=== PATIENT | male | born 1950 | race Caucasian/White ===

== ENCOUNTER 2016-10-08 20:54 | Inpatient (IN) | payer BC, OTHER ==
[~2016-10-08] VITALS: Ht 167.6 cm; Wt 83.2 kg
[~2016-10-08 20:54] MED LIST: ALLO100T PO; ASPI81TA28 PO; GLIP5TAB11 PO; METF-384 PO; METO50TA16 PO; REPA0.5T PO; SIMV80TA2 PO; TRIA37.5 PO
[2016-10-08] MEDS ORDERED: METOPROLOL TARTRATE 1 MG/ML VIAL IV STA (21:18)
[2016-10-08] MEDS ORDERED: ASPIRIN 81 MG CHEW PO STA (21:18)
[2016-10-08] MEDS ORDERED: PANTOprazole INJ 40 MG in SYRINGE 0 ML IV ONE (21:30)
--- NOTE | 2016-10-08 21:35 | EMERGENCY ROOM VISIT NOTE ---
History Report prepared by Valerie: Parish Galeano Under the Supervision of: Dr. Anil Rodriguez D.O. First contact with patient: 21:16 Chief Complaint: CHEST PAIN Stated Complaint: CHEST PAIN Nursing Triage Summary: Patient ambulatory to triage, states "I had triple bypass surgery in [place] in July. I have been doing well. On Monday, I started having intermittent chest pains in the center of my chest. I started Cardiac Rehab on Monday. I told them about the chest pains I have been having. They ran some tests on me and everything checked out okay. I am still having the pains; it's like a pressure that builds up from the inside. I have noticed that when I belch, the pain eases up some. Tonight, we were out at dinner and I had some beers. I noticed that the pain started coming back and getting worse." Patient denies taking anything for the chest pain this evening. Patient denies any radiation of the pain. Patient denies any shortness of breath, nausea, lightheadedness. Patient has a history of HTN and his blood pressure is high in triage. Right arm 214/121. Left arm in triage note. History of Present Illness The patient is a 66 year old male who presents to the Emergency Room with complaints of persistent left-sided chest discomfort that started 45 minutes prior to arrival. The patient notes that he was resting when the discomfort started. He notes that the discomfort radiates up to his neck and was relieved with belching. He notes at this time the discomfort is resolved. Earlier today, the patient had 7 beers and ate dinner out but the discomfort didn't start until after he returned home. He notes that he had this same discomfort earlier today and 5 days ago and it went away after belching. The patient denies abdominal pain, nausea, vomiting, shortness of breath, or back pain. He has a history of open heart surgery in July. He took his blood pressure medications this morning. Source of History: patient Onset: 45 minutes ago Position: chest (left) Timing: other (persistent) Modifying Factors (Relieving): other (belching) Associated Symptoms: No SOB, No abdominal pain, No back pain, No nausea, No vomiting Note: Other associated symptoms: radiation to neck Review of Systems See HPI for pertinent positives & negatives. A total of 10 systems reviewed and were otherwise negative. Past Medical & Surgical Medical Problems: (1) CHEST PAIN, CAD,DM2 (2) Diabetes (3) NSTEMI, DM2, ART. HTN Family History Patient reports no known family medical history. Social History Smoking Status: Former Smoker Alcohol Use: occasionally Marital Status: Housing Status: lives with significant other Current/Historical Medications Scheduled Allopurinol (Zyloprim), 100 MG PO DAILY Aspirin (Aspirin Ec), 81 MG PO HS Clopidogrel (Plavix), 75 MG PO DAILY Glipizide (Glucotrol), 5 MG PO BID Metformin Hcl (Glucophage), 1,000 MG PO BID Metoprolol Tartrate (Lopressor) (Lopressor), 50 MG PO BID Repaglinide (Prandin), 0.5 MG PO AC Simvastatin (Zocor), 80 MG PO QPM Triamterene/Hctz (Dyazide 37.5MG/25MG), 1 TAB PO DAILY Allergies Coded Allergies: No Known Allergies (Unverified , 07/15/16) Physical Exam Vital Signs Date Time Temp Pulse Resp B/P Pulse Ox O2 Delivery O2 Flow Rate FiO2 10/09/16 00:18 76 19 97 Room Air 10/09/16 00:03 71 18 99 10/08/16 23:58 157/83 10/08/16 23:48 66 20 96 10/08/16 23:43 146/89 10/08/16 23:33 64 17 97 10/08/16 23:28 156/89 10/08/16 23:24 66 20 95 Room Air 10/08/16 23:14 158/107 10/08/16 23:09 67 16 97 10/08/16 22:59 139/81 10/08/16 22:54 68 18 96 10/08/16 22:43 167/88 10/08/16 22:39 67 23 96 10/08/16 22:28 145/81 10/08/16 22:24 66 17 96 10/08/16 22:13 147/88 10/08/16 22:09 67 22 97 10/08/16 22:00 70 20 155/86 98 Room Air 10/08/16 21:58 155/86 10/08/16 21:54 71 22 96 10/08/16 21:44 147/107 10/08/16 21:39 76 21 96 10/08/16 21:33 165/92 10/08/16 21:33 Room Air 10/08/16 21:32 163/96 10/08/16 21:30 80 189/138 10/08/16 21:24 85 23 100 10/08/16 21:21 189/138 10/08/16 21:16 86 10/08/16 21:12 225/126 10/08/16 21:03 97 Room Air 10/08/16 21:01 36.8 92 16 238/121 97 Room Air Physical Exam GENERAL: Patient is awake alert in no acute distress patient is resting comfortably and showing no signs of anxiety EYES: The conjunctivae were injected bilaterally. The pupils are equal round and reactive to light. EARS, NOSE, MOUTH AND THROAT: The nose is without any evidence of any deformity. Mucous membranes are moist tongue is midline NECK: The neck is nontender and supple. RESPIRATORY: Normal respiratory effort is noted there is no evidence of wheezing rhonchi or rales CARDIOVASCULAR: Regular rate and rhythm noted there no murmurs rubs or gallops normal S1 normal S2 GASTROINTESTINAL: The abdomen is soft. Bowel sounds are present in all quadrants. Abdomen is nontender MUSCULOSKELETAL/EXTREMITIES: There is no evidence of gross deformity full range of motion is noted in the hips and shoulders SKIN: There is no obvious evidence of any rash. There are no petechiae, pallor or cyanosis noted. NEUROLOGIC: Patient is awake alert and oriented x3 strength is symmetric patellar reflexes are 2+ bilaterally Medical Decision & Procedures ER Provider Diagnostic Interpretation: X-ray results as stated below per interpretation by me and the radiologist. CHEST ONE VIEW PORTABLE HISTORY: Atypical CHEST PAIN COMPARISON: Chest 07/15/2016. FINDINGS: There are low lung volumes. The cardiac silhouette is mildly enlarged. This is likely accentuated by the low lung volumes. The lungs are clear. No pleural effusions. No pneumothorax. IMPRESSION: Mild enlargement of the cardiac silhouette which is likely accentuated by the low lung volumes. Otherwise, no acute process within the chest. Electronically signed by: Abraham Michelle M.D. 10/08/2016 10:27 PM Dictated Date/Time: 10/08/2016 10:25 PM Laboratory Results Test 10/08/16 21:20 Total Bilirubin 0.2 mg/dl (0.2-1) Direct Bilirubin < 0.1 mg/dl (0-0.2) Aspartate Amino Transf (AST/SGOT) 16 U/L (15-37) Alanine Aminotransferase (ALT/SGPT) 13 U/L (12-78) Alkaline Phosphatase 61 U/L (45-117) Total Protein 8.7 gm/dl (6.4-8.2) Albumin 4.3 gm/dl (3.4-5.0) Laboratory results per my review. Medications Administered Medications (Trade) Dose Ordered Sig/Diana Route Start Time Stop Time Status Last Admin Dose Admin Aspirin 324 mg 324 mg NOW STAT PO 10/08/16 21:18 10/08/16 21:20 DC 10/08/16 21:30 324 MG Pantoprazole Sodium/Syringe (Protonix Inj/ Syringe) 10 ml @ 5 mls/min NOW ONCE IV 10/08/16 21:30 10/08/16 21:31 DC 10/08/16 21:59 5 MLS/MIN Metoprolol Tartrate (Lopressor Iv) 15 mg NOW STAT IV 10/08/16 21:18 10/08/16 21:21 DC 10/08/16 21:30 5 MG ECG Indication: chest pain Rate (beats per minute): 93 Rhythm: normal sinus Findings: ST depression (Inferior and lateral), other (LVH was noted by voltage criteria ) Change: Changes are new when compared to July 16, 2016. Repeat EKG: Normal Sinus Rhythm with a rate of 65. No ectopy, Biphase T-waves in anterior leads with T-wave inversion noted in the lateral leads. Improvement of the previous noted ST depressions. Changes are still new compared to July 16, 2016. ED Course 2116: The patient was evaluated in room B4. A complete history and physical examination were performed. 2117: Ordered Lopressor Iv 15 mg IV, Aspirin 324 mg PO. 2129: Ordered Pantoprazole Sodium 40 mg/ Syringe 10 ml @ 5 mls/min IV. 6: At this time, I discussed the patient's case with Dr. Winters- [employer] [facility] and he agreed to evaluate the patient in the ED for further management. Medical Decision Differential diagnosis: Etiologies such as cardiac ischemia, aortic dissection, pulmonary embolism, pneumonia, pneumothorax, musculoskeletal, infections, pericarditis, myocarditis , esophageal rupture, gastrointestinal, as well as others were entertained. Nursing notes reviewed. Patient's previous electronic medical records reviewed. The patient is a 66-year-old male who presented to the emergency department for an evaluation of left-sided chest pain. The patient states that he was having left-sided chest pain which he described as a pressure. He noted some discomfort in his anterior neck. The patient was found have very elevated blood pressure as well as an abnormal EKG. His EKG showed ST segment depressions compared to previous EKG however the patient had coronary artery bypass grafting last fall and it is possible the changes today are secondary to his post procedure tracing. The patient was treated with aspirin and his blood pressure was lowered using Lopressor IV. The patient had significant relief of his chest pain. The patient's repeat EKG showed improvement of the ST segment depressions but had new T-wave inversions noted. Given the patient's dynamic EKG changes as well as his past medical history I discussed the patient's case with his primary care physician. I discussed the patient's laboratory and radiographic studies with him and his significant other. I also discussed the limitations of the emergency department workup for chest pain with him. Consults Time Called: [phone] Consulting Physician: Dr. Winters - [employer] [facility] Returned Call: [phone] At this time, I discussed the patient's case with Dr. Winters and he agreed to evaluate the patient in the ED for further management. Impression Primary Impression: Left sided chest pain Additional Impression: Abnormal EKG Scribe Attestation The scribe's documentation has been prepared under my direction and personally reviewed by me in its entirety. I confirm that the note above accurately reflects all work, treatment, procedures, and medical decision making performed by me. Departure Information Dispostion Being Evaluated By Hospitalist Referrals Carson Madrigal M.D. (PCP)
[2016-10-08 21:38] LABS: BASO % 0.5 %; BASO ABS # 0.03 K/uL (0-0.2); COMPLETE YES; EOS % 2.7 %; HEMATOCRIT 43.3 % (42-52); IG% 0.2 %; LYMPH % 41.7 %; LYMPH ABS # 2.45 K/uL (1.2-3.4); MEAN CELL VOLUME 88.7 fL (80-100); MEAN CORPUSCULAR HEMOGLOBIN 30.3 pg (25-34); MEAN CORPUSCULAR HGB CONC 34.2 g/dl (32-36); MEAN PLATELET VOLUME 10.6 fL (7.4-10.4); MONO % 7.8 %; NEUT % 47.1 %; PLATELET COUNT 180 K/uL (130-400); RED BLOOD COUNT 4.88 M/uL (4.7-6.1); WHITE BLOOD COUNT 5.87 K/uL (4.8-10.8)
[2016-10-08] MEDS ORDERED: CLOP1TAB15 PO (21:44)
[2016-10-08 22:13] LABS: ALT/SGPT 13 U/L (12-78); BLOOD UREA NITROGEN 24 mg/dl (7-18); BUN/CREATININE RATIO 19.8 (10-20); CALCIUM 9.2 mg/dl (8.5-10.1); CARBON DIOXIDE 27 mmol/L (21-32); CHLORIDE 102 mmol/L (98-107); GLUCOSE 161 mg/dl (70-99); POTASSIUM 3.3 mmol/L (3.5-5.1); SODIUM 139 mmol/L (136-145)
[2016-10-08 22:18] LABS: ALKALINE PHOSPHATASE 61 U/L (45-117); AST/SGOT 16 U/L (15-37); CKMB/CK RATIO 1.1 (0-3.0)
--- NOTE | 2016-10-08 22:28 | DIAGNOSTIC IMAGING REPORT ---
CHEST ONE VIEW PORTABLE HISTORY: Atypical CHEST PAIN COMPARISON: Chest 07/15/2016. FINDINGS: There are low lung volumes. The cardiac silhouette is mildly enlarged. This is likely accentuated by the low lung volumes. The lungs are clear. No pleural effusions. No pneumothorax. IMPRESSION: Mild enlargement of the cardiac silhouette which is likely accentuated by the low lung volumes. Otherwise, no acute process within the chest. Electronically signed by: Abraham Michelle M.D. 10/08/2016 10:27 PM Dictated Date/Time: 10/08/2016 10:25 PM
[2016-10-08 23:39] LABS: AMYLASE 124 U/L (25-115)
[2016-10-09] VITALS (12 sets, daily range): BP systolic 132–208; BP diastolic 74–111; PULSE 63–73; TEMP 36.3–36.6; O2SAT 95–99; Ht 167.6 cm; Wt 83.2 kg
[2016-10-09] MEDS ORDERED: MoRPHine SULFATE 2 MG/ML CARP IV PRN (00:30)
[2016-10-09] MEDS ORDERED: NITROGLYCERIN 0.4 MG SL PER TAB CHARGE SL PRN (00:30)
[2016-10-09] MEDS ORDERED: HEPARIN SOD (PORCINE) 1000 UNIT/ML 10 ML VIAL IV STA (00:51)
[2016-10-09] MEDS: HEPARIN 25,000 UNIT/500ML D5W 500 ML IV PRN ×3 (01:08→20:58)
[2016-10-09 01:16] LABS: PARTIAL THROMBOPLASTIN RATIO 1.1; PROTHROMBIN TIME (PATIENT) 10.2 SECONDS (9.0-12.0)
[2016-10-09] MEDS ORDERED: NITROGLYCERIN OINT 2% 1GM PACKET ONE (01:24)
[2016-10-09] MEDS ORDERED: LORAZEPAM 0.5 MG TAB SL ONE (02:00)
[2016-10-09] MEDS ORDERED: METOPROLOL TARTRATE 50 MG TAB PO STA (02:02)
[2016-10-09] MEDS: HydrALAZINE HCL 20 MG/ML VIAL IV. PRN (02:09)
[2016-10-09] MEDS ORDERED: DEXTROSE 50% 50 ML SYR IV PRN (02:15)
[2016-10-09] MEDS ORDERED: GLUCOSE 10 TABS/TUBE PO PRN (02:15)
[2016-10-09] MEDS ORDERED: GLUCOSE 40% GEL 15 GM TUBE PO PRN (02:15)
[2016-10-09] MEDS ORDERED: GLUCAGON FOR INJ 1 MG VIAL SQ PRN (02:15)
[2016-10-09] MEDS: NSS + 20MEQ KCL 1000ML 1,000 ML IV SCH ×2 (02:23→15:40)
[2016-10-09] MEDS ORDERED: PNEUMOCOCCAL POLYSACCHARIDES 25 MCG/0.5 ML VIAL/SYR IM. ONE (02:30)
[2016-10-09] MEDS ORDERED: PNEUMOCOCCAL ADMINISTRATION CHARGE ONE (02:30)
[2016-10-09 03:19] LABS: CKMB/CK RATIO 3.4 (0-3.0)
--- NOTE | 2016-10-09 03:55 | HISTORY & PHYSICAL EXAMINATION ---
DATE OF ADMISSION: 10/09/2016 A 66-year-old male admitted through the Emergency Room with recurrent episodes of chest pain, known coronary artery disease and history of 3-vessel coronary artery bypass graft in July 2016. HISTORY OF PRESENT ILLNESS: The patient with multiple medical problems including arterial hypertension, type 2 diabetes mellitus, hyperlipidemia and gout. He presented on 07/15/2016 with recurrent episodes of chest pain. He had a non-ST segment elevation myocardial infarction. He had a cardiac catheterization done by Dr. Juan Eisenberg. It showed evidence of a 70% long diffuse stenosis of the proximal to mid LAD, 95% stenosis of his distal circumflex and 100% occlusion of his right coronary artery with collateral circulation. The patient was transferred to [facility]. On 07/19/2016, he had a 3-vessel coronary artery bypass graft done by Dr. Jah Brantley. He had a MEDINA to LAD and saphenous vein graft to the distal right coronary artery with endarterectomy and also a saphenous vein graft to his circumflex. He also had endoscopic vein harvesting. The patient has been doing well since his bypass surgery. He has not had any recurrent chest pain. He has been seen by Dr. Eisenberg in cardiology followup. He is undergoing cardiac rehabilitation. The patient presented to the Emergency Room tonight with recurrent chest pain. Actually, the problem started this past Monday and he had an episode of chest pressure and tightness that lasted about 5-10 minutes. It was at rest. He denied any associated shortness of breath, no diaphoresis, no nausea, no vomiting and no lightheadedness. On Monday, which is four days ago, he went to cardiac rehabilitation. He told the nurse at the cardiac rehabilitation about the episode of chest discomfort that he had and they did call Dr. Eisenberg' office. On he had another episode, but he described it as very mild. No associated symptoms and was not associated with any exertion. On Monday, he went back to cardiac rehabilitation and he went through his exercises; he denied having any as chest discomfort, pressure, tightness or any shortness of breath. Today, after breakfast, he had another episode of chest pressure, but was very short-lasting. None throughout the day, until this evening, around 7:00 p.m. they went to a restaurant and had seafood and also from the afternoon till this evening he had 6 beers. After he ate dinner they drove to his daughter's house which was about 1 hour away and when he got to the garage he was having recurrent chest pain. It was persistent; more intense than it was before. He decided to drive home, they live about 20 hours away from his daughter's house, but he decided to have his drive him to the Emergency Room because this time the episode lasted a little over half an hour. He denied any diaphoresis, denied any shortness of breath. No nausea, no vomiting. No lightheadedness. He was still having pain even after he arrived to the Emergency Room. His blood pressure was markedly elevated. He was evaluated by Dr. Rodriguez. His blood pressure was markedly elevated, but it came down gradually in the Emergency Room, he became pain-free. I saw the patient in the Emergency Room. He was resting comfortably. His workup was initiated. He is being admitted to PCU with telemetry for further evaluation and treatment. PAST MEDICAL HISTORY: 1. As noted above he does have coronary artery disease with non-ST segment elevation myocardial infarction in July of 2016 followed by a 3-vessel coronary artery bypass graft with MEDINA to LAD and saphenous vein graft to the distal RCA with endarterectomy and saphenous vein graft to the circumflex artery. 2. Type 2 diabetes mellitus, longstanding. He is on a triple drug regimen of oral hypoglycemics. 3. Arterial hypertension, longstanding, treated. 4. Hyperlipidemia, also treated, he is on the maximum dose of simvastatin 80 mg daily. 5. History of gout, no recent acute inflammation. 6. Herniated L3-L4 disc in 2012; he had epidural injections done by Dr. Mesa. SOCIAL HISTORY: He is , has 4 children. He did smoke cigars 1-2 per day. He started smoking about 40 years ago. He was also chewing tobacco. He stopped chewing and started smoking. He also has a history of cigarette smoking in the remote past in his younger years, but now he has stopped completely since his myocardial infarction and bypass surgery. He does drink alcohol intermittently. As an example, he stated that today he had a total of about 6 beers; he does not do that on a daily basis. No excessive coffee, tea or soft drinks. 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 FAMILY HISTORY: His mother is 89, doing well. She does have kidney disease; not sure, but he thought it was medication induced. She is doing well. His father of colon cancer and liver metastases. He did have an UT at age 42. He had 2 brothers and 4 sisters, doing well. Children, doing well. ALLERGIES: None. MEDICATIONS ON ADMISSION: All as noted on his home medication list. REVIEW OF SYSTEMS: At this point, he is resting comfortably. He has no headache, no dizziness, no lightheadedness. No chest discomfort whatsoever at this point. No shortness of breath. No abdominal pain, no nausea, no vomiting. Has not had any problem with his bowel movements or urination. No pain in his back or extremities. PHYSICAL EXAMINATION: GENERAL: Well-developed, in no distress. His recorded weight is 86.5 kg, height 172.7 cm, BMI 29. VITAL SIGNS: On arrival to the Emergency Room, his blood pressure was 225/126, he was medicated, it gradually came down. The last blood pressure is 155/86, pulse 70 and regular, respirations 20, temperature 36.8 and oxygen saturation 98% on room air. SKIN: Warm and dry. No rash. HEENT: No mucosal abnormalities. NECK: Supple. Nontender. No adenopathy, no thyromegaly. No JVD. Normal carotid pulses. No carotid bruits. CHEST: Scar from bypass surgery. HEART: Regular heart sounds with 2/6 systolic murmur. LUNGS: Clear. ABDOMEN: Soft, nontender, without organomegaly or masses. BACK: No spinal tenderness. EXTREMITIES: No edema, clubbing or cyanosis. No joint or muscle tenderness. Absent right dorsalis pedis pulse. The rest of his pedal pulses were excellent. NEUROLOGIC: He is alert and oriented without evidence of any deficits. LABORATORY TESTS: WBC count 5870, hemoglobin 14.8, hematocrit 43.3, platelet count 180,000. Sodium 139, potassium 3.3, chloride 102, CO2 27, BUN 24, creatinine 1.2, glucose 161, calcium 9.2, total bilirubin 0.2, direct bilirubin less than 0.1, AST 16, ALT 13, alkaline phosphatase 61, amylase 124, lipase 428, total CK 138, MB fraction 1.5, troponin I 0.026, total protein 8.7, albumin 4.3. His PT and PTT are pending. His chest x-ray showed post-surgical changes. Mild enlargement of the cardiac silhouette, but this is a portable view. No acute changes are noted. His electrocardiogram is abnormal showing significant ST-T wave changes in the lateral leads. ASSESSMENT: 1. Chest pain, consistent with angina pectoris. 2. Coronary artery disease. 3. Status post 3-vessel coronary artery bypass graft on 07/19/2016 with left internal mammary artery to left anterior descending, saphenous vein graft to the distal right coronary artery and another saphenous vein graft to the circumflex. 4. Arterial hypertension. 5. Hyperlipidemia. 6. Type 2 diabetes mellitus. 7. Gout. PLAN: The patient was seen in the Emergency Room. After I saw him, he was started on IV heparin. He is continued on his medications including his aspirin, Plavix, simvastatin and metoprolol tartrate. He was started on heparin with a bolus, continued on his medications. Cardiac isoenzymes and serial electrocardiograms were ordered. We will obtain an echocardiogram first thing in the morning. He was placed on a sliding scale coverage with insulin. All his oral hypoglycemics are held. He was started on IV fluids with potassium chloride to correct his hypokalemia. As far as his cardiac workup, cardiac isoenzymes and serial electrocardiograms were ordered. I also spoke with Dr. Bala Dubon. I will keep the patient n.p.o. after midnight except for sips and medications. We will monitor his condition through the night. We will repeat his electrocardiogram in the morning. Dr. Dubon will see him in the morning. I spoke with him tonight. We need to decide whether the patient will have a cardiac catheterization needed to be done here at our hospital or transferring the patient to [facility]. I will wait for Dr. Dubon's recommendation and evaluation. At this time, the patient is quite stable. He was also started on topical nitrates. MTDD
[2016-10-09 06:36] LABS: BASO % 0.4 %; BASO ABS # 0.02 K/uL (0-0.2); COMPLETE YES; EOS % 3.4 %; HEMATOCRIT 38.8 % (42-52); IG% 0.2 %; LYMPH % 33.6 %; LYMPH ABS # 1.79 K/uL (1.2-3.4); MEAN CELL VOLUME 87.8 fL (80-100); MEAN CORPUSCULAR HEMOGLOBIN 29.6 pg (25-34); MEAN CORPUSCULAR HGB CONC 33.8 g/dl (32-36); MONO % 8.1 %; NEUT % 54.3 %; PLATELET COUNT 164 K/uL (130-400); RED BLOOD COUNT 4.42 M/uL (4.7-6.1); WHITE BLOOD COUNT 5.33 K/uL (4.8-10.8)
[2016-10-09 06:56] LABS: PARTIAL THROMBOPLASTIN RATIO 2.5
[2016-10-09 07:04] LABS: CALCIUM 8.3 mg/dl (8.5-10.1); MAGNESIUM 1.8 mg/dl (1.8-2.4); POTASSIUM 3.8 mmol/L (3.5-5.1)
[2016-10-09] MEDS: INSULIN ASPART 100 UNITS/ML 3 ML PEN SC SCH ×4 (08:03→21:00)
[2016-10-09] MEDS: NITROGLYCERIN OINT 2% 1GM PACKET EXT SCH ×3 (08:03→20:07)
[2016-10-09] MEDS: METOPROLOL TARTRATE 50 MG TAB PO SCH ×2 (08:04→20:10)
[2016-10-09] MEDS: ASPIRIN 81 MG ECTAB PO SCH (08:04)
[2016-10-09] MEDS: CLOPIDOGREL BISULFATE 75 MG TAB PO SCH (08:05)
[2016-10-09] MEDS: ALLOPURINOL 100 MG TAB PO SCH (08:05)
[2016-10-09 09:35] LABS: CKMB/CK RATIO 4.3 (0-3.0)
[2016-10-09] MEDS ORDERED: PERFLUTREN LIPID MICROSPHERE (DEFINITY) IV ONE (10:35)
[2016-10-09] MEDS ORDERED: LISINOPRIL 5 MG TAB PO ONE (11:00)
--- NOTE | 2016-10-09 11:36 | ECHOCARDIOGRAM REPORT ---
*NOTICE TO RECEIVING [employer] This information is strictly Confidential and protected under [place] law. [place] law prohibits you from making any further disclosure of this information unless further disclosure is expressly permitted by the written consent of the person to whom it pertains or is authorized by law. A general authorization for the release of medical or other information is not sufficient for this purpose. Hospital accepts no responsibility if the information is made available to any other person, INCLUDING THE PATIENT. Interpretation Summary * Name: ALPHONSO BRYANT Study Date: 10/09/2016 09:27 AM * Patient Location: 2\S\S240\S\2 * : 1950 (M/d/yyyy) Gender: Male Height: 66 in * Age: 66 yrs Ethnicity: [place] Weight: 188 lb * Ordering Physician: Bala Dubon * Referring Physician: Self, Referred * Performed By: Alphonso Rousseau RDCS * Account# M\S\[facility]\S\To be read/performed by: * Reason For Study: Chest discomfort, AMI * BSA: 1.9 m2 -- Conclusions -- * LVEF 50-55%. * Basal inferior wall hypokinesis with normal mid and distal inferior wall motion. Hypokinetic septal segments consistent with postoperative status. * Severe concentric left ventricular hypertrophy similar to previously. * The left atrium is moderately dilated. * Mild valvular aortic stenosis versus heavy sclerosis. * Right ventricular systolic pressure is normal. * Grade I diastolic dysfunction, (abnormal relaxation pattern). Procedure Details * A complete two-dimensional transthoracic echocardiogram was performed (2D, M-mode, Doppler and color flow Doppler). * The study was technically adequate. * Contrast was injected into an intravenous site in the left arm. * One vial of Definity ultrasound contrast was diluted in normal saline to a total volume of 10 ml. A total of '4' ml of solution was administered during imaging. * Lot # [id number] of Definity utilized for procedure. * Expiration date . * The attending nurse who injected the contrast agent was JENY Howe. Left Ventricle * The left ventricle is grossly normal size. * There is severe concentric left ventricular hypertrophy. * Ejection Fraction = 50-55%. * Septal motion is consistent with post-operative state. Right Ventricle * The right ventricle is grossly normal size. * The right ventricular systolic function is normal. Atria * The left atrium is moderately dilated. * Right atrial size is normal. Mitral Valve * There is mild mitral annular calcification. * There is no mitral valve stenosis. * There is mild mitral regurgitation. Tricuspid Valve * The tricuspid valve is not well visualized. * Significant tricuspid regurgitation is absent. * There is trace tricuspid regurgitation. * Right ventricular systolic pressure is normal. Aortic Valve * Mild valvular aortic stenosis. * There is no significant aortic regurgitation. Pulmonic Valve * The pulmonic valve is not well visualized. * There is no significant pulmonary regurgitation. * Mild pulmonic valvular regurgitation. Left Ventricular Diastolic Function * Grade I diastolic dysfunction, (abnormal relaxation pattern). MMode 2D Measurements and Calculations IVSd 1.9 cm IVSs 2.5 cm LVIDd 5.2 cm LVIDs 3.2 cm LVPWd 1.8 cm LVPWs 2.1 cm IVS/LVPW 1.0 FS 38.5 % EDV(Teich) 129.3 ml ESV(Teich) 40.9 ml EF(Teich) 68.4 % EDV(cubed) 140.4 ml ESV(cubed) 32.7 ml EF(cubed) 76.7 % % IVS thick 36.8 % % LVPW thick 19.0 % LV mass(C)d 456.4 grams LV mass(C)dI 234.3 grams/m\S\2 LV mass(C)s 375.7 grams LV mass(C)sI 192.9 grams/m\S\2 SV(Teich) 88.4 ml SI(Teich) 45.4 ml/m\S\2 SV(cubed) 107.6 ml SI(cubed) 55.2 ml/m\S\2 EPSS 0.63 cm Ao root diam 2.9 cm Ao root area 6.8 cm\S\2 ACS 0.78 cm LA dimension 5.3 cm asc Aorta Diam 3.5 cm LA/Ao 1.8 LVOT diam 2.1 cm LVOT area 3.4 cm\S\2 LVOT area(traced) 3.5 cm\S\2 LVAd ap4 42.6 cm\S\2 LVLd ap4 10.0 cm EDV(MOD-sp4) 148.0 ml LVAs ap4 24.4 cm\S\2 LVLs ap4 7.6 cm ESV(MOD-sp4) 64.0 ml EF(MOD-sp4) 56.8 % LVAd ap2 32.1 cm\S\2 LVLd ap2 7.6 cm EDV(MOD-sp2) 112.0 ml LVAs ap2 20.3 cm\S\2 LVLs ap2 7.2 cm ESV(MOD-sp2) 50.0 ml EF(MOD-sp2) 55.4 % SV(MOD-sp4) 84.0 ml SI(MOD-sp4) 43.1 ml/m\S\2 SV(MOD-sp2) 62.0 ml SI(MOD-sp2) 31.8 ml/m\S\2 Doppler Measurements and Calculations MV E max beck 51.3 cm/sec MV A max beck 60.2 cm/sec MV E/A 0.85 MV dec time 0.32 sec Ao V2 max 218.1 cm/sec Ao max PG 19.0 mmHg Ao max PG (full) 16.6 mmHg Ao V2 mean 157.0 cm/sec Ao mean PG 10.9 mmHg Ao mean PG (full) 9.6 mmHg Ao V2 VTI 48.4 cm EDU(I,A) 1.2 cm\S\2 EDU(I,D) 1.2 cm\S\2 EDU(V,A) 1.2 cm\S\2 EDU(V,D) 1.2 cm\S\2 LV V1 max PG 2.5 mmHg LV V1 mean PG 1.3 mmHg LV V1 max 78.5 cm/sec LV V1 mean 51.3 cm/sec LV V1 VTI 17.5 cm SV(Ao) 330.3 ml SI(Ao) 169.5 ml/m\S\2 SV(LVOT) 60.0 ml SI(LVOT) 30.8 ml/m\S\2 PA V2 max 150.4 cm/sec PA max PG 9.0 mmHg PI end-d beck 136.3 cm/sec
--- NOTE | 2016-10-09 11:54 | CARDIOLOGY CONSULTATION ---
DATE OF CONSULTATION: 10/09/2016 REASON FOR CONSULTATION: Non-ST elevation [place]. HISTORY OF PRESENT ILLNESS: Alphonso is a 66-year-old male with a known coronary artery disease. In July 2016, he had chest discomfort and underwent cardiac catheterization with multivessel disease and was sent for coronary artery bypass grafting. On 07/19/2016, he underwent 3-vessel bypass at [facility]. He has done well, but over the last week, he has had chest discomfort mostly with minimal to no exertion. He had been doing cardiac rehabilitation with minimal to no symptoms and most of his symptoms occurred at rest. Yesterday, he was out to dinner and developed chest discomfort in the middle of the day, it dissipated and then later came back and did not go away after one half hour and therefore, he presented to the Emergency Room. Troponins are noted to be elevated with some ECG changes as well. Currently, the patient is chest pain free. With his chest discomfort yesterday and during the past week, he denied any associated symptoms. Denied any shortness of breath, nausea, vomiting, radiation, syncope, bleeding, lightheadedness, or presyncopal symptoms. Denies any edema and is overall doing well. No tenderness to palpation on his chest. During his cardiac rehabilitation sessions, he had done relatively well and 2 days ago, even with increased the aggressiveness of his rehabilitation without developing symptoms. That being said, his troponin is now elevated. He is symptom free on his medical regimen at this time. He was noted to be hypertensive overnight, which resolved quickly with hydralazine as well as time. I had a discussion with him today as well as his family at bedside. I also discussed the case with Dr. Winters and all are in agreement of the plan as listed below. REVIEW OF SYSTEMS: All other systems are reviewed and negative at this time. PAST MEDICAL HISTORY: Coronary artery disease with history of revascularization. Diabetes mellitus, hypertension, hyperlipidemia, history of gout, and back issues with a history of epidural injections. Previous tobacco abuse, which he has since quit. He has social alcohol use. He had 6 beers yesterday. PAST SURGICAL HISTORY: 1. CABG in July 2016 with MEDINA-LAD, SVG-RCA, and SVG-left circumflex. 2. Epidural injections with Dr. Mesa for herniated disk in the lumbar spine in 2012. ALLERGIES: Denies. SOCIAL HISTORY: Prior tobacco abuse. Currently, negative for tobacco and drug use. He has social alcohol use. FAMILY HISTORY: Noncontributory given his own disease, but positive for premature coronary artery disease. IMMUNIZATIONS: Unknown. INPATIENT MEDICATIONS: Include saline, nitroglycerin ointment, aspirin, Plavix, metoprolol tartrate 50 mg twice daily, simvastatin 80 mg nightly, insulin sliding scale, heparin drip, and hydralazine as needed, which he did take last night. I have added lisinopril 5 mg to his medical regimen. He has been on aspirin and Plavix previously at home because of his recent non-ST elevation [place]. PHYSICAL EXAMINATION: VITAL SIGNS: Temperature 36.6, pulse 70, respiratory rate 20, blood pressure 148/78, and oxygen saturation 97% and 99% on 2 liters. GENERAL: He is awake, alert, and oriented x3, in no acute distress. Normocephalic and atraumatic. NECK: No jugular venous distention. No carotid bruits. HEART: Rate is regular with a 2/6 systolic murmur heard best at the sternal border with no radiation. No other murmurs, rubs or gallops. LUNGS: Clear to auscultation bilaterally with no wheezes, rales or rhonchi. ABDOMEN: Soft, nontender, and nondistended with positive bowel sounds. No rebound or guarding. No tenderness to palpation of the chest. EXTREMITIES: No edema in all 4 extremities. Radial pulses are 2+ equal bilaterally. Dorsalis pedis 1+ equal bilaterally. No catheter. NEUROLOGIC: No focal neurological deficits. Mood and personality are appropriate and he answers all questions appropriately. LABORATORY DATA: White count 5, hemoglobin 13.1, and platelets 164. INR 1. Potassium 3.8, BUN 19, creatinine 1, and glucose 150. Troponin trend has been 0.026, 0.731, and 1.6. Chest x-ray personally reviewed with no acute disease. Electrocardiogram personally reviewed: Sinus rhythm with T-wave abnormalities anterolaterally. Echocardiogram 07/16/2016, which was prior to his coronary artery bypass grafting. EF 50%-55% with severe LVH. Hypokinetic basal inferior and basal inferolateral segments. Mild aortic stenosis, which is a trileaflet valve and restriction of the left coronary cusp. Diastolic dysfunction is also present. Per the report, aortic valve gradient at that time shows a max pressure gradient of 12.3. Echocardiogram is pending. Cardiac catheterization 07/16/2016: Right radial access. Dr. Eisenberg performed the procedure. Left main calcified. LAD heavily calcified with 70% diffuse long proximal to mid stenosis. Distal LAD 40%. Left circumflex is calcified with 30% mid disease. A moderate sized OM3 with 95% proximal stenosis. RCA is dominant, heavily calcified with a chronically occluded 100% mid segment occlusion. Left to right collateral fills the right-sided posterolateral branches. He was therefore sent for a coronary artery bypass graft, which he received 3 bypasses on 07/19/2016. IMPRESSION: 1. Non-ST elevation myocardial infarction. 2. Coronary artery disease with a history of CABG in July 2016. 3. Hypertension. 4. Hyperlipidemia. 5. Diabetes mellitus. 6. Previous tobacco abuse. RECOMMENDATIONS: Alphonso is a 66-year-old male with known coronary artery disease. Troponin is elevated and continues to rise. He is currently asymptomatic and tolerating his medical regimen, which includes aspirin, Plavix, beta ramesh, nitro, and heparin drip. I am adding lisinopril to his medical regimen. I recommend cardiac catheterization and he is agreeable for this plan. We need to visualize his bypass grafts as well as his mechoopda coronary arteries to determine if there is an etiology for this discomfort and whether or not any revascularization or stenting needs to be performed. He understands the risk of the procedures as we discussed this in detail. A redo-left radial or femoral access can be obtained and we will leave that up to the track hoe operator, who will be performing the procedure tomorrow. If he would develop any significant symptoms or hemodynamic instability, we can perform the procedure sooner in a more emergent situation. RONDA
--- NOTE | 2016-10-09 16:50 | PROGRESS NOTE ---
DATE: 10/09/2016 HISTORY OF PRESENT ILLNESS: A 66-year-old male admitted with recurrent chest pain. He does have coronary artery disease. In July of 2016, he had a non-ST segment elevation myocardial infarction. He had multivessel coronary artery disease and was transferred to [facility] where he had a 3-vessel coronary artery bypass graft with MEDINA to LAD and saphenous vein graft to his RCA and another saphenous vein graft to the circumflex. The patient was complaining of chest pain. He was evaluated in the Emergency Room. He does have new EKG changes in the lateral leads. His first troponin I was normal but the second one did increase to 0.731 and the third one early this morning was up to 1.6. The patient remains completely pain free. He denied any headache. No dizziness. No lightheadedness. No chest pain. No chest pressure or tightness. No shortness of breath. No abdominal pain, no nausea, no vomiting. No problem urinating. No pain in his back or extremities. The patient was seen early this morning by Dr. Bala Dubon. An echocardiogram was ordered. Dr. Dubon had a long discussion with the patient and his family and a cardiac catheterization was recommended. PHYSICAL EXAMINATION: GENERAL: Well developed, in no distress. VITAL SIGNS: Blood pressure 148/78, pulse 70, respiration 20, temperature 36.6, oxygen saturation 97% on room air. SKIN: Warm and dry. No rash. HEENT: No evidence of any mucosal abnormality. NECK: No JVD. No adenopathy. HEART: Regular heart sounds with 2/6 systolic murmur. LUNGS: Clear. ABDOMEN: Soft, nontender. No organomegaly. No masses. BACK: No spinal tenderness. EXTREMITIES: No edema, clubbing, or cyanosis. TODAY'S LABORATORY TESTS: WBC count 5330, hemoglobin 13.1, hematocrit 38.8 and platelet count 164,000. Sodium 140, potassium 3.8, chloride 107, CO2 24, BUN 19, creatinine 1.0, glucose 150, calcium 8.3, magnesium 1.8. Amylase 95, lipase 317. ASSESSMENT: 1. Non-ST segment elevation myocardial infarction. 2. Coronary artery disease. 3. Status post 3-vessel coronary artery bypass grafting in July of 2016. 4. Type 2 diabetes mellitus. 5. Arterial hypertension. 6. History of gout. 7. History of smoking. PLAN: 1. We will continue the same medications including IV heparin. 2. As noted, he was seen in consultation by Dr. Dubon. 3. We are planning on doing a cardiac catheterization tomorrow by Dr. Jones. 4. Based on those results, further treatment recommendations will be made. 5. I spoke with the patient and his family this morning.
[2016-10-09 16:58] LABS: CKMB/CK RATIO 3.4 (0-3.0)
[2016-10-09] MEDS: SIMVASTATIN 80 MG TAB PO SCH (20:10)
[2016-10-10] VITALS (18 sets, daily range): BP systolic 129–172; BP diastolic 75–97; PULSE 55–78; TEMP 36.5–36.9; O2SAT 92–98
[2016-10-10] MEDS: NITROGLYCERIN OINT 2% 1GM PACKET EXT SCH ×4 (02:09→20:17)
[2016-10-10] MEDS: NSS + 20MEQ KCL 1000ML 1,000 ML IV SCH (04:33)
[2016-10-10 07:28] LABS: MEAN CELL VOLUME 87.6 fL (80-100); MEAN CORPUSCULAR HEMOGLOBIN 29.3 pg (25-34); MEAN CORPUSCULAR HGB CONC 33.4 g/dl (32-36); PLATELET COUNT 148 K/uL (130-400); RED BLOOD COUNT 4.34 M/uL (4.7-6.1)
[2016-10-10] MEDS: ASPIRIN 81 MG ECTAB PO SCH (07:46)
[2016-10-10] MEDS: LISINOPRIL 5 MG TAB PO SCH (07:46)
[2016-10-10] MEDS: METOPROLOL TARTRATE 50 MG TAB PO SCH ×2 (07:47→20:16)
[2016-10-10] MEDS: CLOPIDOGREL BISULFATE 75 MG TAB PO SCH (07:47)
[2016-10-10] MEDS: ALLOPURINOL 100 MG TAB PO SCH (07:47)
[2016-10-10] MEDS: INSULIN ASPART 100 UNITS/ML 3 ML PEN SC SCH ×4 (07:50→20:24)
[2016-10-10 07:55] LABS: BUN/CREATININE RATIO 15.5 (10-20); CALCIUM 8.3 mg/dl (8.5-10.1); CREATININE 1.1 mg/dl (0.60-1.40); POTASSIUM 4.1 mmol/L (3.5-5.1)
[2016-10-10] MEDS ORDERED: HEPARIN SOD (PORCINE) 1000 UNIT/ML 10 ML VIAL ONE (10:48)
[2016-10-10] MEDS ORDERED: NiCARDipine HCL INJ 2.5 MG/ML 10 ML AMP ONE (10:48)
[2016-10-10] MEDS ORDERED: MIDAZOLAM HCL 1 MG/ML 2ML VIAL ONE ×2 (10:48→12:10)
[2016-10-10] MEDS ORDERED: FENTANYL CITRATE INJ 50 MCG/1 ML 2 ML VIAL ONE ×2 (10:49→12:10)
[2016-10-10] MEDS ORDERED: NITROGLYCERIN/D5W 100MCG/ML 20ML SYR ONE (10:50)
--- NOTE | 2016-10-10 11:04 | Procedure Note ---
Pre-Mod Sedation Assessment General Date of Moderate Sedation: Oct 10, 2016. Vital Signs: Vital Signs Past 12 Hours Date Time Temp Pulse Resp B/P Pulse Ox O2 Delivery O2 Flow Rate FiO2 10/10/16 10:03 36.7 76 19 129/75 97 Room Air 10/10/16 08:07 36.7 76 19 129/75 97 Room Air 10/10/16 08:00 Room Air 10/10/16 04:34 97 Nasal Cannula 10/10/16 03:00 36.5 71 20 150/77 98 Room Air 10/10/16 00:04 97 Nasal Cannula 10/09/16 23:19 36.6 67 18 132/81 97 Room Air Review Cardiovascular: regular rate, rhythm, + systolic murmur Abdomen: normal bowel sounds, non tender, soft Lungs: lungs clear Pre-Sedation Airway Assessment Oral Cavity: WNL Able to Visualize Vocal Cords: No Short Thick Neck: No Hx of Sleep Apnea: No Smoking Status: Former Smoker Mallampati Classification: Class III Procedure Planning Contraindications-for Mod Sed: None Yes Notes The planned sedation has been discussed with the patient and consent obtained. I have identified the patient, determined the appropriateness of sedation and have assessed the patient immediately prior to the procedure. All medicine(s) and interventions are by my order.
[2016-10-10] MEDS ORDERED: LIDOCAINE/EPINEPHRINE 1% 20 ML VIAL ONE (12:09)
[2016-10-10] MEDS ORDERED: SODIUM CHLORIDE 0.9% 1000ML 250 ML IV PRN (12:46)
[2016-10-10] MEDS ORDERED: ATROPINE SULFATE 0.1 MG/ML 5ML SYR IV PRN (13:00)
[2016-10-10] MEDS ORDERED: ACETAMINOPHEN 325 MG TAB PO PRN (13:00)
[2016-10-10] MEDS ORDERED: ONDANSETRON INJ 2 MG/ML 2 ML VIAL IV PRN (13:00)
[2016-10-10] MEDS: SODIUM CHLORIDE 0.9% 1000ML 1,000 ML IV SCH (14:25)
--- NOTE | 2016-10-10 14:59 | Cardiac Catheterization ---
Procedure Note Procedure Date Oct 10, 2016. Pre-Procedure Diagnosis Non STEMI, CAD AUC Score 8 Post-Procedure Diagnosis Severe CAD, Decreased LV Systolic Function (LVEF 50%), Normal Intracardiac Pressures Procedure(s) Performed Coronary Angiography, Left Heart Cath, LV Angiography, Bypass Graft Angiography , Femoral Artery Angiography Base Wad Operator Adjuster Dr. Jones Body Maker Machine Setter(s) URVASHI Cavazos Estimated Blood Loss Medication(s) Fentanyl, Heparin, Versed, Lidocaine 1% Summary of Findings Clinical indications: History of non ST elevation myocardial infarction July 2016. Cardiac catheterization performed at [facility] July 16, [address] Juan Eisenberg revealed diffusely calcified proximal to mid LAD with a 70 percent stenosis, 95 percent proximal 3rd obtuse marginal stenosis, and a total mid RCA occlusion. Right to left and left to right collateral flow . He was referred to [facility] for CABG surgery. On July 19 3 vessel CABG surgery performed by Dr. Jah Brantley: Pruitt-Lad; SVG-RCA; SVG-left circumflex OM 3. admission to [facility] October 08 2 ceased 1017 with rest anginal symptoms. Troponin I elevated to 1.970. Electrocardiogram with anterior T-wave inversions V3-V6. Echocardiogram October 09, 2016 with basal inferior wall hypokinesis. Hypokinesis of the septum. Severe concentric LVH. Left ventricular diastolic dysfunction. Mild mitral and trace tricuspid regurgitation. Mild pulmonic regurgitation. Aortic valve sclerosis with minimal stenosis. Mean gradient across aortic valve 10.9 millimeters Hg. Catheterization site: 6 [place]ar[place]uan sheath right femoral artery. Diagnostic catheters: 6 [place]ar[place]uan JL4, JR4, multipurpose, and JON diagnostic catheters. Hemostasis: 6 [place]uan StarClose vascular closure device. Complications: None Interpretation: Fluoroscopy revealed coronary calcifications, surgical clips, sternal wire sutures. The proximal LAD and left circumflex coronary artery were heavily calcified. The coronary circulation was right dominant. The left main coronary was a large caliber long vessel without obstructive disease. It gave rise to medium caliber left anterior descending and left circumflex coronary arteries. The proximal LAD had a 30 percent stenosis. After a prominent septal perforators the mid LAD had sequential 30 in 50 percent stenoses. After giving rise to a bifurcating diagonal artery ,the mid LAD had competitive flow. There appeared to be a severe stenosis at this site. Left internal mammary artery bypass graft angiography revealed the vessel to be free of obstructive disease. It. gave rise to an end to side anastomosis to a small caliber latter mid LAD. There was a 70% anastomotic stenosis. Immediately after this anastomosis the LAD had a discrete 95 percent stenosis. The apical LAD had a 30 percent stenosis. The very proximal left circumflex gave rise to a long bifurcating small caliber 1st marginal artery. The 1st marginal had a 30 percent ostial stenosis and 50 percent proximal stenosis. The mid circumflex itself had sequential 30 in 75 percent stenoses. After giving rise to a small caliber 2nd marginal artery the circumflex gave rise to a 3rd marginal artery. Third marginal had a total proximal occlusion. The vein graft to the 3rd marginal had 20 percent ostial and proximal narrowing. The graft gave rise to a patent end to side anastomosis to the 3rd marginal. Distal to the anastomosis , the distal marginal had a 50 percent stenosis. The marginal filled via retrograde flow to its proximal segment. The right coronary was a medium caliber vessel. Sequential 75 in 50 percent proximal stenoses. After giving rise to 2 very small caliber RV branches the mid RCA was totally occluded. The 1st RV branch had an 80 percent ostial stenosis and 95-99 percent proximal stenosis. The vein graft to the RCA had a patent aortic an anastomosis. 20 percent proximal narrowing. 70 percent distal narrowing. The anastomotic site had a 90 percent stenosis. This was an end to side anastomosis. The distal RCA after the anastomosis had a 75 percent stenosis. The distal RCA gave rise to a small caliber PDA which had minor luminal irregularities. It gave rise to 2 very small caliber posterolateral branches each of which had 30 percent ostial stenoses. left ventricular angiography performed from the 30 degree right anterior oblique projection using the multipurpose catheter and hand injection of contrast dye revealed the posterior basal and diaphragmatic segments to be hypokinetic. The apical, anterolateral, anterobasal segments contracted normally. No mitral regurgitation. LV ejection fraction 50 percent. Right femoral artery angiography revealed the sheath to be present in the right common femoral artery. The right common femoral artery had no obstructive disease. It gave rise to right superficial femoral and profunda arteries. The profunda had 10-20 percent atherosclerotic narrowing in its proximal segment. The right external iliac artery had no obstructive disease. Plan: The patient has been referred to the [facility] for consideration of percutaneous coronary intervention to the LAD stenosis and to the anastomotic stenosis of the vein graft to the RCA. He will be placed back on intravenous heparin. He will remain on beta-ramesh, Lucio inhibitor, statin, and aspirin therapy. l Hemodynamics Rest Ao: 116/57/81 mm Hg Final Ao: 140/60/93 mm Hg LV: 129/10 mm Hg Recommendations PCI without planned CABG, management recommendations (Transfer to [facility] for consideration of PCI) Specimens None Radiation Exposure (mGy) 3608 Contrast (mls) 200 ml Optiray Fluids (cc crystalloids) 102 Drains none Anesthesia IV Versed, fentanyl. Lidocaine 1 % local Procedural Complication(s) None Disposition PCU ACC Data Cardiac Status Clinical evaluation leading to the procedure CAD Presntation: Unstable angina, Non STEMI Anginal Classification: CCS IV Heart Failure: No Cardiogenic Shock w/in 24Hrs: No Cardiac Arrest w/in 24Hrs: No Imaging studies past 6 months: Yes Stress studies past 6 months: No Standard Exercise Stress Test: No Stress Echocardiogram: No Stress Testing w/SPECT MPI: No Cardiac CTA: No Coronary Anatomy Dominant: Right Left Main (% Stenosis): Normal LAD (% Stenosis): Proximal (30), Mid (30.50.95), Distal (95% after graft anastomosis) Circumflex (% Stenosis): Mid (30,75) OM1 (% Stenosis): Ostial (30), Proximal (50) OM3 (% Stenosis): Proximal (100) RCA (% Stenosis): Proximal (75.50), Mid (100), Distal (95) R PDA (% Stenosis): Proximal (0-10), Mid R PL1 (% Stenosis): Proximal (10-20) R PL2 (% Stenosis): Proximal (10-20) Grafts - LAD (%): Ostial (0), Proximal (0), Mid (0), Distal (70% anastomotic ) Grafts - Circumflex (%): Ostial (10-20), Proximal (1020), Distal Grafts - RCA (%): Proximal (20), Distal (distal 70, distal end -side anastomosis 90%) Left Ventricular Angiography EF (%): 50 Wall Motion: Inferior (Hypokinetic), Apical (Normal), Anterior (Normal) Diagnostic Physician's Name: Grant Jones M.D. Status: Elective Closure Device Percutaneous Entry Location: Femoral Closure Device: StarClose Recommendations: PCI without planned CABG
[2016-10-10 15:11] LABS: PARTIAL THROMBOPLASTIN RATIO 1.2
[2016-10-10] MEDS: HydrALAZINE HCL 20 MG/ML VIAL IV. PRN (16:12)
[2016-10-10] MEDS: SIMVASTATIN 80 MG TAB PO SCH (20:16)
--- NOTE | 2016-10-10 20:49 | PROGRESS NOTE ---
DATE: 10/10/2016 A 66-year-old male, admitted with: 1. Non-ST segment elevation myocardial infarction. 2. Coronary artery disease. 3. Status post 3-vessel coronary artery bypass in July 2016. 4. Arterial hypertension. 5. Type 2 diabetes mellitus. 6. Hyperlipidemia. The patient was admitted. He was started on IV heparin. Topical nitrates. He was continued on his medications. He was seen in cardiology consultation by Dr. Dubon. The recommendation was to proceed with a cardiac catheterization. Overall, his condition remains stable since admission. He has not had any recurrent chest pain, no shortness of breath. No dizziness, no lightheadedness. No abdominal pain, no nausea, no vomiting. No pain in his back or extremities. I saw the patient this morning. He was kept n.p.o. in anticipation of cardiac catheterization today. Dr. Jones was able to perform his cardiac catheterization. Unfortunately, multiple abnormalities were noted with areas of severe coronary artery stenosis. He was not able to do any procedures and his recommendation is to transfer the patient back to [facility]. Dr. Jones already called [facility] and he spoke with Dr. Brooks. The patient was accepted to go to [facility] for further evaluation and treatment recommendation. Unfortunately, there has not been an available bed at [facility] today and he is on the list to be transferred whenever a bed becomes available. In the meantime, Mr. Cheatham is quite stable. PHYSICAL EXAMINATION: GENERAL: Well-developed, in no distress. VITAL SIGNS: Blood pressure 129/75, pulse 76, respirations 19, temperature 36.7 and oxygen saturation 97% on room air. This set of vitals is from early this morning. Throughout the day, he had multiple recordings of his blood pressure and has been elevated. SKIN: Warm and dry. No rash. HEENT: No mucosal abnormality. NECK: No JVD. No adenopathy. HEART: Regular heart sounds. LUNGS: Clear. ABDOMEN: Soft, nontender. BACK: No spinal tenderness. GROINS: The site of his cardiac catheterization looks fine. No evidence of any bleeding. EXTREMITIES: No edema, clubbing or cyanosis. TODAY'S LABORATORY TESTS: WBC count 5200, hemoglobin 12.7, hematocrit 38% and platelet count 148,000. Sodium 141, potassium 4.1, chloride 107, CO2 22, BUN 17, creatinine 1.1, glucose 153, calcium 8.3, troponin 0.959. ASSESSMENT: 1. Non-ST segment elevation myocardial infarction. 2. Severe occlusive coronary artery disease. 3. Status post 3-vessel coronary artery bypass graft in July 2016. He presented at that time with a non-ST segment elevation myocardial infarction. 4. Type 2 diabetes mellitus. 5. Arterial hypertension. 6. Hyperlipidemia. PLAN: 1. At this time, he is continued on his medications including his IV heparin. 2. The results of his cardiac catheterization were noted, reviewed. He does have severe disease. 3. As per Dr. Jones's recommendation, the patient will be transferred to [facility] for further evaluation and treatment recommendation.
[2016-10-10 22:53] LABS: PARTIAL THROMBOPLASTIN RATIO 1.8
[2016-10-10] MEDS ORDERED: HEPARIN IV BOLUS 3,000 UNIT in SYRINGE 0 ML IV STA (23:46)
[2016-10-11] MEDS: HEPARIN 25,000 UNIT/500ML D5W 500 ML IV PRN ×2 (00:09→06:42)
[2016-10-11] MEDS: SODIUM CHLORIDE 0.9% 1000ML 1,000 ML IV SCH (04:05)
[2016-10-11] MEDS: NITROGLYCERIN OINT 2% 1GM PACKET EXT SCH ×3 (04:05→14:12)
[2016-10-11 04:06] VITALS: BP 148/80; PULSE 76; TEMP 36.7; O2SAT 97
[2016-10-11] MEDS: ACETAMINOPHEN 325 MG TAB PO PRN ×2 (04:08→07:59)
[2016-10-11 06:28] LABS: PARTIAL THROMBOPLASTIN RATIO 2.7
[2016-10-11 07:38] VITALS: BP 156/87; PULSE 70; TEMP 36.8; O2SAT 96
[2016-10-11 08:00] VITALS: O2SAT 96
[2016-10-11] MEDS: METOPROLOL TARTRATE 50 MG TAB PO SCH (08:00)
[2016-10-11] MEDS: ASPIRIN 81 MG ECTAB PO SCH (08:00)
[2016-10-11] MEDS: CLOPIDOGREL BISULFATE 75 MG TAB PO SCH (08:00)
[2016-10-11] MEDS: LISINOPRIL 5 MG TAB PO SCH (08:00)
[2016-10-11] MEDS: ALLOPURINOL 100 MG TAB PO SCH (08:00)
[2016-10-11] MEDS: INSULIN ASPART 100 UNITS/ML 3 ML PEN SC SCH ×2 (08:06→12:03)
[2016-10-11 11:20] VITALS: BP 143/87; PULSE 69; TEMP 36.5; O2SAT 95
--- NOTE | 2016-10-11 13:09 | Cardiology Follow-Up ---
Subjective Subjective Date of Service: Oct 11, 2016. Pt evaluation today including: conversation w/ patient, physical exam, chart review, lab review, review of studies, conversation w/ retail client solutions consultant, review of inpatient medication list Additional Details: No recurrent chest pain overnight. Groin feels OK this AM. No other new complaints. No events on telemetry Reviewed cath films from yesterday -- severe disease distal to SVG-RCA anastomosis and focal disease distal to MEDINA-LAD anastomosis. Problem List Medical Problems: (1) Abnormal EKG Status: Acute (2) Left sided chest pain Status: Acute (3) Non-ST elevation MN (NSTEMI) Status: Acute Review of Systems Constitutional: No fever Eyes: No worsening of vision ENT: No hearing loss Respiratory: No cough Cardiac: No chest pain Abdomen: No nausea, No pain Male : No dysuria Neurologic: No memory loss Psychiatric: No depression symptoms Heme: No abnormal bleeding/bruising Endo: + fatigue Skin: No rash Objective Vital Signs Last Vital Signs Documentation Date Time Temp Pulse Resp B/P Pulse Ox O2 Delivery O2 Flow Rate FiO2 10/11/16 12:00 Room Air 10/11/16 11:20 36.5 69 22 143/87 95 10/10/16 12:15 3 Physical Exam: General Appearance: WD/WN, no apparent distress Eyes: bilateral eyes normal inspection ENT: hearing grossly normal Neck: no JVD Respiratory/Chest: lungs clear, normal breath sounds Cardiovascular: regular rate, rhythm, no edema, no JVD Abdomen: normal bowel sounds, soft Extremities: normal inspection, no pedal edema, + pertinent finding (No significant hematoma, bruits at right femoral artery access site) Neurologic/Psychiatric: alert, normal mood/affect Skin: normal color, warm/dry Assessment and Plan 1. NSTEMI 2. CAD s/ p 3v CABG with severe distal anastomosis disease involving MEDINA-LAD and SVG-RCA 3. HTN 4. DM Patient with complex anatomy distal to MEDINA-LAD and SVG-RCA anastomosis or coronary angiogram. Agree with plan for attempted high-risk PCI at tertiary center -- awaiting transfer to [facility] In interim continue heparin, ASA and plavix Continue nitrates, beta-ramesh and JANNY Continue high dose statin Medications: Current Inpatient Medications Medications (Trade) Dose Ordered Sig/Diana Route Start Time Stop Time Status Last Admin Dose Admin Acetaminophen (Tylenol Tab) 650 mg Q4H PRN PO 10/09/16 00:30 11/08/16 00:29 10/11/16 07:59 650 MG Nitroglycerin (Nitrostat Tab) 0.4 mg UD PRN SL 10/09/16 00:30 11/08/16 00:29 Nitroglycerin (Nitroglycerin 2% Oint) 1 inch Q6H EXT 10/09/16 08:00 11/08/16 07:59 10/11/16 07:59 1 INCH Morphine Sulfate (MoRPHine SULFATE INJ) 2 mg Q30M PRN IV 10/09/16 00:30 10/23/16 00:29 Aspirin (Ecotrin Tab) 81 mg QAM PO 10/09/16 09:00 11/08/16 08:59 10/11/16 08:00 81 MG Allopurinol (Zyloprim Tab) 100 mg DAILY PO 10/09/16 09:00 11/08/16 08:59 10/11/16 08:00 100 MG Clopidogrel Bisulfate (plAVix TAB) 75 mg DAILY PO 10/09/16 09:00 11/08/16 08:59 10/11/16 08:00 75 MG Metoprolol Tartrate (Lopressor Tab) 50 mg BID PO 10/09/16 09:00 11/08/16 08:59 10/11/16 08:00 50 MG Simvastatin (Zocor Tab) 80 mg QPM PO 10/09/16 21:00 11/08/16 20:59 10/10/16 20:16 80 MG Insulin Aspart SLIDING SCALE G... ACHS SC 10/09/16 07:00 11/08/16 06:59 10/11/16 12:03 8 UNITS Heparin Sodium/ Dextrose (Heparin 25,000 Unit/500ml D5W) 500 ml @ 25 mls/hr Q20H PRN IV 10/09/16 01:00 10/15/16 00:59 Future hold 10/11/16 06:42 25 MLS/HR Hydralazine HCl (HydrALAZINE INJ) 10 mg Q6H PRN IV. 10/09/16 02:00 11/08/16 01:59 10/10/16 16:12 10 MG Glucose (Glucose 40% Gel) 15-30 GRAMS 15 GRAMS... UD PRN PO 10/09/16 02:15 11/08/16 02:14 Glucose (Glucose Chew Tab) 4-8 Tablets 4 Tabl... UD PRN PO 10/09/16 02:15 11/08/16 02:14 Dextrose (Dextrose 50% 50ML Syringe) 25-50ML OF 50% DW IV FOR... UD PRN IV 10/09/16 02:15 11/08/16 02:14 Glucagon (Glucagon Inj) 1 mg UD PRN SQ 10/09/16 02:15 11/08/16 02:14 Lisinopril 5 mg 5 mg QAM PO 10/10/16 09:00 11/09/16 08:59 10/11/16 08:00 5 MG Sodium Chloride 1,000 ml @ 75 mls/hr [id number] IV 10/10/16 12:46 11/09/16 12:45 10/11/16 04:05 75 MLS/HR Sodium Chloride (Nss 1000ml) 250 ml @ 999 mls/hr Q16M PRN IV 10/10/16 12:46 11/09/16 12:45 Atropine Sulfate (Atropine Sulfate 0.1MG/Ml Inj) 0.6 mg PRN PRN IV 10/10/16 13:00 11/09/16 12:59 Ondansetron HCl (Zofran Inj) 4 mg Q6H PRN IV 10/10/16 13:00 11/09/16 12:59 Lab Results: Test 10/11/16 11:06 10/11/16 12:30 Bedside Glucose 230 mg/dl (70-99)
[2016-10-11 15:08] VITALS: BP 143/87; PULSE 69; TEMP 36.5; O2SAT 95
--- NOTE | 2016-10-11 15:22 | Discharge Instructions ---
Discharge Instructions Admission Reason for Admission: Chest Pain,Cad,Dm2 Discharge Discharge Diagnosis / Problem: NON ST ELEVATION MYOCARDIAL INFARCTION. CORONARY ARTERY DISEASE Discharge Goals Goal(s): Decrease discomfort, Improve function, Increase independence, Improve disease control Activity Recommendations Activity Limitations: as noted below (TO ) . Current Hospital Diet Patient's current hospital diet: AHA Diet (Heart Healthy), Diabetes Type 2 Diet Discharge Diet Recommended Diet: AHA Diet (Heart Healthy), Diabetes Type 2 Diet Pending Studies Studies pending at discharge: no Medical Emergencies . Who to Call and When: Medical Emergencies: If at any time you feel your situation is an emergency, please call 911 immediately. . Non-Emergent Contact Non-Emergency issues call your: Primary Care Provider . . "Provider Documentation" section prepared by Carson Winters. VTE Core Measure Inpt VTE Proph given/why not?: Other Anticoagulation
--- NOTE | 2016-10-11 22:15 | PROGRESS NOTE ---
DATE: 10/11/2016 A 66-year-old male with: 1. Non-ST segment elevation myocardial infarction. 2. Coronary artery disease. 3. Status post 3-vessel coronary artery bypass graft in July of 2016. 4. Arterial hypertension. 5. Hyperlipidemia. 6. Type 2 diabetes mellitus. 7. History of gout. 8. History of smoking. The patient was admitted. He was seen in cardiology consultation by Dr. Dubon. His troponin I did go up as high as 1.9. Dr. Jones did a cardiac catheterization yesterday. The patient showing evidence of severe multivessel coronary artery disease. Dr. Jones was not recommending doing any procedure here at [facility], and he recommended referring the patient back to [facility] for re-evaluation and decision as far as further treatment. The patient remained asymptomatic. He did not have any recurrent chest pain or shortness of breath. He was tolerating his diet. No nausea, no vomiting. No problem with his bowel movements or urination. No pain in his back or extremities. PHYSICAL EXAMINATION: GENERAL: Well developed, in no distress. VITAL SIGNS: Blood pressure 156/87, pulse 70, respirations 22, temperature 36.8, oxygen saturation 96% on room air. SKIN: Warm and dry. No rash. HEENT: No mucosal abnormality. NECK: No JVD, no adenopathy. HEART: Regular heart sounds. LUNGS: Clear. ABDOMEN: Soft, nontender. EXTREMITIES: No edema, clubbing, or cyanosis. ASSESSMENT: 1. Non-ST segment elevation myocardial infarction. 2. Diffuse coronary artery disease. 3. Status post 3-vessel coronary artery bypass. 4. Type 2 diabetes mellitus. 5. Arterial hypertension. 6. Hyperlipidemia. PLAN: 1. The patient is continued on his medications. He is on a full medical treatment, including beta-ramesh, aspirin, Plavix, heparin and topical nitrates. As noted, he was completely asymptomatic during his hospitalization. 2. Bed became available at [facility] today and arrangements were made for his transfer. 3. We will see what the recommendation is and what modality of treatment is going to be undertaken, and I will see him in the office after his return from [facility].
--- NOTE | 2016-10-23 23:28 | DISCHARGE SUMMARY ---
Patient was transferred to [facility]. DISCHARGE DIAGNOSES: 1. Acute non-ST segment elevation myocardial infarction. 2. Coronary artery disease, status post 3-vessel coronary artery bypass graft in July of 2016. 3. Arterial hypertension. 4. Hyperlipidemia. 5. Type 2 diabetes mellitus. HISTORY OF PRESENT ILLNESS: A 66-year-old male admitted through the Emergency Room with recurrent chest pain. He does have known coronary artery disease. He underwent a 3-vessel coronary artery bypass graft in July of 2016. He had a MEDINA to LAD and saphenous vein graft to the distal right coronary artery with endarterectomy and also saphenous vein graft to his circumflex artery. The patient has been doing well since his bypass surgery. He did not have any recurrent chest pain. He had been seen by Dr. Juan Eisenberg in cardiology. He presented to the Emergency Room with recurrent chest pain. His chest pain started on Monday, prior to his admission. He had an episode of chest pressure and tightness that lasted about 5-10 minutes. It was at rest. He denied any associated shortness of breath or diaphoresis. He has been going to cardiac rehabilitation. He was able to exercise without any chest pain, but his episodes of chest pain occurred repeatedly at rest. I saw the patient in the Emergency Room and he was admitted for further evaluation. PAST MEDICAL HISTORY, SOCIAL HISTORY AND FAMILY HISTORY: Were all as noted. ALLERGIES: None. MEDICATIONS ON ADMISSION: Were all as noted on his home medication list. PHYSICAL EXAMINATION AND ADMISSION LABORATORY TESTS: Were all as noted. HOSPITAL COURSE: The patient was admitted to PCU with telemetry. He was started on IV heparin in the Emergency Room. Cardiac isoenzymes and serial electrocardiograms were ordered. I spoke with Dr. Bala Dubon. The patient was to be kept n.p.o. after midnight and anticipating a cardiac catheterization. The procedure was done the following morning by Dr. Grant Jones. Multiple abnormalities were noted. Dr. Jones recommended that we transfer the patient back to [facility] because of the apparent complexity of the treatment needed. So, arrangements were made. There was no immediate bed available and we waited until the bed was available. In the meantime, the patient was completely asymptomatic. He did not have any recurrent chest pain. He was on maximum treatment with metoprolol, topical nitrates, IV heparin, Plavix and aspirin. The bed became available at [facility] and arrangements were made by ambulance.
== END 2016-10-11 15:35 | disposition short-term general hospital (02) | DRG 282 ==
LOC: ENRESERVTM → ENRESERVDT → C.EDB 20:55 → C.2T 10-09 00:35
PROVIDERS: ADMIT Internal Medicine; ATTEND Internal Medicine
PROC: B41F1ZZ Fluoroscopy of Right Lower Extremity Arteries using Low Osmolar Contrast (ICD-10-PCS; principal; 2016-10-10 09:30)
PROC: B2151ZZ Fluoroscopy of Left Heart using Low Osmolar Contrast (ICD-10-PCS; principal; 2016-10-10 09:30)
PROC: 4A023N7 Measurement of Cardiac Sampling and Pressure, Left Heart, Percutaneous Approach (ICD-10-PCS; principal; 2016-10-10 09:30)
PROC: B2111ZZ Fluoroscopy of Multiple Coronary Arteries using Low Osmolar Contrast (ICD-10-PCS; principal; 2016-10-10 09:30)
PROC: B2121ZZ Fluoroscopy of Single Coronary Artery Bypass Graft using Low Osmolar Contrast (ICD-10-PCS; principal; 2016-10-10 09:30)
DX: I21.4 Non-ST elevation (NSTEMI) myocardial infarction (principal); I25.119 Atherosclerotic heart disease of native coronary artery with unspecified angina pectoris; I10 Essential (primary) hypertension; E78.5 Hyperlipidemia, unspecified; Z95.1 Presence of aortocoronary bypass graft; Z87.891 Personal history of nicotine dependence; Z87.39 Personal history of other diseases of the musculoskeletal system and connective tissue; E11.9 Type 2 diabetes mellitus without complications; M51.27 Other intervertebral disc displacement, lumbosacral region; Z79.82 Long term (current) use of aspirin; Z79.02 Long term (current) use of antithrombotics/antiplatelets; Z79.84 Long term (current) use of oral hypoglycemic drugs

== ENCOUNTER → 2016-10-24 | Outpatient (CLI) | payer BC ==
[~2016-10-24] MED LIST changes: +CLOP1TAB15 PO; +GLC5 PO; -GLIP5TAB11 PO; +LPT40 PO; +LSN20 PO; -METF-384 PO; +METF1000 PO; +NTRSLP4 SL; -REPA0.5T PO; +REPA1TAB5 PO; +TPRSR50 PO; -TRIA37.5 PO
[2016-10-24 12:45] LABS: BLOOD UREA NITROGEN 23 mg/dl (7-18); BUN/CREATININE RATIO 20.8 (10-20); CARBON DIOXIDE 25 mmol/L (21-32); CHLORIDE 102 mmol/L (98-107); GLUCOSE 137 mg/dl (70-99); POTASSIUM 4.4 mmol/L (3.5-5.1); SODIUM 138 mmol/L (136-145)
== END | disposition home or self-care (01) ==
LOC: C.LABSPEC 12:22
PROVIDERS: ATTEND Internal Medicine
DX: I25.10 Atherosclerotic heart disease of native coronary artery without angina pectoris (principal)

== ENCOUNTER 2016-12-17 22:54 | Inpatient (IN) | payer BC, OTHER ==
[~2016-12-17] VITALS: Ht 172.7 cm; Wt 87.0 kg
[~2016-12-17 22:54] MED LIST changes: -GLC5 PO; -LPT40 PO; -LSN20 PO; -METF1000 PO; -NTRSLP4 SL; -REPA1TAB5 PO; -TPRSR50 PO
[2016-12-18 00:08] LABS: BASO % 0.2 %; BASO ABS # 0.01 K/uL (0-0.2); COMPLETE YES; EOS % 2.3 %; HEMATOCRIT 37.1 % (42-52); IG% 0.2 %; LYMPH % 34.9 %; LYMPH ABS # 1.86 K/uL (1.2-3.4); MEAN CELL VOLUME 88.3 fL (80-100); MEAN CORPUSCULAR HEMOGLOBIN 30.2 pg (25-34); MEAN CORPUSCULAR HGB CONC 34.2 g/dl (32-36); MEAN PLATELET VOLUME 10.3 fL (7.4-10.4); MONO % 7.1 %; NEUT % 55.3 %; PLATELET COUNT 163 K/uL (130-400); WHITE BLOOD COUNT 5.33 K/uL (4.8-10.8)
[2016-12-18 00:17] LABS: ALT/SGPT 24 U/L (12-78); AST/SGOT 20 U/L (15-37); BLOOD UREA NITROGEN 26 mg/dl (7-18); BUN/CREATININE RATIO 21.7 (10-20); CALCIUM 8.6 mg/dl (8.5-10.1); CARBON DIOXIDE 26 mmol/L (21-32); CHLORIDE 106 mmol/L (98-107); GLUCOSE 152 mg/dl (70-99); POTASSIUM 3.9 mmol/L (3.5-5.1); SODIUM 142 mmol/L (136-145)
[2016-12-18 00:25] LABS: ALKALINE PHOSPHATASE 59 U/L (45-117); CKMB/CK RATIO 1.3 (0-3.0)
[2016-12-18] MEDS ORDERED: LORAZEPAM 0.5 MG TAB PO PRN (01:00)
[2016-12-18] MEDS ORDERED: MoRPHine SULFATE 2 MG/ML CARP IV PRN (01:00)
[2016-12-18] MEDS ORDERED: NITROGLYCERIN 0.4 MG SL PER TAB CHARGE SL PRN (01:00)
[2016-12-18] MEDS ORDERED: ACETAMINOPHEN 325 MG TAB PO PRN (01:00)
[2016-12-18] MEDS ORDERED: NITROGLYCERIN OINT 2% 1GM PACKET ONE (01:41)
[2016-12-18 02:28] VITALS: BP 139/85; PULSE 68; TEMP 36.3; O2SAT 94; Ht 172.7 cm; Wt 87.0 kg
[2016-12-18] MEDS ORDERED: DEXTROSE 50% 50 ML SYR IV PRN (02:30)
[2016-12-18] MEDS ORDERED: GLUCOSE 10 TABS/TUBE PO PRN (02:30)
[2016-12-18] MEDS ORDERED: GLUCAGON FOR INJ 1 MG VIAL SQ PRN (02:30)
[2016-12-18] MEDS ORDERED: GLUCOSE 40% GEL 15 GM TUBE PO PRN (02:30)
--- NOTE | 2016-12-18 03:30 | EMERGENCY ROOM VISIT NOTE ---
History Report prepared by Valerie: Parish Galeano Under the Supervision of: Dr. Charlene Interiano D.O. First contact with patient: 23:40 Chief Complaint: CHEST PAIN Stated Complaint: CHEST PAIN Nursing Triage Summary: patient presents with history of cabg (07/2016) and cardiac stents x 2 (10/2016) patient has been having chest pain intermittenly all day today and yesterday states he has taken three nitroglycerin with relief of chest pain tonight prior to coming to the emergency department History of Present Illness The patient is a 66 year old male who presents to the Emergency Room with complaints of persistent chest pain that started yesterday. The patient notes that yesterday, he started feeling the chest pain and he took Nitro. The discomfort resolved. A few hours later, he had another episode of chest pain and took Nitro again which helped resolve his symptoms again. Today, the patient tried to take it easy. He went to [place] and out to eat and then noticed the chest pain coming back. He had 2 episodes of chest pain and took Nitro for both of them. However, the chest pain came back a third time this evening and he decided to present to the ED for further evaluation after taking the 3rd Nitro dose. The first episode of chest pain that occurred tonight started about 4 hours ago. The patient notes that the episodes start with mild chest discomfort and build-up gradually. He notes shortness of breath and radiation to his neck during these episodes, but denies nausea and diaphoresis. The patient had three-vessel CABG in July. He had 2 stents placed just last month after the graft's failed. The patient is currently on Plavix. Source of History: patient Onset: yesterday Position: chest Timing: other (persistent) Associated Symptoms: + SOB, + neck pain (radiation to neck), No diaphoresis , No nausea Review of Systems See HPI for pertinent positives & negatives. A total of 10 systems reviewed and were otherwise negative. Past Medical & Surgical Medical Problems: (1) CHEST PAIN, CAD,DM2 (2) CHEST PAIN,CAD,ELEV.TROPONIN (3) Diabetes (4) NSTEMI, DM2, ART. HTN Family History Patient reports no known family medical history. Social History Smoking Status: Never Smoker Alcohol Use: occasionally Marital Status: Housing Status: lives with significant other Current/Historical Medications Scheduled Allopurinol (Zyloprim), 100 MG PO DAILY Aspirin (Aspirin Ec), 81 MG PO HS Clopidogrel (Plavix), 75 MG PO DAILY Metoprolol Tartrate (Lopressor) (Lopressor), 50 MG PO BID Simvastatin (Zocor), 80 MG PO QPM Allergies Coded Allergies: No Known Allergies (Unverified , 07/15/16) Physical Exam Vital Signs Date Time Temp Pulse Resp B/P Pulse Ox O2 Delivery O2 Flow Rate FiO2 12/18/16 01:39 70 16 157/74 96 12/18/16 00:16 67 20 151/78 97 Room Air 12/17/16 23:20 97 Room Air 12/17/16 23:19 75 12/17/16 23:18 96 Room Air 12/17/16 23:04 36.4 86 20 133/70 96 Room Air Physical Exam HEENT: Head - normocephalic and atraumatic Pupils are equal, round, and reactive to light. Extraocular eye muscles are intact, and sclera are anicteric. Nose - moist nasal mucosa without discharge. Mouth - moist buccal mucosa. Oropharynx is nonerythematous and there is no tonsillar exudate or edema noted. Neck: Supple; no JVD, nuchal rigidity, cervical lymphadenopathy. Heart: Regular rate and rhythm. There is a normal S1 and S2 with no murmurs, clicks, or gallops appreciated. Lungs: Clear to auscultation bilaterally with no wheezes, rales, or rhonchi. Abdomen: Soft, completely nontender, nondistended, with good bowel sounds. There are no palpable pulsatile masses or hepatosplenomegaly. There is no guarding, rigidity, or rebound noted. Extremities: No evidence of cyanosis, clubbing, or edema. There are easily palpable peripheral pulses. Skin: warm and dry with good turgor and no rashes. Medical Decision & Procedures ER Provider Diagnostic Interpretation: X-ray results as stated below per interpretation by me and the radiologist: Chest X-Ray: Enlarged cardiac silhouette, sternotomy wires in place, no pulmonary findings. Laboratory Results 12/17/16 23:20 Red Blood Count 4.20, Mean Corpuscular Volume 88.3, Mean Corpuscular Hemoglobin 30.2, Mean Corpuscular Hemoglobin Concent 34.2, Mean Platelet Volume 10.3, Neutrophils (%) (Auto) 55.3, Lymphocytes (%) (Auto) 34.9, Monocytes (%) (Auto) 7.1, Eosinophils (%) (Auto) 2.3, Basophils (%) (Auto) 0.2, Neutrophils # (Auto) 2.95, Lymphocytes # (Auto) 1.86, Monocytes # (Auto) 0.38, Eosinophils # (Auto) 0.12, Basophils # (Auto) 0.01 12/17/16 23:20 Test 12/17/16 23:20 White Blood Count 5.33 K/uL (4.8-10.8) Red Blood Count 4.20 M/uL (4.7-6.1) Hemoglobin 12.7 g/dL (14.0-18.0) Hematocrit 37.1 % (42-52) Mean Corpuscular Volume 88.3 fL (80-100) Mean Corpuscular Hemoglobin 30.2 pg (25-34) Mean Corpuscular Hemoglobin Concent 34.2 g/dl (32-36) Platelet Count 163 K/uL (130-400) Mean Platelet Volume 10.3 fL (7.4-10.4) Neutrophils (%) (Auto) 55.3 % Lymphocytes (%) (Auto) 34.9 % Monocytes (%) (Auto) 7.1 % Eosinophils (%) (Auto) 2.3 % Basophils (%) (Auto) 0.2 % Neutrophils # (Auto) 2.95 K/uL (1.4-6.5) Lymphocytes # (Auto) 1.86 K/uL (1.2-3.4) Monocytes # (Auto) 0.38 K/uL (0.11-0.59) Eosinophils # (Auto) 0.12 K/uL (0-0.5) Basophils # (Auto) 0.01 K/uL (0-0.2) RDW Standard Deviation 45.3 fL (36.4-46.3) RDW Coefficient of Variation 14.0 % (11.5-14.5) Immature Granulocyte % (Auto) 0.2 % Immature Granulocyte # (Auto) 0.01 K/uL (0.00-0.02) Anion Gap 10.0 mmol/L (3-11) Est Creatinine Clear Calc Drug Dose 64.5 ml/min Estimated GFR () 72.6 Estimated GFR (Non- 62.6 BUN/Creatinine Ratio 21.7 (10-20) Calcium Level 8.6 mg/dl (8.5-10.1) Total Bilirubin 0.2 mg/dl (0.2-1) Direct Bilirubin < 0.1 mg/dl (0-0.2) Aspartate Amino Transf (AST/SGOT) 20 U/L (15-37) Alanine Aminotransferase (ALT/SGPT) 24 U/L (12-78) Alkaline Phosphatase 59 U/L (45-117) Total Creatine Kinase 115 U/L (39-308) Creatine Kinase MB 1.5 ng/ml (0.5-3.6) Creatine Kinase MB Ratio 1.3 (0-3.0) Troponin I 0.120 ng/ml (0-0.045) Pro-B-Type Natriuretic Peptide 685 pg/ml (0-900) Total Protein 7.6 gm/dl (6.4-8.2) Albumin 3.6 gm/dl (3.4-5.0) Medications Administered Medications (Trade) Dose Ordered Sig/Diana Route Start Time Stop Time Status Last Admin Dose Admin Nitroglycerin (Nitroglycerin 2% Oint) 1 inch Riskified-MED ONCE .ROUTE 12/18/16 01:41 12/18/16 01:44 DC 12/18/16 01:47 1 INCH ECG Indication: chest pain Rate (beats per minute): 66 Rhythm: normal sinus Findings: no acute ischemic change, no ectopy Change: no significant change (when compared to October 2016) Change: Repeat EKG when patient was having 2 out of 10 pain with radiation to the neck: Normal sinus rhythm [address] segment depression in leads 1 and AVL. ED Course 2349: Past medical records reviewed. The patient was evaluated in room C8. A complete history and physical exam was performed. Laboratory studies were drawn as above. The patient was observed on the cash poster and pulse oximeter. He had a twelve-lead EKG obtained as described above. Patient had chest x-ray as described above. 2358: The patient described recurrence of chest discomfort that a 2/10. A second EKG was obtained while he was having pain. After the second EKG was obtained, the patient's chest pain resolved on its own. No nitroglycerin was administered. 0047: At this time, I reevaluated the patient and he is without chest pain. He feels good at this time. 0052: At this time, I discussed the patient's case with Dr. Winters - [facility] and he agreed to accept the patient for further evaluation. Medical Decision The patient is a 66 year old male who presents to the ED with chest pain. Differential diagnosis includes unstable angina, cardiac ischemia, GERD, costochondritis, or pleurisy. Labs reviewed by me: stable h&h, normal wbcs, 0.12 troponin, BUN 26, creatinine 1.2, glucose 152, LFTs, Normal BNP This is a 66-year-old male patient presents to the emergency department with stuttering episodes of chest discomfort. Patient underwent recent three-vessel CABG and cardiac catheterization with stent placement into of the grafts. He has had episodes of chest discomfort over the past 24 hours and hasn't elevated troponin. I have discussed the case with his PCP and he will be evaluated for further management. Consults Time Called: 46 Consulting Physician: Dr. Winters - [facility] Returned Call: [phone] At this time, I discussed the patient's case with Dr. Winters and he agreed to accept the patient for further evaluation. Impression Primary Impression: Non-STEMI (non-ST elevated myocardial infarction) Scribe Attestation The scribe's documentation has been prepared under my direction and personally reviewed by me in its entirety. I confirm that the note above accurately reflects all work, treatment, procedures, and medical decision making performed by me. Departure Information Dispostion Being Evaluated By Hospitalist Referrals Carson Madrigal M.D. (PCP)
--- NOTE | 2016-12-18 06:29 | DIAGNOSTIC IMAGING REPORT ---
CHEST ONE VIEW PORTABLE CLINICAL HISTORY: sob/cp dyspnea COMPARISON STUDY: 10/08/2016 FINDINGS: Mild stable cardiomegaly. Prior median sternotomy. Lungs are clear. IMPRESSION: Mild stable cardiomegaly. No acute process. Electronically signed by: Reed Merino M.D. 12/18/2016 6:28 AM Dictated Date/Time: 12/18/2016 6:27 AM
[2016-12-18 07:18] VITALS: BP 121/67; PULSE 65; TEMP 36.5; O2SAT 97
--- NOTE | 2016-12-18 07:18 | HISTORY & PHYSICAL EXAMINATION ---
DATE OF ADMISSION: 12/18/2016 A 66-year-old male, with known coronary artery disease admitted through the Emergency Room with recurrent episodes of chest pain and elevation of his troponin I. HISTORY OF PRESENT ILLNESS: The patient with coronary artery disease. He was admitted in July 2016 with chest pain. He had a non-ST segment elevation myocardial infarction. Cardiac catheterization was done by Dr. Eisenberg. It showed evidence of 70% long diffuse stenosis of the proximal to mid LAD, 95% stenosis of his distal circumflex and 100% occlusion of his right coronary artery with collateral circulation. The patient was transferred to [facility]. On 07/19/2016, he had a 3-vessel coronary artery bypass graft with MEDINA to LAD and saphenous vein graft to the distal right coronary artery with endarterectomy and also saphenous vein graft to his circumflex. Postoperatively, the patient was doing well. On 10/09/2016, he presented to the Emergency Room with recurrent chest pain. His workup at that time included a cardiac catheterization. Multiple abnormalities were noted as before, but also he had additional abnormality and the recommendation was to transfer the patient back to [facility], which was done. He underwent angioplasty procedure by Dr. Jarvis Joya. Since his last discharge from [facility], he has been doing well. He has not had any recurrent chest pain. He has been undergoing cardiac rehabilitation and doing quite well without any symptoms. On Monday night, he presented with an episode of left-sided chest pain radiating up to his neck. It was not associated with any exertion. It was more at rest. The pain was not associated with any shortness of breath or any diaphoresis. He took nitroglycerin. That resolved the pain. The whole episode lasted about 25 minutes. He did well until yesterday, Monday. In the evening, he had an episode of chest pain again with the same characteristics. Again, he took nitroglycerin with relief, but he went to bed and then he had another episode that occurred at rest. Again radiating up to his neck, mostly left-sided localization. No shortness of breath or any diaphoresis. No nausea. No dizziness or lightheadedness. The patient was brought to the Emergency Room by his family. His evaluation in the Emergency Room showed elevation of his troponin I to 0.12. While he was in the Emergency Room, he had another episode of chest pain and repeat electrocardiogram showed very subtle inferior wall changes. I saw the patient in the Emergency Room and he was admitted for further evaluation. PAST MEDICAL HISTORY: 1. Coronary artery disease as noted above. First episode of non-ST segment elevation myocardial infarction in July 2016 with subsequent cardiac catheterization and bypass surgery at [facility]. Recurrent chest pain after his bypass with repeat cardiac catheterization and another procedure at [facility] with stenting. 2. Type 2 diabetes mellitus, longstanding. On oral hypoglycemics. 3. Arterial hypertension, also longstanding. Treated. 4. Hyperlipidemia. Treated. 5. History of gout. He has had multiple acute episodes. He is on allopurinol. 6. Herniated L3-L4 disc in 2002, treated with epidural injections by Dr. Fredy Mesa. SOCIAL HISTORY: He is . Had 4 children. He did smoke cigars 1-2 per day. He smoked about 40 years. He also was chewing tobacco. He stopped chewing and started smoking. He also has a history of cigarette smoking in the remote past in younger years. At this point, he denied any alcohol. No excessive coffee, tea or soft drinks. 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 FAMILY HISTORY: His mother is close to 90 years old, doing well. His father of colon cancer and liver metastases. He did have an NM at age 42. He had 2 brothers and 4 sisters. Children are alive and well. ALLERGIES: None. MEDICATIONS ON ADMISSION: 1.metformin 1000 mg p.o. twice a day 2. Glipizide 5 mg tablets 2 tablets twice a day 3. Prandin 0.5 mg before meals 4. Atorvastatin 80 mg p.o. daily 5. Allopurinol 100 mg daily 6. Plavix 75 mg daily 7. Metoprolol succinate 50 mg daily 8. Lisinopril 10 mg p.o. daily 9. Aspirin 81 mg daily 10. Nitrostat 0.4 mg sublingually as needed for chest pain REVIEW OF SYSTEMS: At this time, he is resting comfortably. He denied any headache, dizziness or lightheadedness. No earache, no sore throat, no neck pain. No chest pain, pressure or tightness. No shortness of breath. No abdominal pain, no nausea, no vomiting. No problem with his bowel movements. No urinary problem. No pain in his back or extremities. PHYSICAL EXAMINATION: GENERAL: Well-developed, in no distress. His recorded weight is 85.8 kg, height 172.7 cm and BMI 28.8. VITAL SIGNS: Blood pressure 133/70, pulse 86, respirations 20, temperature 36.4 and oxygen saturation 96% on room air. SKIN: Warm and dry. No rash. HEENT: Eyes were normal. No mucosal abnormalities in his nose, mouth or throat. NECK: Supple. Nontender. No adenopathy, no thyromegaly. No JVD. Normal carotid pulses. No bruits. CHEST: Scar from prior bypass surgery. HEART: Regular heart sounds with 2/6 systolic murmur. No rub, no gallop. LUNGS: Clear. ABDOMEN: Soft, nontender, without organomegaly or masses. GROINS:left femoral bruit noted BACK: No spinal tenderness. EXTREMITIES: No edema, clubbing or cyanosis. No joint or muscle tenderness. Absent right dorsalis pedis pulse. The rest of his pedal pulses were normal. NEUROLOGIC: He is alert and oriented. There is no evidence of any deficits. LABORATORY TESTS: WBC count 5330, hemoglobin 12.7, hematocrit 37.1, platelet count 163,000. Sodium 142, potassium 3.9, chloride 106, CO2 26, BUN 26, creatinine 1.2, glucose 152, calcium 8.6, total bilirubin 0.2, AST 20, ALT 24, alkaline phosphatase 59, total CK 115, MB fraction 1.5, troponin I 0.12, ProBNP 685, total protein 7.6, albumin 3.6. His chest x-ray showed no evidence of any congestive heart failure. Postsurgical changes noted. His electrocardiogram showed a regular sinus rhythm. The first electrocardiogram was normal. The second electrocardiogram done with chest pain did show a very subtle ST segment depression in the lateral leads. ASSESSMENT: 1. Chest pain. 2. Coronary artery disease with history of 3-vessel coronary artery bypass and history of stenting procedure. 3. Elevated troponin I. 4. Arterial hypertension. 5. Type 2 diabetes mellitus. 6. Hyperlipidemia. 7. History of gout. 8. History of smoking. PLAN: The patient was admitted to PCU with telemetry. Resuscitation level 1. Laboratory tests were ordered. Cardiac isoenzymes and serial electrocardiograms were ordered. He was continued on his same medications. Nitropaste was added. We will wait for the rest of his cardiac isoenzymes. Cardiology consultation was requested. We will decide on what needs to be done as far as any additional testing. We will be adjusting his medications. He was placed on sliding scale coverage for his diabetes. RONDA
[2016-12-18 07:24] LABS: CKMB/CK RATIO 1.7 (0-3.0)
[2016-12-18 08:30] VITALS: BP 128/65; PULSE 69; TEMP 36.4; O2SAT 93
[2016-12-18] MEDS: INSULIN ASPART 100 UNITS/ML 3 ML PEN SC SCH ×4 (08:38→20:41)
[2016-12-18] MEDS: NITROGLYCERIN OINT 2% 1GM PACKET EXT SCH ×3 (08:41→20:39)
[2016-12-18] MEDS: ALLOPURINOL 100 MG TAB PO SCH (08:43)
[2016-12-18] MEDS: CLOPIDOGREL BISULFATE 75 MG TAB PO SCH (08:43)
[2016-12-18] MEDS ORDERED: METOPROLOL TARTRATE 50 MG TAB PO SCH (09:00)
[2016-12-18 11:46] VITALS: BP 134/78; PULSE 59; TEMP 36.5; O2SAT 94
[2016-12-18 12:45] LABS: CKMB/CK RATIO 1.1 (0-3.0)
--- NOTE | 2016-12-18 13:16 | CARDIOLOGY CONSULTATION ---
DATE OF CONSULTATION: 12/18/2016 DATE OF CONSULTATION: 12/18/2016. REFERRING PHYSICIAN: Dr. Carson Winters. HISTORY OF PRESENT ILLNESS: Mr. Alphonso Cheatham is a 66-year-old gentleman with a known history of coronary artery disease having previously undergone coronary artery bypass grafting in July of 2016. The patient reports being at home when he experienced the onset of substernal chest discomfort. This initially was fairly mild in nature but did have some radiation to the left pectoral area and eventually the neck. This episode did not involve significant breathing difficulty, sense of palpitations or dizziness. The patient administered 1 sublingual nitroglycerin with relief of the symptom. Later in the day again at rest, the patient experienced a second episode, this episode was similar in character, perhaps slightly more severe. It did initially improve with administration of a single nitroglycerin but not conrado entirely. The patient administered a second nitroglycerin with some response but persistent symptoms, at which point he summoned EMS and was brought to [facility] for further evaluation. By the time he reached the Emergency Room, the patient's chest pain had resolved. In general the patient has been feeling quite well recently. He has been participating in cardiac rehab without notable symptoms during exertion. In general, he does not describe symptoms of palpitations or breathing difficulty. He had some baseline dyspnea which he feels may have been worse since his bypass, but this has not changed recently. He does not describe orthopnea. He has not noticed any increased abdominal swelling or girth. He has not noticed any lower extremity edema. He did mention approximately 15-pound weight gain since his bypass surgery. He has not been dizzy, lightheaded, suffered orthostatic symptoms or syncopal episode. PAST MEDICAL HISTORY: 1. Significant for the aforementioned coronary artery disease status post 3-vessel coronary bypass grafting in July 2016. The patient underwent additional evaluation in October of this year after a non-ST elevation myocardial infarction to have revealed some anastomotic lesions at the site of his bypass grafting. The patient was transferred to [facility] at that time for percutaneous intervention which was reportedly successful. 2. Preserved left ventricular systolic function. 3. Diabetes mellitus type 2. 4. Hypertension. 5. Hyperlipidemia. 6. Gout. 7. History of left femoral AV fistula. PAST SURGICAL HISTORY: Coronary bypass grafting July 2016 [facility]. OUTPATIENT MEDICATIONS: Include allopurinol, aspirin, atorvastatin, clopidogrel, glipizide, lisinopril, metformin, metoprolol and Prandin. MEDICAL ALLERGIES: No known medical allergies. FAMILY HISTORY: The patient did have premature coronary disease in his father. SOCIAL HISTORY: The patient is currently and lives locally. He has a remote history of tobacco abuse but still smokes cigars on occasion. He denies heavy alcohol abuse. 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 REVIEW OF SYSTEMS: Complete 10 system review of systems was performed and the pertinent positives are noted in the history of present illness. The patient did not report any recent constitutional symptoms such as fevers or chills. He had a mild upper respiratory infection recently. He denies difficulty with eating or swallowing. He has not had any nausea or vomiting. The patient has not experienced any change in his bowel habits. No melena. He denies any swelling of his lower extremities. The remainder of the review of systems is notable in the history of present illness. PHYSICAL EXAMINATION: GENERAL: The patient did not appear to be in any acute distress. He is a pleasant individual who is alert and oriented. His mood and affect appear normal. He answered all questions appropriately. CURRENT VITAL SIGNS: Include blood pressure 134/78 with pulse of 59. HEAD, EYES, EARS, NOSE, AND THROAT: His sclerae are anicteric. Pupils are equal and reactive to light and accommodation. Extraocular movements were intact. Palpation of the submandibular region did not reveal any significant lymphadenopathy. The carotids are palpable bilaterally. There are no bruits on auscultation. I do not appreciate any jugular venous distention. Thyroid is not enlarged. Auscultation both lung angel reveal them to be clear. There were no rales, wheezes or rhonchi. He had normal respiratory effort without use of accessory muscles. CARDIAC EXAMINATION: Revealed him to be in a regular rhythm. S1, S2 were normal. There was a crescendo systolic murmur heard best at the right first intercostal space. PMI was not markedly displaced on palpation. ABDOMEN: Soft and nontender. EXTREMITIES: Evaluation both wrists revealed radial pulses that were equal in intensity. There was no evidence of cyanosis or clubbing. Evaluation of his femoral pulses reveal them to be normal in intensity. There was a bruit noted in the left femoral area. I did not appreciate any peripheral edema. There are no rashes noted on examination today. LABORATORY DATA: Laboratory studies obtained at [facility] include white cell count of 5, hemoglobin of 12.7, a platelet count of 163. Sodium is 142, potassium was 3.9, BUN was 26, creatinine was 1.2. Cardiac troponin was 0.12 and 0.14. A 12-lead EKG was obtained at the time of admission and then again shortly thereafter. This revealed a normal sinus rhythm with some fairly nonspecific ST and T-wave changes. Comparison to an old EKG did not suggest this differed from other reports. Single view chest x-ray was obtained at time of admission which did not reveal any acute process. I reviewed the patient's echocardiogram report from 10/09/2016. I reviewed the source images of the patient's recent angiography performed at [facility]. ASSESSMENT AND PLAN: 1. Non-ST elevation myocardial infarction. The patient does have elevated cardiac biomarkers suggestive of an element of cardiac injury. His symptoms are concerning for angina and coronary insufficiency based on their similarity to other events. The patient has a complex cardiac anatomy and there is some concern regarding presence of poorly revascularized areas even subsequent to his bypass and percutaneous intervention. The patient is currently pain free and being managed with topical nitrates. We will start heparin in the setting of slightly elevated biomarkers and his history of unstable symptoms, we will continue him on dual antiplatelet therapy and aggressive lipid intervention. At this point it is not clear whether the patient needs to proceed directly to repeat angiography. I think it would be reasonable based on his prior history to obtain perfusion imaging but to determine if large areas of myocardium are at risk and to guide therapy should the patient undergo intervention. 2. Left femoral AV fistula. The patient continues to have evidence of flow at this site on examination. It would be reasonable to repeat the femoral ultrasound, I will order this today. 3. Murmur. The patient is known to have an element of significant aortic sclerosis and mild stenosis on prior echocardiogram. There is also an element of left ventricular hypertrophy.
[2016-12-18] MEDS: ENOXAPARIN 100 MG/1ML SYR SQ SCH ×2 (13:34→22:54)
[2016-12-18 15:03] VITALS: BP 136/77; PULSE 56; TEMP 36.5; O2SAT 97
--- NOTE | 2016-12-18 17:17 | PROGRESS NOTE ---
DATE: 12/18/2016 A 66-year-old male, admitted with chest pain. He does have coronary artery disease. He is status post 3-vessel coronary artery bypass in July of 2016 with subsequent repeat cardiac catheterization and percutaneous procedure done in October of this year. The patient was admitted with chest pain. He had 3 recurrent episodes. He had evidence of elevation of his troponin I. Since admission, the patient remains completely pain free. He has not had any chest pain, no shortness of breath. No other complaints whatsoever. Cardiology consultation was requested on admission. PHYSICAL EXAMINATION: GENERAL: Well developed, in no distress. VITAL SIGNS: Blood pressure 128/65, pulse 69, respirations 18, temperature 36.4, oxygen saturation 93% on room air. SKIN: Warm and dry. No rash. HEENT: No mucosal abnormality. NECK: No JVD, no adenopathy. HEART: Regular heart sounds with 2/6 systolic murmur. LUNGS: Clear. ABDOMEN: Soft, nontender. EXTREMITIES: No edema, clubbing, or cyanosis. LABORATORY TESTS: His second troponin I was elevated to 0.148. ASSESSMENT: 1. Non-ST segment elevation myocardial infarction, as demonstrated by his elevated troponin I. 2. Coronary artery disease. 3. Type 2 diabetes mellitus. 4. Arterial hypertension. 5. Hyperlipidemia. PLAN: 1. As noted, patient was seen in cardiology consultation. He was seen by Dr. Short but also Dr. Eisenberg saw the patient. 2. Continuing the same medications. When I admitted him, I did not have his full medication list that he has been taking at home and I did check his office record and adjusted his medications to the way he was taking when he was just recently seen in the office. 3. The plan as it stands now is for the patient to be anticoagulated. Dr. Eisenberg will order the Lovenox. Also planning on doing a stress test tomorrow. Based on those results, we will decide on further indication for any additional testing. 4. The plan is to adjust his medical regimen. I did add nitrates to his regimen. 5. I did increase his activity, so he can ambulate. He will report any chest discomfort.
[2016-12-18 18:38] LABS: CKMB/CK RATIO 1.3 (0-3.0)
[2016-12-18 20:00] VITALS: BP 155/88; PULSE 64; TEMP 36.7; O2SAT 96
[2016-12-18] MEDS: ASPIRIN 81 MG ECTAB PO SCH (20:39)
[2016-12-18] MEDS ORDERED: SIMVASTATIN 80 MG TAB PO SCH (21:00)
[2016-12-19] VITALS (9 sets, daily range): BP systolic 113–185; BP diastolic 66–90; PULSE 54–74; TEMP 36.4–36.6; O2SAT 95–97
[2016-12-19] MEDS: NITROGLYCERIN OINT 2% 1GM PACKET EXT SCH ×4 (02:26→20:07)
[2016-12-19] MEDS: CLOPIDOGREL BISULFATE 75 MG TAB PO SCH (07:58)
[2016-12-19] MEDS: ATORVASTATIN 40 MG TAB PO SCH (07:58)
[2016-12-19] MEDS: INSULIN ASPART 100 UNITS/ML 3 ML PEN SC SCH ×4 (07:58→20:58)
[2016-12-19] MEDS: ALLOPURINOL 100 MG TAB PO SCH (07:59)
[2016-12-19] MEDS: LISINOPRIL 10 MG TAB PO SCH (07:59)
[2016-12-19] MEDS: METOPROLOL SUCC 50MG EXT REL TAB PO SCH (08:00)
[2016-12-19] MEDS: ENOXAPARIN 100 MG/1ML SYR SQ SCH ×2 (11:00→22:32)
--- NOTE | 2016-12-19 18:40 | MYOCARDIAL PERFUSION SCAN ---
ORDERING PHYSICIAN: Dr. Juan Eisenberg. ATTENDING PHYSICIAN: Dr. Winters. TIME: 16:33 p.m. PROCEDURES: 1. Myocardial perfusion study performed in multiple views/images. 2. Exercise stress ECG. INDICATIONS: 1. Elevated troponins. 2. Chest pain. 3. CAD status post CABG and PCI. CONSENT: Informed written consent was obtained. EXERCISE ECG: Baseline ECG demonstrated sinus bradycardia at 58 beats per minute. Exercise ECG demonstrated PVCs. There was a ventricular triplet. There was 0.5-[address] depression in leads II and III which quickly returned to baseline by 50 seconds into recovery. The resting blood pressure was 144/82 mmHg. The peak blood pressure was 170/74 mmHg. The peak heart rate was 115 beats per minute representing 74% maximum predicted heart rate. No chest pain was reported. The patient exercised 8 minutes and 1 second, which was 2 minutes and 1 second into the third stage via the standard Ceasar protocol. PROCEDURAL DETAILS: For the stress portion of the study 32.4 mCi of technetium-99m Cardiolite was injected intravenously at 1320 p.m. on 12/18/2016. Fifteen minutes following the injection, imaging of the heart was performed in multiple projections. For the rest portion of the study 10.6 mCi of technetium-99m Cardiolite was injected intravenously at 11:35 a.m. on the same day. One hour following injection, imaging of the heart was performed in the same projections. FINDINGS: Rotating raw imaging demonstrated mild motion artifact and rest imaging only. Heart size appeared normal. There was no significant lung uptake. Myocardial perfusion demonstrated a moderate-sized area of moderately to severely reduced uptake in the inferior wall, inferoseptum, and inferolateral acuna from base to mid ventricle. This defect was mostly reversible in rest imaging. There is also a very small defect of moderately reduced uptake in the apex which was reversible. Ejection fraction was estimated at 38%. There was akinesis of the base to mid inferior wall and otherwise global hypokinesis with relative sparing of the base to mid lateral wall. There was no significant transient ischemic dilation. IMPRESSION: 1. Abnormal exercise myocardial perfusion study at 74% maximum predicted heart rate suggesting a moderate sized area of base to mid RCA territory ischemia. Cannot rule out very small apical ischemic area as well. 2. Abnormal exercise stress ECG with 0.5 - [address] depression in leads II and III. 3. PVCs and 1 ventricular triplet. 4. No chest pain reported. 5. Appropriate blood pressure response to exercise. 6. Reduced LV systolic function with an estimated ejection fraction of 38%. 7. Akinesis of the base to mid inferior wall with otherwise global hypokinesis and relative sparing of the base to mid lateral wall. 8. Dr. Eisenberg, primary chaperone, was contacted and made aware of the above findings. RONDA
[2016-12-19] MEDS: ASPIRIN 81 MG ECTAB PO SCH (20:58)
--- NOTE | 2016-12-19 21:05 | DIAGNOSTIC IMAGING REPORT ---
ARTERIAL DOPPLER ULTRASOUND OF THE LEFT GROIN CLINICAL HISTORY: Left femoral bruit COMPARISON STUDY: No previous studies for comparison. FINDINGS: There is triphasic flow within the left common femoral artery and left superficial femoral artery. There is turbulent flow within the Left common femoral vein. Although the waveform is not arterial, the appearance is abnormal and a small AV fistula is suspected. IMPRESSION: 1. No evidence of left common femoral or proximal superficial femoral artery stenosis. 2. Abnormal waveform of the left common femoral vein. The appearance is highly suggestive of a small AV fistula Electronically signed by: Osmel Garcia M.D. 12/19/2016 9:04 PM Dictated Date/Time: 12/19/2016 8:58 PM
--- NOTE | 2016-12-19 21:32 | PROGRESS NOTE ---
DATE: 12/19/2016 A 66-year-old male, admitted with non-ST segment elevation myocardial infarction. He does have coronary artery disease. He is status post 3-vessel coronary artery bypass graft in July of last year and also status post PCI in October of this year. The patient was admitted. His troponin I was elevated. His electrocardiogram showed nonspecific changes. The patient was seen in cardiology consultation. A stress test was done today. It was abnormal; showing multiple abnormalities. He had a reduced left ventricular function with an ejection fraction of 38%. He had akinesis of the base to mid inferior wall with otherwise global hypokinesis and sparing of the base to mid lateral wall. The abnormality is thought to be in the distribution of the right coronary artery. The patient denied any headache, dizziness or lightheadedness. He has not had any chest pain. No shortness of breath. He is tolerating his diet. No nausea, no vomiting. He has been ambulating in the hallway without any problems. PHYSICAL EXAMINATION: GENERAL: Well-developed, in no distress. VITAL SIGNS: Blood pressure 113/66, pulse 72, respirations 16, temperature 36.4 and oxygen saturation 96% on room air. SKIN: Warm and dry. No rash. HEENT: No mucosal abnormality. NECK: No JVD. No adenopathy. HEART: Regular heart sounds with 2/6 systolic murmur. LUNGS: Clear. ABDOMEN: Soft and benign. BACK: No spinal tenderness. EXTREMITIES: No edema, clubbing or cyanosis. As noted, his myocardial perfusion stress test was abnormal today. ASSESSMENT: 1. Non-ST segment elevation myocardial infarction. 2. Coronary artery disease. 3. Status post percutaneous coronary intervention, right coronary artery. PLAN: 1. At this point, Dr. Eisenberg will be discussing with Mr. Cheatham the next step. Dr. Eisenberg has recommended a cardiac catheterization. 2. Continuing the same medications. 3. The patient is stable. He is completely asymptomatic.
[2016-12-20] VITALS (8 sets, daily range): BP systolic 125–195; BP diastolic 67–91; PULSE 52–72; TEMP 36.3–36.6; O2SAT 95–96
[2016-12-20] MEDS: NITROGLYCERIN OINT 2% 1GM PACKET EXT SCH ×4 (02:31→19:35)
[2016-12-20] MEDS: LISINOPRIL 10 MG TAB PO SCH (08:04)
[2016-12-20] MEDS: METOPROLOL SUCC 50MG EXT REL TAB PO SCH (08:05)
[2016-12-20] MEDS: CLOPIDOGREL BISULFATE 75 MG TAB PO SCH (08:05)
[2016-12-20] MEDS: ATORVASTATIN 40 MG TAB PO SCH (08:05)
[2016-12-20] MEDS: ALLOPURINOL 100 MG TAB PO SCH (08:06)
--- NOTE | 2016-12-20 08:12 | Cardiology Follow-Up ---
Subjective Subjective Date of Service: Dec 20, 2016. Pt evaluation today including: conversation w/ patient, conversation w/ family , physical exam, chart review, lab review, review of studies, conversation w/ outplacement consultant, review of inpatient medication list Additional Details: Patient feeling well. No events overnight. No recurrent chest pain, palpitations, shortness of breath Problem List Medical Problems: (1) Abnormal EKG Status: Acute (2) Left sided chest pain Status: Acute (3) Non-ST elevation NH (NSTEMI) Status: Acute (4) Non-STEMI (non-ST elevated myocardial infarction) Status: Acute Review of Systems Constitutional: No fever Respiratory: No cough, No shortness of breath Cardiac: No chest pain, No edema, No palpitations Abdomen: No pain Heme: No abnormal bleeding/bruising Endo: + fatigue Skin: No rash Objective Vital Signs Last Vital Signs Documentation Date Time Temp Pulse Resp B/P Pulse Ox O2 Delivery O2 Flow Rate FiO2 12/20/16 07:29 36.6 62 16 134/78 96 Room Air Physical Exam: General Appearance: no apparent distress ENT: hearing grossly normal Respiratory/Chest: lungs clear, normal breath sounds Cardiovascular: regular rate, rhythm, no edema, no JVD, + systolic murmur (2/6 systolic ejection murmur) Abdomen: normal bowel sounds, soft Extremities: no pedal edema, no calf tenderness, + pertinent finding Neurologic/Psychiatric: alert, normal mood/affect Skin: normal color, warm/dry Assessment and Plan 1. NSTEMI -- mild troponin elevation peaked, remains chest pain free 2. Severe CAD -- s/p 3vCABG 06/17, PCI LAD, SVG-RCA 10/18 3. ICM -- mild global dysfunction with inferior wall motion abnormality on stress. 4. DM2 -- on SSI 5. HTN -- well controlled on current regimen 6. Femoral AV fistula -- small, no-hemodynamic significance, conservative management. Stress test and prior coronary angiograms reviewed. Good functional capacity on stress but inferior ischemia noted. Concern for SVG-PDA disease versus known small PDA/PLB disease Discussed options with patient and family yesterday --> Will plan on repeat cardiac cath tomorrow (likely late morning/early afternoon) In interim continue on current cardiac regimen including ASA/plavix--> LAST DOSE OF LOVENOX TONIGHT If small vessel disease will plan on optimizing ant-anginal regimen prior to discharge Medications: Current Inpatient Medications Medications (Trade) Dose Ordered Sig/Diana Route Start Time Stop Time Status Last Admin Dose Admin Acetaminophen (Tylenol Tab) 650 mg Q4H PRN PO 12/18/16 01:00 01/17/17 00:59 Nitroglycerin (Nitrostat Tab) 0.4 mg UD PRN SL 12/18/16 01:00 01/17/17 00:59 Morphine Sulfate (MoRPHine SULFATE INJ) 2 mg Q30M PRN IV 12/18/16 01:00 01/01/17 00:59 Allopurinol (Zyloprim Tab) 100 mg DAILY PO 12/18/16 09:00 01/17/17 08:59 12/19/16 07:59 100 MG Aspirin (Ecotrin Tab) 81 mg HS PO 12/18/16 21:00 01/17/17 20:59 12/19/16 20:58 81 MG Clopidogrel Bisulfate (plAVix TAB) 75 mg DAILY PO 12/18/16 09:00 01/17/17 08:59 12/19/16 07:58 75 MG Insulin Aspart (novoLOG ASPART) SLIDING SCALE G... ACHS SC 12/18/16 06:30 01/17/17 06:59 12/19/16 18:10 9 UNITS Lorazepam (Ativan Tab) 0.5 mg Q6H PRN PO 12/18/16 01:00 01/17/17 00:59 Nitroglycerin (Nitroglycerin 2% Oint) 1 inch Q6H EXT 12/18/16 08:00 01/17/17 00:59 12/20/16 02:31 1 INCH Glucose (Glucose 40% Gel) 15-30 GRAMS 15 GRAMS... UD PRN PO 12/18/16 02:30 01/17/17 02:29 Glucose (Glucose Chew Tab) 4-8 Tablets 4 Tabl... UD PRN PO 12/18/16 02:30 01/17/17 02:29 Dextrose (Dextrose 50% 50ML Syringe) 25-50ML OF 50% DW IV FOR... UD PRN IV 12/18/16 02:30 01/17/17 02:29 Glucagon (Glucagon Inj) 1 mg UD PRN SQ 12/18/16 02:30 01/17/17 02:29 Atorvastatin Calcium (Lipitor Tab) 80 mg QAM PO 12/19/16 09:00 01/18/17 08:59 12/19/16 07:58 80 MG Lisinopril (Zestril Tab) 10 mg QAM PO 12/19/16 09:00 01/18/17 08:59 12/19/16 07:59 10 MG Metoprolol Succinate (Toprol Xl Tab) 50 mg QAM PO 12/19/16 09:00 01/18/17 08:59 12/19/16 08:00 50 MG Enoxaparin Sodium (Lovenox Inj) 90 mg Q12@1100,2300 SQ 12/18/16 13:30 01/17/17 13:29 12/19/16 22:32 90 MG Lab Results: Test 12/20/16 07:36 12/20/16 07:59 Bedside Glucose 167 mg/dl (70-99)
[2016-12-20] MEDS: INSULIN ASPART 100 UNITS/ML 3 ML PEN SC SCH ×4 (08:28→21:39)
[2016-12-20 09:21] LABS: BASO % 0.2 %; BASO ABS # 0.01 K/uL (0-0.2); COMPLETE YES; EOS % 1.9 %; HEMATOCRIT 39.3 % (42-52); IG% 0.2 %; LYMPH % 32.9 %; LYMPH ABS # 1.52 K/uL (1.2-3.4); MEAN CELL VOLUME 85.4 fL (80-100); MEAN CORPUSCULAR HEMOGLOBIN 29.1 pg (25-34); MEAN CORPUSCULAR HGB CONC 34.1 g/dl (32-36); MEAN PLATELET VOLUME 9.9 fL (7.4-10.4); MONO % 6.3 %; NEUT % 58.5 %; PLATELET COUNT 167 K/uL (130-400); WHITE BLOOD COUNT 4.62 K/uL (4.8-10.8)
[2016-12-20 09:47] LABS: BUN/CREATININE RATIO 14.9 (10-20); CALCIUM 9.3 mg/dl (8.5-10.1); CREATININE 1.5 mg/dl (0.60-1.40)
[2016-12-20 09:58] LABS: MAGNESIUM 1.9 mg/dl (1.8-2.4)
[2016-12-20] MEDS: ENOXAPARIN 100 MG/1ML SYR SQ SCH (12:11)
[2016-12-20] MEDS: SODIUM CHLORIDE 0.9% 1000ML 1,000 ML IV SCH ×2 (12:11→21:35)
--- NOTE | 2016-12-20 13:26 | Clinical Documentation Query ---
CLINICAL DOCUMENTATION QUERY Dr. ANJU OROZCO, In your clinical opinion is this patient being managed for: ( ) Acute kidney failure ( ) Other explanation of clinical findings (Please Explain) ( ) Unable to determine (Please Define) ( ) Need to Discuss ( x ) Not Agree The medical record reflects the following clinical findings, treatment, and risk factors. Clinical Indicators: 66 yo male presenting with persistent chest pain, diagnosed with NSTEMI. Initial Cr 1.2 which has trended up to Cr 1.5. Treatment: 1L NSS 100 cc/hr, repeat PRP on 12/21 Risk Factors: NSTEMI, HTN, DM, CAD Acute Kidney Injury is defined as any of the following: o Increase in SCr by (>/=) 0.3 mg/dl within 48 hours; or o Increase in SCr to (>/=)1.5 times baseline, which is known or presumed to have occurred within the prior 7 days; or o Urine volume <0.5 ml/kg/h for 6 hours. Please clarify and document your clinical opinion in the progress notes and discharge summary. Terms such as "probable", "suspected", "likely", "questionable", "possible", or "still to be ruled out" are acceptable. IF IN AGREEMENT, YOU MUST DOCUMENT ABOVE DIAGNOSTIC STATEMENT IN DAILY PROGRESS NOTES AND DISCHARGE SUMMARY. This document is not part of the patient's record. Thank You, Octavia Eisenberg, JENY [phone]
--- NOTE | 2016-12-20 16:36 | PROGRESS NOTE ---
DATE: 12/20/2016 HISTORY OF PRESENT ILLNESS: A 66-year-old male admitted with non-ST segment elevation myocardial infarction. He does have coronary artery disease, underwent a 3-vessel coronary artery bypass graft in July of 2016 and required subsequent percutaneous stenting procedure in October of 2016, which was also done at [facility]. His medical history is also significant for arterial hypertension, type 2 diabetes mellitus, gout and hyperlipidemia. The patient was admitted. His troponin I was elevated. The maximum peak of his troponin I was 0.148. He remained pain free since his admission. He has not required any medications. The patient was seen in cardiology consultation. He usually sees Dr. Juan Eisenberg. Dr. Eisenberg did order a stress test, which was done yesterday. The stress test was abnormal. So, further discussion took place and the patient is scheduled to undergo a diagnostic cardiac catheterization by Dr. Eisenberg tomorrow. Also, from the prior procedure that he had at [facility], the patient has developed a small AV fistula in the left groin. Dr. Eisenberg thinks that conservative treatment is what needs to be done and no intervention is needed at this point. The patient denied any headache or dizziness or lightheadedness. No chest pain and no shortness of breath. No problem with his appetite. No abdominal pain, no nausea, and no vomiting. No pain in his back or extremities. No ankle edema. PHYSICAL EXAMINATION: GENERAL: Well developed, in no distress. VITAL SIGNS: Blood pressure 134/78, pulse 62, respirations 16, temperature 36.6, and oxygen saturation 96% on room air. SKIN: Warm and dry. No rash. HEENT: No mucosal abnormalities. NECK: Supple. Nontender. No adenopathy and no thyromegaly. No JVD. HEART: Regular heart sounds with 2/6 systolic murmur. LUNGS: Clear. ABDOMEN: Soft and nontender. EXTREMITIES: No edema, clubbing, or cyanosis. TODAY'S LABORATORY TESTS: WBC count 4620, hemoglobin 13.4, hematocrit 39.3, and platelet count 167,000. Sodium 139, potassium 4.0, chloride 103, CO2 of 28, BUN 22, creatinine 1.5, glucose 255, calcium 9.3, and magnesium 1.9. Total bilirubin 0.5, AST 21, ALT 26, and alkaline phosphatase 58. Total protein 8.0, albumin 3.9. ASSESSMENT: 1. Non-ST segment elevation myocardial infarction. 2. Coronary artery disease. 3. Arterial hypertension. 4. Type 2 diabetes mellitus. 5. Hyperlipidemia. 6. History of gout. PLAN: 1. His BUN and creatinine increased slightly today. I started him on IV fluid. We would repeat his creatinine in the morning before his cardiac catheterization. 2. Continuing the same medications. 3. During the day today, the nurse called after he had a run of nonsustained V-tach. He was walking. He was completely asymptomatic. This is something that we are monitoring for any reoccurrence. 4. Continuing all his medications. 5. The plan as it stands now he is going to have his cardiac catheterization done tomorrow morning by Dr. Eisenberg. Based on the results, Dr. Eisenberg will make further decision and recommendations.
[2016-12-20] MEDS ORDERED: HydrALAZINE HCL 20 MG/ML VIAL IV. ONE (20:30)
[2016-12-20] MEDS ORDERED: NURSING VERBAL MED ORDER ONE (20:30)
[2016-12-20] MEDS: ASPIRIN 81 MG ECTAB PO SCH (21:36)
[2016-12-21] VITALS (17 sets, daily range): BP systolic 139–176; BP diastolic 79–94; PULSE 61–96; TEMP 36.3–36.7; O2SAT 96–98
[2016-12-21] MEDS: NITROGLYCERIN OINT 2% 1GM PACKET EXT SCH ×4 (02:01→21:30)
[2016-12-21 03:12] LABS: HEMATOCRIT 38.9 % (42-52); MEAN CELL VOLUME 85.3 fL (80-100); MEAN CORPUSCULAR HEMOGLOBIN 28.5 pg (25-34); MEAN CORPUSCULAR HGB CONC 33.4 g/dl (32-36); MEAN PLATELET VOLUME 9.4 fL (7.4-10.4); PLATELET COUNT 151 K/uL (130-400); RED BLOOD COUNT 4.56 M/uL (4.7-6.1); WHITE BLOOD COUNT 5.33 K/uL (4.8-10.8)
[2016-12-21 03:31] LABS: CREATININE 1.3 mg/dl (0.60-1.40)
[2016-12-21 06:15] LABS: BUN/CREATININE RATIO 19.3 (10-20); CALCIUM 8.4 mg/dl (8.5-10.1); CREATININE 1.1 mg/dl (0.60-1.40); POTASSIUM 3.9 mmol/L (3.5-5.1)
[2016-12-21] MEDS: INSULIN ASPART 100 UNITS/ML 3 ML PEN SC SCH ×4 (06:30→21:00)
[2016-12-21] MEDS: SODIUM CHLORIDE 0.9% 1000ML 1,000 ML IV SCH ×3 (08:21→17:07)
[2016-12-21] MEDS: ATORVASTATIN 40 MG TAB PO SCH (08:21)
[2016-12-21] MEDS: CLOPIDOGREL BISULFATE 75 MG TAB PO SCH (08:21)
[2016-12-21] MEDS: METOPROLOL SUCC 50MG EXT REL TAB PO SCH (08:22)
[2016-12-21] MEDS: LISINOPRIL 10 MG TAB PO SCH (08:22)
[2016-12-21] MEDS: ALLOPURINOL 100 MG TAB PO SCH (08:22)
[2016-12-21] MEDS ORDERED: MIDAZOLAM HCL 1 MG/ML 2ML VIAL ONE (11:59)
[2016-12-21] MEDS ORDERED: FENTANYL CITRATE INJ 50 MCG/1 ML 2 ML VIAL ONE (11:59)
--- NOTE | 2016-12-21 12:08 | Cardiology Follow-Up ---
Subjective Subjective Date of Service: Dec 21, 2016. Pt evaluation today including: conversation w/ patient, physical exam, chart review, lab review, review of studies, review of inpatient medication list Additional Details: No chest pain overnight. BP to 180s overnight - asymptomatic. No other new complaints. Problem List Medical Problems: (1) Abnormal EKG Status: Acute (2) Left sided chest pain Status: Acute (3) Non-ST elevation RI (NSTEMI) Status: Acute (4) Non-STEMI (non-ST elevated myocardial infarction) Status: Acute Review of Systems Constitutional: No fever Respiratory: No cough, No shortness of breath Cardiac: No chest pain, No edema, No palpitations Abdomen: No pain Heme: No abnormal bleeding/bruising Endo: + fatigue Skin: No rash Objective Vital Signs Last Vital Signs Documentation Date Time Temp Pulse Resp B/P Pulse Ox O2 Delivery O2 Flow Rate FiO2 12/21/16 11:44 36.5 67 18 172/87 97 12/21/16 08:00 Room Air Physical Exam: General Appearance: no apparent distress ENT: hearing grossly normal Respiratory/Chest: lungs clear, normal breath sounds Cardiovascular: regular rate, rhythm, no edema, no JVD, + systolic murmur (2/6 systolic ejection murmur) Abdomen: normal bowel sounds, soft Extremities: no pedal edema, no calf tenderness, + pertinent finding Neurologic/Psychiatric: alert, normal mood/affect Skin: normal color, warm/dry Assessment and Plan 1. NSTEMI -- mild troponin elevation peaked, remains chest pain free 2. Severe CAD -- s/p 3vCABG 06/17, PCI LAD, SVG-RCA 10/18 3. ICM -- mild global dysfunction with inferior wall motion abnormality on stress. 4. DM2 -- on SSI 5. HTN -- well controlled on current regimen 6. Femoral AV fistula -- small, no-hemodynamic significance, conservative management. Patient stable. Plan for cardiac cath today via right groin. Further recommendations pending study findings. Medications: Current Inpatient Medications Medications (Trade) Dose Ordered Sig/Diana Route Start Time Stop Time Status Last Admin Dose Admin Acetaminophen (Tylenol Tab) 650 mg Q4H PRN PO 12/18/16 01:00 01/17/17 00:59 Nitroglycerin (Nitrostat Tab) 0.4 mg UD PRN SL 12/18/16 01:00 01/17/17 00:59 Morphine Sulfate (MoRPHine SULFATE INJ) 2 mg Q30M PRN IV 12/18/16 01:00 01/01/17 00:59 Allopurinol (Zyloprim Tab) 100 mg DAILY PO 12/18/16 09:00 01/17/17 08:59 12/21/16 08:22 100 MG Aspirin (Ecotrin Tab) 81 mg HS PO 12/18/16 21:00 01/17/17 20:59 12/20/16 21:36 81 MG Clopidogrel Bisulfate (plAVix TAB) 75 mg DAILY PO 12/18/16 09:00 01/17/17 08:59 12/21/16 08:21 75 MG Insulin Aspart (novoLOG ASPART) SLIDING SCALE G... ACHS SC 12/18/16 06:30 01/17/17 06:59 12/20/16 21:39 1 UNITS Lorazepam (Ativan Tab) 0.5 mg Q6H PRN PO 12/18/16 01:00 01/17/17 00:59 Nitroglycerin (Nitroglycerin 2% Oint) 1 inch Q6H EXT 12/18/16 08:00 01/17/17 00:59 12/21/16 08:21 1 INCH Glucose (Glucose 40% Gel) 15-30 GRAMS 15 GRAMS... UD PRN PO 12/18/16 02:30 01/17/17 02:29 Glucose (Glucose Chew Tab) 4-8 Tablets 4 Tabl... UD PRN PO 12/18/16 02:30 01/17/17 02:29 Dextrose (Dextrose 50% 50ML Syringe) 25-50ML OF 50% DW IV FOR... UD PRN IV 12/18/16 02:30 01/17/17 02:29 Glucagon (Glucagon Inj) 1 mg UD PRN SQ 12/18/16 02:30 01/17/17 02:29 Atorvastatin Calcium (Lipitor Tab) 80 mg QAM PO 12/19/16 09:00 01/18/17 08:59 12/21/16 08:21 80 MG Lisinopril (Zestril Tab) 10 mg QAM PO 12/19/16 09:00 01/18/17 08:59 12/21/16 08:22 10 MG Metoprolol Succinate 50 mg 50 mg QAM PO 12/19/16 09:00 01/18/17 08:59 12/21/16 08:22 50 MG Sodium Chloride (Nss 1000ml) 1,000 ml @ 100 mls/hr Q10H IV 12/20/16 11:00 01/19/17 10:59 12/21/16 08:21 100 MLS/HR Lab Results: 12/21/16 02:55 12/21/16 05:08 Test 12/21/16 02:55 12/21/16 05:08 12/21/16 11:31 Red Blood Count 4.56 M/uL (4.7-6.1) Mean Corpuscular Volume 85.3 fL (80-100) Mean Corpuscular Hemoglobin 28.5 pg (25-34) Mean Corpuscular Hemoglobin Concent 33.4 g/dl (32-36) RDW Standard Deviation 42.4 fL (36.4-46.3) RDW Coefficient of Variation 13.7 % (11.5-14.5) Mean Platelet Volume 9.4 fL (7.4-10.4) Anion Gap 9.0 mmol/L (3-11) Est Creatinine Clear Calc Drug Dose 70.9 ml/min Estimated GFR () 80.6 Estimated GFR (Non- 69.6 BUN/Creatinine Ratio 19.3 (10-20) Calcium Level 8.4 mg/dl (8.5-10.1) Bedside Glucose 167 mg/dl (70-99)
--- NOTE | 2016-12-21 12:10 | Procedure Note ---
Pre-Mod Sedation Assessment General Date of Moderate Sedation: Dec 21, 2016. Vital Signs: Vital Signs Past 12 Hours Date Time Temp Pulse Resp B/P Pulse Ox O2 Delivery O2 Flow Rate FiO2 12/21/16 11:44 36.5 67 18 172/87 97 12/21/16 08:00 Room Air 12/21/16 07:45 36.5 74 18 174/90 96 12/21/16 04:16 36.5 84 20 151/80 96 Room Air 12/21/16 04:00 Room Air 12/21/16 02:03 96 159/80 12/21/16 00:15 36.4 67 20 176/88 96 Room Air Review Cardiovascular: regular rate, rhythm, no edema Abdomen: normal bowel sounds Lungs: chest non-tender Airway Class: II Pre-Sedation Airway Assessment Oral Cavity: WNL Able to Visualize Vocal Cords: Yes Short Thick Neck: No Hx of Sleep Apnea: No Smoking Status: Never Smoker Mallampati Classification: Class II ASA Classification: Class III Procedure Planning Contraindications-for Mod Sed: None Yes Notes The planned sedation has been discussed with the patient and consent obtained. I have identified the patient, determined the appropriateness of sedation and have assessed the patient immediately prior to the procedure. All medicine(s) and interventions are by my order.
[2016-12-21] MEDS ORDERED: NiCARDipine HCL INJ 2.5 MG/ML 10 ML AMP ONE (12:50)
[2016-12-21] MEDS ORDERED: NITROGLYCERIN/D5W 100MCG/ML 20ML SYR ONE (12:50)
[2016-12-21] MEDS ORDERED: CLOPIDOGREL BISULFATE 300 MG TAB PO ONE (13:46)
[2016-12-21] MEDS ORDERED: ONDANSETRON INJ 2 MG/ML 2 ML VIAL IV PRN (14:15)
[2016-12-21] MEDS ORDERED: NITROGLYCERIN 0.4 MG SL PER TAB CHARGE SL PRN (14:15)
--- NOTE | 2016-12-21 14:40 | Procedure Note ---
Post-Mod Sedation Assessment General Date of Moderate Sedation Dec 21, 2016. Vital Signs: Vital Signs Past 12 Hours Date Time Temp Pulse Resp B/P Pulse Ox O2 Delivery O2 Flow Rate FiO2 12/21/16 14:39 70 139/81 12/21/16 14:13 36.3 64 16 156/94 97 Room Air 12/21/16 13:55 64 18 138/77 96 Room Air 12/21/16 13:50 63 18 153/80 98 Room Air 12/21/16 13:45 64 18 141/87 98 Room Air 12/21/16 13:40 63 18 133/78 100 Nasal Cannula 2 12/21/16 11:44 36.5 67 18 172/87 97 12/21/16 08:00 Room Air 12/21/16 07:45 36.5 74 18 174/90 96 12/21/16 04:16 36.5 84 20 151/80 96 Room Air 12/21/16 04:00 Room Air Review - Discharge Criteria Vital Signs Stable: Yes Alert/Oriented/Conversant: Yes Returned to Baseline Mental St: Yes Nausea Absent/Minimal: Yes Pain/Discomfort/Absent/Minimal: Yes Normal/Baseline Respirations: Yes Active Bleeding?: No Pt Received D/C Instructions: N/A Specific Proced. D/C Criteria Distal Pulses Present (Cardiac: Yes Groin site assessed-Card Cath: Yes Voided Prior To Discharge: N/A Discharged Patients Adult Escort/Transportation: Yes
--- NOTE | 2016-12-21 15:30 | Cardiac Catheterization ---
Procedure Note Procedure Date Dec 21, 2016. Pre-Procedure Diagnosis Non STEMI, Positive Stress Test AUC Score 8 Post-Procedure Diagnosis Severe CAD, Successful PCI Procedure(s) Performed Coronary Angiography, Drug Eluting Stent, Femoral Artery Angiography Exchange Engineer Dr. Eisenberg Grey Goods Examiner(s) Glunt Estimated Blood Loss 15 Medication(s) Fentanyl, Heparin, Nicardipine, Versed, Lidocaine 1% Summary of Findings Indication: NSTEMI/Positive stress test Access: 6Fr Right Femoral Artery Catheters: JL4, JR4, MPA2; MPA1 guide Findings: LM - Luminal irregularities LAD - 40% calcified stenosis proximally, 50-60% diffuse disease in the mid segment, focal "napkin ring" 60% stenosis just proximal to LAD stent/MEDINA anastomosis. Competitive flow in the mid segment. LAD stent patent. Circumflex - 50% mid segment stenosis. Small, high, bifurcating OM1 with diffuse moderate proximal disease. Small OM2 with luminal irregularities. After take-off of OM2, circumflex completely occluded. RCA - Dominant, heavily calcified, 70-80% proximal diffuse stenosis, mid RCA completely occluded. MEDINA-LAD - Patent without disease. LAD stent patent after anastomosis. Mild distal/apical LAD disease SVG-OM3 - 95% focal proximal stenosis. OM3 small vessel with only luminal irregularities. SVG-distal RCA - 20% proximal SVG narrowing. Distal SVG with 99% stenosis proximal to anastomosis/prior stent. Prior stent is patent. 30% ostial stenosis in small PDA. 50% stenosis in PAV after take-off of PLB1. Left to right collaterals to small distal PLBs. -- PCI -- Antithrombotic therapy: Heparin, Clopidogrel Procedure: SVG-PDA cannulated with MPA1 guide BMW wire passed across lesion into PLB IC nicardipine administered Distal SVG lesion predilated with 2.0 compliant balloon Dilated lesion stented with 3.5 x 18 Resolute GINA. Stent landed just proximal to anastomosis/prior stent Stent post-dilated with 3.5 noncompliant balloon Post procedure NAZ 3 flow, stent well expanded with minimal residual stenosis and no apparent cardiac complications. SVG-OM3 cannulated with MPA1 guide BMW wire passed across lesion into OM3 IC nicardipine administered Proximal SVG lesion predilated with 2.0 compliant balloon Dilated lesion stented with 2.5 x 18 Resolute GINA. Stent placed just distal to ostium. IC vasodilators administered Post procedure NAZ 3 flow, stent well expanded with minimal residual stenosis and no apparent cardiac complications. Arterial Closure: Angio-Seal Summary: 1. Severe saphenous venous bypass graft disease - 99% distal SVG-RCA - 95% proximal SVG-OM3 disease 2. Patent MEDINA-LAD 3. Severe tejon multivessel CAD with patent mid LAD, distal RCA stents 4. Successful PCI of SVG-PDA with single GINA (Resolute 3.5 x 18). 5. Successful PCI of SVG-OM3 with single GINA (Resolute 2.5 x 18). 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 Continue DAPT with ASA/Plavix for at least a year, likely life-long. Continue current beta-ramesh Up-titrate lisinopril to 20mg daily Continue high dose statin Resume cardiac rehab as an outpatient If stable overnight OK for d/c in AM. Hemodynamics Rest Ao: 144/75/103 Final Ao: 150/74/105 LV: -- Recommendations PCI without planned CABG Specimens None Radiation Exposure (mGy) 4265 Contrast (mls) 215 Fluids (cc crystalloids) 160 Drains none Anesthesia moderate Procedural Complication(s) None Disposition PCU ACC Data Cardiac Status Clinical evaluation leading to the procedure CAD Presntation: Non STEMI, Positive Stress Test Anginal Classification: CCS IV Heart Failure: No, NYHA Class: CCS I Cardiogenic Shock w/in 24Hrs: No Cardiac Arrest w/in 24Hrs: No Imaging studies past 6 months: Yes Stress studies past 6 months: No Standard Exercise Stress Test: No Stress Echocardiogram: No Stress Testing w/SPECT MPI: Yes - Positive, Risk/Extent of Ischemia ( Intermediate) Cardiac CTA: No Coronary Anatomy Dominant: Right Left Main (% Stenosis): Normal LAD (% Stenosis): Proximal (40), Mid (60) Circumflex (% Stenosis): Proximal, Mid (40), Distal (100) RCA (% Stenosis): Proximal (70), Mid (100) R PDA (% Stenosis): Ostial (30) Diagnostic Physician's Name: Juan Eisenberg MD Status: Urgent Closure Device Percutaneous Entry Location: Radial Closure Device: Radial Band Recommendations: PCI without planned CABG PCI Indication: PCI for high risk Non-STEMI Lesion Segment Name: SVG-RCA Culprit Artery: Yes Stenosis Prior to Rx (%): 99 Chronic Total Occlusion: No IVUS: No FFR: No Pre-Procedure NAZ Flow: 2 Previously Treated Lesion: Yes Treated Lesion: Timeframe: 1-5 months Treated with Stent: Yes Stent Type: GINA Lesion Complexity: High/C Lesion Length (mm): 15 Thrombus Present: No Bifurcation Lesion: No Guidewire Across Lesion: Yes Guidewire: Stenosis Post-Procedure (%): 0 Post-Procedure NAZ Flow: 3 Device(s) Deployed: Yes Lesion #2 Segment Name: SVG-OM3 Culprit Artery: No Stenosis Prior to Rx (%): 95 Chronic Total Occlusion: No IVUS: No FFR: No Pre-Procedure NAZ Flow: 3 Previously Treated Lesion: No Lesion Complexity: High/C Lesion Length (mm): 12 Thrombus Present: No Bifurcation Lesion: No Guidewire Across Lesion: Yes Intraprocedure Events Significant Dissection: No Perforation: No
[2016-12-21] MEDS: ACETAMINOPHEN 325 MG TAB PO PRN (18:30)
--- NOTE | 2016-12-21 19:00 | PROGRESS NOTE ---
DATE: 12/21/2016 SUBJECTIVE: A 66-year-old male admitted with non-ST segment elevation myocardial function. He does have coronary artery disease, already underwent 3-vessel coronary artery bypass and subsequent RCA stent done because of recurrent angina. Overall, he is doing well. He has been pain free since admission. He has been ambulating. His vitals showed an elevation in blood pressure intermittently, but otherwise stable. He denied any headache or dizziness or lightheadedness. He has not had any recurrent chest pain. No shortness of breath. No abdominal pain, no nausea, and no vomiting. No pain in his back or extremities. No ankle edema. The patient was seen by Dr. Juan Eisenberg. He was taken to the cardiac catheterization today and he had a cardiac catheterization through the right femoral artery. The test was abnormal. He had 95% focal proximal stenosis of the saphenous vein graft to OM3 graft. He also had 99% distal RCA stenosis proximal to the anastomosis and a prior stent. His MEDINA to LAD graft was patent. Dr. Eisenberg deployed 2 stents to the areas of stenosis. The procedure was well tolerated. I saw the patient early this morning before the procedure and again this evening and he is resting comfortably. His family is at bedside. He is not having any problem. No chest pain and no shortness of breath. He had just tolerated his evening meal without any problems. He is having some slight discomfort in the right groin area. Earlier, there was some slight oozing but right now there does not seem to be any problem. PHYSICAL EXAMINATION: GENERAL: Well developed in no distress. VITAL SIGNS: Blood pressure 151/89, pulse 66, respirations 20, temperature 36.3, and oxygen saturation 96% on room air. SKIN: Warm and dry. No rash. HEENT: No mucosal abnormality. NECK: No JVD. No adenopathy. HEART: Regular heart sounds with 2/6 systolic murmur. LUNGS: Clear. ABDOMEN: Soft and nontender. GROIN: He does have dressing in the right groin. EXTREMITIES: No edema, clubbing, or cyanosis. TODAY'S LABORATORY TESTS: WBC count 5330, hemoglobin 13, hematocrit 38.9, and platelet count 151,000. Sodium 142, potassium 3.9, chloride 109, CO2 of 24, BUN 21, creatinine 1.1, glucose 136, and calcium 8.4. ASSESSMENT: 1. Non-ST segment elevation myocardial infarction. 2. Stenosis of the saphenous vein graft to OM3 graft and also the saphenous vein graft to the distal RCA graft. 3. Status post deployment of 2 stents done today by Dr. Eisenberg. 4. Type 2 diabetes mellitus. 5. Arterial hypertension. PLAN: 1. At this time, his condition is quite stable. The procedure was well tolerated and he is completely symptom free. 2. We will monitor his blood pressure. 3. We will increase his activity gradually. 4. Anticipating the patient will go home whenever Dr. Eisenberg feels he is stable to go. [facility]
[2016-12-21] MEDS: ASPIRIN 81 MG ECTAB PO SCH (21:26)
[2016-12-22] VITALS (13 sets, daily range): BP systolic 128–188; BP diastolic 68–100; PULSE 57–70; TEMP 36.4–36.8; O2SAT 95–98
[2016-12-22] MEDS: NITROGLYCERIN OINT 2% 1GM PACKET EXT SCH ×3 (02:00→14:45)
[2016-12-22] MEDS ORDERED: NITROGLYCERIN OINT 2% 1GM PACKET ONE (02:40)
[2016-12-22] MEDS: SODIUM CHLORIDE 0.9% 1000ML 1,000 ML IV SCH ×4 (02:45→13:00)
[2016-12-22 06:09] LABS: BASO % 0.2 %; BASO ABS # 0.01 K/uL (0-0.2); COMPLETE YES; EOS % 1.9 %; HEMATOCRIT 37.3 % (42-52); IG% 0.2 %; LYMPH % 26.2 %; LYMPH ABS # 1.11 K/uL (1.2-3.4); MEAN CELL VOLUME 87.8 fL (80-100); MEAN CORPUSCULAR HEMOGLOBIN 28.9 pg (25-34); MEAN PLATELET VOLUME 10.2 fL (7.4-10.4); MONO % 9.5 %; PLATELET COUNT 141 K/uL (130-400); RED BLOOD COUNT 4.25 M/uL (4.7-6.1); WHITE BLOOD COUNT 4.23 K/uL (4.8-10.8)
[2016-12-22 06:39] LABS: BUN/CREATININE RATIO 14.5 (10-20); CALCIUM 8.7 mg/dl (8.5-10.1); CREATININE 1.1 mg/dl (0.60-1.40); POTASSIUM 4.4 mmol/L (3.5-5.1)
[2016-12-22] MEDS: ACETAMINOPHEN 325 MG TAB PO PRN (07:38)
[2016-12-22] MEDS: INSULIN ASPART 100 UNITS/ML 3 ML PEN SC SCH ×3 (07:48→16:15)
[2016-12-22] MEDS: ATORVASTATIN 40 MG TAB PO SCH (08:36)
[2016-12-22] MEDS: CLOPIDOGREL BISULFATE 75 MG TAB PO SCH (08:36)
[2016-12-22] MEDS: METOPROLOL SUCC 50MG EXT REL TAB PO SCH (08:37)
[2016-12-22] MEDS: LISINOPRIL 10 MG TAB PO SCH (08:37)
[2016-12-22] MEDS: ALLOPURINOL 100 MG TAB PO SCH (08:37)
--- NOTE | 2016-12-22 09:14 | Cardiology Follow-Up ---
Subjective Subjective Date of Service: Dec 22, 2016. Pt evaluation today including: conversation w/ patient, physical exam, chart review, lab review, review of studies, review of inpatient medication list Additional Details: Patient feeling well. No events overnight. No chest pain. Mild discomfort at groin site. Problem List Medical Problems: (1) Abnormal EKG Status: Acute (2) Left sided chest pain Status: Acute (3) Non-ST elevation CO (NSTEMI) Status: Acute (4) Non-STEMI (non-ST elevated myocardial infarction) Status: Acute Review of Systems Constitutional: No fever Respiratory: No cough, No shortness of breath Cardiac: No chest pain, No edema, No palpitations Abdomen: No pain Heme: No abnormal bleeding/bruising Skin: No rash Objective Vital Signs Last Vital Signs Documentation Date Time Temp Pulse Resp B/P Pulse Ox O2 Delivery O2 Flow Rate FiO2 12/22/16 08:31 68 177/85 12/22/16 07:24 36.6 20 97 Room Air 12/21/16 13:40 2 Physical Exam: General Appearance: no apparent distress ENT: hearing grossly normal Respiratory/Chest: lungs clear, normal breath sounds Cardiovascular: regular rate, rhythm, no edema, no JVD, + systolic murmur (2/6 systolic ejection murmur) Abdomen: normal bowel sounds, soft Extremities: no pedal edema, no calf tenderness, + pertinent finding (Mild tenderness at groin access site. No hematoma, no bruits. Intact femoral and distal pulses. ) Neurologic/Psychiatric: alert, normal mood/affect Skin: normal color, warm/dry Assessment and Plan 1. NSTEMI/Severe CAD -- s/p 3vCABG 06/17, PCI LAD, SVG-RCA 10/18-- now post procedure day 1 s/p PCI to SVG-RCA, SVG-OM3 with GINA 2. ICM -- mild global dysfunction with inferior wall motion abnormality on stress. 3. DM2 -- on SSI 4. HTN -- elevated overnight. Plan to increase BP regimen. 5. Femoral AV fistula -- small, no-hemodynamic significance, conservative management. - Patient doing well this AM following PCI yesterday. - No apparent access site complications. - From a cardiac standpoint OK for discharge today -- Going forward continue ASA/Plavix for at least 1 year, likely lifelong -- Increase lisinopril from 10 --> 20 mg in setting of elevated BPs/NSTEMI/mild cardiomyopathy. can d/c nitropatch -- > will continue to titrate up JANNY/ antihypertensives as an outpatient -- Continue high dose statin, ASCVD risk factor modification -- Can resume cardiac rehab next monday. -- Has scheduled follow-up with me in next 2 weeks. Medications: Current Inpatient Medications Medications (Trade) Dose Ordered Sig/Diana Route Start Time Stop Time Status Last Admin Dose Admin Morphine Sulfate (MoRPHine SULFATE INJ) 2 mg Q30M PRN IV 12/18/16 01:00 01/01/17 00:59 Allopurinol (Zyloprim Tab) 100 mg DAILY PO 12/18/16 09:00 01/17/17 08:59 12/22/16 08:37 100 MG Aspirin (Ecotrin Tab) 81 mg HS PO 12/18/16 21:00 01/17/17 20:59 12/21/16 21:26 81 MG Clopidogrel Bisulfate (plAVix TAB) 75 mg DAILY PO 12/18/16 09:00 01/17/17 08:59 12/22/16 08:36 75 MG Insulin Aspart (novoLOG ASPART) SLIDING SCALE G... ACHS SC 12/18/16 06:30 01/17/17 06:59 12/22/16 07:48 3 UNITS Lorazepam (Ativan Tab) 0.5 mg Q6H PRN PO 12/18/16 01:00 01/17/17 00:59 Nitroglycerin (Nitroglycerin 2% Oint) 1 inch Q6H EXT 12/18/16 08:00 01/17/17 00:59 12/22/16 02:00 1 INCH Glucose (Glucose 40% Gel) 15-30 GRAMS 15 GRAMS... UD PRN PO 12/18/16 02:30 01/17/17 02:29 Glucose (Glucose Chew Tab) 4-8 Tablets 4 Tabl... UD PRN PO 12/18/16 02:30 01/17/17 02:29 Dextrose (Dextrose 50% 50ML Syringe) 25-50ML OF 50% DW IV FOR... UD PRN IV 12/18/16 02:30 01/17/17 02:29 Glucagon (Glucagon Inj) 1 mg UD PRN SQ 12/18/16 02:30 01/17/17 02:29 Atorvastatin Calcium (Lipitor Tab) 80 mg QAM PO 12/19/16 09:00 01/18/17 08:59 12/22/16 08:36 80 MG Lisinopril (Zestril Tab) 10 mg QAM PO 12/19/16 09:00 01/18/17 08:59 12/22/16 08:37 10 MG Metoprolol Succinate 50 mg 50 mg QAM PO 12/19/16 09:00 01/18/17 08:59 12/22/16 08:37 50 MG Sodium Chloride (Nss 1000ml) 1,000 ml @ 100 mls/hr Q10H IV 12/20/16 11:00 01/19/17 10:59 12/22/16 03:00 100 MLS/HR Nitroglycerin 0.4 mg 0.4 mg UD PRN SL 12/21/16 14:15 01/20/17 14:14 Sodium Chloride (Nss 1000ml) 1,000 ml @ 100 mls/hr Q10H IV 12/21/16 14:15 01/20/17 14:14 12/22/16 02:45 100 MLS/HR Ondansetron HCl (Zofran Inj) 4 mg Q6H PRN IV 12/21/16 14:15 01/20/17 14:14 Acetaminophen (Tylenol Tab) 650 mg Q4H PRN PO 12/21/16 14:15 01/20/17 14:14 12/22/16 07:38 650 MG Lab Results: 12/22/16 05:51 Red Blood Count 4.25, Mean Corpuscular Volume 87.8, Mean Corpuscular Hemoglobin 28.9, Mean Corpuscular Hemoglobin Concent 33.0, Mean Platelet Volume 10.2, Neutrophils (%) (Auto) 62.0, Lymphocytes (%) (Auto) 26.2, Monocytes (%) (Auto) 9.5, Eosinophils (%) (Auto) 1.9, Basophils (%) (Auto) 0.2, Neutrophils # (Auto) 2.62, Lymphocytes # (Auto) 1.11, Monocytes # (Auto) 0.40, Eosinophils # (Auto) 0.08, Basophils # (Auto) 0.01 12/22/16 05:51 Test 3/22/17 13:42 12/22/16 05:51 12/22/16 06:39 Kaolin Activated Coagulation Time 255 SECONDS (94-140) White Blood Count 4.23 K/uL (4.8-10.8) Red Blood Count 4.25 M/uL (4.7-6.1) Hemoglobin 12.3 g/dL (14.0-18.0) Hematocrit 37.3 % (42-52) Mean Corpuscular Volume 87.8 fL (80-100) Mean Corpuscular Hemoglobin 28.9 pg (25-34) Mean Corpuscular Hemoglobin Concent 33.0 g/dl (32-36) Platelet Count 141 K/uL (130-400) Mean Platelet Volume 10.2 fL (7.4-10.4) Neutrophils (%) (Auto) 62.0 % Lymphocytes (%) (Auto) 26.2 % Monocytes (%) (Auto) 9.5 % Eosinophils (%) (Auto) 1.9 % Basophils (%) (Auto) 0.2 % Neutrophils # (Auto) 2.62 K/uL (1.4-6.5) Lymphocytes # (Auto) 1.11 K/uL (1.2-3.4) Monocytes # (Auto) 0.40 K/uL (0.11-0.59) Eosinophils # (Auto) 0.08 K/uL (0-0.5) Basophils # (Auto) 0.01 K/uL (0-0.2) RDW Standard Deviation 44.3 fL (36.4-46.3) RDW Coefficient of Variation 13.8 % (11.5-14.5) Immature Granulocyte % (Auto) 0.2 % Immature Granulocyte # (Auto) 0.01 K/uL (0.00-0.02) Anion Gap 6.0 mmol/L (3-11) Est Creatinine Clear Calc Drug Dose 70.9 ml/min Estimated GFR () 80.6 Estimated GFR (Non- 69.6 BUN/Creatinine Ratio 14.5 (10-20) Calcium Level 8.7 mg/dl (8.5-10.1) Bedside Glucose 118 mg/dl (70-99)
[2016-12-22] MEDS ORDERED: LISINOPRIL 10 MG TAB PO ONE (10:00)
[2016-12-22] MEDS ORDERED: TPRSR50 PO (17:54)
[2016-12-22] MEDS ORDERED: METF1000 PO (17:54)
[2016-12-22] MEDS ORDERED: LPT40 PO (17:54)
[2016-12-22] MEDS ORDERED: REPA1TAB5 PO (17:54)
[2016-12-22] MEDS ORDERED: GLC5 PO (17:54)
[2016-12-22] MEDS ORDERED: LSN20 PO (17:54)
[2016-12-22] MEDS ORDERED: NTRSLP4 SL (17:54)
--- NOTE | 2016-12-22 18:00 | Discharge Instructions ---
Discharge Instructions Date of Service Dec 22, 2016. Admission Reason for Admission: NON ST ELEVATION NC CORONARY ARTERY DISEASE ARTERIAL HYPERTENSION HYPERLIPIDEMIA TYPE 2 DIABETES MELLITUS GOUT Discharge Discharge Diagnosis / Problem: NON-ST SEGMENT ELEVATION MYOCORDIAL INFARCTION Discharge Goals Goal(s): Decrease discomfort, Improve function, Increase independence, Improve disease control, Improve nutritional status, Learn about illness Activity Recommendations Activity Limitations: as noted below Lifting Limitations: no more than 5 pounds Exercise/Sports Limitations: gradually increase as tolerated Shower/Bathe: no limitations Driving or Machine Use: no limitations . Instructions / Follow-Up Instructions / Follow-Up DR CEDENO SCHEDULED DR CASTELLANOS IN ONE WEEK Current Hospital Diet Patient's current hospital diet: AHA Diet (Heart Healthy), Diabetes Type 2 Diet Discharge Diet Recommended Diet: AHA Diet (Heart Healthy), Diabetes Type 2 Diet Procedures Procedures Performed: CARDIAC CATHETERIZATION AND 2 STENTS Pending Studies Studies pending at discharge: no Medical Emergencies . Who to Call and When: Medical Emergencies: If at any time you feel your situation is an emergency, please call 911 immediately. . Non-Emergent Contact Non-Emergency issues call your: Primary Care Provider . . "Provider Documentation" section prepared by Carson Castellanos. VTE Core Measure Inpt VTE Proph given/why not?: Other Anticoagulation
--- NOTE | 2016-12-22 20:55 | PROGRESS NOTE ---
DATE: 12/22/2016 A 66-year-old male, admitted with non-ST segment elevation myocardial infarction. He does have coronary artery disease status post 3-vessel coronary artery bypass graft and also required a PCI after his bypass. The patient was admitted. He was seen in cardiology consultation by Dr. Eisenberg. He underwent a cardiac catheterization. He had 2 areas of severe stenosis involving both saphenous vein grafts. Two stents were placed. The procedure was well-tolerated. The patient has not had any recurrent chest pain, no shortness of breath. He has been ambulating. He denied any abdominal pain or no nausea. He is tolerating his diet very well. No ankle edema. PHYSICAL EXAMINATION: GENERAL: Well-developed, in no distress. VITAL SIGNS: Blood pressure 177/85, pulse 68, respirations 20 and temperature 36.4. SKIN: Warm and dry. No rash. HEENT: Completely unremarkable. NECK: No JVD. No adenopathy. HEART: Regular heart sounds, 2/6 systolic murmur. LUNGS: Clear. ABDOMEN: Soft and benign. EXTREMITIES: No edema, clubbing or cyanosis. GROIN: No problem with the site of his right femoral access for his cardiac catheterization. ASSESSMENT: 1. Non-ST segment elevation myocardial infarction. 2. Coronary artery disease. 3. Type 2 diabetes mellitus. 4. Arterial hypertension. PLAN: Overall, his condition is stable. His blood pressure has been elevated. Dr. Eisenberg increased his lisinopril from 10 mg to 20 mg daily. I saw the patient again this evening. He was doing well. He has been ambulating. There is no problem with his right femoral site. He was discharged home. Follow up in the office in one week. He has an appointment with Dr. Eisenberg on 01/02/2017 and he will maintain the same appointment.
[2016-12-23] MEDS ORDERED: LISINOPRIL 20 MG TAB PO SCH (09:00)
--- NOTE | 2017-01-01 23:01 | DISCHARGE SUMMARY ---
DISCHARGE DIAGNOSES: 1. Non-ST segment elevation myocardial infarction. 2. Coronary artery disease. 3. Status post 3-vessel coronary artery bypass graft. 4. Status post percutaneous coronary intervention of the distal left anterior descending and saphenous vein graft to the right coronary artery. 5. Status post percutaneous coronary intervention of saphenous vein graft to the right coronary artery and saphenous vein graft to obtuse marginal 3. 6. Arterial hypertension. 7. Type 2 diabetes mellitus. 8. Gout. 9. Hyperlipidemia. DISCHARGE MEDICATIONS: Included: 1. Lipitor 90 mg daily. 2. Glipizide 5-mg tablets, 3 tablets or 15 mg twice a day. 3. Lisinopril 20 mg daily. 4. Metformin 1000 mg twice daily. 5. Metoprolol succinate 50 mg daily. 6. Nitrostat 0.4 mg sublingually as needed. 7. Allopurinol 100 mg daily. 8. Prandin 0.5 mg before meals. 9. Aspirin 81 mg daily. 10. Plavix 75 mg daily. CONSULTATIONS: Dr. Juan Eisenberg in cardiology. PROCEDURE: 1. Cardiac catheterization done by Dr. Eisenberg. 2. PCI of 2 areas of stenosis of the saphenous vein graft to the RCA and a saphenous vein graft to OM3. A 66-year-old male with known coronary artery disease, admitted through the Emergency Room with a recurrent episode of chest pain and elevation of his troponin I. The patient had a 3-vessel coronary artery bypass graft in July of [address] [facility] with MEDINA to LAD and saphenous vein graft to the distal right coronary artery and endarterectomy and also a saphenous vein graft to his circumflex. On 10/09/2016, he presented to the Emergency Room with chest pain and abnormal EKG changes, which were new. He had a repeat cardiac catheterization done. Additional abnormalities were noted. He was transferred to [facility]. He underwent PCI to the distal LAD and to the saphenous vein graft to the RCA. He also developed a small right femoral AV fistula. On Monday night, prior to his admission, he presented with an episode of left-sided chest pain radiating to his neck. It was not associated with any exertion. The pain was not associated with any shortness of breath or any diaphoresis. He took nitroglycerin. The pain resolved. The whole episode lasted about 25 minutes. On Monday, in the evening, he had another episode of chest pain and he took nitroglycerin with relief, but he went to bed and then he had another episode of chest pain at rest. Again radiating to his neck. Mostly left-sided chest location. He had no shortness of breath or any diaphoresis. He came to the Emergency Room. He was evaluated. His troponin I was elevated to 0.120. While he was in the Emergency Room, he had another episode of chest pain and a repeat electrocardiogram showed subtle changes in the inferior leads. I saw the patient in the Emergency Room and he was admitted for further evaluation and treatment. PAST MEDICAL HISTORY, SOCIAL HISTORY AND FAMILY HISTORY: All as noted. ALLERGIES: None. MEDICATIONS ON ADMISSION: All as noted on his history and physical. PHYSICAL EXAMINATION AND ADMISSION LABORATORY TESTS: All as noted on his history and physical. HOSPITAL COURSE: The patient was admitted to PCU with telemetry. Resuscitation level 1. All his laboratory tests were ordered. Cardiology consultation was requested. His cardiac isoenzymes did show evidence of elevation of his troponin I. The peak level was 0.148. Initially, the patient was seen by Dr. Juan Short and subsequently by Dr. Juan Eisenberg. The patient underwent a cardiac catheterization. There were old areas of stenosis noted at the sites of the previous grafts to his LAD and to obtuse marginal [address] Eisenberg was able to stent both areas of stenosis successfully. The patient remained symptom free. He tolerated the procedure very well. He was getting out of bed. He was ambulating. Tolerating his diet. As noted, the patient did develop a small AV fistula in the left femoral artery after his first cardiac catheterization. It was rechecked with ultrasound. The area was small and no intervention was recommended. His condition remained stable. His blood pressure was elevated at times and required additional medications. The patient did not have any recurrent problem during his hospitalization. He was discharged on the medication as noted above. Follow up in the office with me and also with Dr. Eisenberg. The patient will eventually return for his cardiac rehabilitation.
== END 2016-12-22 18:29 | disposition home or self-care (01) | DRG 247 ==
LOC: ENRESERVDT → ENRESERVTM → C.EDB 22:56 → C.MED 12-18 02:06 → C.2T 12-21 14:12
PROVIDERS: ADMIT Internal Medicine; ATTEND Internal Medicine
PROC: 027145Z Dilation of Coronary Artery, Two Arteries with Two Drug-eluting Intraluminal Devices, Percutaneous Endoscopic Approach (ICD-10-PCS; principal; 2016-12-21 12:03)
DX: I21.4 Non-ST elevation (NSTEMI) myocardial infarction (principal); I25.10 Atherosclerotic heart disease of native coronary artery without angina pectoris; I10 Essential (primary) hypertension; E11.9 Type 2 diabetes mellitus without complications; E78.5 Hyperlipidemia, unspecified; M10.9 Gout, unspecified; Z95.1 Presence of aortocoronary bypass graft; Z87.891 Personal history of nicotine dependence; Z79.82 Long term (current) use of aspirin; Z79.02 Long term (current) use of antithrombotics/antiplatelets; I77.0 Arteriovenous fistula, acquired; I25.5 Ischemic cardiomyopathy

== ENCOUNTER → 2017-01-06 | Outpatient (CLI) | payer BC ==
[~2017-01-06] MED LIST changes: +GLC5 PO; +LEVE500T13 PO; +LPT40 PO; +LSN20 PO; +METF1000 PO; -METO50TA16 PO; +NTRSLP4 SL; +REPA1TAB5 PO; -SIMV80TA2 PO; +TPRSR50 PO
== END | disposition home or self-care (01) ==
LOC: C.CARH 14:01
PROVIDERS: ATTEND Internal Medicine Interventional Cardiology
DX: Z51.89 Encounter for other specified aftercare (principal); I21.3 ST elevation (STEMI) myocardial infarction of unspecified site; I10 Essential (primary) hypertension; E11.9 Type 2 diabetes mellitus without complications

== ENCOUNTER → 2017-02-10 | Outpatient (CLI) | payer BC ==
[2017-02-10 12:28] LABS: BLOOD UREA NITROGEN 26 mg/dl (7-18); BUN/CREATININE RATIO 21.8 (10-20); CALCIUM 8.9 mg/dl (8.5-10.1); CARBON DIOXIDE 26 mmol/L (21-32); CHLORIDE 107 mmol/L (98-107); GLUCOSE 129 mg/dl (70-99); POTASSIUM 4.2 mmol/L (3.5-5.1); SODIUM 140 mmol/L (136-145)
[2017-02-10 12:32] LABS: CHOLESTEROL 115 mg/dl (0-200); CHOLESTEROL/HDL RATIO 3.7; HDL CHOLESTEROL 31 mg/dl; TRIGLYCERIDES 108 mg/dl (0-150); VERY LOW DENSITY LIPOPROT CALC 22 mg/dl
[2017-02-10 12:52] LABS: ESTIMATED AVERAGE GLUCOSE 154 mg/dl; HA1C FLAG Normal (Normal)
== END | disposition home or self-care (01) ==
LOC: C.LABSPEC 11:53
PROVIDERS: ATTEND Internal Medicine
DX: I25.10 Atherosclerotic heart disease of native coronary artery without angina pectoris (principal); I10 Essential (primary) hypertension; E11.9 Type 2 diabetes mellitus without complications; E78.5 Hyperlipidemia, unspecified

== ENCOUNTER → 2017-04-10 | Outpatient (CLI) | payer BC ==
[~2017-04-10] MED LIST changes: -LEVE500T13 PO; -REPA1TAB5 PO
== END | disposition home or self-care (01) ==
LOC: C.LABSPEC 15:42
PROVIDERS: ATTEND Internal Medicine
DX: Z12.11 Encounter for screening for malignant neoplasm of colon (principal)

== ENCOUNTER → 2017-06-14 | Outpatient (CLI) | payer BC ==
[2017-06-14 12:46] LABS: BLOOD UREA NITROGEN 16 mg/dl (7-18); BUN/CREATININE RATIO 13.6 (10-20); CALCIUM 8.9 mg/dl (8.5-10.1); CARBON DIOXIDE 29 mmol/L (21-32); CHLORIDE 104 mmol/L (98-107); GLUCOSE 130 mg/dl (70-99); POTASSIUM 4.3 mmol/L (3.5-5.1); SODIUM 138 mmol/L (136-145)
[2017-06-14 12:50] LABS: CHOLESTEROL 126 mg/dl (0-200); CHOLESTEROL/HDL RATIO 4.1; HDL CHOLESTEROL 31 mg/dl; TRIGLYCERIDES 129 mg/dl (0-150); VERY LOW DENSITY LIPOPROT CALC 26 mg/dl
[2017-06-14 13:09] LABS: ESTIMATED AVERAGE GLUCOSE 166 mg/dl; HA1C FLAG Normal (Normal)
== END | disposition home or self-care (01) ==
LOC: C.LABSPEC 12:09
PROVIDERS: ATTEND Internal Medicine
DX: I25.10 Atherosclerotic heart disease of native coronary artery without angina pectoris (principal); E11.9 Type 2 diabetes mellitus without complications; E78.5 Hyperlipidemia, unspecified; I10 Essential (primary) hypertension

== ENCOUNTER → 2017-08-22 | Outpatient (CLI) | payer BC ==
[~2017-08-22] MED LIST changes: -ASPI81TA28 PO; -CLOP1TAB15 PO; +LEVE500T13 PO
--- NOTE | 2017-08-22 10:43 | DIAGNOSTIC IMAGING REPORT ---
CT HEAD WITHOUT CONTRAST (CT) CLINICAL HISTORY: Subarachnoid hemorrhage. Follow-up study. COMPARISON STUDY: 08/02/2017 TECHNIQUE: Axial CT of the brain is performed from the vertex to the skull base. IV contrast was not administered for this examination. A dose lowering technique was utilized adhering to the principles of ALARA. CT DOSE: 614.27 mGy.cm FINDINGS: No intra or extra-axial mass lesions are visualized. There is no CT evidence of acute cortical infarction. There is no midline shift. There is decreasing trace subarachnoid hemorrhage within the right parietal vertex. There are minimal white matter hypodensities likely on a small vessel basis. There is no evidence of pathologic ventricular dilatation. There is no evidence of acute sinusitis IMPRESSION: Decreasing trace subarachnoid hemorrhage within the right parietal vertex Electronically signed by: Osmel Garcia M.D. 08/22/2017 10:42 AM Dictated Date/Time: 08/22/2017 10:40 AM
== END | disposition home or self-care (01) ==
LOC: C.CTS 10:15
PROVIDERS: ATTEND Internal Medicine
DX: I60.9 Nontraumatic subarachnoid hemorrhage, unspecified (principal)

== ENCOUNTER → 2017-10-23 | Outpatient (CLI) | payer BC ==
[2017-10-23 13:08] LABS: BLOOD UREA NITROGEN 19 mg/dl (7-18); CALCIUM 9.1 mg/dl (8.5-10.1); CARBON DIOXIDE 27 mmol/L (21-32); CHOLESTEROL 135 mg/dl (0-200); CREATININE 1.19 mg/dl (0.60-1.40); GLUCOSE 139 mg/dl (70-99); LDL CHOLESTEROL (DIRECT) 102 mg/dl; POTASSIUM 4.2 mmol/L (3.5-5.1); SODIUM 134 mmol/L (136-145)
[2017-10-23 13:20] LABS: HEMOGLOBIN A1C 7.7 % (4.5-5.6)
== END | disposition home or self-care (01) ==
LOC: C.LABSPEC 12:36
PROVIDERS: ATTEND Internal Medicine
DX: I10 Essential (primary) hypertension (principal); I25.10 Atherosclerotic heart disease of native coronary artery without angina pectoris; E78.5 Hyperlipidemia, unspecified; E11.9 Type 2 diabetes mellitus without complications

== ENCOUNTER → 2018-02-01 | Outpatient (CLI) | payer BC ==
[2018-02-01 12:53] LABS: BLOOD UREA NITROGEN 29 mg/dl (7-18); CALCIUM 8.9 mg/dl (8.5-10.1); CARBON DIOXIDE 24 mmol/L (21-32); CHOLESTEROL 113 mg/dl (0-200); CREATININE 1.34 mg/dl (0.60-1.40); GLUCOSE 93 mg/dl (70-99); POTASSIUM 4.1 mmol/L (3.5-5.1); SODIUM 134 mmol/L (136-145)
[2018-02-01 12:55] LABS: LDL CHOLESTEROL (DIRECT) 74 mg/dl
[2018-02-01 12:57] LABS: HEMOGLOBIN A1C 7.8 % (4.5-5.6)
== END | disposition home or self-care (01) ==
LOC: C.LABSPEC 12:16
PROVIDERS: ATTEND Internal Medicine
DX: Z00.00 Encounter for general adult medical examination without abnormal findings (principal); E11.9 Type 2 diabetes mellitus without complications; I10 Essential (primary) hypertension; E78.5 Hyperlipidemia, unspecified

== ENCOUNTER 2023-04-06 06:07 | Observation (INO) ==
--- NOTE | 2023-03-20 12:10 | PAT Medication Instructions ---
Medication Instructions Date of Service March 20, 2023 Home Medications Medication Instructions Recorded metformin 1,000 mg tablet 1,000 mg PO BID #180 tabs 08/16/19 allopurinol 100 mg tablet 100 mg PO HS aspirin 81 mg tablet,delayed release 81 mg PO QPM atorvastatin 80 mg tablet 80 mg PO HS clopidogrel 75 mg tablet 75 mg PO QAM metformin 1,000 mg tablet 1,000 mg PO BID amlodipine 5 mg tablet 5 mg PO QAM triamterene 37.5 mg-hydrochlorothiazide 25 mg tablet 1 tab PO QAM lisinopril 20 mg tablet 20 mg PO BID insulin glargine 100 unit/mL subcutaneous solution See Rx Instructions subcut .COMPLEX metoprolol succinate 100 mg tablet,extended release 24 hr 100 mg PO QAM ASK your prescriber and surgeon aspirin 81 mg tablet,delayed release 81 mg PO QPM clopidogrel 75 mg tablet 75 mg PO QAM DO NOT take the morning of surgery metformin 1,000 mg tablet 1,000 mg PO BID triamterene 37.5 mg-hydrochlorothiazide 25 mg tablet 1 tab PO QAM lisinopril 20 mg tablet 20 mg PO BID Take morning of surgery With a small sip of water, OTHERWISE NOTHING TO EAT OR DRINK AFTER MIDNIGHT: amlodipine 5 mg tablet 5 mg PO QAM metoprolol succinate 100 mg tablet,extended release 24 hr 100 mg PO QAM Take evening before surgery allopurinol 100 mg tablet 100 mg PO HS atorvastatin 80 mg tablet 80 mg PO HS metformin 1,000 mg tablet 1,000 mg PO BID lisinopril 20 mg tablet 20 mg PO BID insulin glargine 100 unit/mL subcutaneous solution See Rx Instructions subcut .COMPLEX Insulin Dependent Diabetic Patients * Test your blood sugar the morning of surgery * If Blood Sugar is GREATER THAN 150, take HALF of your regular dose of: insulin glargine > take 35 units * If Blood Sugar is LESS THAN 150, DO NOT TAKE ANY: insulin glargine Other Notes If you have any questions please call us at [phone] or [phone] or [phone] or [phone]
--- NOTE | 2023-03-24 13:38 | Anesthesiology Consultation ---
Date of Service March 24, 2023 Assessment & Plan (1) Encounter for pre-operative examination: - awaiting PCP response to optimization note. - optimization note sent to PCP regarding creatinine at 1.9. Surgeon's office made aware of elevated A1c, to surgeon's discretion if acceptable to proceed regarding A1c. - will request most recent cardiology note and any available testing. - check BSG am DOS. - Outpatient joint assessment: Patient is currently scheduled for inpatient pathway. If re-evaluated pending system levels during current pandemic/surgeon requests outpatient pathway, patient is not acceptable candidate for outpatient joint program from anesthesia standpoint. Chart Review Chart Review: Pending: Refer to Additional Notes / Consult section and Patient seen in Pre Admission Testing Teaching & Discussion Pre-Anesthesia Teaching/Discussion Notes: Instructed NPO after midnight before surgery, except medications with 15 cc of water. Medication instructions provided according to the PAT guidelines. History Surgery Operation Date: 04/06/23 08:15 Proposed Procedures p Right Total Shoulder Arthroplasty Reverse - Tenzin Hamilton MD Height/Weight Height: 5 ft 7 in Weight: 97.4 kg Allergies Allergy/AdvReac Type Severity Reaction Status Date / Time No Known Allergies Allergy Verified 03/17/23 12:47 Medications Home Medications Medication Instructions Recorded Confirmed Last Taken allopurinol 100 mg tablet 100 mg PO HS 05/08/19 03/17/23 Unknown aspirin 81 mg tablet,delayed 81 mg PO QPM 05/08/19 03/17/23 Unknown release atorvastatin 80 mg tablet 80 mg PO HS 05/08/19 03/17/23 Unknown clopidogrel 75 mg tablet 75 mg PO QAM #30 tabs 05/08/19 03/17/23 Unknown metformin 1,000 mg tablet 1,000 mg PO BID #180 tabs 08/16/19 03/17/23 Unknown amlodipine 5 mg tablet 5 mg PO QAM 12/01/20 03/17/23 Unknown triamterene 37.5 1 tab PO QAM 12/01/20 03/17/23 Unknown mg-hydrochlorothiazide 25 mg tablet lisinopril 20 mg tablet 20 mg PO BID 07/29/21 03/17/23 Unknown insulin glargine 100 unit/mL See Rx Instructions subcut .COMPLEX 10/27/22 03/17/23 Unknown subcutaneous solution metoprolol succinate 100 mg 100 mg PO QAM 03/17/23 03/17/23 Unknown tablet,extended release 24 hr Past Medical History Medical History (Updated 03/24/23 @ 13:48 by Neetu Brar PA-C) Aortic stenosis moderate on 03/2023 echo Carotid stenosis < 50% stenosis ICAs bilat 12/2021 doppler Coronary artery disease s/p 4 stents, CABG x 3 in 2016, most recent stent in 2017 Diabetes IDDM Gout Hearing deficit Herniation of cervical intervertebral disc History of blood transfusion 2016 with CABG History of COVID-19 09/2020--mild symptoms, denies hospitalization, no symptoms now Hypertension controlled, stable per pt Myocardial Infarction per Dr. Eisenberg's note recurrent NSTEMI: 07/2016 and in 2017--heart caths with stents placed--[place] [facility] [place]. Eisen[place] On anticoagulant therapy plavix daily Seizure 1 yr ago, in setting of hypoglycemia, no additional seizure activity Patient denies h/o stroke, heart failure, or blood clots. Exercise / Class Metabolic Activity II 4-5 Yardwork/Stairs/Walk up hill (denies chest discomfort or shortness of breath with 1 FOS) Past Family History Family History Father Myocardial infarction Other No family history of adverse response to anesthesia Past Surgical History Surgical History History of cardiac cath multiple in 2015 with last 11/2016 @ [facility]--x4 stents total placed History of colonoscopy History of tooth extraction History of wisdom tooth extraction S/P coronary artery bypass graft x 3 07[place] [facility] [place]P epidural steroid injection Past Anesthesia History No Hx of Anesthesia Complications and No Family Hx of Anesthesia Complications History of PONV No Hx of PONV and No Hx of Motion Sickness Social History Smoking Status: Former smoker tobacco type: cigars Do You Dip or Chew Tobacco: No Smoking End Date: quit cigars 2016 Hx Alcohol Use: Yes Alcohol type: beer alcohol intake frequency: a few times a month Hx Substance Use: No substance use type: does not use Review of Systems Snoring, denies witnessed apneas. Patient denies chest pain, shortness of breath, dyspnea on exertion, reflux, fever, chills, cough, wheezing, or palpitations. Physical Exam Vital Signs Vitals BP 120/75 P 74 TEMP 98.1 SP02 97% on RA RESP 18 Physical Full cervical extension range of motion without pain TMD 3.5 finger breadths Mallampati Score 2 Dentition: several caps, denies chipped or loose teeth, crowns, implants or bridges Lungs: normal respiratory effort. Good air movement, clear throughout to auscultation, no adventitious breath sounds Cardiac: regular rate and rhythm, no murmurs noted Carotid arteries: negative bruit bilat Lab Results Anesthesia Preop Results Results Anesthesia Widget: WBC 5.47 K/ul (4.8-10.8) 03/24/23 Hgb 11.4 g/dl (14.0-18.0) L 03/24/23 Hct 34.1 % (42.0-52.0) L 03/24/23 Plt 224 K/uL (130-400) 03/24/23 Na 136 mmol/L (136-145) 03/24/23 K 4.5 mmol/L (3.5-5.1) 03/24/23 Cl 103 mmol/L (98-107) 03/24/23 CO2 23 mmol/L (21-32) 03/24/23 BUN 41 mg/dl (6-23) H 03/24/23 Creat 1.97 mg/dl (0.6-1.4) H 03/24/23 Glucose Level 223 mg/dl (70-99(Fasting)) H 03/24/23 PT 10.7 Seconds (9.0-12.0) 03/24/23 PTT 25.9 Seconds (21.0-31.0) 03/24/23 INR 1.0 (0.9-1.1) 03/24/23 HA1c 7.9 % (4.5-5.6) H 03/24/23 Blood Type A Positive 03/24/23 Antibody Screen NEGATIVE 03/24/23 Testing Electrocardiogram Date: 03/24/23 NSR, rate 72 bpm Chest X-Ray Date: 03/24/23 Cardiomegaly without acute process Echocardiogram Date: 03/20/23 EF 50-55% Mild cLVH Base inferior, inferoseptal mild hypokinesis Calcified, restricted aortic valve with moderate aortic stenosis (PV 2.93, MG 17, EDU 0.96) Mild mitral regurgitation Borderline dilated ascending aorta 3.9 cm Other Testing Carotid doppler 01/24/22 < 50% stenosis ICAs bilat COVID-19 Risk Screen Screening Information COVID-19 Screen Date: 03/24/23 Exposure 21 Days Family/Household +COVID Last 21 Days: No Exposure 10 Days Any COVID Exposure Last 10 Days: No Symptoms Last 10 Days Experienced COVID Sx Last 10 Days: No + COVID 0-90 Days COVID + in Last 0-90 Days: No
[~2023-04-06 06:07] MED LIST changes: +ACETAMINOPHEN 500 MG TAB PO SCH; -ALLO100T PO; +GABAPENTIN 300 MG CAP PO SCH; -GLC5 PO; -LEVE500T13 PO; -LPT40 PO; +LR 60ML/HR IV SCH; -LSN20 PO; -METF1000 PO; -NTRSLP4 SL; -TPRSR50 PO; +TRANEXAMIC ACID 1,000 MG **IV Pre-op IV SCH; +ceFAZolin 2000MG 2,000 MG/15 ML SYR IV SCH; +dexAMETHasone 4 MG TAB PO SCH
[2023-04-06] MEDS ORDERED: BUPIVACAINE 0.5 % 5 MG/1 ML PF 10ML VIAL ONE (06:21)
[2023-04-06 07:02] LABS: BUN Creatinine Ratio 17.6 (10-20); Calcium 9.2 mg/dl (8.6-10.3); Creatinine Clr Calc Pharmacy 35.1 ml/min; Est GFR (African American) 35.4 ml/min; Est GFR (Non-African American) 30.5 ml/min; Potassium 4.6 mmol/L (3.5-5.1)
[2023-04-06] MEDS ORDERED: DEXTROSE 50% 50 ML SYRINGE IV ONE (07:25)
[2023-04-06] MEDS ORDERED: ROCURONIUM BROMIDE 10 MG/ML 5 ML VIAL IV ONE (07:30)
[2023-04-06] MEDS ORDERED: ONDANSETRON INJ 2 MG/ML 2 ML VIAL ONE (07:30)
[2023-04-06] MEDS ORDERED: MIDAZOLAM HCL 1 MG/ML 2ML VIAL ONE (07:30)
[2023-04-06] MEDS ORDERED: DEXAMETHASONE SOD INJ 4 MG/ML VIAL ONE ×2 (07:30→10:33)
[2023-04-06] MEDS ORDERED: LIDOCAINE 2% 2 ML VIAL/AMP(20MG/ML) INFIL ONE (07:30)
[2023-04-06] MEDS ORDERED: PROPOFOL IV EMULSION 10 MG/ML 20 ML VIAL IV ONE (07:30)
[2023-04-06] MEDS ORDERED: fentaNYL citrate PF 100 MCG/2 ML VIAL ONE (07:30)
--- NOTE | 2023-04-06 07:47 | History & Physical Bridge Note ---
Date of Service April 06, 2023 History & Physical Bridge Note I have examined the patient, reviewed the History & Physical and in the interval since the performance of the History & Physical I have noted the following changes of clinical significance: no changes noted
[2023-04-06] MEDS ORDERED: ONDANSETRON INJ 2 MG/ML 2 ML VIAL IV PRN ×2 (07:51→13:41)
[2023-04-06] MEDS ORDERED: ATROPINE SULFATE 0.1 MG/ML 10ML SYR IV PRN (07:51)
[2023-04-06] MEDS ORDERED: KETOROLAC 30 MG/ML VIAL IV PRN (07:51)
[2023-04-06] MEDS ORDERED: fentaNYL citrate PF 100 MCG/2 ML VIAL IV PRN (07:51)
[2023-04-06] MEDS ORDERED: ETOMIDATE 2 MG/ML 20 ML VIAL IV ONE (08:16)
[2023-04-06] MEDS ORDERED: ePHEDrine sulfate 50 MG/ML SYR ONE (09:01)
[2023-04-06] MEDS ORDERED: TRANEXAMIC ACID 1,000 MG **IV Pre-op IV SCH (09:45)
--- NOTE | 2023-04-06 12:03 | Post Operative Brief Note ---
PG Immediate Post Op with CF Date of Surgery April 06, 2023 Pre & Post Diagnosis Operation Date: 04/06/23 08:15 Pre-Op Diagnosis: Primary Osteoarthritis, Right Shoulder Post-Op Diagnosis: Primary Osteoarthritis, Right Shoulder I identified the patient and participated in the time-out.: Yes Procedure Operation Date: 04/06/23 08:15 Actual Procedures p Right Total Shoulder Arthroplasty Reverse, Right Open Biceps Tenodesis (Right) - Tenzin Hamilton MD Surgeon Tenzin Hamilton MD Associate Professor Of Biblical Studies internet marketing consultant Estimated Blood Loss 100 Findings Consistent with Post-Op Diagnosis Specimens Specimen Description: A. Right shoulder bone and tissue
--- NOTE | 2023-04-06 12:35 | XRay Report ---
RIGHT SHOULDER 2 VIEWS CLINICAL HISTORY: Postoperative examination. FINDINGS: 2 portable views of the right shoulder are obtained. The skeletal structures are osteopenic . A right shoulder arthroplasty is in near anatomic alignment. No acute fracture is seen. Skin clips, soft tissue swelling, and subcutaneous gas overlying the right shoulder are expected postoperative c hanges. Productive degenerative change is noted at the acromioclavicular joint. The visualized right lung parenchyma appears clear. IMPRESSION: Expected postsurgical findings status post right shoulder arthroplasty. No acute fracture is seen. Electronically signed by: Fam Cabrera M.D. 04/06/2023 12:34 PM
--- NOTE | 2023-04-06 12:46 | Operative Report ---
PG Post Operative Report Pre & Post Diagnosis Operation Date: 04/06/23 08:15 Pre-Op Diagnosis: Right shoulder rotator cuff arthropathy, biceps tendinitis Post-Op Diagnosis: Right shoulder rotator cuff arthropathy, biceps tendinitis I identified the patient and participated in the time-out.: Yes Procedure Operation Date: 04/06/23 08:15 Actual Procedures p Right Total Shoulder Arthroplasty Reverse, bicipital tendinitis (Right) - Tenzin Hamilton MD Surgeon Tenzin Hamilton MD [employer] can filler Estimated Blood Loss 100 Findings Consistent with Post-Op Diagnosis Nicole [employer] comprehensive reverse shoulder arthroplasty was performed: Stem16 mm micro, baseplatemedium augmented postero-superior, dchiuaxtduy29 mm standard, humeral tray40 mm standard +0 offset, central screw 6.5 mm x 30 mm, all locking peripheral screws 4.75 x 20 mm, 4.75 x 20 mm, 4.75 x 25 mm, and 4.75 x 30 mm EXAMINATION UNDER ANESTHESIA: Preoperative exam under anesthesia revealed the followin degrees of forward flexion, 20 degrees external rotation at the side, 70 degrees of abduction, 30 degrees of external rotation and 10 degrees of internal rotation with the arm abducted. Postoperatively, range of motion parameters after implantation of prosthesis revealed a stable prosthesis with range of motion parameters as follows: 130 of forward flexion, 60 of external rotation at the side, 90 of abduction, 90 of external rotation with the arm abducted, 20 of internal rotation with the arm abducted. The patient's safe range of motion included the ability to get to the back of the head. Internal rotation to the belly without significant tension. Specimens Humeral head for pathology Drains none Anesthesia Type General Regional Complications none Disposition Accompanied Patient To Recovery: No Disposition: Recovery Room Indications 72-year-old male with chronic and progressive right shoulder pain with a physical exam advanced imaging consistent with rotator cuff arthropathy. He has been managed for over a year with nonoperative treatment consisting of injections and therapy. Despite these interventions, he was persistently symptomatic and progressively so. We discussed further treatment options and elective reverse shoulder arthroplasty was offered. We discussed over several visits. The risks and benefits were reviewed in detail, as outlined in the preoperative notes. Informed consent was obtained in clinic, as he desired to proceed. Description of Procedure The patient was identified in the preoperative holding area. The operative extremity was marked. Regional block was administered by Anesthesia. The patient was then brought to the operating room and placed supine. Preliminary time-out procedure was performed. All were in agreement. General endotracheal anesthesia was induced without any issues. The patient was sat up in around 40-45 degrees of inclination in the beachchair position. Exam under anesthesia was performed confirming the above findings. Preoperative antibiotics were administered. Sequential compressive devices were placed on her bilateral lower extremities for DVT prophylaxis. Bony prominences were inspected, well-padded and free of any evidence for peripheral nerve compression. The operative upper extremity was then prepped and draped in a normal standard fashion. A padded Kulkarni was used to help hold the arm. Prior to incision, a second time-out procedure was performed confirming the patient, site, laterality and the procedure. All were in agreement. 1. Right shoulder open reverse total shoulder replacement with augmented glenoid baseplate with patient specific guide: A deltopectoral incision was utilized. Incision was carried out sharply and with electrocautery through the skin and subcutaneous tissues. The deltopectoral interval was developed. The cephalic vein was taken medially. Subdeltoid space was developed bluntly. A deltoid brown retractor was placed to retract the deltoid laterally and superiorly. 1 cm of the superior border of the pectoralis major tendon insertion site was released in standard fashion to improve exposure. Clavipectoral fascia was removed with electrocautery. Extensive subacromial bursitis was encountered and this was completely removed with a Bovie. The lateral aspect of the conjoined tendon was then followed to its insertion site on the coracoid. The conjoined tendon was retracted medially. The biceps tendon was identified, enlarged consistent with tendinopathy. It was released from the sheath using a Bovie and followed up into the rotator interval. A tenodesis was performed to the pectoralis major tendon as will be discussed in further detail below. A sharp Hohmann retractor was then placed into the interval and into the joint. Subscapularis tendon was still present and attached on the lesser tuberosity. The articular surface of the humeral head could be appreciated. The subscapularis tendon was then tagged with two #5 braided Biomet tape sutures to gain control. The capsule with the subscapularis tendon was then released up the inferior humeral neck as one layer. The humeral head dislocated with successive extension and external rotation. Visualization of the humeral head revealed significant osteoarthritis and wear. The supraspinatus was thin and compromised. The greater tuberosity footprint was partially bare. The top of the humeral head was identified. A starting awl was used sound the humeral canal. The bone quality was moderate. We opted to set the retroversion of the humeral cut at around 30 degrees of retroversion to match [place] retroversion. The humeral head resection was then made in parallel fashion to the guide. Sequential reaming was carried out up to a size 16 as the maximal stem size. Successive trial broaches were then broached up to a size 17, which gave us excellent press-fit. The trial stem was left in place, with protective cap. We then proceeded over to glenoid. An anterior glenoid neck retractor was placed. The MGHL and SGHL were released off of the muscular portion of the subscapularis being mindful of palpating and identifying the axillary nerve to make sure it was free of injury during releases. Next, the interval between the IGHL and the muscular portions of the subscapularis was identified. My finger was on the axillary nerve to protect it during releases. The IGHL was then released up to around the 7 o'clock position. A blunt retractor was then placed to retract the humerus posteriorly. A sharp Hohmann retractor was placed at the 12 o'clock position. The glenoid deformity was evaluated with assistance with the bone model. Extraneous capsulolabral tissue was dissected to reveal the bone anatomy. This confirmed our decision to proceed with preoperative virtual planning. The arm was placed around 30 degrees of flexion, 90 degrees of external rotation and 30 degrees of abduction to distract the humerus posteriorly. Labrum was circumferentially removed including the biceps tendon stump with a Bovie. A patient specific guide was used to place an initial guide pin, followed by the more superior pin. The patient specific guide was then removed. The custom reamer guide was placed on the superior pin and the reamer was brought down the central pin. Reaming was conducted based on the guide. Irrigation was used and we confirmed adequate reaming. The base protector was then fastened with a screw to protect the surface from the augment reamer. The augment reamer sufficiently removed the cartilage surface. Copious irrigation was performed to irrigate out the joint. A medium augment baseplate, with wedge placed postero-superior per the plan and a 30mm threaded screw was then placed. Four peripheral locking screws were placed. The final construct appeared to be extremely strong as the entire glenoid and scapula moved together as one unit confirming excellent fixation of the baseplate. Next, a 40 mm inferior offset set at position C glenosphere was chosen given our preop plan and position of the central screw for bone purchase. The glenosphere was then seated into the baseplate and impacted onto the bee taper. A mai was used to test fixation, before resetting with additional malletting. The joint was then copiously irrigated. Humerus was then brought back into view with external rotation, deltoid brown retractor and multiple blunt Homans. A trial tray was then placed that would best accommodate the anatomy. The humerus was then reduced onto the glenoid with the arm in abduction and external rotation. The arm was taken out of the holt, taken through a physiologic range of motion. No evidence for impingement. No evidence for kick off. No shuck. Thus, the trials would be a most appropriate for stability. The redislocation was extremely tight. This required slight release of the remaining supraspinatus insertion. Given the tightness, I pulled the trial stem and downsized by 2 mm to the 15. It was sent further, and I used the calcar reamer to reduce the neck cut into the plane that was established. The 15 trial was then removed. I tried once again with a 16mm stem. This seemed to capture well. With the lower cut I felt the 17 that trialed previously it was too tight. Next, the trial humeral component was removed. The final stem prosthesis was then brought onto the field. Final tray insert as well as the poly components were opened. Using the trial component, the final humeral component with the tray and poly were made on the back table, matching the trial implant. Humeral canal was copiously irrigated. Subscapularis tendon seemed short and truncated and unable to reduce well to the remaining lesser tuberosity. Therefore, no repair was planned. The final humeral component was then brought back on to the field and seated firmly into the humerus. Excellent press-fit was achieved. The tray and poly were then impacted onto the Bee taper of the stem to finalize implantation. Thus, this completed the humeral component implantation. With the final components in place, humeral component was then reduced onto the glenosphere and final postoperative range of motion assessment was performed. Stability confirmed. This completed the open reverse total shoulder replacement. 2. Open biceps tenodesis: As dictated above, enlargement of the biceps tendon was noted consistent with tendinopathy. A tenodesis was opted. The tendon was released from the bicipital sheath using a Bovie and then tenodesed to the pectoralis major tendon using a #2 max braid tape sutures in [id number] fashion. The tendon was then followed up as proximal as could be visualized and then tenotomized. Remaining stump was removed just proximal to the tenodesis site. This completed the open biceps tenodesis. The wound was copiously irrigated. The deltopectoral incision was closed with continuous #1 Vicryl. Subcutaneous tissues were closed with 2-0 Vicryl suture in buried interrupted fashion. The dermis was approximated using 2-0 Vicryl. Final skin closure consisted of mark. The wound was dressed with sterile Xeroform, plain gauze, ABD and contained with Ioban dressing. The patient was placed in a standard sling and turned over to the anesthesia te am. The patient tolerated procedure well, was extubated in the operating without complication, and transferred to the PACU in stable condition. DISPOSITION: The patient will remain in sling for a total of 4 weeks. Hand, wrist, and elbow range of motion exercises may be initiated. After 4 weeks, the sling will be discontinued. Formal therapy will be initiated starting with gentle passive range of motion and active range of motion. No strengthening will be permitted before 12 weeks. When strengthening is allowed, only gentle strengthening will be allowed. I attest to the content of the Intraoperative Record and any orders documented therein. Any exceptions are noted below.
--- NOTE | 2023-04-06 12:50 | Anesthesiology Progress Note ---
Date of Service April 06, 2023 Anesthesia Post Procedure Vital Signs Vital Signs: Temp Pulse Pulse Resp BP BP Pulse Ox 04/06/23 12:40 36.5 C 81 20 110/62 95 04/06/23 12:30 82 20 117/68 99 04/06/23 12:20 85 20 110/71 96 04/06/23 12:10 35.9 C L 81 18 102/59 L 97 04/06/23 06:34 36.1 C L 67 18 164/84 H 99 O2 Del Method O2 Flow Rate 04/06/23 12:40 Room Air 04/06/23 12:30 Oxymask 5 04/06/23 12:20 Oxymask 5 04/06/23 12:10 Oxymask 5 04/06/23 06:34 Room Air Pain Intensity Right Shoulder: Pain Intensity: 5 Transfer of Care Handoff Completed per policy Notes Mental Status: alert / awake / arousable Patient Amnestic to Procedure: Yes Nausea / Vomiting: adequately controlled Pain: adequately controlled Airway Patency, RR, SpO2: stable & adequate BP & HR: stable & adequate Hydration State: stable & adequate Anesthetic Complications: no major complications apparent
[2023-04-06] MEDS ORDERED: NALOXONE HCL 0.4 MG/1 ML VIAL/CARP IV PRN (13:41)
[2023-04-06] MEDS ORDERED: diphenhydrAMINE Capsule 25 MG CAP PO PRN (13:41)
[2023-04-06] MEDS ORDERED: HYDROmorphone INJ 0.5 MG/0.5 ML SYR IV PRN ×2 (13:41)
[2023-04-06] MEDS ORDERED: oxyCODONE HCL IR 5 MG TAB (IMMEDIATE RELEASE) PO PRN (13:41)
[2023-04-06] MEDS ORDERED: ALUMINUM/MAGNESIUM SUSP 30 ML UDC PO PRN (13:41)
[2023-04-06] MEDS ORDERED: TAMSULOSIN HCL 0.4 MG CAP PO PRN (13:41)
[2023-04-06] MEDS ORDERED: diphenhydrAMINE 50 MG/ML VIAL IV PRN (13:41)
[2023-04-06] MEDS ORDERED: MAGNESIUM HYDROXIDE SUSP 30 ML UDC PO PRN (13:41)
[2023-04-06] MEDS ORDERED: bisacodyL 10 MG SUPP PR PRN (13:41)
[2023-04-06] MEDS ORDERED: PHARMACY GLYCEMIC MGMT CONSULT PRN (13:41)
[2023-04-06] MEDS ORDERED: LANTUS PER UNIT CHARGE SQ STA ×3 (14:02→21:41)
[2023-04-06] MEDS ORDERED: DEXTROSE 50% 50 ML SYRINGE IV PRN (14:15)
[2023-04-06] MEDS ORDERED: GLUCOSE 10 TAB/TUBE PO PRN (14:15)
[2023-04-06] MEDS ORDERED: GLUCOSE 40% GEL 15 GM TUBE PO PRN (14:15)
[2023-04-06] MEDS ORDERED: GLUCAGON FOR INJ 1 MG VIAL IM PRN (14:15)
[2023-04-06] MEDS ORDERED: CARBOHYDRATES FOR HYPOGLYCEMIA PO PRN (14:15)
--- NOTE | 2023-04-06 14:19 | Pharmacy Report ---
Pharmacy Glycemic Short Note 2 - Date of Service April 06, 2023 - Glycemic Short BSG Results (Last 24 hours): 04/06/23 04/06/23 04/06/23 06:20 06:30 06:32 Glucose 80 POC Glucose 69 L* 71 04/06/23 04/06/23 04/06/23 07:48 10:04 12:12 Glucose POC Glucose 111 H 77 116 H OUTPATIENT ANTIDIABETIC REGIMEN: * Lantus 70 units SC AM + 10 units SC PM * Metformin 1000 mg PO BIDM * HbA1c: 7.9% (03/24/23) ASSESSMENT: * 72 yo M admitted on 04/06/23 postoperatively following a total shoulder arthroplasty. Pharmacy has been consulted to assist with inpatient glycemic management. Patient is a controlled Type 2 diabetic as an outpatient. Please refer to outpatient regimen and most recent HbA1c above. * Per patient, last dose of insulin was 70 units of basal on the morning of 04/05/23. Last dose of Metformin was last evening. Patient was hypoglycemic upon arrival here today at 69 mg/dL. Asymptomatic. Given 12.5 mL of D50 and BSG improved to 111 mg/dL. Postoperative BSG was 116 mg/dL. * Patient did receive 8 mg of PO dexamethasone preop and 4 mg of IV dexamethasone intraop. * Given hypoglycemia preop, postop BSG of 116 mg/dL, and current renal fxn, will plan to be conservative with basal dose for today. Plan for a one time dose of basal ~0.2 units/kg now. Will add a small HS scale as concerned patient may self correct over night and want to prevent hypoglycemia in the morning. Will start Novolog based on weight/stress of 3 given conservative basal dose. Adding overnight checks for the first night only and will loosen CF/CR at this time to provide less insulin/prevent hypoglycemia overnight. Conservative goal range as well to prevent hypoglycemia. PLAN FOR INPATIENT GLYCEMIC CONTROL: * Hold outpatient oral diabetes medications * Basal insulin * Lantus 20 units SC x 1 now * Lantus 10 units SC HS if BSG > 200 mg/dL * Bolus insulin * NovoLog per scale ACHS and for tonight only * Goal Range: Low 120 mg/dL - High 150 mg/dL * Correction Factor: 15 mg/dL/unit (30 overnight) * Nutritional / Prandial insulin per carb ratio of 1 unit per 5 grams CHO consumed (10 overnight)
[2023-04-06] MEDS: ACETAMINOPHEN 1,000 MG/100 ML VIAL IV SCH ×2 (14:39→21:51)
[2023-04-06] MEDS: KETOROLAC TROMETHAMINE 15 MG/ML VIAL IV SCH ×2 (14:40→17:47)
[2023-04-06] MEDS: ASCORBIC ACID 500 MG TAB PO SCH (17:10)
[2023-04-06] MEDS: INSULIN ASPART PER UNIT CHARGE SC SCH ×2 (17:45→21:27)
[2023-04-06] MEDS: ceFAZolin 2000MG 2,000 MG/15 ML SYR IV SCH (17:55)
[2023-04-06] MEDS ORDERED: TRANEXAMIC ACID / 0.7% NACL 1,000 MG/100 ML BAG IV SCH (18:15)
[2023-04-06] MEDS ORDERED: SENNA 8.6 MG TAB PO SCH (21:00)
[2023-04-06] MEDS ORDERED: metFORMIN HCL 500 MG TAB PO SCH (21:00)
[2023-04-06] MEDS ORDERED: allopurinoL 100 MG TAB PO SCH (21:00)
[2023-04-06] MEDS ORDERED: ATORVASTATIN 40 MG TAB PO SCH (21:00)
[2023-04-06] MEDS ORDERED: ASPIRIN 81 MG ECTAB PO SCH (21:00)
[2023-04-06] MEDS ORDERED: LANTUS PER UNIT CHARGE SQ ONE (21:00)
[2023-04-06] MEDS: lisinopril 20 MG TAB PO SCH (21:33)
[2023-04-06] MEDS: DOCUSATE SODIUM 100 MG CAP PO SCH (21:33)
[2023-04-07] MEDS: INSULIN ASPART PER UNIT CHARGE SC SCH ×3 (00:23→07:37)
[2023-04-07] MEDS: KETOROLAC TROMETHAMINE 15 MG/ML VIAL IV SCH ×2 (00:25→06:19)
[2023-04-07] MEDS: ceFAZolin 2000MG 2,000 MG/15 ML SYR IV SCH (02:05)
[2023-04-07] MEDS: ACETAMINOPHEN 1,000 MG/100 ML VIAL IV SCH ×2 (06:20→06:24)
[2023-04-07 06:40] LABS: Basophils # (auto) 0.01 K/uL (0-0.2); Basophils % (auto) 0.1 %; Hematocrit (blood only) 32.3 % (42.0-52.0); Hemoglobin 10.6 g/dl (14.0-18.0); Immature Granulocytes # (auto) 0.03 K/uL (0.01-0.20); Immature Granulocytes % (auto) 0.3 %; Lymphocytes # (auto) 0.74 K/uL (1.2-3.4); Lymphocytes % (auto) 8.2 %; Mean Corpuscular Hemoglobin 30.5 pg (25.0-34.0); Mean Corpuscular Hgb Conc 32.8 g/dL (32.0-36.0); Mean Corpuscular Volume 92.8 fL (80.0-100.0); Mean Platelet Volume 10.1 fL (9.4-12.4); Monocytes # (auto) 0.79 K/uL (0.11-0.59); Monocytes % (auto) 8.8 %; Neutrophils # (auto) 7.41 K/uL (1.40-6.50); Neutrophils % (auto) 82.6 %; Platelet Count 244 K/uL (130-400); RDW Coefficient of Variation 13.6 % (11.5-14.5); RDW Standard Deviation 46.4 fL (36.4-46.3); Red Blood Count 3.48 M/uL (4.70-6.10); White Blood Count 8.98 K/ul (4.8-10.8)
[2023-04-07 07:01] LABS: BUN Creatinine Ratio 19.4 (10-20); Calcium 8.7 mg/dl (8.6-10.3); Creatinine Clr Calc Pharmacy 29.7 ml/min; Est GFR (African American) 28.9 ml/min; Potassium 4.9 mmol/L (3.5-5.1)
[2023-04-07] MEDS: ASCORBIC ACID 500 MG TAB PO SCH (07:30)
[2023-04-07] MEDS: DOCUSATE SODIUM 100 MG CAP PO SCH (07:30)
[2023-04-07] MEDS: lisinopril 20 MG TAB PO SCH (07:31)
--- NOTE | 2023-04-07 08:29 | Orthopedic Progress Note ---
Date of Service April 07, 2023 Assessment & Plan (1) History of reverse total replacement of right shoulder joint: POD1. Making progress as expected. - d/c today pending PT/OT recommendations. - Will arrange outpatient PT from our clinic ([facility] - [phone]) Subjective No pain this am - block remains in effect Review of Systems All systems reviewed & are unremarkable except as noted in HPI & below. Physical Exam RUE: +WF/EF/FF/FE, sensation dull but intact to LT all distributions. Dressing c/d/i. Results & Data Results & Data Laboratory Results Laboratory Tests 03/24/23 04/06/23 04/07/23 13:37 06:20 06:19 Hgb 11.4 L 10.6 L Hct 34.1 L 32.3 L Sodium 136 Creatinine 2.10 H 04/07/23 06:19 Hgb Hct Sodium 132 L Creatinine 2.48 H D Diagnostic Findings xr no complications PG Care Time/CCT Total # of Minutes Spent Total Time Spent with Patient: Total time spent is greater than 50% in coordination of care (as documented) at patient's floor/unit and/or counseling patient: Coding Level of Care Code 66511 Post Operative Follow-Up Diagnoses History of reverse total replacement of right shoulder joint Z98.890
[2023-04-07] MEDS ORDERED: METOPROLOL SUCC 50MG EXT REL TAB PO SCH (09:00)
[2023-04-07] MEDS ORDERED: TRIAMTERENE/HCTZ 37.5/25MG TAB PO SCH (09:00)
[2023-04-07] MEDS ORDERED: CLOPIDOGREL BISULFATE 75 MG TAB PO SCH (09:00)
[2023-04-07] MEDS ORDERED: LANTUS PER UNIT CHARGE SQ SCH (09:00)
[2023-04-07] MEDS ORDERED: amLODIPine BESYLATE 5 MG TAB PO SCH (09:00)
--- NOTE | 2023-04-12 17:10 | Discharge Summary ---
Date of Service April 12, 2023 Admission HPI (Per Admitting) 72 yo M with chronic shoulder pain related to rotator cuff arthropathy. Principal Diagnosis Same as "Discharge Diagnosis" noted below under Discharge Instructions. Discharge Exam RUE: +WF/EF/FF/FE, sensation dull but intact to LT all distributions. Dressing c/d/i. Discharge Data Procedures Performed Operation Date: 04/06/23 08:15 Actual Procedures p Right Total Shoulder Arthroplasty Reverse(Right) - Tenzin Hamilton MD Ordered Studies 04/06/23 07:53 US - OR guided needle placemen Routine Hospital Course (1) History of reverse total replacement of right shoulder joint: Plan Admitted postoperatively for observation. On POD1, he was found to be clinically stable for discharge to home after PT and OT evaluations. PG Care Time/CCT Total # of Minutes Spent Total Time Spent with Patient: Total time spent is greater than 50% in coordination of care (as documented) at patient's floor/unit and/or counseling patient: Discharge Plan Discharge Items Patient Disposition: Home - Self-Care Reason For Visit: Primary Osteoarthritis, Right Shoulder Discharge Diagnosis: Bilateral shoulder OA, s/p R rTSA Condition on Discharge: Good Activity: Per Instructions section Non-emergency contact: Surgeon Call non-emergency contact if: you have any medication questions, your pain is not controlled and your temperature is above 101 Follow-up/Referrals: Tenzin Hamilton MD [Surgeon] - Saw Campbell DO [Primary Care Provider] - Diet: Carb Consistent or DM2 and Heart Healthy Addtl Attending Provider Instructions: Tenzin Hamilton M.D. [facility] [address], [place] [address] Dressing Care: Leave the dressing in place for 3 days. After 3 days you may remove the dressing. If the incision is not draining, you do not have to re-cover the dressing. [place] will be removed at your postop appointment. If there is a little bit of drainage or if the wound is bothersome with your clothing, cover the incision with a dry dressing. Do not use any ointments or topical medications unless directed by your surgeon. Do not submerse the incisions in water no pools, oceans, lakes, jacuzzis, bathtubs, etc for at least 3 weeks. Showering: After 3 days you may remove the dressing and shower normally. Allow soap and water to run over the incision and pat dry. Do not scrub or soak the incision. Activity and Therapy Recommendations: - If you are not using home therapy then Outpatient Physical Therapy should start about 3-5 days from your day of surgery. Therapy will last about 8-12 weeks - Wear your sling for 3 weeks, unless otherwise instructed. You may remove your sling to shower and to dress, but otherwise, you should be in your sling at all times, including while sleeping - The shoulder replacement is very stable and you can use your hand while in the sling - You were shown a series of exercises in the hospital. Do these exercises daily including the exercises you were shown in physical therapy. - NO EXTERNAL ROTATION - do not reach out to your side. Pain Control: Use frequent ice to reduce amount of pain medications. Use for 30 minutes per hour. Do not leave in place longer than 30 minutes, especially when your block is in effect, to prevent frostbite or thermal injury. Medications: 1. Oxycodone (OxyIR) 1-2 tablet(s) orally every 4 hours for pain as needed. Use with Tylenol. Begin tapering OxyIR as soon as possible: reduce from 2 to 1 pills per dose, then spread out the doses over greater time intervals, then try to use only for therapy or for comfort while sleeping. Continue to use regular Tylenol until pain subsides. 2. Tylenol (325mg): 3 tablets every 8 hours orally. Regular dosing of Tylenol is an important part of your baseline pain control. Do not taper Tylenol until you have successfully tapered off of regular OxyIR. Do not take more than 3000mg of Tylenol per day. 3. Zofran 4m tablet orally every 6 hours as needed for nausea related to anesthesia, pain, and narcotic medications Constipation: Narcotic pain medications can slow down your digestive track, leading to constipation. Stay hydrated. While taking narcotics, the use of stool softeners is recommended. Two over the counter options are: 1. Colace (100mg): take 1-2 tabs twice daily to avoid constipation from OxyIR or other narcotics. 2. Miralax 1 tablespoon in a glass of water 2 times daily until normal bowel movements Follow-Up: 1. Ortho Clinic with Dr. Hamilton: You should be seen in 10-14 days. Please call immediately to schedule if you do not have an appointment. Pending Studies at Discharge: No Stand-Alone Forms: My [facility], Pain - Opioid Pain Management, Smok ing Cessation Medications and DC Order Prescriptions: New ondansetron 4 mg tablet,disintegrating 4 mg PO Q6H PRN (Reason: nausea and vomiting) Qty: 10 0RF oxycodone 5 mg tablet 5 - 10 mg PO Q4H MDD 6 tablets PRN (Reason: pain) Qty: 20 0RF Continued metformin 1,000 mg tablet 1,000 mg PO BID Qty: 180 3RF amlodipine 5 mg tablet 5 mg PO QAM triamterene-hydrochlorothiazid 37.5-25 mg tablet 1 tab PO QAM allopurinol 100 mg tablet 100 mg PO HS aspirin 81 mg tablet,delayed release (DR/EC) 81 mg PO QPM atorvastatin 80 mg tablet 80 mg PO HS clopidogrel 75 mg tablet 75 mg PO QAM Qty: 30 lisinopril 20 mg tablet 20 mg PO BID insulin glargine 100 unit/mL solution See Rx Instructions subcut .COMPLEX Rx Instructions: 70 unit QAM & 10 units QPM subcut metoprolol succinate 100 mg tablet extended release 24 hr 100 mg PO QAM Discharge Orders: Discharge Order (Routine); Ordered 04/07/23 Ordered By: Tenzin Shi/Other Patient Handouts: DVT Post Op Prevention Admission Data Admit Date/Time: 04/06/23 12:13 Attending Provider: Tenzin Hamilton Admit Provider: Tenzin Hamilton Primary Care Provider: Saw Campbell Other Interventions: Discharge Summary Assessment (RN) Last Done: 04/07/23 09:05
== END 2023-04-07 10:33 | disposition home or self-care (01) ==
LOC: 3E 06:07 → ASU 06:07
DX: M75.21 Bicipital tendinitis, right shoulder; Z79.84 Long term (current) use of oral hypoglycemic drugs; Z79.82 Long term (current) use of aspirin; M19.011 Primary osteoarthritis, right shoulder; I11.9 Hypertensive heart disease without heart failure; I08.0 Rheumatic disorders of both mitral and aortic valves; Z87.891 Personal history of nicotine dependence; Z86.16 Personal history of COVID-19; Z79.4 Long term (current) use of insulin; Z95.5 Presence of coronary angioplasty implant and graft; I25.10 Atherosclerotic heart disease of native coronary artery without angina pectoris; I77.810 Thoracic aortic ectasia; E11.9 Type 2 diabetes mellitus without complications; E78.5 Hyperlipidemia, unspecified; Z95.1 Presence of aortocoronary bypass graft; Z79.899 Other long term (current) drug therapy; Z20.822 Contact with and (suspected) exposure to COVID-19; Z79.02 Long term (current) use of antithrombotics/antiplatelets; M67.911 Unspecified disorder of synovium and tendon, right shoulder

== ENCOUNTER 2023-04-14 11:26 | Inpatient (IN) ==
[2023-04-14] MEDS ORDERED: ONDANSETRON INJ 2 MG/ML 2 ML VIAL IV STA (11:56)
[2023-04-14] MEDS ORDERED: SODIUM CHLORIDE 0.9% 1000ML 1,000 ML IV ONE (11:56)
--- NOTE | 2023-04-14 12:10 | Emergency Department Note ---
Impression & Plan Acute dehydration, Acute renal failure, Postoperative anemia ED Provider Note Name: LYNDSAY BRYANT Age: 72 Sex: M Arrives Via: Walk-In Informant: Patient, ED Provider: Yan Hopkins MD Chief Complaint: Weakness Impression: as per impressions above Medical Decision Makin-year-old pleasant gentleman with a history of CAD, diabetes, hypertension who had a right shoulder replacement about 1 week ago. He had severe nausea and vomiting after taking narcotics initially and thus has not used them in the last week. Since then though he has had continued nausea with some worsening symptoms this last 2 days. He has not been eating or drinking due to his nausea and not feeling well. He has no abdominal pain chest pain shortness of breath syncope palpitations or other concerning signs or symptoms. His exam is pretty benign other than he appears a bit pale dehydrated. He has a soft nontender abdomen. Laboratory work-up reveals mild anemia consistent with recent surgery no need for transfusion at this time. Patient does have a severely elevated BUN consistent with dehydration. Given the anemia of course gastric cause considered but patient is adamant no black or bloody stools. Creatinine is also elevated over the last month and a half. Unclear etiology for this other than not eating drinking. I do think that given his inability tolerate p.o. or have any interest in eating or drinking the last few days, his recent surgery, his significant hyperglycemia I think that hospitalization is probably indicated at this point. Hospitalist was consulted for the further management. At this point there is no evidence of sepsis or infection. Patient has significant improvement after 1 L normal saline. He has no headache neck pain or neurologic deficits to suggest need for neuroimaging at this time. I will note that patient's blood pressure was a little bit on the low side on arrival after IV fluids he feels much better. He has no evidence of PE or dissection and CT imaging of the chest is not indicated at this time. Prior Medical Record and Triage/Nursing Notes reviewed by Me External chart reviewed by me including recent surgical history Differentials:Infection, dehydration, metabolic abnormality, hypo/hyperglycemia, electrolyte disturbance, anemia, hypoxia, cardiac sources, intracerebral event, toxicologic, neurologic, as well as other pathologies. Vital Signs: reviewed and remarkable for no significant abnormalities Interventions: NSS 1L IV Labs:Reviewed and remarkable for elevated BUN/Cr, all other labs reviewed as well EKG:As per my interpretation. Indication weakness. Normal sinus rhythm at 64 bpm with a QTc of 435. There is no ectopy nor ischemia. When compared to EKG of March 24, 2023 there is no significant change. Cardiac/Tele Monitoring: Cardiac Monitoring: An Order was placed for continuous cardiac monitoring. The monitor shows a rate of 60 with a normal sinus rhythm. Consults:Dr Cristino Jaeger Hospitalist Plan: Disposition:Hospitalization. Condition: Good History of Present Illness:72-year-old male arrives for evaluation of dehydration. Patient notes a right shoulder repair a few days ago. Since then has had issues with nausea mild vomiting. He is not have much of an appetite. Does note that during the surgery he had some post surgical sore throat and feels like he has been having a lot of reflux. Denies any chest pain no. He had no shortness of breath palpitations or near syncope. Denies any fevers, chills. States his shoulder feels good he has not been using any other pain medicines since the first evening but they had made him very nauseous. Denies any specific abdominal pain. States has been ambulating without difficulty. He does have a history of easy dehydration and feels like that is what is going on today. Past History: CAD status post CABG, diabetes Home Medications:See Below. Patient does take both aspirin and Plavix on a daily basis Allergies: No known drug allergies. Vitals:Blood Pressure: 97/66, Pulse 79, RR 20, T 36.7C, O2 94% on RA Physical Exam: GENERAL: Patient is tired appearing and in minimal distress. EYES: No scleral icterus, unremarkable pupils. Pale conjunctiva ENT: Mucous membranes dry, no nasal congestion. NECK: No masses appreciated, nomeningismus, trachea is midline. RESPIRATORY: No dyspnea. Clear to auscultation and equal bilaterally. No wheeze, no rhonchi. CARDIOVASCULAR: Regular rate and rhythm.No murmurs, rubs, gallops appreciated. GASTROINTESTINAL: Abdomen soft, non-tender, no peritonitis.Bowel sounds positive.No masses appreciated. EXTREMITIES: Normal motion all extremities, no cyanosis, no edema. Well-healing incision with mark over the right anterior shoulder. Minimal bruising. No erythema. No drainage. No tenderness to palpation or fluctuance appreciated. Distal hand excellent pulses just mild edema. Full sensation intact NEUROLOGIC: Alert and oriented, no focal neurologic deficits appreciated SKIN: No rash, no jaundice, no diaphoresis. PSYCH: Appropriate GCS: 15 ED Course: Times/Reassessments: Patient does feel significantly better after initial IV fluid bolus. He sitting up in no distress. He is agreeable to hospitalization given the abnormal laboratory findings. Yan Hopkins MD Past Med/Surg History Medical History (Updated 04/14/23 @ 15:13 by Yan Hopkins MD) Aortic stenosis moderate on 03/2023 echo Carotid stenosis < 50% stenosis ICAs bilat 12/2021 doppler Coronary artery disease s/p 4 stents, CABG x 3 in 2016, most recent stent in 2017 Gout Hearing deficit Herniation of cervical intervertebral disc History of blood transfusion 2015 with CABG History of COVID-19 09/2020--mild symptoms, denies hospitalization, no symptoms now Hypertension controlled, stable per pt Insulin dependent type 2 diabetes mellitus Myocardial Infarction per Dr. Eisenberg's note recurrent NSTEMI: 07/2016 and in 2017--heart caths with stents placed--[place] [facility] [place]. Eisenberg On anticoagulant therapy plavix daily Seizure 1 yr ago, in setting of hypoglycemia, no additional seizure activity Surgical History History of cardiac cath multiple in 2015 with last 11/2016 @ [facility]--x4 stents total placed History of colonoscopy History of reverse total replacement of right shoulder joint History of tooth extraction History of wisdom tooth extraction S/P coronary artery bypass graft x 3 07/2016 [place] [facility] [place]/P epidural steroid injection Family History Father Myocardial infarction Other No family history of adverse response to anesthesia Social History Smoking Status: Former smoker Age Started Using Tobacco: 60; Age Quit Using Tobacco: 65; Smoking End Date: 2015; Second Hand Exposure: No; Do You Dip or Chew Tobacco: No; Hx Alcohol Use: Yes Alcohol type: beer Alcohol Intake Frequency: 2-4 x/Month Hx Substance Use: No Preferred Language: Syriac Communication Ability: Effective Firefighter Required: No Beliefs That Will Affect Care: None marital status: Current Living Situation: Spouse current occupational status: retired Feels Safe at Home: Yes Assistive Devices: None Allergies Allergies Allergy/AdvReac Type Severity Reaction Status Date / Time No Known Allergies Allergy Verified 04/06/23 06:28 Home Meds Home Medications Medication Instructions Recorded Confirmed allopurinol 100 mg tablet 100 mg PO HS 05/08/19 04/14/23 aspirin 81 mg tablet,delayed 81 mg PO QPM 05/08/19 04/14/23 release atorvastatin 80 mg tablet 80 mg PO HS 05/08/19 04/14/23 clopidogrel 75 mg tablet 75 mg PO QAM #30 tabs 05/08/19 04/14/23 amlodipine 5 mg tablet 5 mg PO QAM 12/01/20 04/14/23 triamterene 37.5 1 tab PO QAM 12/01/20 04/14/23 mg-hydrochlorothiazide 25 mg tablet lisinopril 20 mg tablet 20 mg PO BID 07/29/21 04/14/23 insulin glargine 100 unit/mL See Rx Instructions subcut .COMPLEX 10/27/2204/14 subcutaneous solution metoprolol succinate 100 mg 100 mg PO QAM 03/17/23 04/14/23 tablet,extended release 24 hr Previous Rx's Medication Instructions Recorded metformin 1,000 mg tablet 1,000 mg PO BID #180 tabs 08/16/19 ondansetron 4 mg disintegrating 4 mg PO Q6H PRN nausea and 04/07/23 tablet vomiting #10 tabs oxycodone 5 mg tablet 5 - 10 mg PO Q4H PRN pain #20 tabs 04/07/23 Results & Data (ED) Vital Signs Vital Signs - 24 hr 04/14/23 11:34 04/14/23 12:14 04/14/23 12:30 Temperature 36.7 C Temperature Source Temporal Artery Scan Pulse Rate 79 65 62 Pulse Rate from SpO2 Sensor Pulse Rhythm Regular Pulse Strength Normal Respiratory Rate 20 14 Respiratory Effort / Characteristics Non-Labored Spontaneous Respiratory Depth Normal Respiratory Pattern Regular Blood Pressure 97/66 L 111/62 Blood Pressure Mean 76 78 Blood Pressure Position Sitting Pulse Oximetry 94 100 Oxygen Delivery Method Room Air Room Air Sepsis Recent Fever Within 48 Hours No Sepsis New/Unexplained Change in Mental Status No Sepsis Action Taken by Nursing No Action Required 04/14/23 13:00 04/14/23 13:30 04/14/23 14:00 Temperature Temperature Source Pulse Rate 56 L 58 L 60 Pulse Rate from SpO2 Sensor 56 L Pulse Rhythm Pulse Strength Respiratory Rate 16 18 17 Respiratory Effort / Characteristics Respiratory Depth Respiratory Pattern Blood Pressure 131/67 133/68 145/74 H Blood Pressure Mean 88 89 97 Blood Pressure Position Pulse Oximetry 98 99 98 Oxygen Delivery Method Room Air Room Air Sepsis Recent Fever Within 48 Hours Sepsis New/Unexplained Change in Mental Status Sepsis Action Taken by Nursing 04/14/23 14:30 Temperature Temperature Source Pulse Rate 62 Pulse Rate from SpO2 Sensor Pulse Rhythm Pulse Strength Respiratory Rate 16 Respiratory Effort / Characteristics Respiratory Depth Respiratory Pattern Blood Pressure 128/67 Blood Pressure Mean 87 Blood Pressure Position Pulse Oximetry 100 Oxygen Delivery Method Room Air Sepsis Recent Fever Within 48 Hours Sepsis New/Unexplained Change in Mental Status Sepsis Action Taken by Nursing Laboratory Data 04/14/23 12:20 04/14/23 12:20 Lab Results 04/14/23 04/14/23 04/14/23 Range/Units 12:20 12:20 13:57 WBC 9.15 (4.8-10.8) K/ul RBC 2.92 L (4.70-6.10) M/uL Hgb 8.9 L (14.0-18.0) g/dl Hct 26.1 L (42.0-52.0) % MCV 89.4 (80.0-100.0) fL MCH 30.5 (25.0-34.0) pg MCHC 34.1 (32.0-36.0) g/dL RDW Std Deviation 44.1 (36.4-46.3) fL RDW Coeff of Ernesto 13.3 (11.5-14.5) % Plt Count 292 (130-400) K/uL MPV 10.2 (9.4-12.4) fL Immature Gran % (Auto) 1.7 % Neut % (Auto) 79.7 % Lymph % (Auto) 10.4 % Lamb % (Auto) 6.9 % Eos % (Auto) 1.0 % Baso % (Auto) 0.3 % Neut # (Auto) 7.29 H (1.40-6.50) K/uL Lymph # (Auto) 0.95 L (1.2-3.4) K/uL Lamb # (Auto) 0.63 H (0.11-0.59) K/uL Eos # (Auto) 0.09 (0-0.50) K/uL Baso # (Auto) 0.03 (0-0.2) K/uL Immature Gran # (Auto) 0.16 (0.01-0.20) K/uL Sodium 128 L (136-145) mmol/L Potassium 4.7 (3.5-5.1) mmol/L Chloride 95 L (98-107) mmol/L Carbon Dioxide 22 (21-32) mmol/L Anion Gap 11 (3-11) BUN 78 H (6-23) mg/dl Creatinine 2.50 H (0.6-1.4) mg/dl Est Cr Clr Drug Dosing 29.2 ml/min Est GFR ( Amer) 28.7 ml/min Est GFR (Non-Af Amer) 24.7 ml/min BUN/Creatinine Ratio 31.2 H (10-20) Glucose 339 H* (70-99(Fasting)) mg/dl Calcium 8.1 L (8.6-10.3) mg/dl Magnesium 2.4 (1.7-2.4) mg/dl Total Bilirubin 0.5 (0.2-1.0) mg/dl Direct Bilirubin 0.1 (0-0.2) mg/dl AST 26 (13-39) U/L ALT 33 (7-52) U/L Alkaline Phosphatase 55 (34-104) U/L Troponin I High Sens 9.6 (0-20) pg/ml Total Protein 7.0 (6.0-8.3) gm/dl Albumin 3.7 (3.4-5.0) gm/dl SARS-CoV-2, RNA, NAAT NEGATIVE (NEGATIVE) Administered Medications Discontinued Medications Sodium Chloride (Nss 1000ml) 1,000 mls @ 999 mls/hr IV .Q1H1M ONE Stop: 04/14/23 12:56 Last Infusion: 04/14/23 13:43 Dose: 0 mls/hr Documented By: Admin: 04/14/23 12:13 Dose: 999 mls/hr Documented By: KARINA Ondansetron HCl (Ondansetron Inj 2 Mg/Ml 2 Ml Vial) 4 mg IV NOW STA Stop: 04/14/23 11:57 Last Admin: 04/14/23 12:13 Dose: 4 mg Documented By: KARINA Discharge Plan Visit Data Chief Complaint: Dehydration Stated Complaint: REF BY DOC; DEHYDRATION ED Provider: Yan Hopkins Discharge Problem: Acute dehydration, Acute renal failure, Postoperative anemia Forms Stand Alone Forms: My [facility] [employer] Prescriptions Prescriptions: No Action metformin 1,000 mg tablet 1,000 mg PO BID Qty: 180 3RF amlodipine 5 mg tablet 5 mg PO QAM triamterene-hydrochlorothiazid 37.5-25 mg tablet 1 tab PO QAM allopurinol 100 mg tablet 100 mg PO HS aspirin 81 mg tablet,delayed release (DR/EC) 81 mg PO QPM atorvastatin 80 mg tablet 80 mg PO HS clopidogrel 75 mg tablet 75 mg PO QAM Qty: 30 lisinopril 20 mg tablet 20 mg PO BID insulin glargine 100 unit/mL solution See Rx Instructions subcut .COMPLEX Rx Instructions: 70 unit QAM & 10 units QPM subcut metoprolol succinate 100 mg tablet extended release 24 hr 100 mg PO QAM ondansetron 4 mg tablet,disintegrating 4 mg PO Q6H PRN (Reason: nausea and vomiting) Qty: 10 0RF oxycodone 5 mg tablet 5 - 10 mg PO Q4H MDD 6 tablets PRN (Reason: pain) Qty: 20 0RF Referrals Referrals: Saw Campbell DO [Primary Care Provider] - Acute renal failure Qualifiers: Acute renal failure type: unspecified Qualified Code(s): N17.9 - Acute kidney failure, unspecified
[2023-04-14 13:00] LABS: Basophils # (auto) 0.03 K/uL (0-0.2); Basophils % (auto) 0.3 %; Eosinophils # (auto) 0.09 K/uL (0-0.50); Hematocrit (blood only) 26.1 % (42.0-52.0); Hemoglobin 8.9 g/dl (14.0-18.0); Immature Granulocytes # (auto) 0.16 K/uL (0.01-0.20); Immature Granulocytes % (auto) 1.7 %; Lymphocytes # (auto) 0.95 K/uL (1.2-3.4); Lymphocytes % (auto) 10.4 %; Mean Corpuscular Hemoglobin 30.5 pg (25.0-34.0); Mean Corpuscular Hgb Conc 34.1 g/dL (32.0-36.0); Mean Corpuscular Volume 89.4 fL (80.0-100.0); Mean Platelet Volume 10.2 fL (9.4-12.4); Monocytes # (auto) 0.63 K/uL (0.11-0.59); Monocytes % (auto) 6.9 %; Neutrophils # (auto) 7.29 K/uL (1.40-6.50); Neutrophils % (auto) 79.7 %; Platelet Count 292 K/uL (130-400); RDW Coefficient of Variation 13.3 % (11.5-14.5); RDW Standard Deviation 44.1 fL (36.4-46.3); Red Blood Count 2.92 M/uL (4.70-6.10); White Blood Count 9.15 K/ul (4.8-10.8)
[2023-04-14 13:25] LABS: Albumin Level 3.7 gm/dl (3.4-5.0); BUN Creatinine Ratio 31.2 (10-20); Bilirubin Direct 0.1 mg/dl (0-0.2); Bilirubin,Total 0.5 mg/dl (0.2-1.0); Calcium 8.1 mg/dl (8.6-10.3); Creatinine Clr Calc Pharmacy 29.2 ml/min; Est GFR (African American) 28.7 ml/min; Est GFR (Non-African American) 24.7 ml/min; Magnesium 2.4 mg/dl (1.7-2.4); Potassium 4.7 mmol/L (3.5-5.1); Troponin I High Sensitivity 9.6 pg/ml (0-20)
--- NOTE | 2023-04-14 14:52 | History & Physical Report ---
Date of Service April 14, 2023 Assessment & Plan (1) Acute kidney injury superimposed on chronic kidney disease: (2) Nausea: (3) History of reverse total replacement of right shoulder joint: (4) Insulin dependent type 2 diabetes mellitus: (5) Aortic stenosis: (6) Coronary artery disease: (7) Hypertension: Plan This is a 72-year-old male with PMH of CAD (s/p CABG in 2016, GINA in 2017), insulin-dependent diabetes, aortic stenosis, CKD, hypertension and other medical problems listed below who presents with ongoing nausea and poor appetite over the past week. Acute kidney injury superimposed on CKD Nausea Nausea and poor appetite since POD#1 after oxycodone use Afebrile, no WBC, LFTs wnl Cr 2.5 (pre-op Cr 1.97) Obtaining KUB to evaluate for obstruction/ileus UA, utox and urine lyte studies pending Recent total shoulder replacement R TSA on 04/07/[address] Hamilton Not requiring pain control at this time DM II BSG 339 on admission due to not using his glargine in the last 5 days due to ongoing nausea, poor appetite post-op Hold home agents Basal/bolus regimen while in-patient BSG AC HS Anemia Hgb 8.9 in setting of recent surgery, likely post-op blood loss anemia (previously hgb 10.6) No reports of recent bleeding but is on duel antiplatelet Continue to monitor with daily CBC HTN Normotensive. Continue amlodipine, Toprol. Holding lisinopril, triamterene-hctz 2/2 RADU CAD H/o CABG in 2016, GNIA in 2017. Denies CP. Continue aspirin, plavix, statin Aortic stenosis H/o moderate on echo. Monitor volume status closely DVT Ppx: SQ heparin Code status: FULL PCP: Adrian ([facility]) Dispo: Admitted to [facility] tele Patient seen in collaboration with Dr. Gregg. Please see addendum. I spent a total of 75 minutes coordinating, documenting, and providing care for this patient excluding time spent in the performance of separately billed services. History of Present Illness Chief Complaint: nausea, decreased PO intake Primary Care Provider: Saw Campbell, DO This is a 72-year-old male with PMH of CAD (s/p CABG in 2016, GINA in 2017), insulin-dependent diabetes, aortic stenosis, CKD, hypertension and other medical problems listed below who presents with ongoing nausea and poor appetite over the past week. Underwent right total shoulder replacement by Dr. Hamilton on 11/08 and felt fine at time of discharge. The next day, patient took 2 oxycodone and Tylenol and is felt poorly ever since then, stating he has had no appetite and has felt nauseated to the point that he is taking Zofran every day. Initially stated he had difficulty swallowing but attributed that to the tube use during endotracheal intubation for his surgery. Denies any martha aspiration but feels like his food is getting stuck in his throat, which is new. Also has been having bouts of indigestion requiring Tums since the procedure, which is new for him. Denies any fever, chills, lightheadedness, recent sick contacts, chest pain, shortness of breath, wheezing, vomiting, abdominal pain, dysuria, hematuria, diarrhea, constipation. Has had small bowel movements, most recently 2 days ago in the setting of very limited oral intake. Denies any hematochezia or melena. Is on dual antiplatelet therapy for history of stent placement. Is any new bruising or rashes. Has been taking medication as scheduled except self -decreased long-acting insulin with his reduced appetite and also has been taking half his dose of metformin. Denies any additional oxycodone use since postop day 1. Denies NSAID use in general due to aspirin and Plavix. Allergies Allergy/AdvReac Type Severity Reaction Status Date / Time No Known Allergies Allergy Verified 04/06/23 06:28 Home Medications Medication Instructions Recorded Confirmed Type allopurinol 100 mg tablet 100 mg PO HS 05/08/19 04/14/23 History aspirin 81 mg tablet,delayed 81 mg PO QPM 05/08/19 04/14/23 History release atorvastatin 80 mg tablet 80 mg PO HS 05/08/19 04/14/23 History clopidogrel 75 mg tablet 75 mg PO QAM #30 tabs 05/08/19 04/14/23 History metformin 1,000 mg tablet 1,000 mg PO BID #180 tabs 08/16/19 04/14/23 Rx amlodipine 5 mg tablet 5 mg PO QAM 12/01/20 04/14/23 History triamterene 37.5 1 tab PO QAM 12/01/20 04/14/23 History mg-hydrochlorothiazide 25 mg tablet lisinopril 20 mg tablet 20 mg PO BID 07/29/21 04/14/23 History insulin glargine 100 unit/mL See Rx Instructions subcut .COMPLEX 10/27/22 04/14/23 History subcutaneous solution metoprolol succinate 100 mg 100 mg PO QAM 03/17/23 04/14/23 History tablet,extended release 24 hr ondansetron 4 mg disintegrating 4 mg PO Q6H PRN nausea and 04/07/23 04/14/23 Rx tablet vomiting #10 tabs oxycodone 5 mg tablet 5 - 10 mg PO Q4H PRN pain #20 tabs 04/07/23 04/14/23 Rx Past Med/Surg History Medical History (Updated 04/14/23 @ 15:13 by Yan Hopkins MD) Aortic stenosis moderate on 03/2023 echo Carotid stenosis < 50% stenosis ICAs bilat 12/2021 doppler Coronary artery disease s/p 4 stents, CABG x 3 in 2015, most recent stent in 2016 Gout Hearing deficit Herniation of cervical intervertebral disc History of blood transfusion 2015 with CABG History of COVID-19 09/2020--mild symptoms, denies hospitalization, no symptoms now Hypertension controlled, stable per pt Insulin dependent type 2 diabetes mellitus Myocardial Infarction per Dr. Eisenberg's note recurrent NSTEMI: 07/2016 and in 2017--heart caths with stents placed--had CABG 07/2016 @ [facility] [place] follows with Dr. Eisenberg On anticoagulant therapy plavix daily Seizure 1 yr ago, in setting of hypoglycemia, no additional seizure activity Surgical History History of cardiac cath multiple in 2015 with last 11/2016 @ [facility]--x4 stents total placed History of colonoscopy History of reverse total replacement of right shoulder joint History of tooth extraction History of wisdom tooth extraction S/P coronary artery bypass graft x 3 07/2016 @ [facility] [place] S/P epidural steroid injection Family History Father Myocardial infarction Other No family history of adverse response to anesthesia Social History Smoking Status: Former smoker Age Started Using Tobacco: 60; Age Quit Using Tobacco: 65; Smoking End Date: 2015; Second Hand Exposure: No; Do You Dip or Chew Tobacco: No; Hx Alcohol Use: Yes Alcohol type: beer Alcohol Intake Frequency: 2-4 x/Month Hx Substance Use: No Preferred Language: Kiswahili Communication Ability: Effective [employer] Vendor Required: No Beliefs That Will Affect Care: None marital status: Current Living Situation: Spouse current occupational status: retired Feels Safe at Home: Yes Safety Concerns: Feels Safe At This Time Assistive Devices: Brace/Splint/Immobilizer Review of Systems Review of Systems: At least ten systems reviewed and negative except as noted in the HPI. Physical Exam Physical Exam: General Appearance: WD/WN, vitals as above, NAD, sitting up in bed, pleasant, conversing easily Head: normocephalic, atraumatic Eyes: normal inspection, PERRL, conjunctivae normal, anicteric sclerae ENT: external ear and nose normal, oropharynx dry mucous membranes Neck: normal visual inspection, trachea midline, no thyromegaly Respiratory: normal respiratory effort, lungs clear to auscultation, no wheeze, rales, rhonchi. No accessory muscle use Cardiovascular: regular rate & rhythm, +systolic murmur, normal peripheral pulses, no BLE edema. Vessels: no JVD Chest: normal inspection of chest Abdomen/GI: normal bowel sounds, soft, nontender, no hepatosplenomegaly Extremities/Musculoskeletal: no cyanosis or clubbing, extremities motor strength 5/5. R shoulder mark intact, well-healing, no e/o infection Neurologic: PERRL, EOMI, accommodation nl, no face palsy, no dysarthria, CN's II-XI intact bilaterally and moves all extremities Psychiatric: A+Ox3, euthymic affect Skin: no rashes, normal color, warm/dry Results & Data Results & Data Vital Signs (Past 12 Hours) Vital Signs Temp Pulse Resp BP Pulse Ox O2 Del Method 04/14/23 14:00 60 17 145/74 H 98 Room Air 04/14/23 13:30 58 L 18 133/68 99 Room Air 04/14/23 13:00 56 L 16 131/67 98 04/14/23 12:30 62 14 111/62 100 Room Air 04/14/23 12:14 65 04/14/23 11:34 36.7 C 79 20 97/66 L 94 Room Air Laboratory Results Short CBC 04/14/23 Range/Units 12:20 WBC 9.15 (4.8-10.8) K/ul Hgb 8.9 L (14.0-18.0) g/dl Hct 26.1 L (42.0-52.0) % Plt Count 292 (130-400) K/uL BMP 04/14/23 12:20 Sodium 128 L Potassium 4.7 Chloride 95 L Carbon Dioxide 22 BUN 78 H Creatinine 2.50 H Glucose 339 H* Calcium 8.1 L Liver Function 04/14/23 Range/Units 12:20 Total Bilirubin 0.5 (0.2-1.0) mg/dl Direct Bilirubin 0.1 (0-0.2) mg/dl AST 26 (13-39) U/L ALT 33 (7-52) U/L Alkaline Phosphatase 55 (34-104) U/L Albumin 3.7 (3.4-5.0) gm/dl Supervising Physician Co-Signing Physician Notes I have seen and examined the patient and have discussed the case with the provider above. I agree with the assessment and plan as stated with the following exceptions. 72 yo M who is 7 days s/p right shoulder surgery, presents with ongoing nausea and PO intolerance after post-operative oxycodone use. He reports trying to use both oxy and APAP at home with subsequent nausea, sweats, fatigue and lightheadedness. He went to bed and tried again the following morning with the same result and hasn't been able to see the symptoms subside despite home zofran administration. Reports no significant BM this last week and KUB supports this. No significant vomiting but low appetite and he is also hyperglycemic after reducing his insulin at home. He feels better after some IVF. He denies any significant abdominal pain. He reports healing well from his surgery otherwise. On exam he is hemodynamically stable and afebrile. He is mentating well and oxygenating well on RA. He is WNWD and in NAD. Right shoulder wound is intact and clean with mark in place. Cardiac exam reveals S1/2 heard with a 3/6 SHUKRI across precordium. Lungs are CTAB. No increased respiratory effort. Abdomen is soft NTND. No gross focal neuromuscular deficits. Skin is warm and dry. Workup includes NA 128, worsening RADU, KUB with stool retention. 1. post op nausea and constipation related to narcotic use 2. Hyponatremia and RADU related to poor PO intake and ongoing nausea Give suppository now If now BM, give Miralax tonight Supportive care with antiemetics. Avoid narcotics. After BM and electrolyte correction would expect him to feel improved. Reassess this tomorrow. Cristino, DO
--- NOTE | 2023-04-14 15:13 | XRay Report ---
XR KUB/Abdomen 1 view CLINICAL HISTORY: post op nausea TECHNIQUE: 1 view of the abdomen was obtained. Comparison: None available at the time of this dictation. FINDINGS: Lung bases are unremarkable. The osseous structures are grossly unremarkable. The bowel gas pattern i s nonobstructive. A moderate amount of stool is noted within the large bowel. IMPRESSION: Nonobstructive bowel gas pattern. ACT 112: Negative or not required by law. Electronically signed by: Kevyn Duarte M.D. 04/14/2023 3:11 PM
[2023-04-14] MEDS ORDERED: PHARMACY GLYCEMIC MGMT CONSULT PRN (15:15)
--- NOTE | 2023-04-14 15:23 | XRay Report ---
XR chest 1V portable HISTORY: Postop nausea. Admission chest x-ray. COMPARISON: Chest 03/24/2023. FINDINGS: No pneumothorax. No pleural effusions. There are poststernotomy changes. The heart remains mildly enlarged. No new focal lung consolidations to suggest a pneumonia. No evidence for pulmonary e wendy. There is a small linear scarlike density within the right midlung zone. Interval postoperative changes of a right total shoulder arthroplasty. The visualized hardware appears intact. Degenerative changes again noted within the left shoulder. Slight elevation of the right hemidiaphragm, unchanged. IMPRESSION: 1. No acute process within the chest. 2. Stable mild cardiomegaly. 3. Interval right total shoulder arthroplasty. ACT 112: Negative or not required by law. Electronically signed by: Abraham Michelle M.D. 04/14/2023 3:21 PM
[2023-04-14 15:27] LABS: Appearance Urine Clear (Clear); Bilirubin Urine Negative (Negative); Blood Urine Negative (Negative); Color Urine Yellow; Glucose Urine UA 1+ (Negative); Ketones Urine Negative (Negative); Leukocyte Esterase Urine Negative (Negative); Nitrite Urine Negative (Negative); Protein Urine Negative (Negative); Specific Gravity Urine 1.016 (1.000-1.030); Urobilinogen Urine Negative (Negative); pH Urine 5.5 (4.5-7.5)
[2023-04-14] MEDS ORDERED: LANTUS PER UNIT CHARGE SQ ONE (16:09)
[2023-04-14 16:10] LABS: Amphetamines+Metham, Urine Neg (Neg); Barbiturates, Urine Neg (Neg); Benzodiazepine, Urine Neg (Neg); Cocaine, Urine Neg (Neg); Creatinine Urine Random 68.5 mg/dl; MDMA (Ecstacy), Urine Neg (Neg); Methadone, Urine Neg (Neg); Opiate, Urine Neg (Neg); Phencyclidine, Urine Neg (Neg)
[2023-04-14] MEDS ORDERED: bisacodyL 10 MG SUPP PR STA (16:35)
--- NOTE | 2023-04-14 17:51 | Electrocardiogram Report ---
Test Reason : Blood Pressure : / mmHG Vent. Rate : 064 BPM Atrial Rate : 064 BPM P-R Int : 162 ms QRS Dur : 112 ms QT Int : 422 ms P-R-T Axes : 035 010 054 degrees QTc Int : 435 ms Normal sinus rhythm Minimal voltage criteria for LVH, may be normal variant Nonspecific ST abnormality Abnormal ECG When compared with ECG of 24-MAR-2023 13:43, No significant change was found Confirmed by Juan Short ([id number]) on 04/14/2023 5:51:04 PM Referred By: Tenzin Hamilton Confirmed By:Timmy Short
[2023-04-14] MEDS ORDERED: DEXTROSE 50% 50 ML SYRINGE IV PRN (19:17)
[2023-04-14] MEDS ORDERED: GLUCOSE 10 TAB/TUBE PO PRN (19:17)
[2023-04-14] MEDS ORDERED: CARBOHYDRATES FOR HYPOGLYCEMIA PO PRN (19:17)
[2023-04-14] MEDS ORDERED: GLUCAGON FOR INJ 1 MG VIAL SQ PRN (19:17)
[2023-04-14] MEDS ORDERED: ONDANSETRON INJ 2 MG/ML 2 ML VIAL IV PRN (19:17)
[2023-04-14] MEDS ORDERED: POLYETHYLENE (MIRALAX) 17 GM PACK PO ONE (19:17)
[2023-04-14] MEDS ORDERED: GLUCOSE 40% GEL 15 GM TUBE PO PRN (19:17)
[2023-04-14] MEDS ORDERED: POLYETHYLENE (MIRALAX) 17 GM PACK PO PRN (19:17)
[2023-04-14] MEDS: INSULIN ASPART PER UNIT CHARGE SC SCH ×2 (20:58→21:12)
[2023-04-14] MEDS: HEPARIN SOD 5,000 UNIT/0.5 ML VIAL SQ SCH (20:59)
[2023-04-14] MEDS: allopurinoL 100 MG TAB PO SCH (20:59)
[2023-04-14 21:00] LABS: Calcium 7.9 mg/dl (8.6-10.3); Potassium 4.2 mmol/L (3.5-5.1)
[2023-04-14] MEDS: ATORVASTATIN 40 MG TAB PO SCH (21:00)
[2023-04-14] MEDS: ASPIRIN 81 MG ECTAB PO SCH (21:00)
[2023-04-14 21:06] LABS: BUN Creatinine Ratio 34.1 (10-20); Creatinine Clr Calc Pharmacy 32.7 ml/min; Est GFR (African American) 32.9 ml/min; Est GFR (Non-African American) 28.4 ml/min
[2023-04-14] MEDS: ACETAMINOPHEN 325 MG TAB PO PRN (21:19)
[2023-04-14] MEDS: SODIUM CHLORIDE 0.9% 1000ML 1,000 ML IV SCH (22:32)
[2023-04-15] MEDS ORDERED: INSULIN ASPART PER UNIT CHARGE SC ONE (01:00)
[2023-04-15] MEDS: HEPARIN SOD 5,000 UNIT/0.5 ML VIAL SQ SCH ×3 (05:52→20:40)
[2023-04-15] MEDS: SODIUM CHLORIDE 0.9% 1000ML 1,000 ML IV SCH ×2 (05:53→18:19)
[2023-04-15 08:39] LABS: Hematocrit (blood only) 24.6 % (42.0-52.0); Hemoglobin 8.3 g/dl (14.0-18.0); Mean Corpuscular Hemoglobin 30.6 pg (25.0-34.0); Mean Corpuscular Hgb Conc 33.7 g/dL (32.0-36.0); Mean Corpuscular Volume 90.8 fL (80.0-100.0); Platelet Count 303 K/uL (130-400); RDW Coefficient of Variation 13.6 % (11.5-14.5); RDW Standard Deviation 44.9 fL (36.4-46.3); Red Blood Count 2.71 M/uL (4.70-6.10); White Blood Count 8.92 K/ul (4.8-10.8)
[2023-04-15] MEDS: ACETAMINOPHEN 325 MG TAB PO PRN ×3 (08:58→20:39)
[2023-04-15] MEDS: INSULIN ASPART PER UNIT CHARGE SC SCH ×4 (09:00→20:35)
[2023-04-15] MEDS: LANTUS PER UNIT CHARGE SQ SCH ×2 (09:01→20:39)
[2023-04-15] MEDS: METOPROLOL SUCC 50MG EXT REL TAB PO SCH (09:02)
[2023-04-15] MEDS: CLOPIDOGREL BISULFATE 75 MG TAB PO SCH (09:02)
[2023-04-15] MEDS: amLODIPine BESYLATE 5 MG TAB PO SCH (09:02)
[2023-04-15 09:08] LABS: Calcium 7.9 mg/dl (8.6-10.3); Creatinine Clr Calc Pharmacy 38.7 ml/min; Est GFR (African American) 40.4 ml/min; Est GFR (Non-African American) 34.9 ml/min; Estimated Average Glucose 177 mg/dl; Hemoglobin A1C 7.8 % (4.5-5.6); Potassium 3.7 mmol/L (3.5-5.1)
--- NOTE | 2023-04-15 17:01 | Hospitalist Progress Note ---
Date of Service April 15, 2023 Assessment & Plan (1) Acute kidney injury superimposed on chronic kidney disease: (2) Nausea: (3) History of reverse total replacement of right shoulder joint: (4) Insulin dependent type 2 diabetes mellitus: (5) Aortic stenosis: (6) Coronary artery disease: (7) Hypertension: Plan Patient is a 72 yr male with PMH of CAD (s/p CABG in 2016, GINA in 2017), insulin-dependent diabetes, aortic stenosis, CKD, hypertension and other medical problems listed below who presents with ongoing nausea and poor appetite over the past week. Acute kidney injury on CKD III Likely prerenal Cr 2.5>2.2>1.8 Diuretics, JANNY held Avoid nephrotoxic agents as able Continue IV fluids Monitor renal function Constipation Likely secondary to opioid use --KUB:Lung bases are unremarkable. The osseous structures are grossly unremarkable. The bowel gas pattern is nonobstructive. A moderate amount of stool is noted within the large bowel. Continue bowel regimen Resolved Recent total shoulder replacement R TSA on 04/07/[address] Hamilton Currently no significant pain Continue wound care DM II BSG 339 on admission due to not using his glargine in the last 5 days due to ongoing nausea, poor appetite post-op HbA1c 7.8 Hold po meds Continue Basal/bolus regimen while in-patient Monitor BSG AC HS Postoperative blood loss anemia No indication for transfusion currently Monitor CBC HTN Continue amlodipine, Toprol Holding lisinopril, triamterene-hctz for now CAD H/o CABG in 2016, GINA in 2017 Continue aspirin, Plavix, statin Aortic stenosis H/o moderate on echo Monitor DVT Px: SQ Heparin Code status: FULL CODE Admission and Anticipated Discharge Date Admission Date: April 14, 2023 Subjective Patient is seen and examined at bedside Nausea, constipation resolved States having 2 bowel movements Denies any significant right shoulder pain at surgical site Also denies any chest pain, dyspnea, dizziness, abdominal pain Review of Systems Review of Systems: All systems reviewed & are unremarkable except as noted in Subjective Physical Exam Physical Exam: Physical Exam: Vitals signs as noted above General Appearance:Moderately built and nourished, no apparent distress Head: normocephalic, Atraumatic Eyes: normal inspection, EOMI Neck: supple, Trachea midline Respiratory/Chest: Normal breath sounds, CTA, No accessory muscle use Cardiovascular: S1, S2, +murmur Abdomen/GI:Soft, Non tender, Bowel sounds present Extremities/Musculoskeletal:normal inspection, no edema, right shoulder surgical site in dressing Neurologic/Psych:AAOX3, grossly no focal neurological deficits Skin: normal color, warm Results & Data Results & Data Vital Signs (Past 12 Hours) Vital Signs Temp Pulse Pulse Resp BP Pulse Ox O2 Del Method 04/15/23 15:05 36.8 C 62 18 137/72 97 Room Air 04/15/23 11:14 36.6 C 62 18 136/72 96 Room Air 04/15/23 07:24 36.6 C 70 18 124/69 97 Room Air 04/15/23 07:21 70 Laboratory Results Short CBC 04/15/23 Range/Units 08:22 WBC 8.92 (4.8-10.8) K/ul Hgb 8.3 L (14.0-18.0) g/dl Hct 24.6 L (42.0-52.0) % Plt Count 303 (130-400) K/uL [facility] 04/14/23 04/15/23 20:08 08:22 Sodium 129 L 133 L Potassium 4.2 3.7 Chloride 99 103 Carbon Dioxide 20 L 23 BUN 76 H 64 H Creatinine 2.23 H 1.88 H D Glucose 271 H 183 H Calcium 7.9 L 7.9 L
[2023-04-15] MEDS: ATORVASTATIN 40 MG TAB PO SCH (20:40)
[2023-04-15] MEDS: ASPIRIN 81 MG ECTAB PO SCH (20:40)
[2023-04-15] MEDS: allopurinoL 100 MG TAB PO SCH (20:40)
[2023-04-16] MEDS: ACETAMINOPHEN 325 MG TAB PO PRN ×3 (03:44→12:00)
[2023-04-16] MEDS: HEPARIN SOD 5,000 UNIT/0.5 ML VIAL SQ SCH (04:35)
[2023-04-16 07:51] LABS: Hematocrit (blood only) 24.5 % (42.0-52.0); Hemoglobin 8.1 g/dl (14.0-18.0)
[2023-04-16 08:03] LABS: BUN Creatinine Ratio 31.5 (10-20); Calcium 8.1 mg/dl (8.6-10.3); Creatinine Clr Calc Pharmacy 50.9 ml/min; Est GFR (African American) 56.3 ml/min; Est GFR (Non-African American) 48.6 ml/min; Potassium 4.1 mmol/L (3.5-5.1)
[2023-04-16] MEDS: LANTUS PER UNIT CHARGE SQ SCH (08:25)
[2023-04-16] MEDS: INSULIN ASPART PER UNIT CHARGE SC SCH ×2 (08:25→12:00)
[2023-04-16] MEDS: CLOPIDOGREL BISULFATE 75 MG TAB PO SCH (08:26)
[2023-04-16] MEDS: amLODIPine BESYLATE 5 MG TAB PO SCH (08:26)
[2023-04-16] MEDS: METOPROLOL SUCC 50MG EXT REL TAB PO SCH (08:38)
--- NOTE | 2023-04-16 12:15 | Hospitalist Progress Note ---
Date of Service April 16, 2023 Assessment & Plan (1) Acute kidney injury superimposed on chronic kidney disease: (2) Nausea: (3) History of reverse total replacement of right shoulder joint: (4) Insulin dependent type 2 diabetes mellitus: (5) Aortic stenosis: (6) Coronary artery disease: (7) Hypertension: Plan Patient is a 72 yr male with PMH of CAD (s/p CABG in 2016, GINA in 2017), insulin-dependent diabetes, aortic stenosis, CKD, hypertension and other medical problems listed below who presents with ongoing nausea and poor appetite over the past week. Acute kidney injury on CKD III Likely prerenal Cr 2.5>2.2>1.8>1.43 Diuretics, JANNY held Avoid nephrotoxic agents as able Discontinue IV fluids Monitor renal function Advised to get BMP in 1 week and follow-up with PCP Constipation Likely secondary to opioid use --KUB:Lung bases are unremarkable. The osseous structures are grossly unremarkable. The bowel gas pattern is nonobstructive. A moderate amount of stool is noted within the large bowel. Continue bowel regimen Resolved Recent total shoulder replacement R TSA on 04/07/[address] Hamilton Currently no significant pain Continue wound care DM II BSG 339 on admission due to not using his glargine in the last 5 days due to ashley oing nausea, poor appetite post-op HbA1c 7.8 Hold po meds Continue Basal/bolus regimen while in-patient Monitor BSG AC HS Advised to discuss with PCP for further adjustment of diabetic medications based on renal function Postoperative blood loss anemia No indication for transfusion currently Monitor CBC HTN Continue amlodipine, Toprol Holding lisinopril, triamterene-hctz while hospitalized Will decrease lisinopril to 20 mg daily CAD H/o CABG in 2016, GINA in 2017 Continue aspirin, Plavix, statin Aortic stenosis H/o moderate on echo Monitor DVT Px: SQ Heparin Code status: FULL CODE Disposition Home Admission and Anticipated Discharge Date Admission Date: April 14, 2023 Subjective Patient is seen and examined at bedside States feeling well today No new complaints States having some pain at surgical site of right shoulder Family at bedside Denies any chest pain, dyspnea, dizziness, abdominal pain Renal function much improved Plan to be discharged home today Review of Systems Review of Systems: All systems reviewed & are unremarkable except as noted in Subjective Physical Exam Physical Exam: Physical Exam: Vitals signs as noted above General Appearance:Moderately built and nourished, no apparent distress Head: normocephalic, Atraumatic Eyes: normal inspection, EOMI Neck: supple, Trachea midline Respiratory/Chest: Normal breath sounds, CTA, No accessory muscle use Cardiovascular: S1, S2, +murmur Abdomen/GI:Soft, Non tender, Bowel sounds present Extremities/Musculoskeletal:normal inspection, no edema, right shoulder surgical site in dressing Neurologic/Psych:AAOX3, grossly no focal neurological deficits Skin: normal color, warm Results & Data Results & Data Vital Signs (Past 12 Hours) Vital Signs Temp Pulse Pulse Resp BP Pulse Ox O2 Del Method 04/16/23 11:02 Room Air 04/16/23 07:24 36.6 C 70 18 167/72 H 98 Room Air 04/16/23 07:03 62 04/16/23 03:46 36.7 C 73 18 149/74 H 97 Room Air Laboratory Results Short CBC 04/16/23 Range/Units 07:28 Hgb 8.1 L (14.0-18.0) g/dl Hct 24.5 L (42.0-52.0) % BMP 04/16/23 07:28 Sodium 134 L Potassium 4.1 Chloride 105 Carbon Dioxide 22 BUN 45 H Creatinine 1.43 H D Glucose 162 H Calcium 8.1 L
--- NOTE | 2023-04-16 12:22 | Discharge Summary ---
Date of Service April 16, 2023 Admission HPI Per Admitting Provider This is a 72-year-old male with PMH of CAD (s/p CABG in 2016, GINA in 2017), insulin-dependent diabetes, aortic stenosis, CKD, hypertension and other medical problems listed below who presents with ongoing nausea and poor appetite over the past week. Underwent right total shoulder replacement by Dr. Hamilton on 11/08 and felt fine at time of discharge. The next day, patient took 2 oxycodone and Tylenol and is felt poorly ever since then, stating he has had no appetite and has felt nauseated to the point that he is taking Zofran every day. Initially stated he had difficulty swallowing but attributed that to the tube use during endotracheal intubation for his surgery. Denies any martha aspiration but feels like his food is getting stuck in his throat, which is new. Also has been having bouts of indigestion requiring Tums since the procedure, which is new for him. Denies any fever, chills, lightheadedness, recent sick contacts, chest pain, shortness of breath, wheezing, vomiting, abdominal pain, dysuria, hem aturia, diarrhea, constipation. Has had small bowel movements, most recently 2 days ago in the setting of very limited oral intake. Denies any hematochezia or melena. Is on dual antiplatelet therapy for history of stent placement. Is any new bruising or rashes. Has been taking medication as scheduled except self- decreased long-acting insulin with his reduced appetite and also has been taking half his dose of metformin. Denies any additional oxycodone use since postop day 1. Denies NSAID use in general due to aspirin and Plavix. Admission Exam Per Admitting Provider General Appearance:WD/WN, vitals as above, NAD, sitting up in bed, pleasant, conversing easily Head: normocephalic, atraumatic Eyes:normal inspection, PERRL, conjunctivae normal, anicteric sclerae ENT: external ear and nose normal, oropharynx dry mucous membranes Neck: normal visual inspection, trachea midline, no thyromegaly Respiratory:normal respiratory effort, lungs clear to auscultation, no wheeze, rales, rhonchi. No accessory muscle use Cardiovascular: regular rate & rhythm, +systolic murmur, normal peripheral pulses, no BLE edema. Vessels: no JVD Chest: normal inspection of chest Abdomen/GI: normal bowel sounds, soft, nontender, no hepatosplenomegaly Extremities/Musculoskeletal: no cyanosis or clubbing, extremities motor strength 5/5. R shoulder mark intact, well-healing, no e/o infection Neurologic: PERRL, EOMI, accommodation nl, no face palsy, no dysarthria, CN's II-XI intact bilaterally and moves all extremities Psychiatric:A+Ox3, euthymic affect Skin: no rashes, normal color, warm/dry Principal Diagnosis Acute kidney injury Constipation Discharge Data Allergies Allergy/AdvReac Type Severity Reaction Status Date / Time No Known Allergies Allergy Verified 04/06/23 06:28 Consultations 04/14/23 13:54 ED Decision to Admit Stat Procedures Performed Laboratory Results WBC 8.92 K/ul (4.8-10.8) 04/15/23 08: RBC 2.71 M/uL (4.70-6.10) L 04/15/23 08:22 Hgb 8.1 g/dl (14.0-18.0) L 04/16/23 07:28 Hct 24.5 % (42.0-52.0) L 04/16/23 07:28 MCV 90.8 fL (80.0-100.0) 04/15/23 08:22 MCH 30.6 pg (25.0-34.0) 04/15/23 08:22 MCHC 33.7 g/dL (32.0-36.0) 04/15/23 08:22 RDW Std Deviation 44.9 fL (36.4-46.3) 04/15/23 08:22 RDW Coeff of Ernesto 13.6 % (11.5-14.5) 04/15/23 08:22 Plt Count 303 K/uL (130-400) 04/15/23 08:22 MPV 10.0 fL (9.4-12.4) 04/15/23 08:22 Immature Gran % (Auto) 1.7 % 04/14/23 12:20 Neut % (Auto) 79.7 % 04/14/23 12:20 Lymph % (Auto) 10.4 % 04/14/23 12:20 [place] % (Auto) 6.9 % 04/14/23 12:20 Eos % (Auto) 1.0 % 04/14/23 12:20 Baso % (Auto) 0.3 % 04/14/23 12:20 Neut # (Auto) 7.29 K/uL (1.40-6.50) H 04/14/23 12:20 Lymph # (Auto) 0.95 K/uL (1.2-3.4) L 04/14/23 12:20 [place] # (Auto) 0.63 K/uL (0.11-0.59) H 04/14/23 12:20 Eos # (Auto) 0.09 K/uL (0-0.50) 04/14/23 12:20 Baso # (Auto) 0.03 K/uL (0-0.2) 04/14/23 12:20 Immature Gran # (Auto) 0.16 K/uL (0.01-0.20) 04/14/23 12:20 Sodium 134 mmol/L (136-145) L 04/16/23 07:28 Potassium 4.1 mmol/L (3.5-5.1) 04/16/23 07:28 Chloride 105 mmol/L (98-107) 04/16/23 07:28 Carbon Dioxide 22 mmol/L (21-32) 04/16/23 07:28 Anion Gap 7 (3-11) 04/16/23 07:28 BUN 45 mg/dl (6-23) H 04/16/23 07:28 Creatinine 1.43 mg/dl (0.6-1.4) H D 04/16/23 07:28 Est Cr Clr Drug Dosing 50.9 ml/min 04/16/23 07:28 Est GFR ( Amer) 56.3 ml/min 04/16/23 07:28 Est GFR (Non-Af Amer) 48.6 ml/min 04/16/23 07:28 BUN/Creatinine Ratio 31.5 (10-20) H 04/16/23 07:28 Glucose 162 mg/dl (70-99(Fasting)) H 04/16/23 07:28 POC Glucose 223 mg/dl (70-99) H 04/16/23 11:40 Estimat Average Glucose 177 mg/dl 04/15/23 08:22 Hemoglobin A1c 7.8 % (4.5-5.6) H 04/15/23 08:22 Calcium 8.1 mg/dl (8.6-10.3) L 04/16/23 07:28 Magnesium 2.4 mg/dl (1.7-2.4) 04/14/23 12:20 Total Bilirubin 0.5 mg/dl (0.2-1.0) 04/14/23 12:20 Direct Bilirubin 0.1 mg/dl (0-0.2) 04/14/23 12:20 AST 26 U/L (13-39) 04/14/23 12:20 ALT 33 U/L (7-52) 04/14/23 12:20 Alkaline Phosphatase 55 U/L (34-104) 04/14/23 12:20 Troponin I High Sens 9.6 pg/ml (0-20) 04/14/23 12:20 Total Protein 7.0 gm/dl (6.0-8.3) 04/14/23 12:20 Albumin 3.7 gm/dl (3.4-5.0) 04/14/23 12:20 Urine Color Yellow 04/14/23 15:05 Urine Appearance Clear (Clear) 04/14/23 15:05 Urine pH 5.5 (4.5-7.5) 04/14/23 15:05 Ur Specific [place] 1.016 (1.000-1.030) 04/14/23 15:05 Urine Protein Negative (Negative) 04/14/23 15:05 Urine Glucose (UA) 1+ (Negative) H 04/14/23 15:05 Urine Ketones Negative (Negative) 04/14/23 15:05 Urine Blood Negative (Negative) 04/14/23 15:05 Urine Nitrite Negative (Negative) 04/14/23 15:05 Urine Bilirubin Negative (Negative) 04/14/23 15:05 Urine Urobilinogen Negative (Negative) 04/14/23 15:05 Ur Leukocyte Esterase Negative (Negative) 04/14/23 15:05 Ur Random Creatinine 68.5 mg/dl 04/14/23 15:05 Ur Random Sodium 52 mmol/L 04/14/23 15:05 Urine Opiates Screen Neg (Neg) 04/14/23 15:05 Ur Methadone, Qual Neg (Neg) 04/14/23 15:05 Urine Barbiturates Neg (Neg) 04/14/23 15:05 Ur Phencyclidine (PCP) Neg (Neg) 04/14/23 15:05 U Amphetamin/Meth Scrn Neg (Neg) 04/14/23 15:05 MDMA (Ecstasy) Screen Neg (Neg) 04/14/23 15:05 U Benzodiazepines Scrn Neg (Neg) 04/14/23 15:05 Ur Cocaine Metabolite Neg (Neg) 04/14/23 15:05 U Marijuana (THC) Screen Neg (Neg) 04/14/23 15:05 SARS-CoV-2, RNA, NAAT NEGATIVE (NEGATIVE) 04/14/23 13:57 Impressions KUB X-Ray 04/14/23 14:33 XR KUB/Abdomen 1 view CLINICAL HISTORY: post op nausea TECHNIQUE: 1 view of the abdomen was obtained. Comparison: None available at the time of this dictation. FINDINGS: Lung bases are unremarkable. The osseous structures are grossly unremarkable. The bowel gas pattern is nonobstructive. A moderate amount of stool is noted within the large bowel. IMPRESSION: Nonobstructive bowel gas pattern. ACT 112: Negative or not required by law. Electronically signed by: Kevyn Duarte M.D. 04/14/2023 3:11 PM Chest X-Ray 04/14/23 14:41 XR chest 1V portable HISTORY: Postop nausea. Admission chest x-ray. COMPARISON: Chest 03/24/2023. FINDINGS: No pneumothorax. No pleural effusions. There are poststernotomy changes. The heart remains mildly enlarged. No new focal lung consolidations to suggest a pneumonia. No evidence for pulmonary edema. There is a small linear scarlike density within the right midlung zone. Interval postoperative changes of a right total shoulder arthroplasty. The visualized hardware appears intact. Degenerative changes again noted within the left shoulder. Slight elevation of the right hemidiaphragm, unchanged. IMPRESSION: 1. No acute process within the chest. 2. Stable mild cardiomegaly. 3. Interval right total shoulder arthroplasty. ACT 112: Negative or not required by law. Electronically signed by: Abraham Michelle M.D. 04/14/2023 3:21 PM Hospital Course (1) Acute kidney injury superimposed on chronic kidney disease: (2) Nausea: (3) History of reverse total replacement of right shoulder joint: (4) Insulin dependent type 2 diabetes mellitus: (5) Aortic stenosis: (6) Coronary artery disease: (7) Hypertension: Plan Patient is a 72 yr male with PMH of CAD (s/p CABG in 2016, GINA in 2017), insulin-dependent diabetes, aortic stenosis, CKD, hypertension and other medical problems listed below who presents with ongoing nausea and poor appetite over the past week. Acute kidney injury on CKD III Likely prerenal Cr 2.5>2.2>1.8>1.43 Diuretics, JANNY held Avoid nephrotoxic agents as able Discontinue IV fluids Monitor renal function Advised to get BMP in 1 week and follow-up with PCP Constipation Likely secondary to opioid use --KUB:Lung bases are unremarkable. The osseous structures are grossly unremarkable. The bowel gas pattern is nonobstructive. A moderate amount of stool is noted within the large bowel. Continue bowel regimen Resolved Recent total shoulder replacement R TSA on 04/07/[address] Hamilton Currently no significant pain Continue wound care DM II BSG 339 on admission due to not using his glargine in the last 5 days due to ongoing nausea, poor appetite post-op HbA1c 7.8 Hold po meds Continue Basal/bolus regimen while in-patient Monitor BSG AC HS Advised to discuss with PCP for further adjustment of diabetic medications based on renal function Postoperative blood loss anemia No indication for transfusion currently Monitor CBC HTN Continue amlodipine, Toprol Holding lisinopril, triamterene-hctz while hospitalized Will decrease lisinopril to 20 mg daily CAD H/o CABG in 2016, GINA in 2017 Continue aspirin, Plavix, statin Aortic stenosis H/o moderate on echo Monitor DVT Px: SQ Heparin Code status: FULL CODE Disposition Home Total Time Total Time Spent Total Time Spent (In Minutes): 56 minutes Discharge Plan Discharge Items Patient Disposition: Home - Self-Care Reason For Visit: RADU Discharge Diagnosis: Acute kidney injury Constipation Activity: Per Instructions section Exercise/Sports: Gradually increase as tolerated Non-emergency contact: Primary Care Provider Call non-emergency contact if: you have any medication questions, your symptoms worsen, your pain is concerning for you and you have a fever Follow-up/Referrals: Saw Campbell DO [Primary Care Provider] - Diet: Carb Consistent or DM2 Addtl Attending Provider Instructions: Follow-up with your primary care physician Dr. Campbell in 1 week as advised --- Obtain blood test (basic metabolic panel) in 1 week and follow-up with your physician for results. --Hold taking triamterene/hydrochlorothiazide until follow-up with your primary care physician. --Your lisinopril dose is decreased to 20 mg daily (from twice a day) due to your renal function. Discuss with your physician for further adjustment of medications as needed -- Also discuss with the primary care physician regarding your diabetic medications as advised Seek immediate medical attention if your symptoms reoccur or worsen Please take all medications as instructed on discharge list below. Please call if you have any questions or problems. You can reach a [facility] hospitalist on duty at [facility] 24 hours a day by calling [phone] Pending Studies at Discharge: No Stand-Alone Forms: My [facility], Smoking Cessation Medications and DC Order Prescriptions: New polyethylene glycol 3350 [Miralax] 17 gram Powder In Packet 17 g PO DAILY PRN (Reason: constipation) Qty: 14 0RF docusate sodium [Colace] 100 mg capsule 100 mg PO BID PRN (Reason: constipation) Qty: 30 0RF Continued metformin 1,000 mg tablet 1,000 mg PO BID Qty: 180 3RF amlodipine 5 mg tablet 5 mg PO QAM allopurinol 100 mg tablet 100 mg PO HS aspirin 81 mg tablet,delayed release (DR/EC) 81 mg PO QPM atorvastatin 80 mg tablet 80 mg PO HS clopidogrel 75 mg tablet 75 mg PO QAM Qty: 30 insulin glargine 100 unit/mL solution See Rx Instructions subcut .COMPLEX Rx Instructions: 70 unit QAM & 10 units QPM subcut metoprolol succinate 100 mg tablet extended release 24 hr 100 mg PO QAM ondansetron 4 mg tablet,disintegrating 4 mg PO Q6H PRN (Reason: nausea and vomiting) Qty: 10 0RF oxycodone 5 mg tablet 5 - 10 mg PO Q4H MDD 6 tablets PRN (Reason: pain) Qty: 20 0RF Changed lisinopril 20 mg tablet 20 mg PO DAILY Qty: 1 0RF Held triamterene-hydrochlorothiazid 37.5-25 mg tablet 1 tab PO QAM Hold Instructions: Till follow up with your Primary care physician Discharge Orders: Discharge Order (Routine); Ordered 04/16/23 Ordered By: Jd Peck Admission Data Admit Date/Time: 04/14/23 16:20 Attending Provider: Jd Peck Admit Provider: Maria Alejandra Gregg Primary Care Provider: Saw Campbell Other Providers: Maria Alejandra Gregg
[2023-04-18 10:22] LABS: Urea Nitrogen, Random Urine 753 mg/dL
== END 2023-04-16 13:05 | disposition home or self-care (01) | DRG 683 ==
LOC: ED 11:26 → SUATTDRO 16:20 → 2N 16:20

== ENCOUNTER 2023-04-21 09:37 | Inpatient (IN) ==
[2023-04-21] MEDS ORDERED: SODIUM CHLORIDE 0.9% 1000ML 1,000 ML IV ONE (09:52)
--- NOTE | 2023-04-21 10:01 | Emergency Department Note ---
Impression & Plan Acute upper gastrointestinal bleeding, Anemia, Acute hypotension, Orthostasis ED Provider Note NAME: LYNDSAY BRYANT AGE: 72 SEX: M : 1950 ARRIVES VIA: Walk-In INFORMANT: Patient, ED PROVIDER(S): Anil Rodriguez DO CHIEF COMPLAINT: Dizziness HPI: The patient is a 72-year-old male who presented to the emergency department for an evaluation of dizziness upon standing. The patient is status post right shoulder replacement surgery. He was seen in our facility recently for different complaints. At that time he was found to be dehydrated and was treated with IV fluids. He had a follow-up appointment today with his orthopedic surgeon. He was noted to have low blood pressure. There is concern that his pain medication could be causing some of his symptoms but to be sure the patient was sent to the emergency department for further evaluation. He denies having any lower extremity swelling or pain. He denies having any chest pain or difficulty breathing. He denies having any abdominal pain. He states he did note some constipation when he was taking a different pain medication but he states that that has since resolved. ROS: See above HPI for pertinent positives & negatives. A total of 10 systems reviewed and were otherwise negative. PAST MEDICAL HISTORY: See Below PAST SURGICAL HISTORY: See Below FAMILY HISTORY: See Below SOCIAL HISTORY: See Below HOME MEDICATIONS: See Below ALLERGIES: See Below VITALS: See Below PHYSICAL EXAMINATION: GENERAL: Patient is awake alert in no acute distress patient is resting comfortably and showing no signs of anxiety EYES: The conjunctivae are clear. The pupils are round and reactive. EARS, NOSE, MOUTH AND THROAT: The nose is without any evidence of any deformity. Mucous membranes are dry. NECK: The neck is nontender and supple. RESPIRATORY: Normal respiratory effort is noted there is no evidence of wheezing rhonchi or rales CARDIOVASCULAR: Regular rate and rhythm were noted to auscultation. Systolic murmur was suggested. GASTROINTESTINAL: The abdomen is soft. Abdomen is nontender. Rectal exam revealed black stool which was strongly heme positive. MUSCULOSKELETAL/EXTREMITIES: There is no evidence of gross deformity full range of motion is noted in the hips and shoulders. SKIN: the skin is warm and dry. There is no calf tenderness. Postoperative site on the right shoulder appears to be healing well. There is no drainage deh iscence or redness noted. There is no significant pedal edema. NEUROLOGIC: Patient is awake alert and oriented x3 strength is symmetric patellar reflexes are 2+ bilaterally MEDICAL DECISION MAKING: The patient is a 72-year-old male who presented to the emergency department for an evaluation of orthostasis. He was becoming very dizzy and lightheaded upon standing. The patient was seen by his primary orthopedic physician. He is postoperative from a right shoulder replacement. He presented to the emergency department today because of dizziness and lightheadedness upon standing at the request of his orthopedic physician. The patient also complained of some dark stool. He was unsure if this was from his iron supplementation. He has a history of chronic renal insufficiency and was admitted to our facility a week ago for anemia. The patient appears to have signs of upper GI bleeding on my physical exam. I discussed the patient's laboratory and radiographic studies with him. He was treated with IV fluids and blood transfusion was ordered. I did consent the patient for blood transfusion. I [facility] the [facility] They have agreed to evaluate the patient in the emergency department for further management and disposition. Triage Nursing notes reviewed. Prior medical records reviewed Vital Signs: reviewed and remarkable for hypotension. Differential diagnosis: Infection, dehydration, metabolic abnormality, hypo/hyperglycemia, electrolyte disturbance, anemia, hypoxia, cardiac sources, intracerebral event, toxicologic, neurologic, as well as other pathologies. ER treatment provided: See below Diagnostics interpreted by me: ECG: EKG was obtained in the emergency department. My interpretation is normal sinus rhythm at 66 bpm. There is no ectopy. There is no acute ST segment abnormalities noted. This was compared to a tracing from April 14, 2023. No changes were noted. Cardiac Monitoring: An order was placed for continuous cardiac monitoring. The monitor shows a rate of 64 bpm with sinus rhythm. Laboratory studies: As stated above and show below. Imaging studies: See below. Radiographic imaging was reviewed by myself Consultation(s): I discussed this case with Shereen who is [facility] ED COURSE: Procedures: none Critical Care: I have personally spent greater than 45 minutes of critical care time in the direct management of this patient. This includes bedside care, interpretation of diagnostic studies, and testing, discussion with consultants, patient, and family members, and other required patient management activities. This 45 minutes is in excess of all separately billable procedures. Past Med/Surg History Medical History Aortic stenosis moderate on 03/2023 echo Carotid stenosis < 50% stenosis ICAs bilat 12/2021 doppler Coronary artery disease s/p 4 stents, CABG x 3 in 2016, most recent stent in 2017 Gout Hearing deficit Herniation of cervical intervertebral disc History of blood transfusion 2015 with CABG History of COVID-19 09/2020--mild symptoms, denies hospitalization, no symptoms now Hypertension controlled, stable per pt Insulin dependent type 2 diabetes mellitus Myocardial Infarction per Dr. Eisenberg's note recurrent NSTEMI: 07/2016 and in 2017--heart caths with stents placed--had CABG 07/2016 @ [facility] [place] follows with Dr. Eisenberg On anticoagulant therapy plavix daily Seizure 1 yr ago, in setting of hypoglycemia, no additional seizure activity Surgical History History of cardiac cath multiple in 2015 with last 11/2016 @ [facility]--x4 stents total placed History of colonoscopy History of reverse total replacement of right shoulder joint History of tooth extraction History of wisdom tooth extraction S/P coronary artery bypass graft x 3 07/2016 @ [facility] [place] S/P epidural steroid injection Family History Father Myocardial infarction Other No family history of adverse response to anesthesia Social History Smoking Status: Never smoker Age Started Using Tobacco: 60; Age Quit Using Tobacco: 65; Second Hand Exposure: No; Do You Dip or Chew Tobacco: No; Hx Alcohol Use: Yes Alcohol type: beer Alcohol Intake Frequency: 2-4 x/Month Hx Substance Use: No Preferred Language: Cymro Communication Ability: Effective Desktop Support Consultant Required: No Beliefs That Will Affect Care: None marital status: Current Living Situation: Spouse current occupational status: retired Feels Safe at Home: Yes Assistive Devices: Brace/Splint/Immobilizer Allergies Allergies Allergy/AdvReac Type Severity Reaction Status Date / Time No Known Allergies Allergy Verified 04/06/23 06:28 Home Meds Home Medications Medication Instructions Recorded Confirmed allopurinol 100 mg tablet 100 mg PO HS 05/08/19 04/14/23 aspirin 81 mg tablet,delayed 81 mg PO QPM 05/08/19 04/14/23 release atorvastatin 80 mg tablet 80 mg PO HS 05/08/19 04/14/23 clopidogrel 75 mg tablet 75 mg PO QAM #30 tabs 05/08/19 04/14/23 amlodipine 5 mg tablet 5 mg PO QAM 12/01/20 04/14/23 triamterene 37.5 1 tab PO QAM 12/01/20 04/14/23 mg-hydrochlorothiazide 25 mg tablet insulin glargine 100 unit/mL See Rx Instructions subcut .COMPLEX 10/27/22 04/14/23 subcutaneous solution metoprolol succinate 100 mg 100 mg PO QAM 03/17/23 04/14/23 tablet,extended release 24 hr Previous Rx's Medication Instructions Recorded metformin 1,000 mg tablet 1,000 mg PO BID #180 tabs 08/16/19 docusate sodium 100 mg capsule 100 mg PO BID PRN constipation #30 04/16/23 (Colace) caps lisinopril 20 mg tablet 20 mg PO DAILY #1 tab 04/16/23 polyethylene glycol 3350 17 gram 17 g PO DAILY PRN constipation #14 04/16/23 oral powder packet (Miralax) ea ondansetron 4 mg disintegrating 4 mg PO Q6H PRN nausea and 04/20/23 tablet vomiting #10 tabs tramadol 50 mg tablet 50 - 100 mg PO Q6H PRN pain #10 04/20/23 tabs Results & Data (ED) Vital Signs Vital Signs - 24 hr 04/21/23 09:42 04/21/23 09:58 04/21/23 09:52 Temperature 36.8 C Temperature Source Oral Pulse Rate - Lying Pulse Rate - Sitting Pulse Rate - Standing Pulse Rate 75 64 Pulse Rhythm Regular Pulse Strength Normal Respiratory Rate 18 Blood Pressure - Lying Blood Pressure - Sitting Blood Pressure 91/57 L Blood Pressure Mean 68 Blood Pressure Position Sitting Pulse Oximetry 98 Oxygen Delivery Method Room Air Sepsis Recent Fever Within 48 Hours No Sepsis New/Unexplained Change in Mental Status No Sepsis Action Taken by Nursing No Action Required 04/21/23 10:32 Temperature Temperature Source Pulse Rate - Lying 78 Pulse Rate - Sitting 76 Pulse Rate - Standing 86 Pulse Rate Pulse Rhythm Pulse Strength Respiratory Rate Blood Pressure - Lying 113/66 Blood Pressure - Sitting 108/64 Blood Pressure Blood Pressure Mean Blood Pressure Position Pulse Oximetry Oxygen Delivery Method Sepsis Recent Fever Within 48 Hours Sepsis New/Unexplained Change in Mental Status Sepsis Action Taken by Shelter Medications Current Medication List: was personally reviewed by me Laboratory Data Attestation: I reviewed the patient's lab results. 04/21/23 10:04/21/23 10: Lab Results 04/21/23 04/21/23 04/21/23 Range/Units 10:23 10: 10: WBC 13.43 H (4.8-10.8) K/ul RBC 1.70 L (4.70-6.10) M/uL Hgb 5.2 L* (14.0-18.0) g/dl Hct 16.2 L* (42.0-52.0) % MCV 95.3 (80.0-100.0) fL MCH 30.6 (25.0-34.0) pg MCHC 32.1 (32.0-36.0) g/dL RDW Std Deviation 50.2 H (36.4-46.3) fL RDW Coeff of Ernesto 15.0 H (11.5-14.5) % Plt Count 315 (130-400) K/uL MPV 10.0 (9.4-12.4) fL PT (9.0-12.0) Seconds INR (0.9-1.1) APTT (21.0-31.0) Seconds PTT Ratio VBG pH (7.36-7.41) VBG pCO2 (38-50) mmHg VBG pO2 mmHg VBG HCO3 mmol/L VBG O2 Saturation % VBG Base Excess mEq/L Sodium 131 L (136-145) mmol/L Potassium 5.9 H (3.5-5.1) mmol/L Chloride 103 (98-107) mmol/L Carbon Dioxide 17 L (21-32) mmol/L Anion Gap 11 (3-11) BUN 64 H (6-23) mg/dl Creatinine 1.83 H (0.6-1.4) mg/dl Est Cr Clr Drug Dosing 39.9 ml/min Est GFR ( Amer) 41.8 ml/min Est GFR (Non-Af Amer) 36.1 ml/min BUN/Creatinine Ratio 35.0 H (10-20) Glucose 293 H (70-99(Fasting)) mg/dl Calcium 8.3 L (8.6-10.3) mg/dl Magnesium 1.7 (1.7-2.4) mg/dl Total Bilirubin 0.4 (0.2-1.0) mg/dl Direct Bilirubin 0.1 (0-0.2) mg/dl AST 12 L (13-39) U/L ALT 15 (7-52) U/L Alkaline Phosphatase 48 (34-104) U/L Troponin I High Sens 7.7 (0-20) pg/ml Total Protein 5.5 L (6.0-8.3) gm/dl Albumin 3.2 L (3.4-5.0) gm/dl Procalcitonin 0.14 (0-0.5) ng/ml Crossmatch 04/21/23 04/21/23 04/21/23 Range/Units 10:23 10:23 11:01 WBC (4.8-10.8) K/ul RBC (4.70-6.10) M/uL Hgb (14.0-18.0) g/dl Hct (42.0-52.0) % MCV (80.0-100.0) fL MCH (25.0-34.0) pg MCHC (32.0-36.0) g/dL RDW Std Deviation (36.4-46.3) fL RDW Coeff of Ernesto (11.5-14.5) % Plt Count (130-400) K/uL MPV (9.4-12.4) fL PT 10.9 (9.0-12.0) Seconds INR 1.0 (0.9-1.1) APTT < 20.0 L (21.0-31.0) Seconds PTT Ratio 0.7 VBG pH 7.37 (7.36-7.41) VBG pCO2 30 L (38-50) mmHg VBG pO2 116 mmHg VBG HCO3 17 mmol/L VBG O2 Saturation 99.1 % VBG Base Excess -7.4 mEq/L Sodium (136-145) mmol/L Potassium (3.5-5.1) mmol/L Chloride (98-107) mmol/L Carbon Dioxide (21-32) mmol/L Anion Gap (3-11) BUN (6-23) mg/dl Creatinine (0.6-1.4) mg/dl Est Cr Clr Drug Dosing ml/min Est GFR ( Amer) ml/min Est GFR (Non-Af Amer) ml/min BUN/Creatinine Ratio (10-20) Glucose (70-99(Fasting)) mg/dl Calcium (8.6-10.3) mg/dl Magnesium (1.7-2.4) mg/dl Total Bilirubin (0.2-1.0) mg/dl Direct Bilirubin (0-0.2) mg/dl AST (13-39) U/L ALT (7-52) U/L Alkaline Phosphatase (34-104) U/L Troponin I High Sens (0-20) pg/ml Total Protein (6.0-8.3) gm/dl Albumin (3.4-5.0) gm/dl Procalcitonin (0-0.5) ng/ml Crossmatch See Detail Administered Medications Discontinued Medications Sodium Chloride (Nss 1000ml) 1,000 mls @ 999 mls/hr IV .Q1H1M ONE Stop: 04/21/23 10:52 Last Admin: 04/21/23 10:25 Dose: 999 mls/hr Documented By: KAITLYN Imaging Data Attestation: I personally reviewed and interpreted this imaging study as follows: My Impression: 1 view chest x-ray was obtained in the emergency department. My interpretation is no free air or definite infiltrate, final report below. Radiologist's Impression: Chest X-Ray 04/21/23 09:52 XR chest 1V portable CLINICAL HISTORY: Sepsis. COMPARISON STUDY: Chest radiograph April 14, 2023. FINDINGS: Right shoulder arthroplasty and median sternotomy wires are incidentally noted. There is cardiomegaly without evidence for pulmonary edema. There is no pneumothorax or pleural effusion. No consolidation to suggest pn eumonia. IMPRESSION: No acute cardiopulmonary findings. No change in appearance of the chest. ACT 112: Negative or not required by law. Electronically signed by: Sukhdev Purdy M.D. 04/21/2023 10:55 AM Discharge Plan Visit Data Chief Complaint: Referred by Doctor Stated Complaint: REF BY , HYPERGLYCEMIA, HYPOTENSION ED Provider: Anil Rodriguez Discharge Problem: Acute upper gastrointestinal bleeding, Anemia, Acute hypotension, Orthostasis Patient Disposition: Being Evaluated by Hospitalist Forms Stand Alone Forms: My [facility] Prescriptions Prescriptions: No Action metformin 1,000 mg tablet 1,000 mg PO BID Qty: 180 3RF tramadol 50 mg tablet 50 - 100 mg PO Q6H PRN (Reason: pain) Qty: 10 0RF ondansetron 4 mg tablet,disintegrating 4 mg PO Q6H PRN (Reason: nausea and vomiting) Qty: 10 0RF amlodipine 5 mg tablet 5 mg PO QAM triamterene-hydrochlorothiazid 37.5-25 mg tablet 1 tab PO QAM Hold Instructions: Till follow up with your Primary care physician allopurinol 100 mg tablet 100 mg PO HS aspirin 81 mg tablet,delayed release (DR/EC) 81 mg PO QPM atorvastatin 80 mg tablet 80 mg PO HS clopidogrel 75 mg tablet 75 mg PO QAM Qty: 30 insulin glargine 100 unit/mL solution See Rx Instructions subcut .COMPLEX Rx Instructions: 70 unit QAM & 10 units QPM subcut metoprolol succinate 100 mg tablet extended release 24 hr 100 mg PO QAM polyethylene glycol 3350 [Miralax] 17 gram Powder In Packet 17 g PO DAILY PRN (Reason: constipation) Qty: 14 0RF docusate sodium [Colace] 100 mg capsule 100 mg PO BID PRN (Reason: constipation) Qty: 30 0RF lisinopril 20 mg tablet 20 mg PO DAILY Qty: 1 0RF Referrals Referrals: Saw Campbell DO [Primary Care Provider] - Anemia Qualifiers: Anemia type: unspecified type Qualified Code(s): D64.9 - Anemia, unspecified
[2023-04-21 10:36] LABS: Base Excess VBG -7.4 mEq/L; HCO3 VBG 17 mmol/L; Oxygen Saturation VBG 99.1 %; PCO2 VBG 30 mmHg (38-50); PO2 VBG 116 mmHg; pH VBG 7.37 (7.36-7.41)
[2023-04-21 10:52] LABS: Hematocrit (blood only) 16.2 % (42.0-52.0); Hemoglobin 5.2 g/dl (14.0-18.0); Mean Corpuscular Hemoglobin 30.6 pg (25.0-34.0); Mean Corpuscular Hgb Conc 32.1 g/dL (32.0-36.0); Mean Corpuscular Volume 95.3 fL (80.0-100.0); Platelet Count 315 K/uL (130-400); RDW Standard Deviation 50.2 fL (36.4-46.3); White Blood Count 13.43 K/ul (4.8-10.8)
[2023-04-21] MEDS ORDERED: SODIUM CHLORIDE 0.9% 250 ML IV PRN (10:54)
[2023-04-21] MEDS ORDERED: PANTOprazole 40 MG in SYRINGE 0 ML IV ONE (10:54)
--- NOTE | 2023-04-21 10:56 | XRay Report ---
XR chest 1V portable CLINICAL HISTORY: Sepsis. COMPARISON STUDY: Chest radiograph April 14, 2023. FINDINGS: Right shoulder arthroplasty and median sternotomy wires are incidentally noted. There is ca rdiomegaly without evidence for pulmonary edema. There is no pneumothorax or pleural effusion. No con solidation to suggest pneumonia. IMPRESSION: No acute cardiopulmonary findings. No change in appearance of the chest. ACT 112: Negative or not required by law. Electronically signed by: Sukhdev Purdy M.D. 04/21/2023 10:55 AM
[2023-04-21 10:57] LABS: Albumin Level 3.2 gm/dl (3.4-5.0); Bilirubin Direct 0.1 mg/dl (0-0.2); Bilirubin,Total 0.4 mg/dl (0.2-1.0); Calcium 8.3 mg/dl (8.6-10.3); Creatinine Clr Calc Pharmacy 39.9 ml/min; Est GFR (African American) 41.8 ml/min; Est GFR (Non-African American) 36.1 ml/min; Magnesium 1.7 mg/dl (1.7-2.4); Potassium 5.9 mmol/L (3.5-5.1); Total Protein 5.5 gm/dl (6.0-8.3)
[2023-04-21 11:02] LABS: Troponin I High Sensitivity 7.7 pg/ml (0-20)
[2023-04-21 11:10] LABS: Partial Thromboplastin Ratio 0.7; Prothrombin Time 10.9 Seconds (9.0-12.0)
[2023-04-21 11:18] LABS: Partial Thromboplastin Time < 20.0 Seconds (21.0-31.0)
--- NOTE | 2023-04-21 11:26 | Student Report ---
ISH Med Student H&P Advanced Practice Practitioner Student Attestation: This note was written by a student and should not be used in clinical decision making or for formulating plan of care. Date of Service Date of Service: April 21, 2023 HPI HPI: Pt is a 72 yo male with pmhx of MN and CAD (s/p CABGx3 2015 & GINA 2016), dual anti-platelet therapy, , carotid stenosis, CKD, HTN, DM2, gout who presented to the ED from orthopedic follow-up appt where he was found to be hypotensive. Pt is s/p reverse shoulder replacement (04/06) and was admitted recently for anemia and RADU. The pt stated that earlier this week he had taken PRN oxycodone with resulting dizziness. He was changed to tramadol, but after taking two doses yesterday, continued with dizziness on standing. He denies dizziness when sitting up from lying. He does report slight CP and cold sweats with events, but this resolved on its own. He denies any fever, chills, NEVILLE, visual changes, unilateral weakness, tingling/numbness to extremities, SOB. He does report that he had several episodes of dark stools but thought it was because he was constipated, said stool this am was "normal for him." He denies N/V/D, bloating, abd pain, changes/bleeding with urination. He has been taking all of his medications as prescribed up until last evening. In the ED, pt received 1L NSS bolus and has been ordered 2units PRBC for transfusion. He is noted to have leukocytosis and positive lactate 4.8. H&H were 5.2 and 16.2 prior to transfusion. Creatinine is 1.88 on admission, unknown baseline. Glucose noted to be 298, per patient he took his insulin glargine yesterday morning, but has had none since. Plan to admit under hospitalist service with consult to GI for further workup. Pt History Pt History: Medical History (Updated 04/21/23 @ 11:03 by Anil Rodriguez DO) Aortic stenosis Carotid stenosis Coronary artery disease Gout Hearing deficit Herniation of cervical intervertebral disc History of blood transfusion History of COVID-19 Hypertension Insulin dependent type 2 diabetes mellitus Myocardial Infarction On anticoagulant therapy Seizure Surgical History (Updated 04/07/23 @ 08:28 by Tenzin Hamilton MD) History of cardiac cath History of colonoscopy History of reverse total replacement of right shoulder joint History of tooth extraction History of wisdom tooth extraction S/P coronary artery bypass graft x 3 S/P epidural steroid injection Family History (Updated 03/17/23 @ 12:59 by Shaniqua Bell RN) Father Myocardial infarction Other No family history of adverse response to anesthesia Social History Smoking Status: Never smoker Age Started Using Tobacco: 60; Age Quit Using Tobacco: 65; Second Hand Exposure: No; Do You Dip or Chew Tobacco: No; Hx Alcohol Use: Yes Alcohol type: beer Alcohol Intake Frequency: 2-4 x/Month Hx Substance Use: No Preferred Language: Faroese Communication Ability: Effective Wire Brusher Required: No Beliefs That Will Affect Care: None marital status: Current Living Situation: Spouse current occupational status: retired Feels Safe at Home: Yes Assistive Devices: Brace/Splint/Immobilizer ROS ROS: See above for pertinent positives & negatives. A total of 10 systems reviewed and were otherwise negative. Physical Exam Physical Exam: Vital signs reviewed. General: Pt appears pale, in no significant distress. HEENT: No scleral icterus, PERRLA, neck supple. Atraumatic. Cardiovascular: Regular rate and rhythm, systolic murmur over PMI, no S3, S4. Pulmonary: Clear to auscultation bilaterally, normal work of breathing. Abdomen: Soft, nontender, nondistended, positive bowel sounds. Musculoskeletal: LUE with slight swelling. ROM limited to recent surgery, sling in place. Neurologic: Patient awake alert and oriented x 3, full strength in 3 extremities, RUE as above. Skin: Warm, dry, no rash. Right anterior shoulder incision well healed. Results Results: Short CBC 04/21/23 Range/Units 10:23 WBC 13.43 H (4.8-10.8) K/ul Hgb 5.2 L* (14.0-18.0) g/dl Hct 16.2 L* (42.0-52.0) % Plt Count 315 (130-400) K/uL BMP 04/21/23 10:23 Sodium 131 L Potassium 5.9 H Chloride 103 Carbon Dioxide 17 L BUN 64 H Creatinine 1.83 H Glucose 293 H Calcium 8.3 L Liver Function 04/21/23 Range/Units 10:23 Total Bilirubin 0.4 (0.2-1.0) mg/dl Direct Bilirubin 0.1 (0-0.2) mg/dl AST 12 L (13-39) U/L ALT 15 (7-52) U/L Alkaline Phosphatase 48 (34-104) U/L Albumin 3.2 L (3.4-5.0) gm/dl Chest X-Ray 04/21/23 09:52 XR chest 1V portable CLINICAL HISTORY: Sepsis. COMPARISON STUDY: Chest radiograph April 14, 2023. FINDINGS: Right shoulder arthroplasty and median sternotomy wires are incidentally noted. There is cardiomegaly without evidence for pulmonary edema. There is no pneumothorax or pleural effusion. No consolidation to suggest pneumonia. IMPRESSION: No acute cardiopulmonary findings. No change in appearance of the chest. ACT 112: Negative or not required by law. Electronically signed by: Sukhdev Purdy M.D. 04/21/2023 10:55 AM Code/VTE Code/VTE: See orders and A/P A&P A&P: 1. Anemia Acute hypotension Orthostasis Acute upper gastrointestinal bleeding (possible) Leukocytosis, lactic acidosis Pt rec'd 1L NSS in ED, ordered 2units PRBC for STAT transfusion for Hgb 5.2. Lactic acidosis trending down, most likely d/t anemia/hypoperfusion. Admit to telemetry floor with continuous cardiac monitoring VS per protocol I&Os every shift Daily weights Recheck CBC after blood transfusion and every 6 hrs until stable BMP, Mag daily TIBC, Fe, Ferriten with am labs Recheck lactate at 1800 Bed rest until H&H stabilize GI consult for GI bleed workup 2. CAD, , HTN, HLD Pt s/p CABG x3 (2015) and GINA (2016). EKG shows NSR, no ST changes from last EKG. Pt currently w/out CP. Last LDL 78 (2020) EF 55-60% (03/2023) Initial troponin negative, will cont to trend Continue PHARMACY RETAIL SUPPORT SPECIALIST amlodipine, atorvastatin Continue metorpolol, hold for HR <60, SBP <90 Hold lisinopril d/t hyperkalemia, ASA and plavix d/t anemia for now 3. RADU on CKD, hyperkalemia 6.0 Pt rec'd insulin and calcium in ED for hyperkalemia. Holding ACEI. Creat range 1.5-2.5 over last year Recheck BMP at 1800, then daily Avoid nephrotoxic medications 4. DM2, insulin dependent Hyperglycemia HgbA1C 7.8 from last admission Hold PHARMACY RETAIL SUPPORT SPECIALIST metformin and glargine insulin Glucose checks and SSI AC and HS while inpatient, pharmacy c/s for insulin recs 5. Gout Continue PHARMACY RETAIL SUPPORT SPECIALIST allopurinol 6. Diet/Bowel regimen Ice chips, clear for now then NPO at CT, awaiting GI consult Pantoprazole drip per GI 7. Pain regimen Acetaminophen 650mg every 4hrs for mild-mod pain, fever Not tolerating opioids d/t dizziness/nausea, will consider other options if pain worsens No NSAIDs per GI 8. DVT proph BLE SCDs 9. Disposition Admit under hospitalist service with GI consult.
[2023-04-21 11:53] LABS: Basophils # (auto) 0.03 K/uL (0-0.2); Basophils % (auto) 0.2 %; Immature Granulocytes # (auto) 0.24 K/uL (0.01-0.20); Immature Granulocytes % (auto) 1.8 %; Lymphocytes # (auto) 1.17 K/uL (1.2-3.4); Lymphocytes % (auto) 8.7 %; Monocytes % (auto) 4.5 %; Neutrophils # (auto) 11.39 K/uL (1.40-6.50); Neutrophils % (auto) 84.8 %
--- NOTE | 2023-04-21 12:57 | Gastrointestinal Consultation ---
Date of Consultation April 21, 2023 Assessment & Plan (1) Anemia: 72 year old male w/ history of CAD (s/p CABG in 2016, GINA in 2017), insulin- dependent diabetes, aortic stenosis, CKD, hypertension and recent joint replacement admitted w/ symptomatic anemia, HGB 5.2, anticoagulated with ASA/Plavix who reports dark black stools x 1 week with heartburn, reflux and solids dysphagia. DDX discussed including but not limited to: PUD, gastritis, esophagitis, AVM, ring, stricture, stenosis, lesion vs other. He is hemodynamically stable at present w/ BP 128/72 and pulse 84. Given the severity of his anemia, would recommend medical optimization prior to endoscopic evaluation unless deemed emergent. May have clear liquids today Hold ASA/Plavix No NSAIDs Start IV PPI bolus/drip Trend H&H Monitor and document output Transfuse PRN Antiemetics PRN Recommend CTAP Tentative plan for EGD Monday but may need to have endoscopic evaluation over the weekend pending the clinical course. Would keep NPO after midnight until re- evaluated. We appreciate assistance in the management of any serological abnormality and corrections to include: hemoglobin >7, INR <2, platelets >50,000, potassium levels >3.5 but <5.3, and sodium levels within 5 points of the reference range prior to endoscopic evaluation. Thank you for allowing us to participate in the care of this patient. Please call with any acute changes, questions or concerns. Please see addendum below with additional recommendation from my supervising physician. Supervising Physician Co-Signing Physician Notes I performed a history and physical examination of the patient today, including specifically on physical exam - soft abdomen. I have discussed the patient's management with the advanced practitioner. Please refer to the nurse practitioner's note for the documented findings and plan of care. IV PPI Transfuse PRBC Renal evaluation. EGD on Monday if remains stable otherwise will inform the oncall GI to check over the weekend. History of Present Illness Reason for Consultation: melena Requesting Physician: Shereen Mccoy Attending Physician: Shereen Mccoy History of Present Illness 72 year old male an ASA/Plavix admitted through the ED w/ symptomatic anemia, HGB 5.2. He has history of CAD (s/p CABG in 2016, GINA in 2017), insulin- dependent diabetes, aortic stenosis, CKD, hypertension and recent joint replacement. GI was asked to evaluate for melena. Pt was seen and evaluated, chart reviewed. Pt was seen in the ED, family at bedside who aids in history. Suggests for the last few weeks has felt run down, tired, fatigue and intermittent dizziness. This was thought to be related to some medication changes that took place during his recent admission. Suggests on Monday noted he had a black BM, formed, hard to pass with straining. Since, he has passed black stools daily. 1-2 BMs daily. Had a trace of BRB on toilet tissue with BM earlier this week but he notes this is not uncommon when he strains. No maroon colored stools or BRB in toilet. He has had some mild nausea but is tolerated PO intake and notes he has a great appetite. The past few weeks however he has had bad heartburn, reflux and solids dysphagia. Denies any report of hematemesis or coffee ground emesis. No report of syncopal episodes. Hypotensive on arrival which resolved w/ IVF. He is currently receiving 1 unit RBCs. On ASA, Plavix No other NSAIDs Denies ETOH No personal history of liver disease No personal history of PUD HGB 11--> 10.6 --> 8.9 --> 8.3 --> 8.1 --> 5.2 BUN/POULTRY BREEDER 64/1.8 EGD: none Colonoscopy: years ago, follows with [facility] now Allergies Allergy/AdvReac Type Severity Reaction Status Date / Time Opioids - Morphine Analogues AdvReac Mild Dizziness Unverified 04/21/23 11:32 and feeling sick Home Medications Medication Instructions Recorded Confirmed Type allopurinol 100 mg tablet 100 mg PO HS 05/08/19 04/21/23 History aspirin 81 mg tablet,delayed 81 mg PO QPM 05/08/19 04/21/23 History release atorvastatin 80 mg tablet 80 mg PO HS 05/08/19 04/21/23 History clopidogrel 75 mg tablet 75 mg PO QAM #30 tabs 05/08/19 04/21/23 History metformin 1,000 mg tablet 1,000 mg PO BID #180 tabs 08/16/19 04/21/23 Rx insulin glargine 100 unit/mL 70 unit subcut DAILY 10/27/22 04/21/23 History subcutaneous solution metoprolol succinate 100 mg 100 mg PO QAM 03/17/23 04/21/23 History tablet,extended release 24 hr docusate sodium 100 mg capsule 100 mg PO BID PRN constipation #30 04/16/23 04/21/23 Rx (Colace) caps lisinopril 20 mg tablet 20 mg PO DAILY #1 tab 04/16/23 04/21/23 Rx polyethylene glycol 3350 17 gram 17 g PO DAILY PRN constipation #14 04/16/23 04/21/23 Rx oral powder packet (Miralax) ea ondansetron 4 mg disintegrating 4 mg PO Q6H PRN nausea and 04/20/23 04/21/23 Rx tablet vomiting #10 tabs insulin glargine 100 unit/mL (3 10 unit subcut HS PRN Hyperglycemia 04/21/23 04/21/23 History mL) subcutaneous pen (Lantus Solostar U-100 Insulin) tramadol 50 mg tablet 50 - 100 mg PO Q6H PRN Pain 04/21/23 04/21/23 History Patient History Medical History Aortic stenosis moderate on 03/2023 echo Carotid stenosis < 50% stenosis ICAs bilat 12/2021 doppler Coronary artery disease s/p 4 stents, CABG x 3 in 2015, most recent stent in 2017 Gout Hearing deficit Herniation of cervical intervertebral disc History of blood transfusion 2015 with CABG History of COVID-19 09/2020--mild symptoms, denies hospitalization, no symptoms now Hypertension controlled, stable per pt Insulin dependent type 2 diabetes mellitus Myocardial Infarction per Dr. Eisenberg's note recurrent NSTEMI: 07/2016 and in 2017--heart caths with stents placed--had CABG 07/2016 @ [facility] [place] follows with Dr. Eisenberg On anticoagulant therapy plavix daily Seizure 1 yr ago, in setting of hypoglycemia, no additional seizure activity Surgical History History of cardiac cath multiple in 2015 with last 11/2016 @ [facility]--x4 stents total placed History of colonoscopy History of reverse total replacement of right shoulder joint History of tooth extraction History of wisdom tooth extraction S/P coronary artery bypass graft x 3 07/2016 @ [facility] [place] S/P epidural steroid injection Family History Father Myocardial infarction Other No family history of adverse response to anesthesia Social History Smoking Status: Never smoker Age Started Using Tobacco: 60; Age Quit Using Tobacco: 65; Second Hand Exposure: No; Do You Dip or Chew Tobacco: No; Hx Alcohol Use: Yes Alcohol type: beer Alcohol Intake Frequency: 2-4 x/Month Hx Substance Use: No Preferred Language: Kinyarwanda Communication Ability: Effective Home Administrator Required: No Beliefs That Will Affect Care: None marital status: Current Living Situation: Spouse current occupational status: retired Feels Safe at Home: Yes Assistive Devices: Brace/Splint/Immobilizer Review of Systems Review of Systems: All systems reviewed & are unremarkable except as noted in HPI & below Physical Exam Constitutional: WD/WN, vitals as above Respiratory: normal respiratory effort, lungs clear to auscultation Cardiovascular: Rate/Rhythm: regular rate and regular rhythm Extremities: no pedal edema and no edema Gastrointestinal (Abdomen): normal bowel sounds, soft, nontender, no hepatosplenomegaly Skin: +pale Results & Data Vital Signs (Past 12 Hours) Vital Signs Temp Pulse Pulse Resp BP BP Pulse Ox 04/21/23 12:45 36.6 C 85 23 142/66 H 97 04/21/23 12:00 85 16 122/69 100 04/21/23 11:00 77 16 133/79 75 L 04/21/23 11:38 74 17 167/79 H 96 04/21/23 12:31 36.6 C 81 19 124/62 95 04/21/23 09:52 04/21/23 09:58 64 04/21/23 09:42 36.8 C 75 18 91/57 L 98 O2 Del Method 04/21/23 12:45 04/21/23 12:00 Room Air 04/21/23 11:00 Room Air 04/21/23 11:38 Room Air 04/21/23 12:31 04/21/23 09:52 Room Air 04/21/23 09:58 04/21/23 09:42 Laboratory Results 04/21/23 04/21/23 04/21/23 Range/Units 12:36 12:10 11:33 WBC (4.8-10.8) K/ul RBC (4.70-6.10) M/uL Hgb (14.0-18.0) g/dl Hct (42.0-52.0) % MCV (80.0-100.0) fL MCH (25.0-34.0) pg MCHC (32.0-36.0) g/dL RDW Std Deviation (36.4-46.3) fL RDW Coeff of Ernesto (11.5-14.5) % Plt Count (130-400) K/uL MPV (9.4-12.4) fL Immature Gran % (Auto) % Neut % (Auto) % Lymph % (Auto) % Garrett % (Auto) % Eos % (Auto) % Baso % (Auto) % Neut # (Auto) (1.40-6.50) K/uL Lymph # (Auto) (1.2-3.4) K/uL Garrett # (Auto) (0.11-0.59) K/uL Eos # (Auto) (0-0.50) K/uL Baso # (Auto) (0-0.2) K/uL Immature Gran # (Auto) (0.01-0.20) K/uL PT (9.0-12.0) Seconds INR (0.9-1.1) APTT (21.0-31.0) Seconds PTT Ratio VBG pH (7.36-7.41) VBG pCO2 (38-50) mmHg VBG pO2 mmHg VBG HCO3 mmol/L VBG O2 Saturation % VBG Base Excess mEq/L Sodium Pending (136-145) mmol/L Potassium Pending (3.5-5.1) mmol/L Chloride Pending (98-107) mmol/L Carbon Dioxide Pending (21-32) mmol/L Anion Gap Pending (3-11) BUN Pending (6-23) mg/dl Creatinine Pending (0.6-1.4) mg/dl Est Cr Clr Drug Dosing Pending ml/min Est GFR ( Amer) Pending ml/min Est GFR (Non-Af Amer) Pending ml/min BUN/Creatinine Ratio Pending (10-20) Glucose Pending (70-99(Fasting)) mg/dl Lactate 3.9 H* (0.4-2.0) mmol/L Calcium Pending (8.6-10.3) mg/dl Magnesium (1.7-2.4) mg/dl Total Bilirubin (0.2-1.0) mg/dl Direct Bilirubin (0-0.2) mg/dl AST (13-39) U/L ALT (7-52) U/L Alkaline Phosphatase (34-104) U/L Troponin I High Sens (0-20) pg/ml Total Protein (6.0-8.3) gm/dl Albumin (3.4-5.0) gm/dl Procalcitonin (0-0.5) ng/ml SARS-CoV-2, RNA, NAAT NEGATIVE (NEGATIVE) Blood Type Antibody Screen Crossmatch 04/21/23 04/21/23 04/21/23 Range/Units 11:01 10:23 10:23 WBC (4.8-10.8) K/ul RBC (4.70-6.10) M/uL Hgb (14.0-18.0) g/dl Hct (42.0-52.0) % MCV (80.0-100.0) fL MCH (25.0-34.0) pg MCHC (32.0-36.0) g/dL RDW Std Deviation (36.4-46.3) fL RDW Coeff of Ernesto (11.5-14.5) % Plt Count (130-400) K/uL MPV (9.4-12.4) fL Immature Gran % (Auto) % Neut % (Auto) % Lymph % (Auto) % Garrett % (Auto) % Eos % (Auto) % Baso % (Auto) % Neut # (Auto) (1.40-6.50) K/uL Lymph # (Auto) (1.2-3.4) K/uL Garrett # (Auto) (0.11-0.59) K/uL Eos # (Auto) (0-0.50) K/uL Baso # (Auto) (0-0.2) K/uL Immature Gran # (Auto) (0.01-0.20) K/uL PT 10.9 (9.0-12.0) Seconds INR 1.0 (0.9-1.1) APTT < 20.0 L (21.0-31.0) Seconds PTT Ratio 0.7 VBG pH 7.37 (7.36-7.41) VBG pCO2 30 L (38-50) mmHg VBG pO2 116 mmHg VBG HCO3 17 mmol/L VBG O2 Saturation 99.1 % VBG Base Excess -7.4 mEq/L Sodium (136-145) mmol/L Potassium (3.5-5.1) mmol/L Chloride (98-107) mmol/L Carbon Dioxide (21-32) mmol/L Anion Gap (3-11) BUN (6-23) mg/dl Creatinine (0.6-1.4) mg/dl Est Cr Clr Drug Dosing ml/min Est GFR ( Amer) ml/min Est GFR (Non-Af Amer) ml/min BUN/Creatinine Ratio (10-20) Glucose (70-99(Fasting)) mg/dl Lactate (0.4-2.0) mmol/L Calcium (8.6-10.3) mg/dl Magnesium (1.7-2.4) mg/dl Total Bilirubin (0.2-1.0) mg/dl Direct Bilirubin (0-0.2) mg/dl AST (13-39) U/L ALT (7-52) U/L Alkaline Phosphatase (34-104) U/L Troponin I High Sens (0-20) pg/ml Total Protein (6.0-8.3) gm/dl Albumin (3.4-5.0) gm/dl Procalcitonin (0-0.5) ng/ml SARS-CoV-2, RNA, NAAT (NEGATIVE) Blood Type A Positive Antibody Screen NEGATIVE Crossmatch See Detail 04/21/23 04/21/23 04/21/23 Range/Units 10:23 10:23 10:23 WBC (4.8-10.8) K/ul RBC (4.70-6.10) M/uL Hgb (14.0-18.0) g/dl Hct (42.0-52.0) % MCV (80.0-100.0) fL MCH (25.0-34.0) pg MCHC (32.0-36.0) g/dL RDW Std Deviation (36.4-46.3) fL RDW Coeff of Ernesto (11.5-14.5) % Plt Count (130-400) K/uL MPV (9.4-12.4) fL Immature Gran % (Auto) % Neut % (Auto) % Lymph % (Auto) % Garrett % (Auto) % Eos % (Auto) % Baso % (Auto) % Neut # (Auto) (1.40-6.50) K/uL Lymph # (Auto) (1.2-3.4) K/uL Garrett # (Auto) (0.11-0.59) K/uL Eos # (Auto) (0-0.50) K/uL Baso # (Auto) (0-0.2) K/uL Immature Gran # (Auto) (0.01-0.20) K/uL PT (9.0-12.0) Seconds INR (0.9-1.1) APTT (21.0-31.0) Seconds PTT Ratio VBG pH (7.36-7.41) VBG pCO2 (38-50) mmHg VBG pO2 mmHg VBG HCO3 mmol/L VBG O2 Saturation % VBG Base Excess mEq/L Sodium 131 L (136-145) mmol/L Potassium 5.9 H (3.5-5.1) mmol/L Chloride 103 (98-107) mmol/L Carbon Dioxide 17 L (21-32) mmol/L Anion Gap 11 (3-11) BUN 64 H (6-23) mg/dl Creatinine 1.83 H (0.6-1.4) mg/dl Est Cr Clr Drug Dosing 39.9 ml/min Est GFR ( Amer) 41.8 ml/min Est GFR (Non-Af Amer) 36.1 ml/min BUN/Creatinine Ratio 35.0 H (10-20) Glucose 293 H (70-99(Fasting)) mg/dl Lactate 4.8 H* (0.4-2.0) mmol/L Calcium 8.3 L (8.6-10.3) mg/dl Magnesium 1.7 (1.7-2.4) mg/dl Total Bilirubin 0.4 (0.2-1.0) mg/dl Direct Bilirubin 0.1 (0-0.2) mg/dl AST 12 L (13-39) U/L ALT 15 (7-52) U/L Alkaline Phosphatase 48 (34-104) U/L Troponin I High Sens 7.7 (0-20) pg/ml Total Protein 5.5 L (6.0-8.3) gm/dl Albumin 3.2 L (3.4-5.0) gm/dl Procalcitonin 0.14 (0-0.5) ng/ml SARS-CoV-2, RNA, NAAT (NEGATIVE) Blood Type Antibody Screen Crossmatch 04/21/23 Range/Units 10:23 WBC 13.43 H (4.8-10.8) K/ul RBC 1.70 L (4.70-6.10) M/uL Hgb 5.2 L* (14.0-18.0) g/dl Hct 16.2 L* (42.0-52.0) % MCV 95.3 (80.0-100.0) fL MCH 30.6 (25.0-34.0) pg MCHC 32.1 (32.0-36.0) g/dL RDW Std Deviation 50.2 H (36.4-46.3) fL RDW Coeff of Ernesto 15.0 H (11.5-14.5) % Plt Count 315 (130-400) K/uL MPV 10.0 (9.4-12.4) fL Immature Gran % (Auto) 1.8 % Neut % (Auto) 84.8 % Lymph % (Auto) 8.7 % Garrett % (Auto) 4.5 % Eos % (Auto) 0.0 % Baso % (Auto) 0.2 % Neut # (Auto) 11.39 H (1.40-6.50) K/uL Lymph # (Auto) 1.17 L (1.2-3.4) K/uL Garrett # (Auto) 0.60 H (0.11-0.59) K/uL Eos # (Auto) 0.00 (0-0.50) K/uL Baso # (Auto) 0.03 (0-0.2) K/uL Immature Gran # (Auto) 0.24 H (0.01-0.20) K/uL PT (9.0-12.0) Seconds INR (0.9-1.1) APTT (21.0-31.0) Seconds PTT Ratio VBG pH (7.36-7.41) VBG pCO2 (38-50) mmHg VBG pO2 mmHg VBG HCO3 mmol/L VBG O2 Saturation % VBG Base Excess mEq/L Sodium (136-145) mmol/L Potassium (3.5-5.1) mmol/L Chloride (98-107) mmol/L Carbon Dioxide (21-32) mmol/L Anion Gap (3-11) BUN (6-23) mg/dl Creatinine (0.6-1.4) mg/dl Est Cr Clr Drug Dosing ml/min Est GFR ( Amer) ml/min Est GFR (Non-Af Amer) ml/min BUN/Creatinine Ratio (10-20) Glucose (70-99(Fasting)) mg/dl Lactate (0.4-2.0) mmol/L Calcium (8.6-10.3) mg/dl Magnesium (1.7-2.4) mg/dl Total Bilirubin (0.2-1.0) mg/dl Direct Bilirubin (0-0.2) mg/dl AST (13-39) U/L ALT (7-52) U/L Alkaline Phosphatase (34-104) U/L Troponin I High Sens (0-20) pg/ml Total Protein (6.0-8.3) gm/dl Albumin (3.4-5.0) gm/dl Procalcitonin (0-0.5) ng/ml SARS-CoV-2, RNA, NAAT (NEGATIVE) Blood Type Antibody Screen Crossmatch (1) Anemia Anemia type: unspecified type Qualified Code(s): D64.9 - Anemia, unspecified
--- NOTE | 2023-04-21 12:59 | History & Physical Report ---
Date of Service April 21, 2023 Assessment & Plan (1) Anemia: (2) Acute upper gastrointestinal bleeding: Plan: Admit to telemetry Patient presenting by referral of orthopedic office for evaluation of lightheadedness and dizziness. Patient is s/p right TSA on 04/[address] Hamilton. Patient also admitted to [facility] 04/14 through 04/16 for RADU. Patient now reporting dark stools for the past 1 week. In the ED, Hgb 5.2, stool is heme positive Noted patient is on DAPT for remote history of CAD Prior colonoscopy records unavailable. Patient denies history of EGD. Transfuse 2 units PRBC, follow H&H PPI bolus followed by drip CT ABD/pelvis unremarkable Clear liquids, n.p.o. after midnight GI consult, case discussed with STEPHANIE Julio (3) Elevated lactic acid level: Plan: Lactate 4.8 --> 3.9 Likely secondary to hypoperfusion from profound anemia Trend lactate (4) Hyperkalemia: Plan: K+ 6.0 Received IV insulin and calcium Hold lisinopril. Noted that triamterene/HCTZ was discontinued during last admission. Trend BMP (5) Coronary artery disease: Plan: History of CABG in 2016 and GINA in 2017 Follows with [facility] cardiology Reported associated chest pain with standing/lightheadedness EKG without acute ST changes, initial troponin negative Chest pain likely secondary to anemia Continue to trend troponin Holding ASA and Plavix in the setting of anemia and suspected upper GI bleeding, resume as able Continue beta-ramesh and statin (6) Insulin dependent type 2 diabetes mellitus: Plan: Hgb A1c 7.8 04/2023 Glucose 274 on labs, patient reports he did not take his a.m. Lantus Hold metformin, Lantus and NovoLog per protocol while hospitalized, glycemic pharmacy consulted (7) CKD (chronic kidney disease), stage III: Plan: Baseline creatinine mid-high 1's Creatinine 1.8 today Follow renal functions (8) Hypertension: Plan: Hold lisinopril due to hyperkalemia Continue metoprolol DVT PROPHYLAXIS SCDs due to anemia/GI bleeding Patient seen in collaboration with Dr. Gregg. I spent a total of 75 minutes coordinating, documenting, and providing care for this patient excluding time spent in the performance of separately billed services. This included personally reviewing all current laboratories and imaging studies, medication reconciliation, outpatient chart review, and discussion with specialists. History of Present Illness Chief Complaint: Lightheadedness Primary Care Provider: Saw Campbell DO 72-year-old male with PMH CAD, IDDM, aortic stenosis, CKD, HTN, and other problems to below who presents to the ED for evaluation of lightheadedness and dizziness. History obtained from the patient as well as review of recent inpatient records. Patient with 2 admissions recently, 04/06/2023 through 04/07/2023 for elective right TSA. Patient then admitted 04/14/2023 through 04/16/2023 for RADU on CKD. At discharge, patient's lisinopril dose was reduced and triamterene/HCTZ was discontinued. Patient reports taking oxycodone for pain however made him nauseous and lightheaded. Patient took tramadol for the first time yesterday and had a very similar reaction. Last dose of tramadol was around midnight last night. States this morning he continued to feel very lightheaded and dizzy with standing. Patient then presented to the ED for further evaluation. Patient reports some mild associated chest tightness with standing. He has not had any syncopal event. Denies associated diaphoresis. No shortness of breath. Denies fevers and chills. Right shoulder incision appears to be healing well. Has had some mild nausea associate with pain medications. No vomiting or abdominal pain. Patient reports dark stools over the past 1 week. Denies urinary symptoms. Patient was seen at orthopedic clinic today for follow-up and was sent to the ED for evaluation of dizziness. In the ED, labs show Hgb 5.2, lactate 4.8. Hypotensive on presentation that improved with IVF. Patient was also given IV PPI type and crossed for 2 unit PRBC. Allergies Allergy/AdvReac Type Severity Reaction Status Date / Time Opioids - Morphine Analogues AdvReac Mild Dizziness Unverified 04/21/23 11:32 and feeling sick Home Medications Medication Instructions Recorded Confirmed Type allopurinol 100 mg tablet 100 mg PO HS 05/08/19 04/21/23 History aspirin 81 mg tablet,delayed 81 mg PO QPM 05/08/19 04/21/23 History release atorvastatin 80 mg tablet 80 mg PO HS 05/08/19 04/21/23 History clopidogrel 75 mg tablet 75 mg PO QAM #30 tabs 05/08/19 04/21/23 History metformin 1,000 mg tablet 1,000 mg PO BID #180 tabs 08/16/19 04/21/23 Rx insulin glargine 100 unit/mL 70 unit subcut DAILY 10/27/22 04/21/23 History subcutaneous solution metoprolol succinate 100 mg 100 mg PO QAM 03/17/23 04/21/23 History tablet,extended release 24 hr docusate sodium 100 mg capsule 100 mg PO BID PRN constipation #30 04/16/23 04/21/23 Rx (Colace) caps lisinopril 20 mg tablet 20 mg PO DAILY #1 tab 04/16/23 04/21/23 Rx polyethylene glycol 3350 17 gram 17 g PO DAILY PRN constipation #14 04/16/23 04/21/23 Rx oral powder packet (Miralax) ea ondansetron 4 mg disintegrating 4 mg PO Q6H PRN nausea and 04/20/23 04/21/23 Rx tablet vomiting #10 tabs amlodipine 5 mg tablet 5 mg PO DAILY 04/21/23 04/21/23 History insulin glargine 100 unit/mL (3 10 unit subcut HS PRN Hyperglycemia 04/21/23 04/21/23 History mL) subcutaneous pen (Lantus Solostar U-100 Insulin) tramadol 50 mg tablet 50 - 100 mg PO Q6H PRN Pain 04/21/23 04/21/23 History Past Med/Surg History Medical History Aortic stenosis moderate on 03/2023 echo Carotid stenosis < 50% stenosis ICAs bilat 12/2021 doppler Coronary artery disease s/p 4 stents, CABG x 3 in 2015, most recent stent in 2017 Gout Hearing deficit Herniation of cervical intervertebral disc History of blood transfusion 2016 with CABG History of COVID-19 09/2020--mild symptoms, denies hospitalization, no symptoms now Hypertension controlled, stable per pt Insulin dependent type 2 diabetes mellitus Myocardial Infarction per Dr. Eisenberg's note recurrent NSTEMI: 07/2016 and in 2017--heart caths with stents placed--[place] [facility] [place] On anticoagulant therapy plavix daily Seizure 1 yr ago, in setting of hypoglycemia, no additional seizure activity Surgical History History of cardiac cath multiple in 2016 with last 11/2016 @ [facility]--x4 stents total placed History of colonoscopy History of reverse total replacement of right shoulder joint History of tooth extraction History of wisdom tooth extraction S/P coronary artery bypass graft x 3 [place] [facility] [place] epidural steroid injection Family History Father Myocardial infarction Other No family history of adverse response to anesthesia Social History Smoking Status: Former smoker Age Started Using Tobacco: 60; Age Quit Using Tobacco: 65; Smoking End Date: 2015; Second Hand Exposure: No; Do You Dip or Chew Tobacco: No; Hx Alcohol Use: No Hx Substance Use: No Preferred Language: Lithuanian Communication Ability: Effective Gaming Associate Required: No Beliefs That Will Affect Care: None marital status: Current Living Situation: Spouse current occupational status: retired Feels Safe at Home: Yes Safety Concerns: Feels Safe At This Time Assistive Devices: None Review of Systems Review of Systems: ROS per HPI, all other systems reviewed and negative Physical Exam Constitutional: WD/WN, vitals as above Eyes: PERRL, conjunctivae normal, anicteric sclerae ENMT: external ear and nose normal, oropharynx normal Respiratory: normal respiratory effort, lungs clear to auscultation Cardiovascular: Rate/Rhythm: regular rate and regular rhythm Heart Sounds: + murmur (Grade 3/6, systolic) Vessels: normal peripheral pulses Extremities: no edema Musculoskeletal: no cyanosis or clubbing, extremities motor strength 5/5 S/p right shoulder surgery, Steri-Strips intact to incision, no surrounding erythema or drainage present Skin: no rashes, warm and dry + pallor Neurologic: PERRL, EOMI, accommodation nl, no face palsy, no dysarthria Psychiatric: A+Ox3, euthymic affect Results & Data Results & Data Vital Signs (Past 12 Hours) Vital Signs Temp Pulse Pulse Resp BP BP Pulse Ox 04/21/23 12:45 78 142/66 H 04/21/23 12:45 17 96 04/21/23 12:30 77 17 100 04/21/23 12:30 124/62 04/21/23 12:27 80 22 07/21/23 12:27 106/65 04/21/23 12:00 85 23 79 L 04/21/23 12:00 122/69 04/21/23 11:30 83 23 167/77 H 04/21/23 11:00 78 22 04/21/23 11:00 133/79 04/21/23 10:36 119/63 04/21/23 10:36 74 25 H 04/21/23 10:33 74 19 108/64 04/21/23 10:30 79 24 113/66 04/21/23 10:00 69 20 99 04/21/23 09:56 65 21 99 04/21/23 12:45 36.6 C 85 23 142/66 H 97 04/21/23 12:00 85 16 122/69 100 04/21/23 11:00 77 16 133/79 75 L 04/21/23 11:38 74 17 167/79 H 96 04/21/23 12:31 36.6 C 81 19 124/62 95 04/21/23 09:52 04/21/23 09:58 64 04/21/23 09:42 36.8 C 75 18 91/57 L 98 O2 Del Method 04/21/23 12:45 04/21/23 12:45 04/21/23 12:30 04/21/23 12:30 04/21/23 12:27 04/21/23 12:27 04/21/23 12:00 04/21/23 12:00 04/21/23 11:30 04/21/23 11:00 04/21/23 11:00 04/21/23 10:36 04/21/23 10:36 04/21/23 10:33 04/21/23 10:30 04/21/23 10:00 04/21/23 09:56 04/21/23 12:45 04/21/23 12:00 Room Air 04/21/23 11:00 Room Air 04/21/23 11:38 Room Air 04/21/23 12:31 04/21/23 09:52 Room Air 04/21/23 09:58 04/21/23 09:42 Laboratory Results Short CBC 04/21/23 Range/Units 10:23 WBC 13.43 H (4.8-10.8) K/ul Hgb 5.2 L* (14.0-18.0) g/dl Hct 16.2 L* (42.0-52.0) % Plt Count 315 (130-400) K/uL BMP 04/21/23 10:23 Sodium 131 L Potassium 5.9 H Chloride 103 Carbon Dioxide 17 L BUN 64 H Creatinine 1.83 H Glucose 293 H Calcium 8.3 L Liver Function 04/21/23 Range/Units 10:23 Total Bilirubin 0.4 (0.2-1.0) mg/dl Direct Bilirubin 0.1 (0-0.2) mg/dl AST 12 L (13-39) U/L ALT 15 (7-52) U/L Alkaline Phosphatase 48 (34-104) U/L Albumin 3.2 L (3.4-5.0) gm/dl Diagnostic Findings Chest X-Ray 04/21/23 09:52 XR chest 1V portable CLINICAL HISTORY: Sepsis. COMPARISON STUDY: Chest radiograph April 14, 2023. FINDINGS: Right shoulder arthroplasty and median sternotomy wires are incidentally noted. There is cardiomegaly without evidence for pulmonary edema. There is no pneumothorax or pleural effusion. No consolidation to suggest pneumonia. IMPRESSION: No acute cardiopulmonary findings. No change in appearance of the chest. ACT 112: Negative or not required by law. Electronically signed by: Sukhdev Purdy M.D. 04/21/2023 10:55 AM Code Status & VTE Plan Code Status Patient is a full code as per my discussion with him. Supervising Physician Co-Signing Physician Notes I have seen and examined the patient and have discussed the case with the provider above. I agree with the assessment and plan as stated as noted below. 72-year-old man presents with lightheadedness and dizziness found to have acute blood loss anemia. He reports dark stools for the last 2 weeks. Hemoglobin has fallen from a baseline 11.4/34.1 on March 24, 2023 two 5.2/16.2 today. He was recently admitted to the hospital and at day of discharge she was 8.1/24.5 in a postoperative state. He reports lightheadedness and slight chest discomfort anteriorly. Weakness and fatigue has been reported with sleeping a lot last night. On physical exam he is pale and weak. Heart rate is 75 and he is noted to be on metoprolol. Blood pressure is 149/67 he is oxygenating well on room air. He is speaking in full complete sentences and has no increased respiratory effort. Lungs are clear to auscultation bilaterally. Cardiac exam reveals S1-S2 heard with no murmurs. No edema is present. He does have persistent pain in his right shoulder after his surgery. Sling is currently off and range of motion was not tested because of the pain. Abdomen is soft nontender, nondistended. No gross focal neurologic deficits. Work-up was reviewed including low hemoglobin as noted above and it worsened creatinine. Elevated blood glucose is noted at 293. Lactate is elevated to 4.8. Other labs imaging and EKG reviewed. EKG reveals sinus rhythm with no evidence of acute ischemia. 1. Acute blood loss anemia secondary to GI bleed in setting of DAPT use 2. Hyperkalemia 3. Hyperglycemia in setting of insulin-dependent diabetes and metformin 4. Acute on chronic kidney injury 5. Lactic acidosis Blood transfusion with goal hemoglobin greater than 7 Hold Plavix/ASA Trend H&H Regular insulin/1 amp D50/calcium gluconate 1 g IV now Trend BMP with H&H Lactic acidosis may be from metformin use which will be held Continue basal bolus insulin while patient is hospitalized as noted above. Reassess lactic acid after resuscitation efforts with blood and possibly fluids if needed. DO Cristino (1) Anemia Anemia type: unspecified type Qualified Code(s): D64.9 - Anemia, unspecified
[2023-04-21] MEDS ORDERED: PANTOPRAZOLE BOLUS/DRIP 1 EACH IV STA (13:06)
[2023-04-21] MEDS ORDERED: PANTOprazole 40 MG in DEXTROSE 5% 100 ML IV ONE (13:15)
[2023-04-21 13:21] LABS: Calcium 8.1 mg/dl (8.6-10.3); Creatinine Clr Calc Pharmacy 40.4 ml/min; Est GFR (African American) 42.3 ml/min; Est GFR (Non-African American) 36.5 ml/min
[2023-04-21] MEDS ORDERED: DEXTROSE 50% 50 ML SYRINGE IV STA (13:54)
[2023-04-21] MEDS ORDERED: STAT IV STA (13:54)
[2023-04-21] MEDS ORDERED: NovoLIN-R INSULIN PER UNIT CHARGE IV STA (13:54)
[2023-04-21] MEDS ORDERED: CALCIUM GLUCONATE 10% 1,000 MG in DEXTROSE 5% 50 ML IV ONE (13:54)
[2023-04-21] MEDS ORDERED: CALCIUM GLUCONATE 1,000 MG/60 ML BAG IV STA (13:57)
[2023-04-21] MEDS: PANTOprazole 40 MG in DEXTROSE 5% 100 ML IV SCH ×3 (14:02→23:20)
--- NOTE | 2023-04-21 14:16 | Electrocardiogram Report ---
Test Reason : Blood Pressure : / mmHG Vent. Rate : 066 BPM Atrial Rate : 066 BPM P-R Int : 158 ms QRS Dur : 112 ms QT Int : 412 ms P-R-T Axes : 060 053 069 degrees QTc Int : 431 ms Normal sinus rhythm Normal ECG When compared with ECG of 14-APR-2023 12:03, No significant change was found Confirmed by Chuy Pak ([id number]) on 04/21/2023 12:27:19 PM Referred By: Tenzin Hamilton Confirmed By:Chuy Pak
[2023-04-21] MEDS ORDERED: NITROGLYCERIN 2% OINTMENT 30GM TUBE EXT ONE (14:54)
--- NOTE | 2023-04-21 15:08 | CT Scan Report ---
CT abd pelvis wo con CLINICAL HISTORY: GI bleeding TECHNIQUE: Helical axial images of the abdomen and pelvis were obtained. Automated dose lowering tech niques and/or adjustment according to patient size were utilized for this exam. This exam was perfor med without intravenous contrast. CT DOSE: 1955.55 mGy.cm COMPARISON: None available at the time of this dictation. FINDINGS: Lower chest: Atherosclerotic disease is seen. Liver: Unremarkable. No focal lesions are seen. Gallbladder and biliary tree: No calcified gallstones. Normal caliber wall. No intra- or extrahepatic biliary ductal dilation. Pancreas: Unremarkable, no focal lesions. Spleen: Unremarkable. Adrenals: Unremarkable. Kidneys and ureters: Perinephric stranding is noted bilaterally. Layering stone is noted in the right collecting system without evidence of obstruction. Bladder: Unremarkable. Reproductive organs: Prostatic calcifications are seen which may represent prior hemorrhage or granul omatous disease. Bowel: Diverticulosis is seen without diverticulitis. The appendix is normal. There is a small hiatal hernia. Lymph nodes Retroperitoneal: Unremarkable. Pelvic: Unremarkable. Mesenteric: Subcentimeter lymph nodes are noted. Peritoneum: Normal. Vessels: Atherosclerotic calcifications are seen. Abdominal wall: Unremarkable. Bones: Degenerative changes in the visualized spine. IMPRESSION: No acute abnormalities to explain GI bleed. ACT 112: Negative or not required by law. Electronically signed by: Kevyn Duarte M.D. 04/21/2023 3:06 PM
[2023-04-21] MEDS ORDERED: PHARMACY GLYCEMIC MGMT CONSULT PRN (15:53)
[2023-04-21] MEDS ORDERED: CARBOHYDRATES FOR HYPOGLYCEMIA PO PRN (15:53)
[2023-04-21] MEDS ORDERED: DEXTROSE 50% 50 ML SYRINGE IV PRN (15:53)
[2023-04-21] MEDS ORDERED: GLUCAGON FOR INJ 1 MG VIAL SQ PRN (15:53)
[2023-04-21] MEDS ORDERED: GLUCOSE 10 TAB/TUBE PO PRN (15:53)
[2023-04-21] MEDS ORDERED: GLUCOSE 40% GEL 15 GM TUBE PO PRN (15:53)
--- NOTE | 2023-04-21 16:13 | Electrocardiogram Report ---
Test Reason : Blood Pressure : / mmHG Vent. Rate : 087 BPM Atrial Rate : 087 BPM P-R Int : 152 ms QRS Dur : 110 ms QT Int : 364 ms P-R-T Axes : 063 012 051 degrees QTc Int : 438 ms Normal sinus rhythm Nonspecific ST abnormality Lateral leads Abnormal ECG When compared with ECG of 21-APR-2023 09:49, Nonspecific ST abnormality Lateral leads now present Confirmed by Chuy Pak ([id number]) on 04/21/2023 4:13:20 PM Referred By: Tenzin Hamilton Confirmed By:Chuy Pak
[2023-04-21] MEDS: ACETAMINOPHEN 325 MG TAB PO PRN ×2 (16:21→20:31)
[2023-04-21 16:33] LABS: Appearance Urine Clear (Clear); Bilirubin Urine Negative (Negative); Blood Urine Negative (Negative); Color Urine Yellow; Glucose Urine UA 2+ (Negative); Ketones Urine Negative (Negative); Leukocyte Esterase Urine Negative (Negative); Nitrite Urine Negative (Negative); Protein Urine Negative (Negative); Specific Gravity Urine 1.016 (1.000-1.030); Urobilinogen Urine Negative (Negative)
[2023-04-21] MEDS ORDERED: LANTUS PER UNIT CHARGE SC ONE ×2 (16:45→22:00)
[2023-04-21] MEDS: INSULIN ASPART PER UNIT CHARGE SC SCH ×3 (17:52→23:20)
[2023-04-21 18:15] LABS: Calcium 8.4 mg/dl (8.6-10.3); Creatinine Clr Calc Pharmacy 45.7 ml/min; Est GFR (African American) 49.2 ml/min; Est GFR (Non-African American) 42.4 ml/min; Magnesium 1.7 mg/dl (1.7-2.4); Potassium 5.2 mmol/L (3.5-5.1)
[2023-04-21] MEDS: METOPROLOL SUCC 50MG EXT REL TAB PO SCH (18:19)
--- NOTE | 2023-04-21 18:42 | Communication Note ---
Date of Service: April 21, 2023 HS trop 7.7 --> 248.6 Patient reevaluated at the bedside. Has received 2 unit PRBC. Patient reports much improvement in his symptoms. States that he has been ambulating in the room without further lightheadedness or dizziness. Reports chest pain has resolved as well. Repeat EKG reviewed, no acute ST changes noted. Elevated troponin likely due to demand ischemia in the setting of profound anemia. Will continue to trend troponin, resting echo tomorrow. Consider cardiology consult with additional significant troponin elevation and/or echo changes.
[2023-04-21 18:47] LABS: Hematocrit (blood only) 23.1 % (42.0-52.0); Hemoglobin 7.6 g/dl (14.0-18.0)
--- NOTE | 2023-04-21 19:15 | Pharmacy Report ---
Pharmacy Glycemic Short Note 2 - Date of Service April 21, 2023 - Glycemic Short BSG Results (Last 24 hours): 04/21/23 04/21/23 04/21/23 10:23 12:36 16:15 Glucose 293 H 274 H POC Glucose 283 H 04/21/23 17:36 Glucose 245 H POC Glucose OUTPATIENT ANTIDIABETIC REGIMEN: * Lantus 70 units SQ qAM + 10 units SQ qHS prn hyperglycemia * Metformin 1000 mg PO BID * A1c = 7.8% (04/15/23) ASSESSMENT: * Alphonso is a 72 yo T2DM who presented with lightheadedness and dizziness. Patient found to be anemic. Ordered 2 units PRBC and Protonix drip. * Patient takes Lantus and metformin as an outpatient. He reports not taking his Lantus dose this morning. * Patient received a 10 units IV insulin bolus + 6 units SQ novolog in the ED. BSG of 245 mg/dL on arrival to the floor. * Will convert home Lantus dose of 70-80 units/day into 50% basal-50% bolus. Will decrease basal insulin ~25% for NPO status. PLAN FOR INPATIENT GLYCEMIC CONTROL: * Hold outpatient oral diabetes medications * Basal insulin * Lantus 25 units SQ x 1 dose now - reassess if additional is needed at bedtime * Bolus insulin * NovoLog per scale ACHS or Q6hrs while NPO * Goal Range: Low 110 mg/dL - High 140 mg/dL * Correction Factor: 25 mg/dL/unit * Nutritional / Prandial insulin per carb ratio of 1 unit per 8 grams CHO consumed
[2023-04-21] MEDS: ATORVASTATIN 40 MG TAB PO SCH (20:19)
[2023-04-21] MEDS: allopurinoL 100 MG TAB PO SCH (20:19)
[2023-04-22] MEDS: ACETAMINOPHEN 325 MG TAB PO PRN ×4 (01:32→20:20)
[2023-04-22] MEDS: traMADol HCL 50 MG TABLET PO PRN ×3 (01:55→15:01)
[2023-04-22] MEDS: PANTOprazole 40 MG in DEXTROSE 5% 100 ML IV SCH ×4 (04:09→20:08)
[2023-04-22] MEDS: INSULIN ASPART PER UNIT CHARGE SC SCH ×4 (05:49→20:08)
[2023-04-22 06:59] LABS: Calcium 8.4 mg/dl (8.6-10.3); Creatinine Clr Calc Pharmacy 47.8 ml/min; Est GFR (African American) 51.9 ml/min; Est GFR (Non-African American) 44.8 ml/min; Potassium 4.4 mmol/L (3.5-5.1)
[2023-04-22 07:19] LABS: Hematocrit (blood only) 21.3 % (42.0-52.0); Mean Corpuscular Hemoglobin 29.8 pg (25.0-34.0); Mean Corpuscular Hgb Conc 32.9 g/dL (32.0-36.0); Mean Corpuscular Volume 90.6 fL (80.0-100.0); Mean Platelet Volume 10.1 fL (9.4-12.4); Nucleated RBC # (auto) 0.02 K/uL (0-0.12); Nucleated RBC % (auto) 0.2 %; Platelet Count 243 K/uL (130-400); RDW Coefficient of Variation 17.4 % (11.5-14.5); RDW Standard Deviation 54.3 fL (36.4-46.3); Red Blood Count 2.35 M/uL (4.70-6.10); White Blood Count 10.83 K/ul (4.8-10.8)
[2023-04-22] MEDS: amLODIPine BESYLATE 5 MG TAB PO SCH (08:10)
[2023-04-22] MEDS: METOPROLOL SUCC 50MG EXT REL TAB PO SCH (08:12)
--- NOTE | 2023-04-22 08:42 | Hospitalist Progress Note ---
Date of Service April 22, 2023 Assessment & Plan (1) Acute blood loss anemia: (2) Acute upper gastrointestinal bleeding: Plan: Cont telemetry monitoring Patient presenting by referral of orthopedic office for evaluation of lightheadedness and dizziness. Patient is s/p right TSA on 04/[address] Hamilton. Patient also admitted to [facility] 04/14 through 04/16 for RADU. Patient now reporting dark stools for the past 1 week. In the ED, Hgb 5.2, stool is heme positive Noted patient is on DAPT for remote history of CAD DAPT held, no further blood per rectum. Prior colonoscopy records unavailable. Patient denies history of EGD. Transfuse 2 units PRBC with appropriate response Repeat H/H this am was 04/21. Repeat at 1400 was lower so tranfusing one more unit of blood this afternoon. Cont Protonix drip CT ABD/pelvis unremarkable Clear liquids, n.p.o. after midnight on Sun in preparation for EGD on Monday. (3) Elevated lactic acid level: Plan: Lactate 4.8 --> 3.9 Likely secondary to hypoperfusion from profound anemia Improved (4) Hyperkalemia: Plan: K+ 6.0 Received IV insulin and calcium Hold lisinopril. Noted that triamterene/HCTZ was discontinued during last admission. resolved. (5) Coronary artery disease: Plan: chornic, stable. History of CABG in 2016 and GINA in 2017 Follows with [facility] cardiology Reported associated chest pain with standing/lightheadedness EKG without acute ST changes, initial troponin negative, but then it deisy overnight. Peaked at 926, now down to 628 Chest pain yesterday has resolved with blood products and was thought 2/2 severe anemia. echo reveals no new wall motion abnormalities-->suspect elevated trop 2/2 demand ischemia. Holding ASA and Plavix in the setting of anemia and suspected upper GI bleeding, resume as able Continue beta-ramesh and statin (6) Insulin dependent type 2 diabetes mellitus: Plan: Hgb A1c 7.8 04/2023 Glucose 274 on labs, patient reports he did not take his a.m. Lantus Hold metformin, Lantus and NovoLog per protocol while hospitalized, glycemic pharmacy consulted Currently at inpatient goal. (7) CKD (chronic kidney disease), stage III: Plan: chronic at baseline around 1.5 today. Cont to avoid contrast or other nephrotoxic substances. (8) Hypertension: Plan: Hold lisinopril due to hyperkalemia Continue metoprolol BP is controlled. DVT PROPHYLAXIS SCDs due to anemia/GI bleeding Full COde Dispo-to EGD on Monday as inpt, then home pending PT/OT recs. at bedside and updated her on the plan. I spent a total of 60 minutes coordinating, documenting, and providing care for this patient excluding time spent in the performance of separately billed services. This included personally reviewing all current laboratories and imaging studies, medication reconciliation, outpatient chart review, and discussion with specialists. Maria Alejandra Gregg DO [place] [facility]ist Admission and Anticipated Discharge Date Admission Date: April 21, 2023 Subjective No active bleeding, H/H stable denies chest pain or further bleeding denies abdominal pain tolerating clears. Review of Systems Review of Systems: no additional issues. Physical Exam Physical Exam: CONSTITUTIONAL: WNWD, vitals as above, generally well-appearing, NAD EYES: normal conjunctivae, no scleral icterus, ENT: external ear and nose normal,MMM NECK: trachea midline RESPIRATORY: clear to auscultation bilaterally, no crackles, rales or wheezes, normal respiratory effort CARDIOVASCULAR: regular rate and rhythm, S1 and 2 heard without murmurs, gall ops or rubs, no JVD, no peripheral edema CHEST: inspection of chest was normal GASTROINTESTINAL: soft, nontender, ND, no guarding MUSCULOSKELETAL: strength 5/5 throughout, head is normocephalic and atraumatic SKIN: warm and dry, NEUROLOGIC: CN 2-12 grossly intact, no sensory deficit, normal cognition, normal speech, no tremor PSYCHIATRIC: alert cooperative and oriented to person, place and time. Euthymic mood, makes good eye contact, language grossly intact, recent and remote memory grossly intact. Results & Data Results & Data Vital Signs (Past 12 Hours) Vital Signs Temp Pulse Pulse Resp BP Pulse Ox O2 Del Method 04/22/23 07:32 36.5 C 76 18 143/81 H 95 Room Air 04/22/23 07:23 90 04/22/23 02:19 36.6 C 67 19 117/63 98 Room Air 04/21/23 22:57 75 04/21/23 22:47 36.5 C 73 20 109/66 97 Room Air Laboratory Results Short CBC 04/21/23 04/21/23 04/22/23 Range/Units 10:23 17:36 05:54 WBC 13.43 H 10.83 H (4.8-10.8) K/ul Hgb 5.2 L* 7.6 L 7.0 L (14.0-18.0) g/dl Hct 16.2 L* 23.1 L 21.3 L (42.0-52.0) % Plt Count 315 243 (130-400) K/uL BMP 04/21/23 04/21/23 04/21/23 10:23 12:36 17:36 Sodium 131 L 130 L 130 L Potassium 5.9 H 6.0 H 5.2 H Chloride 103 102 104 Carbon Dioxide 17 L 18 L 19 L BUN 64 H 67 H 64 H Creatinine 1.83 H 1.81 H 1.60 H Glucose 293 H 274 H 245 H Calcium 8.3 L 8.1 L 8.4 L 04/22/23 05:54 Sodium 136 Potassium 4.4 Chloride 108 H Carbon Dioxide 22 BUN 52 H Creatinine 1.53 H Glucose 79 Calcium 8.4 L Liver Function 04/21/23 Range/Units 10:23 Total Bilirubin 0.4 (0.2-1.0) mg/dl Direct Bilirubin 0.1 (0-0.2) mg/dl AST 12 L (13-39) U/L ALT 15 (7-52) U/L Alkaline Phosphatase 48 (34-104) U/L Albumin 3.2 L (3.4-5.0) gm/dl Urine 04/21/23 Range/Units 15:30 Urine Color Yellow Urine Appearance Clear (Clear) Urine pH 5.0 (4.5-7.5) Ur Specific [place] 1.016 (1.000-1.030) Urine Protein Negative (Negative) Urine Glucose (UA) 2+ H (Negative) Medications Administered Current Inpatient Medications Acetaminophen (Acetaminophen 325 Mg Tab) 650 mg PO Q4H PRN PRN Reason: Pain or Fever Stop: 05/21/23 15:52 Last Admin: 04/22/23 06:05 Dose: 650 mg Allopurinol (Allopurinol 100 Mg Tab) 100 mg PO HS CNYDY Stop: 05/21/23 20:59 Last Admin: 04/21/23 20:19 Dose: 100 mg Amlodipine Besylate (Amlodipine Besylate 5 Mg Tab) 5 mg PO DAILY CYNDY Stop: 05/22/23 08:59 Last Admin: 04/22/23 08:10 Dose: 5 mg Atorvastatin Calcium (Atorvastatin 40 Mg Tab) 80 mg PO HS CYNDY Stop: 05/21/23 20:59 Last Admin: 04/21/23 20:19 Dose: 80 mg Dextrose (Dextrose 50% 50 Ml Syringe) 25 - 50 ml IV UD PRN; Protocol PRN Reason: Hypoglycemia Protocol Stop: 05/21/23 15:52 Glucagon (Glucagon For Inj 1 Mg Vial) 1 mg SQ UD PRN; Protocol PRN Reason: Hypoglycemia Protocol Stop: 05/21/23 15:52 Glucose (Glucose 10 Tab/Tube) 4 - 8 tab PO UD PRN; Protocol PRN Reason: Hypoglycemia Treatment Stop: 05/21/23 15:52 Glucose (Glucose 40% Gel 15 Gm Tube) 15 - 30 gm PO UD PRN; Protocol PRN Reason: Hypoglycemia Protocol Stop: 05/21/23 15:52 Pantoprazole Sodium 40 mg/ (Dextrose) 100 mls @ 20 mls/hr IV Q5H CYNDY Stop: 05/21/23 13:29 Last Admin: 04/22/23 04:09 Dose: 8 mg/hr, 20 mls/hr Insulin Aspart (Insulin Aspart Per Unit Charge) 0 units SC Q6 CYNDY Stop: 05/22/23 00:00 Last Admin: 04/22/23 05:49 Dose: Not Given Metoprolol Succinate (Metoprolol Succ 50mg Ext Rel Tab) 100 mg PO QAM CYNDY Stop: 05/21/23 16:14 Last Admin: 04/22/23 08:12 Dose: 100 mg Miscellaneous (Carbohydrates For Hypoglycemia ) 15 - 30 gm PO UD PRN PRN Reason: Hypoglycemia Protocol Stop: 05/21/23 15:52 Miscellaneous Information (Pharmacy Glycemic Mgmt Consult) 1 each N/A UD PRN PRN Reason: Consult Stop: 05/21/23 15:52 Tramadol HCl (Tramadol Hcl 50 Mg Tablet) 50 mg PO TID PRN PRN Reason: pain Stop: 05/22/23 08:59 Last Admin: 04/22/23 08:11 Dose: 50 mg
--- NOTE | 2023-04-22 09:42 | XCELERA ---
[id number]
--- NOTE | 2023-04-22 10:02 | Gastroenterology Progress Note ---
Date of Service April 22, 2023 Assessment & Plan (1) Acute blood loss anemia: Plan: Seems to be stable. Optimal to give a few days to let plavix wear off. Will start liquids. 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 Admission and Anticipated Discharge Date Admission Date: April 21, 2023 Subjective No active bleeding, H/H stable Physical Exam Physical Exam: He looks well Constitutional: WD/WN, vitals as above Results & Data Vital Signs (Past 12 Hours) Vital Signs Temp Pulse Pulse Resp BP Pulse Ox O2 Del Method 04/22/23 07:32 36.5 C 76 18 143/81 H 95 Room Air 04/22/23 07:23 90 04/22/23 02:19 36.6 C 67 19 117/63 98 Room Air 04/21/23 22:57 75 04/21/23 22:47 36.5 C 73 20 109/66 97 Room Air Laboratory Results 04/22/23 04/22/23 04/22/23 Range/Units 08:55 05:54 05:54 WBC 10.83 H (4.8-10.8) K/ul RBC 2.35 L (4.70-6.10) M/uL Hgb 7.0 L (14.0-18.0) g/dl Hct 21.3 L (42.0-52.0) % MCV 90.6 (80.0-100.0) fL MCH 29.8 (25.0-34.0) pg MCHC 32.9 (32.0-36.0) g/dL RDW Std Deviation 54.3 H (36.4-46.3) fL RDW Coeff of Ernesto 17.4 H (11.5-14.5) % Plt Count 243 (130-400) K/uL MPV 10.1 (9.4-12.4) fL Immature Gran % (Auto) % Neut % (Auto) % Lymph % (Auto) % [place] % (Auto) % Eos % (Auto) % Baso % (Auto) % Neut # (Auto) (1.40-6.50) K/uL Lymph # (Auto) (1.2-3.4) K/uL [place] # (Auto) (0.11-0.59) K/uL Eos # (Auto) (0-0.50) K/uL Baso # (Auto) (0-0.2) K/uL Immature Gran # (Auto) (0.01-0.20) K/uL Absolute Nucleated RBC 0.02 (0-0.12) K/uL Nucleated RBC % (auto) 0.2 % PT (9.0-12.0) Seconds INR (0.9-1.1) APTT (21.0-31.0) Seconds PTT Ratio VBG pH (7.36-7.41) VBG pCO2 (38-50) mmHg VBG pO2 mmHg VBG HCO3 mmol/L VBG O2 Saturation % VBG Base Excess mEq/L Sodium 136 (136-145) mmol/L Potassium 4.4 (3.5-5.1) mmol/L Chloride 108 H (98-107) mmol/L Carbon Dioxide 22 (21-32) mmol/L Anion Gap 6 (3-11) BUN 52 H (6-23) mg/dl Creatinine 1.53 H (0.6-1.4) mg/dl Est Cr Clr Drug Dosing 47.8 ml/min Est GFR ( Amer) 51.9 ml/min Est GFR (Non-Af Amer) 44.8 ml/min BUN/Creatinine Ratio 34.0 H (10-20) Glucose 79 (70-99(Fasting)) mg/dl POC Glucose (70-99) mg/dl Lactate (0.4-2.0) mmol/L Calcium 8.4 L (8.6-10.3) mg/dl Magnesium (1.7-2.4) mg/dl Total Bilirubin (0.2-1.0) mg/dl Direct Bilirubin (0-0.2) mg/dl AST (13-39) U/L ALT (7-52) U/L Alkaline Phosphatase (34-104) U/L Troponin I High Sens 926.4 H* D (0-20) pg/ml Total Protein (6.0-8.3) gm/dl Albumin (3.4-5.0) gm/dl Procalcitonin (0-0.5) ng/ml Urine Color Urine Appearance (Clear) Urine pH (4.5-7.5) Ur Specific [place] (1.000-1.030) Urine Protein (Negative) Urine Glucose (UA) (Negative) Urine Ketones (Negative) Urine Blood (Negative) Urine Nitrite (Negative) Urine Bilirubin (Negative) Urine Urobilinogen (Negative) Ur Leukocyte Esterase (Negative) SARS-CoV-2, RNA, NAAT (NEGATIVE) Blood Type Antibody Screen Crossmatch 04/22/23 04/22/23 04/22/23 Range/Units 05:44 05:43 05:42 WBC (4.8-10.8) K/ul RBC (4.70-6.10) M/uL Hgb (14.0-18.0) g/dl Hct (42.0-52.0) % MCV (80.0-100.0) fL MCH (25.0-34.0) pg MCHC (32.0-36.0) g/dL RDW Std Deviation (36.4-46.3) fL RDW Coeff of Ernesto (11.5-14.5) % Plt Count (130-400) K/uL MPV (9.4-12.4) fL Immature Gran % (Auto) % Neut % (Auto) % Lymph % (Auto) % [place] % (Auto) % Eos % (Auto) % Baso % (Auto) % Neut # (Auto) (1.40-6.50) K/uL Lymph # (Auto) (1.2-3.4) K/uL [place] # (Auto) (0.11-0.59) K/uL Eos # (Auto) (0-0.50) K/uL Baso # (Auto) (0-0.2) K/uL Immature Gran # (Auto) (0.01-0.20) K/uL Absolute Nucleated RBC (0-0.12) K/uL Nucleated RBC % (auto) % PT (9.0-12.0) Seconds INR (0.9-1.1) APTT (21.0-31.0) Seconds PTT Ratio VBG pH (7.36-7.41) VBG pCO2 (38-50) mmHg VBG pO2 mmHg VBG HCO3 mmol/L VBG O2 Saturation % VBG Base Excess mEq/L Sodium (136-145) mmol/L Potassium (3.5-5.1) mmol/L Chloride (98-107) mmol/L Carbon Dioxide (21-32) mmol/L Anion Gap (3-11) BUN (6-23) mg/dl Creatinine (0.6-1.4) mg/dl Est Cr Clr Drug Dosing ml/min Est GFR ( Amer) ml/min Est GFR (Non-Af Amer) ml/min BUN/Creatinine Ratio (10-20) Glucose (70-99(Fasting)) mg/dl POC Glucose 88 88 29 L* (70-99) mg/dl Lactate (0.4-2.0) mmol/L Calcium (8.6-10.3) mg/dl Magnesium (1.7-2.4) mg/dl Total Bilirubin (0.2-1.0) mg/dl Direct Bilirubin (0-0.2) mg/dl AST (13-39) U/L ALT (7-52) U/L Alkaline Phosphatase (34-104) U/L Troponin I High Sens (0-20) pg/ml Total Protein (6.0-8.3) gm/dl Albumin (3.4-5.0) gm/dl Procalcitonin (0-0.5) ng/ml Urine Color Urine Appearance (Clear) Urine pH (4.5-7.5) Ur Specific [place] (1.000-1.030) Urine Protein (Negative) Urine Glucose (UA) (Negative) Urine Ketones (Negative) Urine Blood (Negative) Urine Nitrite (Negative) Urine Bilirubin (Negative) Urine Urobilinogen (Negative) Ur Leukocyte Esterase (Negative) SARS-CoV-2, RNA, NAAT (NEGATIVE) Blood Type Antibody Screen Crossmatch 04/21/23 04/21/23 04/21/23 Range/Units 23:13 20:18 19:35 WBC (4.8-10.8) K/ul RBC (4.70-6.10) M/uL Hgb (14.0-18.0) g/dl Hct (42.0-52.0) % MCV (80.0-100.0) fL MCH (25.0-34.0) pg MCHC (32.0-36.0) g/dL RDW Std Deviation (36.4-46.3) fL RDW Coeff of Ernesto (11.5-14.5) % Plt Count (130-400) K/uL MPV (9.4-12.4) fL Immature Gran % (Auto) % Neut % (Auto) % Lymph % (Auto) % [place] % (Auto) % Eos % (Auto) % Baso % (Auto) % Neut # (Auto) (1.40-6.50) K/uL Lymph # (Auto) (1.2-3.4) K/uL [place] # (Auto) (0.11-0.59) K/uL Eos # (Auto) (0-0.50) K/uL Baso # (Auto) (0-0.2) K/uL Immature Gran # (Auto) (0.01-0.20) K/uL Absolute Nucleated RBC (0-0.12) K/uL Nucleated RBC % (auto) % PT (9.0-12.0) Seconds INR (0.9-1.1) APTT (21.0-31.0) Seconds PTT Ratio VBG pH (7.36-7.41) VBG pCO2 (38-50) mmHg VBG pO2 mmHg VBG HCO3 mmol/L VBG O2 Saturation % VBG Base Excess mEq/L Sodium (136-145) mmol/L Potassium (3.5-5.1) mmol/L Chloride (98-107) mmol/L Carbon Dioxide (21-32) mmol/L Anion Gap (3-11) BUN (6-23) mg/dl Creatinine (0.6-1.4) mg/dl Est Cr Clr Drug Dosing ml/min Est GFR ( Amer) ml/min Est GFR (Non-Af Amer) ml/min BUN/Creatinine Ratio (10-20) Glucose (70-99(Fasting)) mg/dl POC Glucose 147 H 250 H (70-99) mg/dl Lactate 2.8 H* (0.4-2.0) mmol/L Calcium (8.6-10.3) mg/dl Magnesium (1.7-2.4) mg/dl Total Bilirubin (0.2-1.0) mg/dl Direct Bilirubin (0-0.2) mg/dl AST (13-39) U/L ALT (7-52) U/L Alkaline Phosphatase (34-104) U/L Troponin I High Sens (0-20) pg/ml Total Protein (6.0-8.3) gm/dl Albumin (3.4-5.0) gm/dl Procalcitonin (0-0.5) ng/ml Urine Color Urine Appearance (Clear) Urine pH (4.5-7.5) Ur Specific [place] (1.000-1.030) Urine Protein (Negative) Urine Glucose (UA) (Negative) Urine Ketones (Negative) Urine Blood (Negative) Urine Nitrite (Negative) Urine Bilirubin (Negative) Urine Urobilinogen (Negative) Ur Leukocyte Esterase (Negative) SARS-CoV-2, RNA, NAAT (NEGATIVE) Blood Type Antibody Screen Crossmatch 04/21/23 04/21/23 04/21/23 Range/Units 17:36 17:36 17:36 WBC (4.8-10.8) K/ul RBC (4.70-6.10) M/uL Hgb 7.6 L (14.0-18.0) g/dl Hct 23.1 L (42.0-52.0) % MCV (80.0-100.0) fL MCH (25.0-34.0) pg MCHC (32.0-36.0) g/dL RDW Std Deviation (36.4-46.3) fL RDW Coeff of Ernesto (11.5-14.5) % Plt Count (130-400) K/uL MPV (9.4-12.4) fL Immature Gran % (Auto) % Neut % (Auto) % Lymph % (Auto) % [place] % (Auto) % Eos % (Auto) % Baso % (Auto) % Neut # (Auto) (1.40-6.50) K/uL Lymph # (Auto) (1.2-3.4) K/uL [place] # (Auto) (0.11-0.59) K/uL Eos # (Auto) (0-0.50) K/uL Baso # (Auto) (0-0.2) K/uL Immature Gran # (Auto) (0.01-0.20) K/uL Absolute Nucleated RBC (0-0.12) K/uL Nucleated RBC % (auto) % PT (9.0-12.0) Seconds INR (0.9-1.1) APTT (21.0-31.0) Seconds PTT Ratio VBG pH (7.36-7.41) VBG pCO2 (38-50) mmHg VBG pO2 mmHg VBG HCO3 mmol/L VBG O2 Saturation % VBG Base Excess mEq/L Sodium 130 L (136-145) mmol/L Potassium 5.2 H (3.5-5.1) mmol/L Chloride 104 (98-107) mmol/L Carbon Dioxide 19 L (21-32) mmol/L Anion Gap 7 (3-11) BUN 64 H (6-23) mg/dl Creatinine 1.60 H (0.6-1.4) mg/dl Est Cr Clr Drug Dosing 45.7 ml/min Est GFR ( Amer) 49.2 ml/min Est GFR (Non-Af Amer) 42.4 ml/min BUN/Creatinine Ratio 40.0 H (10-20) Glucose 245 H (70-99(Fasting)) mg/dl POC Glucose (70-99) mg/dl Lactate (0.4-2.0) mmol/L Calcium 8.4 L (8.6-10.3) mg/dl Magnesium 1.7 (1.7-2.4) mg/dl Total Bilirubin (0.2-1.0) mg/dl Direct Bilirubin (0-0.2) mg/dl AST (13-39) U/L ALT (7-52) U/L Alkaline Phosphatase (34-104) U/L Troponin I High Sens 248.6 H* D (0-20) pg/ml Total Protein (6.0-8.3) gm/dl Albumin (3.4-5.0) gm/dl Procalcitonin (0-0.5) ng/ml Urine Color Urine Appearance (Clear) Urine pH (4.5-7.5) Ur Specific [place] (1.000-1.030) Urine Protein (Negative) Urine Glucose (UA) (Negative) Urine Ketones (Negative) Urine Blood (Negative) Urine Nitrite (Negative) Urine Bilirubin (Negative) Urine Urobilinogen (Negative) Ur Leukocyte Esterase (Negative) SARS-CoV-2, RNA, NAAT (NEGATIVE) Blood Type Antibody Screen Crossmatch 04/21/23 04/21/23 04/21/23 Range/Units 17:36 16:15 15:30 WBC (4.8-10.8) K/ul RBC (4.70-6.10) M/uL Hgb (14.0-18.0) g/dl Hct (42.0-52.0) % MCV (80.0-100.0) fL MCH (25.0-34.0) pg MCHC (32.0-36.0) g/dL RDW Std Deviation (36.4-46.3) fL RDW Coeff of Ernesto (11.5-14.5) % Plt Count (130-400) K/uL MPV (9.4-12.4) fL Immature Gran % (Auto) % Neut % (Auto) % Lymph % (Auto) % [place] % (Auto) % Eos % (Auto) % Baso % (Auto) % Neut # (Auto) (1.40-6.50) K/uL Lymph # (Auto) (1.2-3.4) K/uL [place] # (Auto) (0.11-0.59) K/uL Eos # (Auto) (0-0.50) K/uL Baso # (Auto) (0-0.2) K/uL Immature Gran # (Auto) (0.01-0.20) K/uL Absolute Nucleated RBC (0-0.12) K/uL Nucleated RBC % (auto) % PT (9.0-12.0) Seconds INR (0.9-1.1) APTT (21.0-31.0) Seconds PTT Ratio VBG pH (7.36-7.41) VBG pCO2 (38-50) mmHg VBG pO2 mmHg VBG HCO3 mmol/L VBG O2 Saturation % VBG Base Excess mEq/L Sodium (136-145) mmol/L Potassium (3.5-5.1) mmol/L Chloride (98-107) mmol/L Carbon Dioxide (21-32) mmol/L Anion Gap (3-11) BUN (6-23) mg/dl Creatinine (0.6-1.4) mg/dl Est Cr Clr Drug Dosing ml/min Est GFR ( Amer) ml/min Est GFR (Non-Af Amer) ml/min BUN/Creatinine Ratio (10-20) Glucose (70-99(Fasting)) mg/dl POC Glucose 283 H (70-99) mg/dl Lactate 3.2 H* (0.4-2.0) mmol/L Calcium (8.6-10.3) mg/dl Magnesium (1.7-2.4) mg/dl Total Bilirubin (0.2-1.0) mg/dl Direct Bilirubin (0-0.2) mg/dl AST (13-39) U/L ALT (7-52) U/L Alkaline Phosphatase (34-104) U/L Troponin I High Sens (0-20) pg/ml Total Protein (6.0-8.3) gm/dl Albumin (3.4-5.0) gm/dl Procalcitonin (0-0.5) ng/ml Urine Color Yellow Urine Appearance Clear (Clear) Urine pH 5.0 (4.5-7.5) Ur Specific [place] 1.016 (1.000-1.030) Urine Protein Negative (Negative) Urine Glucose (UA) 2+ H (Negative) Urine Ketones Negative (Negative) Urine Blood Negative (Negative) Urine Nitrite Negative (Negative) Urine Bilirubin Negative (Negative) Urine Urobilinogen Negative (Negative) Ur Leukocyte Esterase Negative (Negative) SARS-CoV-2, RNA, NAAT (NEGATIVE) Blood Type Antibody Screen Crossmatch 04/21/23 04/21/23 04/21/23 Range/Units 12:36 12:10 11:33 WBC (4.8-10.8) K/ul RBC (4.70-6.10) M/uL Hgb (14.0-18.0) g/dl Hct (42.0-52.0) % MCV (80.0-100.0) fL MCH (25.0-34.0) pg MCHC (32.0-36.0) g/dL RDW Std Deviation (36.4-46.3) fL RDW Coeff of Ernesto (11.5-14.5) % Plt Count (130-400) K/uL MPV (9.4-12.4) fL Immature Gran % (Auto) % Neut % (Auto) % Lymph % (Auto) % [place] % (Auto) % Eos % (Auto) % Baso % (Auto) % Neut # (Auto) (1.40-6.50) K/uL Lymph # (Auto) (1.2-3.4) K/uL [place] # (Auto) (0.11-0.59) K/uL Eos # (Auto) (0-0.50) K/uL Baso # (Auto) (0-0.2) K/uL Immature Gran # (Auto) (0.01-0.20) K/uL Absolute Nucleated RBC (0-0.12) K/uL Nucleated RBC % (auto) % PT (9.0-12.0) Seconds INR (0.9-1.1) APTT (21.0-31.0) Seconds PTT Ratio VBG pH (7.36-7.41) VBG pCO2 (38-50) mmHg VBG pO2 mmHg VBG HCO3 mmol/L VBG O2 Saturation % VBG Base Excess mEq/L Sodium 130 L (136-145) mmol/L Potassium 6.0 H (3.5-5.1) mmol/L Chloride 102 (98-107) mmol/L Carbon Dioxide 18 L (21-32) mmol/L Anion Gap 10 (3-11) BUN 67 H (6-23) mg/dl Creatinine 1.81 H (0.6-1.4) mg/dl Est Cr Clr Drug Dosing 40.4 ml/min Est GFR ( Amer) 42.3 ml/min Est GFR (Non-Af Amer) 36.5 ml/min BUN/Creatinine Ratio 37.0 H (10-20) Glucose 274 H (70-99(Fasting)) mg/dl POC Glucose (70-99) mg/dl Lactate 3.9 H* (0.4-2.0) mmol/L Calcium 8.1 L (8.6-10.3) mg/dl Magnesium (1.7-2.4) mg/dl Total Bilirubin (0.2-1.0) mg/dl Direct Bilirubin (0-0.2) mg/dl AST (13-39) U/L ALT (7-52) U/L Alkaline Phosphatase (34-104) U/L Troponin I High Sens (0-20) pg/ml Total Protein (6.0-8.3) gm/dl Albumin (3.4-5.0) gm/dl Procalcitonin (0-0.5) ng/ml Urine Color Urine Appearance (Clear) Urine pH (4.5-7.5) Ur Specific [place] (1.000-1.030) Urine Protein (Negative) Urine Glucose (UA) (Negative) Urine Ketones (Negative) Urine Blood (Negative) Urine Nitrite (Negative) Urine Bilirubin (Negative) Urine Urobilinogen (Negative) Ur Leukocyte Esterase (Negative) SARS-CoV-2, RNA, NAAT NEGATIVE (NEGATIVE) Blood Type Antibody Screen Crossmatch 04/21/23 04/21/23 04/21/23 Range/Units 11:01 10:23 10:23 WBC (4.8-10.8) K/ul RBC (4.70-6.10) M/uL Hgb (14.0-18.0) g/dl Hct (42.0-52.0) % MCV (80.0-100.0) fL MCH (25.0-34.0) pg MCHC (32.0-36.0) g/dL RDW Std Deviation (36.4-46.3) fL RDW Coeff of Ernesto (11.5-14.5) % Plt Count (130-400) K/uL MPV (9.4-12.4) fL Immature Gran % (Auto) % Neut % (Auto) % Lymph % (Auto) % [place] % (Auto) % Eos % (Auto) % Baso % (Auto) % Neut # (Auto) (1.40-6.50) K/uL Lymph # (Auto) (1.2-3.4) K/uL [place] # (Auto) (0.11-0.59) K/uL Eos # (Auto) (0-0.50) K/uL Baso # (Auto) (0-0.2) K/uL Immature Gran # (Auto) (0.01-0.20) K/uL Absolute Nucleated RBC (0-0.12) K/uL Nucleated RBC % (auto) % PT 10.9 (9.0-12.0) Seconds INR 1.0 (0.9-1.1) APTT < 20.0 L (21.0-31.0) Seconds PTT Ratio 0.7 VBG pH 7.37 (7.36-7.41) VBG pCO2 30 L (38-50) mmHg VBG pO2 116 mmHg VBG HCO3 17 mmol/L VBG O2 Saturation 99.1 % VBG Base Excess -7.4 mEq/L Sodium (136-145) mmol/L Potassium (3.5-5.1) mmol/L Chloride (98-107) mmol/L Carbon Dioxide (21-32) mmol/L Anion Gap (3-11) BUN (6-23) mg/dl Creatinine (0.6-1.4) mg/dl Est Cr Clr Drug Dosing ml/min Est GFR ( Amer) ml/min Est GFR (Non-Af Amer) ml/min BUN/Creatinine Ratio (10-20) Glucose (70-99(Fasting)) mg/dl POC Glucose (70-99) mg/dl Lactate (0.4-2.0) mmol/L Calcium (8.6-10.3) mg/dl Magnesium (1.7-2.4) mg/dl Total Bilirubin (0.2-1.0) mg/dl Direct Bilirubin (0-0.2) mg/dl AST (13-39) U/L ALT (7-52) U/L Alkaline Phosphatase (34-104) U/L Troponin I High Sens (0-20) pg/ml Total Protein (6.0-8.3) gm/dl Albumin (3.4-5.0) gm/dl Procalcitonin (0-0.5) ng/ml Urine Color Urine Appearance (Clear) Urine pH (4.5-7.5) Ur Specific [place] (1.000-1.030) Urine Protein (Negative) Urine Glucose (UA) (Negative) Urine Ketones (Negative) Urine Blood (Negative) Urine Nitrite (Negative) Urine Bilirubin (Negative) Urine Urobilinogen (Negative) Ur Leukocyte Esterase (Negative) SARS-CoV-2, RNA, NAAT (NEGATIVE) Blood Type A Positive Antibody Screen NEGATIVE Crossmatch See Detail 04/21/23 04/21/23 04/21/23 Range/Units 10: 10:23 10:23 WBC (4.8-10.8) K/ul RBC (4.70-6.10) M/uL Hgb (14.0-18.0) g/dl Hct (42.0-52.0) % MCV (80.0-100.0) fL MCH (25.0-34.0) pg MCHC (32.0-36.0) g/dL RDW Std Deviation (36.4-46.3) fL RDW Coeff of Ernesto (11.5-14.5) % Plt Count (130-400) K/uL MPV (9.4-12.4) fL Immature Gran % (Auto) % Neut % (Auto) % Lymph % (Auto) % [place] % (Auto) % Eos % (Auto) % Baso % (Auto) % Neut # (Auto) (1.40-6.50) K/uL Lymph # (Auto) (1.2-3.4) K/uL [place] # (Auto) (0.11-0.59) K/uL Eos # (Auto) (0-0.50) K/uL Baso # (Auto) (0-0.2) K/uL Immature Gran # (Auto) (0.01-0.20) K/uL Absolute Nucleated RBC (0-0.12) K/uL Nucleated RBC % (auto) % PT (9.0-12.0) Seconds INR (0.9-1.1) APTT (21.0-31.0) Seconds PTT Ratio VBG pH (7.36-7.41) VBG pCO2 (38-50) mmHg VBG pO2 mmHg VBG HCO3 mmol/L VBG O2 Saturation % VBG Base Excess mEq/L Sodium 131 L (136-145) mmol/L Potassium 5.9 H (3.5-5.1) mmol/L Chloride 103 (98-107) mmol/L Carbon Dioxide 17 L (21-32) mmol/L Anion Gap 11 (3-11) BUN 64 H (6-23) mg/dl Creatinine 1.83 H (0.6-1.4) mg/dl Est Cr Clr Drug Dosing 39.9 ml/min Est GFR ( Amer) 41.8 ml/min Est GFR (Non-Af Amer) 36.1 ml/min BUN/Creatinine Ratio 35.0 H (10-20) Glucose 293 H (70-99(Fasting)) mg/dl POC Glucose (70-99) mg/dl Lactate 4.8 H* (0.4-2.0) mmol/L Calcium 8.3 L (8.6-10.3) mg/dl Magnesium 1.7 (1.7-2.4) mg/dl Total Bilirubin 0.4 (0.2-1.0) mg/dl Direct Bilirubin 0.1 (0-0.2) mg/dl AST 12 L (13-39) U/L ALT 15 (7-52) U/L Alkaline Phosphatase 48 (34-104) U/L Troponin I High Sens 7.7 (0-20) pg/ml Total Protein 5.5 L (6.0-8.3) gm/dl Albumin 3.2 L (3.4-5.0) gm/dl Procalcitonin 0.14 (0-0.5) ng/ml Urine Color Urine Appearance (Clear) Urine pH (4.5-7.5) Ur Specific [place] (1.000-1.030) Urine Protein (Negative) Urine Glucose (UA) (Negative) Urine Ketones (Negative) Urine Blood (Negative) Urine Nitrite (Negative) Urine Bilirubin (Negative) Urine Urobilinogen (Negative) Ur Leukocyte Esterase (Negative) SARS-CoV-2, RNA, NAAT (NEGATIVE) Blood Type Antibody Screen Crossmatch 04/21/23 Range/Units 10:23 WBC 13.43 H (4.8-10.8) K/ul RBC 1.70 L (4.70-6.10) M/uL Hgb 5.2 L* (14.0-18.0) g/dl Hct 16.2 L* (42.0-52.0) % MCV 95.3 (80.0-100.0) fL MCH 30.6 (25.0-34.0) pg MCHC 32.1 (32.0-36.0) g/dL RDW Std Deviation 50.2 H (36.4-46.3) fL RDW Coeff of Ernesto 15.0 H (11.5-14.5) % Plt Count 315 (130-400) K/uL MPV 10.0 (9.4-12.4) fL Immature Gran % (Auto) 1.8 % Neut % (Auto) 84.8 % Lymph % (Auto) 8.7 % [place] % (Auto) 4.5 % Eos % (Auto) 0.0 % Baso % (Auto) 0.2 % Neut # (Auto) 11.39 H (1.40-6.50) K/uL Lymph # (Auto) 1.17 L (1.2-3.4) K/uL [place] # (Auto) 0.60 H (0.11-0.59) K/uL Eos # (Auto) 0.00 (0-0.50) K/uL Baso # (Auto) 0.03 (0-0.2) K/uL Immature Gran # (Auto) 0.24 H (0.01-0.20) K/uL Absolute Nucleated RBC (0-0.12) K/uL Nucleated RBC % (auto) % PT (9.0-12.0) Seconds INR (0.9-1.1) APTT (21.0-31.0) Seconds PTT Ratio VBG pH (7.36-7.41) VBG pCO2 (38-50) mmHg VBG pO2 mmHg VBG HCO3 mmol/L VBG O2 Saturation % VBG Base Excess mEq/L Sodium (136-145) mmol/L Potassium (3.5-5.1) mmol/L Chloride (98-107) mmol/L Carbon Dioxide (21-32) mmol/L Anion Gap (3-11) BUN (6-23) mg/dl Creatinine (0.6-1.4) mg/dl Est Cr Clr Drug Dosing ml/min Est GFR ( Amer) ml/min Est GFR (Non-Af Amer) ml/min BUN/Creatinine Ratio (10-20) Glucose (70-99(Fasting)) mg/dl POC Glucose (70-99) mg/dl Lactate (0.4-2.0) mmol/L Calcium (8.6-10.3) mg/dl Magnesium (1.7-2.4) mg/dl Total Bilirubin (0.2-1.0) mg/dl Direct Bilirubin (0-0.2) mg/dl AST (13-39) U/L ALT (7-52) U/L Alkaline Phosphatase (34-104) U/L Troponin I High Sens (0-20) pg/ml Total Protein (6.0-8.3) gm/dl Albumin (3.4-5.0) gm/dl Procalcitonin (0-0.5) ng/ml Urine Color Urine Appearance (Clear) Urine pH (4.5-7.5) Ur Specific [place] (1.000-1.030) Urine Protein (Negative) Urine Glucose (UA) (Negative) Urine Ketones (Negative) Urine Blood (Negative) Urine Nitrite (Negative) Urine Bilirubin (Negative) Urine Urobilinogen (Negative) Ur Leukocyte Esterase (Negative) SARS-CoV-2, RNA, NAAT (NEGATIVE) Blood Type Antibody Screen Crossmatch
[2023-04-22] MEDS ORDERED: Nursing to Pharmacy Communication SCH (10:15)
[2023-04-22 14:39] LABS: Hematocrit (blood only) 20.2 % (42.0-52.0); Hemoglobin 6.7 g/dl (14.0-18.0)
[2023-04-22] MEDS ORDERED: SODIUM CHLORIDE 0.9% 250 ML IV PRN (15:22)
[2023-04-22] MEDS ORDERED: LANTUS PER UNIT CHARGE SC SCH (16:30)
[2023-04-22] MEDS: ATORVASTATIN 40 MG TAB PO SCH (20:21)
[2023-04-22] MEDS: allopurinoL 100 MG TAB PO SCH (20:21)
[2023-04-23] MEDS: PANTOprazole 40 MG in DEXTROSE 5% 100 ML IV SCH ×5 (01:09→20:46)
[2023-04-23] MEDS: traMADol HCL 50 MG TABLET PO PRN ×3 (01:11→20:46)
[2023-04-23] MEDS: ACETAMINOPHEN 325 MG TAB PO PRN ×2 (06:12→15:37)
[2023-04-23 07:11] LABS: Hematocrit (blood only) 27.3 % (42.0-52.0); Hemoglobin 9.2 g/dl (14.0-18.0); Mean Corpuscular Hemoglobin 29.9 pg (25.0-34.0); Mean Corpuscular Hgb Conc 33.7 g/dL (32.0-36.0); Mean Corpuscular Volume 88.6 fL (80.0-100.0); Mean Platelet Volume 9.7 fL (9.4-12.4); Platelet Count 233 K/uL (130-400); RDW Coefficient of Variation 17.7 % (11.5-14.5); RDW Standard Deviation 52.3 fL (36.4-46.3); Red Blood Count 3.08 M/uL (4.70-6.10); White Blood Count 7.76 K/ul (4.8-10.8)
[2023-04-23 07:33] LABS: BUN Creatinine Ratio 20.1 (10-20); Calcium 8.6 mg/dl (8.6-10.3); Creatinine Clr Calc Pharmacy 50.4 ml/min; Est GFR (African American) 55.8 ml/min; Est GFR (Non-African American) 48.2 ml/min; Potassium 4.2 mmol/L (3.5-5.1)
[2023-04-23] MEDS: INSULIN ASPART PER UNIT CHARGE SC SCH ×4 (08:24→20:46)
[2023-04-23] MEDS: amLODIPine BESYLATE 5 MG TAB PO SCH (08:25)
[2023-04-23] MEDS: METOPROLOL SUCC 50MG EXT REL TAB PO SCH (08:25)
--- NOTE | 2023-04-23 09:44 | Hospitalist Progress Note ---
Date of Service April 23, 2023 Assessment & Plan (1) Acute blood loss anemia: (2) Acute upper gastrointestinal bleeding: Plan: Cont telemetry monitoring Patient presenting by referral of orthopedic office for evaluation of lightheadedness and dizziness. Patient is s/p right TSA on 04/[address] Hamilton. Patient also admitted to [facility] 04/14 through 04/16 for RADU. Patient now reporting dark stools for the past 1 week. In the ED, Hgb 5.2, stool is heme positive Noted patient is on DAPT for remote history of CAD DAPT held, no further blood per rectum. Prior colonoscopy records unavailable. Patient denies history of EGD. required 3 units blood this admission so far Repeat H/H is improved this morning at 9.11/[address] ABD/pelvis unremarkable NPO p MN tonight in preparation for EGD in am. (3) Elevated lactic acid level: Plan: Lactate 4.8 --> 3.9 Likely secondary to hypoperfusion from profound anemia Improved (4) Hyperkalemia: Plan: K+ 6.0 Received IV insulin and calcium resolved and is 4.2 today Cont holding lisinopril. Noted that triamterene/HCTZ was discontinued during last admission. (5) Coronary artery disease: Plan: chronic, stable. History of CABG in 2016 and GINA in [address] [facility] cardiology Reported associated chest pain with standing/lightheadedness EKG without acute ST changes, initial troponin negative, but then it deisy overnight. Peaked at 926, now down to 628 Chest pain on admission resolved with blood products and was thought 2/2 severe anemia. echo reveals no new wall motion abnormalities-->suspect elevated trop 2/2 demand ischemia. Holding ASA and Plavix in the setting of anemia and suspected upper GI bleeding, resume as able pending findings on EGD Continue beta-ramesh and statin (6) Insulin dependent type 2 diabetes mellitus: Plan: Hgb A1c 7.8 04/2023 Glucose 274 on labs, patient reports he did not take his a.m. Lantus Hold metformin, Lantus and NovoLog per protocol while hospitalized, glycemic pharmacy consulted Currently at inpatient goal. (7) CKD (chronic kidney disease), stage III: Plan: chronic at baseline around 1.5 today. Cont to avoid contrast or other nephrotoxic substances. (8) Hypertension: Plan: Hold lisinopril due to hyperkalemia Continue metoprolol BP is controlled. DVT PROPHYLAXIS SCDs due to anemia/GI bleeding Full COde Dispo-to EGD on Monday as inpt, then home pending PT/OT recs. at bedside and updated her on the plan. I spent a total of 60 minutes coordinating, documenting, and providing care for this patient excluding time spent in the performance of separately billed services. This included personally reviewing all current laboratories and imaging studies, medication reconciliation, outpatient chart review, and discussion with specialists. Maria Alejandra Gregg DO [facility] Hospitalist Admission and Anticipated Discharge Date Admission Date: April 21, 2023 Subjective No active bleeding, H/H improved after 1 unit blood yesterday denies chest pain or further bleeding, no BM reported. denies abdominal pain tolerating clears. discussed elevate troponin with cardiology and patient no current chest pain symptoms likely demand ischemia in setting of severe anemia. also present at bedside and plan reviewed with her, also Review of Systems Review of Systems: no additional issues. Physical Exam Physical Exam: CONSTITUTIONAL: WNWD, vitals as above, generally well-appearing, NAD EYES: normal conjunctivae, no scleral icterus, ENT: external ear and nose normal,MMM NECK: trachea midline RESPIRATORY: clear to auscultation bilaterally, no crackles, rales or wheezes, normal respiratory effort CARDIOVASCULAR: regular rate and rhythm, S1 and 2 heard without murmurs, gallops or rubs, no JVD, no peripheral edema CHEST: inspection of chest was normal GASTROINTESTINAL: soft, nontender, ND, no guarding MUSCULOSKELETAL: strength 5/5 throughout, head is normocephalic and atraumatic SKIN: warm and dry, NEUROLOGIC: CN 2-12 grossly intact, no sensory deficit, normal cognition, normal speech, no tremor PSYCHIATRIC: alert cooperative and oriented to person, place and time. Euthymic mood, makes good eye contact, language grossly intact, recent and remote memory grossly intact. Results & Data Results & Data Vital Signs (Past 12 Hours) Vital Signs Temp Pulse Pulse Resp BP Pulse Ox O2 Del Method 04/23/23 07:31 36.3 C L 68 18 115/71 97 Room Air 04/23/23 03:41 36.4 C L 61 20 125/72 98 Room Air 04/22/23 23:39 57 L 04/22/23 23:39 36.4 C L 54 L 18 129/69 97 Room Air Laboratory Results Short CBC 04/22/23 04/23/23 Range/Units 13:59 06:24 WBC 7.76 (4.8-10.8) K/ul Hgb 6.7 L* 9.2 L (14.0-18.0) g/dl Hct 20.2 L* 27.3 L (42.0-52.0) % Plt Count 233 (130-400) K/uL BMP 04/23/23 06:24 Sodium 137 Potassium 4.2 Chloride 106 Carbon Dioxide 25 BUN 29 H D Creatinine 1.44 H Glucose 73 Calcium 8.6 Medications Administered Current Inpatient Medications Acetaminophen (Acetaminophen 325 Mg Tab) 650 mg PO Q4H PRN PRN Reason: Pain or Fever Stop: 05/21/23 15:52 Last Admin: 04/23/23 06:12 Dose: 650 mg Allopurinol (Allopurinol 100 Mg Tab) 100 mg PO HS CYNDY Stop: 05/21/23 20:59 Last Admin: 04/22/23 20:21 Dose: 100 mg Amlodipine Besylate (Amlodipine Besylate 5 Mg Tab) 5 mg PO DAILY CYNDY Stop: 05/22/23 08:59 Last Admin: 04/23/23 08:25 Dose: 5 mg Atorvastatin Calcium (Atorvastatin 40 Mg Tab) 80 mg PO HS CYNDY Stop: 05/21/23 20:59 Last Admin: 04/22/23 20:21 Dose: 80 mg Dextrose (Dextrose 50% 50 Ml Syringe) 25 - 50 ml IV UD PRN; Protocol PRN Reason: Hypoglycemia Protocol Stop: 05/21/23 15:52 Glucagon (Glucagon For Inj 1 Mg Vial) 1 mg SQ UD PRN; Protocol PRN Reason: Hypoglycemia Protocol Stop: 05/21/23 15:52 Glucose (Glucose 10 Tab/Tube) 4 - 8 tab PO UD PRN; Protocol PRN Reason: Hypoglycemia Treatment Stop: 05/21/23 15:52 Glucose (Glucose 40% Gel 15 Gm Tube) 15 - 30 gm PO UD PRN; Protocol PRN Reason: Hypoglycemia Protocol Stop: 05/21/23 15:52 Pantoprazole Sodium 40 mg/ (Dextrose) 100 mls @ 20 mls/hr IV Q5H CYNDY Stop: 05/21/23 13:29 Last Admin: 04/23/23 06:12 Dose: 8 mg/hr, 20 mls/hr Insulin Aspart (Insulin Aspart Per Unit Charge) 0 units SC ACHS [facility] Stop: 05/22/23 00:00 Last Admin: 04/23/23 08:24 Dose: Not Given Metoprolol Succinate (Metoprolol Succ 50mg Ext Rel Tab) 100 mg PO QAM [facility] Stop: 05/21/23 16:14 Last Admin: 04/23/23 08:25 Dose: 100 mg Miscellaneous (Carbohydrates For Hypoglycemia ) 15 - 30 gm PO UD PRN PRN Reason: Hypoglycemia Protocol Stop: 05/21/23 15:52 Miscellaneous Information (Pharmacy Glycemic Mgmt Consult) 1 each N/A UD PRN PRN Reason: Consult Stop: 05/21/23 15:52 Tramadol HCl (Tramadol Hcl 50 Mg Tablet) 50 mg PO TID PRN PRN Reason: pain Stop: 05/22/23 08:59 Last Admin: 04/23/23 01:11 Dose: 50 mg
--- NOTE | 2023-04-23 13:34 | Pharmacy Report ---
Pharmacy Glycemic Short Note 2 - Date of Service April 23, 2023 - Glycemic Short BSG Results (Last 24 hours): 04/22/23 04/22/23 04/23/23 16:31 19:58 06:24 Glucose 73 POC Glucose 105 H 139 H 04/23/23 04/23/23 07:21 11:22 Glucose POC Glucose 73 115 H OUTPATIENT ANTIDIABETIC REGIMEN: * Lantus 70 units SQ qAM + 10 units SQ qHS prn hyperglycemia * Metformin 1000 mg PO BID * A1c = 7.8% (04/15/23) ASSESSMENT: 04/23/23 * BSGs yesterday were 19-51-560-139 mg/dL. Patient received 20 units of insulin (17 units of basal and 3 units of bolus). * BSGs today are 73 (fasting) and 115 mg/dL. * Will hold basal today as fastings trending downwards. Patient NPO tomorrow. Small scale for tomorrow morning based upon BSGs. * Continue Novolog. BACKGROUND * Alphonso is a 72 yo T2DM who presented with lightheadedness and dizziness. Patient found to be anemic. Ordered 2 units PRBC and Protonix drip. * Patient takes Lantus and metformin as an outpatient. He reports not taking his Lantus dose this morning. * Patient received a 10 units IV insulin bolus + 6 units SQ novolog in the ED. BSG of 245 mg/dL on arrival to the floor. * Will convert home Lantus dose of 70-80 units/day into 50% basal-50% bolus. Wi ll decrease basal insulin ~25% for NPO status. PLAN FOR INPATIENT GLYCEMIC CONTROL: * Hold outpatient oral diabetes medications * Basal insulin * Lantus 0-10 units SQ tomorrow morning then re-assess * Bolus insulin * NovoLog per scale ACHS or Q6hrs while NPO * Goal Range: Low 110 mg/dL - High 140 mg/dL * Correction Factor: 25 mg/dL/unit * Nutritional / Prandial insulin per carb ratio of 1 unit per 8 grams CHO consumed
[2023-04-23] MEDS: ATORVASTATIN 40 MG TAB PO SCH (20:47)
[2023-04-23] MEDS: allopurinoL 100 MG TAB PO SCH (20:47)
[2023-04-24] MEDS: ACETAMINOPHEN 325 MG TAB PO PRN ×4 (02:16→20:51)
[2023-04-24] MEDS: PANTOprazole 40 MG in DEXTROSE 5% 100 ML IV SCH ×5 (02:16→22:37)
[2023-04-24 07:03] LABS: Hematocrit (blood only) 26.8 % (42.0-52.0); Hemoglobin 8.7 g/dl (14.0-18.0); Mean Corpuscular Hemoglobin 29.9 pg (25.0-34.0); Mean Corpuscular Hgb Conc 32.5 g/dL (32.0-36.0); Mean Corpuscular Volume 92.1 fL (80.0-100.0); Mean Platelet Volume 9.6 fL (9.4-12.4); Platelet Count 219 K/uL (130-400); RDW Coefficient of Variation 18.4 % (11.5-14.5); RDW Standard Deviation 53.5 fL (36.4-46.3); Red Blood Count 2.91 M/uL (4.70-6.10); White Blood Count 6.48 K/ul (4.8-10.8)
[2023-04-24 07:22] LABS: BUN Creatinine Ratio 12.5 (10-20); Calcium 8.5 mg/dl (8.6-10.3); Creatinine Clr Calc Pharmacy 50.4 ml/min; Est GFR (African American) 55.8 ml/min; Est GFR (Non-African American) 48.2 ml/min; Potassium 4.4 mmol/L (3.5-5.1)
[2023-04-24] MEDS ORDERED: ceFAZolin 2000MG 2,000 MG/15 ML SYR IV ONE (08:07)
--- NOTE | 2023-04-24 08:31 | Anesthesiology Consultation ---
Date of Service April 24, 2023 Assessment & Plan (1) Encounter for pre-operative examination: Chart Review Chart Review: Acceptable Risk for Surgery, Patient NOT seen in Pre Admission Testing and entry level account manager initiated Consults Requested none History Surgery Operation Date: 04/24/23 16:30 Proposed Procedures p Esophagogastroduodenoscopy Dr Juan Luis Mcknight, DO Height/Weight Height: 5 ft 7 in Weight: 92.9 kg Allergies Allergy/AdvReac Type Severity Reaction Status Date / Time Opioids - Morphine Analogues AdvReac Mild Dizziness Unverified 04/21/23 11:32 and feeling sick Medications Home Medications Medication Instructions Recorded Confirmed Last Taken allopurinol 100 mg tablet 100 mg PO HS 05/08/19 04/21/23 04/05/23 21:30 aspirin 81 mg tablet,delayed 81 mg PO QPM 05/08/19 04/21/23 04/05/23 21:30 release atorvastatin 80 mg tablet 80 mg PO HS 05/08/19 04/21/23 04/05/23 21:30 clopidogrel 75 mg tablet 75 mg PO QAM #30 tabs 05/08/19 04/21/23 03/30/23 07:00 metformin 1,000 mg tablet 1,000 mg PO BID #180 tabs 08/16/19 04/21/23 04/05/23 21:30 insulin glargine 100 unit/mL 70 unit subcut DAILY 10/27/22 04/21/23 04/05/23 07:00 subcutaneous solution metoprolol succinate 100 mg 100 mg PO QAM 03/17/23 04/21/23 04/06/23 05:30 tablet,extended release 24 hr docusate sodium 100 mg capsule 100 mg PO BID PRN constipation #30 04/16/23 04/21/23 Unknown (Colace) caps lisinopril 20 mg tablet 20 mg PO DAILY #1 tab 04/16/23 04/21/23 04/05/23 21:30 polyethylene glycol 3350 17 gram 17 g PO DAILY PRN constipation #14 04/16/23 04/21/23 Unknown oral powder packet (Miralax) ea ondansetron 4 mg disintegrating 4 mg PO Q6H PRN nausea and 04/20/23 04/21/23 Unknown tablet vomiting #10 tabs amlodipine 5 mg tablet 5 mg PO DAILY 04/21/23 04/21/23 Unknown insulin glargine 100 unit/mL (3 10 unit subcut HS PRN Hyperglycemia 04/21/23 04/21/23 Unknown mL) subcutaneous pen (Lantus Solostar U-100 Insulin) tramadol 50 mg tablet 50 - 100 mg PO Q6H PRN Pain 04/21/23 04/21/23 Unknown Active Medications Generic Name Dose Route Start Last Admin Trade Name Freq PRN Reason Stop Dose Admin Acetaminophen 650 mg 04/21/23 15:53 04/24/23 07:18 Acetaminophen 325 Mg Tab PO 05/21/23 15:52 650 mg Q4H PRN Administration Pain or Fever Allopurinol 100 mg 04/21/23 21:00 04/23/23 20:47 Allopurinol 100 Mg Tab PO 05/21/23 20:59 100 mg HS CYNDY Administration Amlodipine Besylate 5 mg 04/22/23 09:00 04/23/23 08:25 Amlodipine Besylate 5 Mg Tab PO 05/22/23 08:59 5 mg DAILY CYNDY Administration Atorvastatin Calcium 80 mg 04/21/23 21:00 04/23/23 20:47 Atorvastatin 40 Mg Tab PO 05/21/23 20:59 80 mg HS CYNDY Administration Pantoprazole Sodium 40 mg/ 100 mls @ 20 mls/hr 04/21/23 13:30 04/24/23 07:17 Dextrose IV 05/21/23 13:29 8 mg/hr Q5H CYNDY 20 mls/hr Administration 8 MG/HR Insulin Aspart 0 units 04/22/23 11:30 04/23/23 20:46 Insulin Aspart Per Unit Charge SC 05/22/23 00:00 1 units ACHS CYNDY Administration Metoprolol Succinate 100 mg 04/21/23 16:15 04/23/23 08:25 Metoprolol Succ 50mg Ext Rel Tab PO 05/21/23 16:14 100 mg QAM CYNDY Administration Tramadol HCl 50 mg 04/22/23 01:43 04/23/23 20:46 Tramadol Hcl 50 Mg Tablet PO 05/22/23 08:59 50 mg TID PRN Administration pain Past Medical History Medical History (Updated 04/24/23 @ 08:34 by Juan Strange MD) Aortic stenosis moderate on 03/2023 echo Carotid stenosis < 50% stenosis ICAs bilat 12/2021 doppler Coronary artery disease s/p 4 stents, CABG x 3 in 2016, most recent stent in 2017 Encounter for pre-operative examination Gout Hearing deficit Herniation of cervical intervertebral disc History of blood transfusion 2016 with CABG History of COVID-19 09/2020--mild symptoms, denies hospitalization, no symptoms now Hypertension controlled, stable per pt Insulin dependent type 2 diabetes mellitus Myocardial Infarction per Dr. Eisenberg's note recurrent NSTEMI: 07/2016 and in 2017--heart caths with stents placed--had CABG 07/2016 @ [facility] follows with Dr. Eisenberg On anticoagulant therapy plavix daily Seizure 1 yr ago, in setting of hypoglycemia, no additional seizure activity Past Family History Family History Father Myocardial infarction Other No family history of adverse response to anesthesia Past Surgical History Surgical History History of cardiac cath multiple in 2015 with last 11/2016 @ [facility]--x4 stents total placed History of colonoscopy History of reverse total replacement of right shoulder joint History of tooth extraction History of wisdom tooth extraction S/P coronary artery bypass graft x 3 07/2016 @ [facility] S/P epidural steroid injection Social History Smoking Status: Former smoker tobacco type: cigarettes Do You Dip or Chew Tobacco: No Smoking End Date: 2015 Hx Alcohol Use: No Alcohol type: beer alcohol intake frequency: a few times a month Hx Substance Use: No substance use type: does not use Physical Exam Vital Signs Last Vital Signs Temp 36.7 C 04/24/23 07:34 Pulse 71 04/24/23 07:57 Resp 18 04/24/23 07:34 BP 157/75 H 04/24/23 07:34 Pulse Ox 92 04/24/23 07:34 O2 Del Method Room Air 04/24/23 07:34 O2 Flow Rate 99 04/21/23 15:30 Testing Laboratory Results 04/24/23 05:45 04/24/23 06:07 PT 10.9 Seconds (9.0-12.0) 04/21/23 10:23 INR 1.0 (0.9-1.1) 04/21/23 10:23 APTT < 20.0 Seconds (21.0-31.0) L 04/21/23 10:23 Urine Color Yellow 04/21/23 15:30 Urine Appearance Clear (Clear) 04/21/23 15:30 Urine pH 5.0 (4.5-7.5) 04/21/23 15:30 Ur Specific [place] 1.016 (1.000-1.030) 04/21/23 15:30 Urine Protein Negative (Negative) 04/21/23 15:30 Urine Glucose (UA) 2+ (Negative) H 04/21/23 15:30 Urine Ketones Negative (Negative) 04/21/23 15:30 Urine Nitrite Negative (Negative) 04/21/23 15:30 Ur Leukocyte Esterase Negative (Negative) 04/21/23 15:30 Blood Type A Positive 04/21/23 11:01 Antibody Screen NEGATIVE 04/21/23 11:01 04/21/23 10:23 Aerobic Blood Culture - Preliminary Blood No growth in Aerobic bottle after 48 hours. Anaerobic Blood Culture - Preliminary No growth in Anaerobic bottle after 48 hours. 04/21/23 10:10 Aerobic Blood Culture - Preliminary Blood No growth in Aerobic bottle after 48 hours. Anaerobic Blood Culture - Final 04/24/23 07:11 POC Glucose 109 H Electrocardiogram Date: 04/21/23 Test Reason : Blood Pressure : / mmHG Vent. Rate : 087 BPM Atrial Rate : 087 BPM P-R Int : 152 ms QRS Dur : 110 ms QT Int : 364 ms P-R-T Axes : 063 012 051 degrees QTc Int : 438 ms Normal sinus rhythm Nonspecific ST abnormality Lateral leads Abnormal ECG When compared with ECG of 21-APR-2023 09:49, Nonspecific ST abnormality Lateral leads now present Confirmed by Chuy Pak ([id number]) on 04/21/2023 4:13:20 PM Chest X-Ray Date: 04/21/23 XR chest 1V portable CLINICAL HISTORY: Sepsis. COMPARISON STUDY: Chest radiograph April 14, 2023. FINDINGS: Right shoulder arthroplasty and median sternotomy wires are incidentally noted. There is cardiomegaly without evidence for pulmonary edema. There is no pneumothorax or pleural effusion. No consolidation to suggest pneumonia. IMPRESSION: No acute cardiopulmonary findings. No change in appearance of the chest. Echocardiogram Echocardiogram Date: 03/20/23 EF 50-55% Mild LVH Base inferior, inferoseptal mild hypokinesis Calcified, restricted aortic valve with moderate aortic stenosis (PV 2.93, MG 17, EDU 0.96) Mild mitral regurgitation Borderline dilated ascending aorta 3.9 cm
--- NOTE | 2023-04-24 08:39 | History & Physical Bridge Note ---
Date of Service April 24, 2023 History & Physical Bridge Note I have examined the patient, reviewed the History & Physical and in the interval since the performance of the History & Physical I have noted the following changes of clinical significance: no changes noted We are planning to do an upper endoscopy to evaluate a history of melena. The patient was seen by one of my partners last week who made arrangements for endoscopy today. We discussed the risks to include bleeding infection perforation pain and need for follow-up studies.
[2023-04-24] MEDS ORDERED: LIDOCAINE 2% 2 ML VIAL/AMP(20MG/ML) INFIL ONE (09:00)
[2023-04-24] MEDS ORDERED: PHENYLEPHRINE 100MCG/ML 5ML SYR ONE (09:00)
[2023-04-24] MEDS ORDERED: LANTUS PER UNIT CHARGE SC SCH (09:00)
[2023-04-24] MEDS ORDERED: PROPOFOL IV EMULSION 10 MG/ML 20 ML VIAL IV ONE (09:00)
--- NOTE | 2023-04-24 09:00 | Communication Note ---
Date of Service: April 24, 2023 The patient was found to have a large clean-based ulcer in the posterior portion of the duodenal bulb. This is the likely source of the patient's melena. Recommendations advance diet as tolerated Protonix 40 mg twice daily for 6 weeks then 1 time daily thereafter Carafate 1 g 4 times daily for 4 weeks repeat upper endoscopy in 3 months no nonsteroidals for weeks GI to sign off
--- NOTE | 2023-04-24 09:07 | GI REPORT ---
Patient Name: Alphonso Cheatham Procedure Date: 04/24/2023 8:35 AM Date of : 1950 Admit Type: Inpatient Age: 72 Gender: Male Attending MD: Tyrone Mcknight DO, Procedure: Upper GI endoscopy Providers: Tyrone Mcknight DO Referring MD: Charlie Rollins Md Indications: Melena Medicines: General Anesthesia Complications: No immediate complications. Estimated blood loss: Minimal. Estimated Blood Loss: Estimated blood loss was minimal. Procedure: Pre-Anesthesia Assessment: - Prior to the procedure, a History and Physical was performed, and patient medications, allergies and sensitivities were reviewed. The patient's tolerance of previous anesthesia was reviewed. - The risks and benefits of the procedure and the sedation options and risks were discussed with the patient. All questions were answered and informed consent was obtained. - Patient identification and proposed procedure were verified prior to the procedure by the physician, the nurse and the 911 emergency dispatcher. The procedure was verified in the procedure room. - Pre-procedure physical examination revealed no contraindications to sedation. - ASA Grade Assessment: III - A patient with severe systemic disease. - After reviewing the risks and benefits, the patient was deemed in satisfactory condition to undergo the procedure. - The anesthesia plan was to use monitored anesthesia care (MAC). - Immediately prior to administration of medications, the patient was re-assessed for adequacy to receive sedatives. - The heart rate, respiratory rate, oxygen saturations, blood pressure, adequacy of pulmonary ventilation, and response to care were monitored throughout the procedure. - The physical status of the patient was re-assessed after the procedure. After obtaining informed consent, the endoscope was passed under direct vision. Throughout the procedure, the patient's blood pressure, pulse, and oxygen saturations were monitored continuously. The Endoscope was introduced through the mouth, and advanced to the third part of duodenum. The upper GI endoscopy was accomplished without difficulty. The patient tolerated the procedure well. Findings: The examined esophagus was normal. The Z-line was regular and was found 37 cm from the incisors. The entire examined stomach was normal. Biopsies were taken with a cold forceps for histology. The pathology specimen was placed into Bottle A. Estimated blood loss was minimal. One non-obstructing non-bleeding cratered duodenal ulcer with a clean ulcer base (Huy Class III) was found in the duodenal bulb. The lesion was 15 mm in largest dimension. The second portion of the duodenum and third portion of the duodenum were normal. Impression: - Normal esophagus. - Z-line regular, 37 cm from the incisors. - Normal stomach. Biopsied. - Non-obstructing non-bleeding duodenal ulcer with a clean ulcer base (Huy Class III). NSAID induced etiology. - Normal second portion of the duodenum and third portion of the duodenum. Recommendation: - Return patient to hospital guidry for ongoing care. - Advance diet as tolerated. - Use Protonix (pantoprazole) 40 mg PO BID for 6 weeks then reduce to 1 time daily. - Use sucralfate tablets 1 gram PO QID for 4 weeks. - Use an iron supplement for 3 months - No aspirin, ibuprofen, naproxen, or other non-steroidal anti-inflammatory drugs for 4 weeks. - Repeat upper endoscopy in 3 months for surveillance. Tyrone Mcknight D.O. Tyrone Mcknight, 04/24/2023 9:07:21 AM This report has been signed electronically. Note Initiated On: 04/24/2023 8:35 AM Number of Addenda: 0 I attest to the content of the Intraoperative Record and orders documented therein, exceptions below {[id number]}
--- NOTE | 2023-04-24 09:54 | Anesthesiology Progress Note ---
Date of Service April 24, 2023 Anesthesia Post Procedure Vital Signs Vital Signs: Temp Pulse Pulse Resp BP BP Pulse Ox 04/24/23 09:32 61 18 140/67 100 04/24/23 09:17 69 18 141/64 H 99 04/24/23 09:02 70 16 121/64 99 04/24/23 08:25 36.0 C L 68 16 161/75 H 95 04/24/23 07:57 71 04/24/23 07:34 36.7 C 63 18 157/75 H 92 04/24/23 02:37 36.6 C 66 18 150/78 H 98 04/23/23 23:18 58 L 04/23/23 23:08 36.6 C 63 18 122/84 98 04/23/23 19:06 36.6 C 58 L 18 149/78 H 98 04/23/23 15:38 36.6 C 58 L 18 155/80 H 95 04/23/23 11:31 36.3 C L 67 18 123/74 96 O2 Del Method 04/24/23 09:32 Room Air 04/24/23 09:17 Room Air 04/24/23 09:02 Room Air 04/24/23 08:25 Room Air 04/24/23 07:57 04/24/23 07:34 Room Air 04/24/23 02:37 Room Air 04/23/23 23:18 04/23/23 23:08 Room Air 04/23/23 19:06 Room Air 04/23/23 15:38 Room Air 04/23/23 11:31 Room Air Transfer of Care Handoff Completed per policy Notes Mental Status: alert / awake / arousable and participated in evaluation Patient Amnestic to Procedure: Yes Nausea / Vomiting: adequately controlled Pain: adequately controlled Airway Patency, RR, SpO2: stable & adequate BP & HR: stable & adequate Hydration State: stable & adequate Anesthetic Complications: no major complications apparent
[2023-04-24] MEDS: amLODIPine BESYLATE 5 MG TAB PO SCH (09:58)
[2023-04-24] MEDS: METOPROLOL SUCC 50MG EXT REL TAB PO SCH (09:58)
[2023-04-24] MEDS: traMADol HCL 50 MG TABLET PO PRN ×2 (10:00→17:36)
[2023-04-24] MEDS: INSULIN ASPART PER UNIT CHARGE SC SCH ×4 (10:08→20:51)
[2023-04-24] MEDS: ceFAZolin 2000MG 2,000 MG/15 ML SYR IV SCH ×2 (11:05→20:57)
[2023-04-24] MEDS ORDERED: LANTUS PER UNIT CHARGE SC STA (12:23)
[2023-04-24] MEDS: SUCRALFATE 1 GM/10 ML UDC PO SCH ×3 (13:44→20:52)
--- NOTE | 2023-04-24 14:49 | Hospitalist Progress Note ---
Date of Service April 24, 2023 Assessment & Plan (1) Acute blood loss anemia: (2) Acute upper gastrointestinal bleeding: Plan: Cont telemetry monitoring Patient presenting by referral of orthopedic office for evaluation of lightheadedness and dizziness. Patient is s/p right TSA on 04/[address] Hamilton. Patient also admitted to [facility] 04/14 through 04/16 for RADU. Patient now reporting dark stools for the past 1 week at presentation. In the ED, Hgb 5.2, stool is heme positive Noted patient is on DAPT for remote history of CAD DAPT held, no further blood per rectum. CT ABD/pelvis unremarkable required 3 units blood this admission so far Repeat H/H is stable this morning Cont Protonix drip, transition to po virgil. s/p EGD scope 04/24 -duodenal ulcer with a clean ulcer base noted. Stomach biopsies were taken, sent for HPE exam GI recommendations, Protonix 40 mg twice daily for 6-week followed by daily, sucralfate 1 g 4 times daily for 4 weeks, iron supplement for 3 months. Repeat upper for surveillance. Endoscopy in 3 months No aspirin/ibuprofen/naproxen or other NSAIDs for 4 weeks. H&H in the evening and in AM. Advance diet as tolerated. Patient receiving cefazolin postoperatively after EGD scope due to recent right shoulder surgery as Px for bacteremia. Will be done after 3 doses. (3) Elevated lactic acid level: Plan: Lactate 4.8 --> 3.9 Likely secondary to hypoperfusion from profound anemia Improved (4) Hyperkalemia: Plan: K+ 6.0 Received IV insulin and calcium resolved Cont holding lisinopril. Noted that triamterene/HCTZ was discontinued during last admission. (5) Coronary artery disease: Plan: chronic, stable. History of CABG in 2016 and GINA in 2017 Follows with [facility] cardiology Reported associated chest pain with standing/lightheadedness EKG without acute ST changes, initial troponin negative, but then it deisy overnight. Peaked at 926, now down to 628 Chest pain on admission resolved with blood products and was thought 2/2 severe anemia. echo reveals no new wall motion abnormalities-->suspect elevated trop 2/2 demand ischemia. Holding ASA and Plavix in the setting of anemia and suspected upper GI bleeding, resume as able pending findings on EGD Continue beta-ramesh and statin Plan to resume plavix once deemed stable per GI. (6) Insulin dependent type 2 diabetes mellitus: Plan: Hgb A1c 7.8 04/2023 Glucose 274 on labs, patient reports he did not take his a.m. Lantus Hold metformin, Lantus and NovoLog per protocol while hospitalized, glycemic pharmacy consulted Currently at inpatient goal. (7) CKD (chronic kidney disease), stage III: Plan: chronic at baseline around 1.5 today. Cont to avoid contrast or other nephrotoxic substances. (8) Hypertension: Plan: Hold lisinopril due to hyperkalemia Continue metoprolol BP is fairly controlled. DVT PROPHYLAXIS SCDs due to anemia/GI bleeding Full COde Dispo- likely virgil. Admission and Anticipated Discharge Date Admission Date: April 21, 2023 Subjective Patient seen and examined at bedside as a follow-up of acute blood loss anemia, acute upper GI bleeding, elevated lactic acid level, hyperkalemia. Patient was lying semiupright in bed, on room air, NAD, denies any further active bleeding, status post EGD scope today, reports feeling better, denies fever/chills/headache/chest pain/palpitation/other review of symptoms. Patient explained that he is to avoid his aspirin for next 4 weeks, he is to avoid any other NSAIDs. He is also encouraged to follow-up with cardiology regarding the need for his DAPT therapy in 1 month's time upon discharge. We will plan to resume his Plavix once deemed stable per GI. Physical Exam Physical Exam: GENERAL: Alert and oriented x3. NAD, on RA. HEENT: No pallor, no icterus. Pupils equal, round and reactive to light. Oral mucosa moist. NECK: No JVD, no neck masses. HEART: S1 and S2 heard. Regular rate and rhythm. No murmur, no gallop. RESPIRATORY SYSTEM: Normal AP diameter. No accessory muscle use. No wheezing, no crackles. ABDOMEN: Soft, bowel sounds present, nontender, no distention. CENTRAL NERVOUS SYSTEM: No facial droop. Speech is clear. Obeys simple commands. Moves extremities. EXTREMITIES: No edema, no erythema seen. Rt shoulder w/ steri strips, clean surgical wound, healing well. Results & Data Results & Data Vital Signs (Past 12 Hours) Vital Signs Temp Pulse Pulse Resp BP BP Pulse Ox 04/24/23 11:08 36.3 C L 59 L 18 152/77 H 98 04/24/23 09:56 75 148/80 H 04/24/23 09:32 61 18 140/67 100 04/24/23 09:17 69 18 141/64 H 99 04/24/23 09:02 70 16 121/64 99 04/24/23 08:25 36.0 C L 68 16 161/75 H 95 04/24/23 07:57 71 04/24/23 07:34 36.7 C 63 18 157/75 H 92 04/24/23 02:37 36.6 C 66 18 150/78 H 98 O2 Del Method 04/24/23 11:08 Room Air 04/24/23 09:56 04/24/23 09:32 Room Air 04/24/23 09:17 Room Air 04/24/23 09:02 Room Air 04/24/23 08:25 Room Air 04/24/23 07:57 04/24/23 07:34 Room Air 04/24/23 02:37 Room Air
[2023-04-24] MEDS: ATORVASTATIN 40 MG TAB PO SCH (20:52)
[2023-04-24] MEDS: allopurinoL 100 MG TAB PO SCH (20:52)
[2023-04-24 21:39] LABS: Hematocrit (blood only) 25.8 % (42.0-52.0); Hemoglobin 8.5 g/dl (14.0-18.0)
[2023-04-25] MEDS: traMADol HCL 50 MG TABLET PO PRN ×2 (02:24→12:24)
[2023-04-25] MEDS: ceFAZolin 2000MG 2,000 MG/15 ML SYR IV SCH (03:21)
[2023-04-25] MEDS: PANTOprazole 40 MG in DEXTROSE 5% 100 ML IV SCH ×2 (03:21→08:26)
[2023-04-25 06:11] LABS: Hematocrit (blood only) 26.6 % (42.0-52.0); Hemoglobin 8.6 g/dl (14.0-18.0); Mean Corpuscular Hemoglobin 29.6 pg (25.0-34.0); Mean Corpuscular Hgb Conc 32.3 g/dL (32.0-36.0); Mean Corpuscular Volume 91.4 fL (80.0-100.0); Mean Platelet Volume 9.6 fL (9.4-12.4); Platelet Count 201 K/uL (130-400); RDW Coefficient of Variation 18.1 % (11.5-14.5); RDW Standard Deviation 53.5 fL (36.4-46.3); Red Blood Count 2.91 M/uL (4.70-6.10); White Blood Count 4.85 K/ul (4.8-10.8)
[2023-04-25 06:16] LABS: Calcium 8.3 mg/dl (8.6-10.3); Est GFR (African American) 55.4 ml/min; Est GFR (Non-African American) 47.8 ml/min; Magnesium 1.5 mg/dl (1.7-2.4); Phosphorus 3.7 mg/dl (2.5-4.9); Potassium 3.8 mmol/L (3.5-5.1)
[2023-04-25] MEDS: ACETAMINOPHEN 325 MG TAB PO PRN (07:38)
[2023-04-25] MEDS: SUCRALFATE 1 GM/10 ML UDC PO SCH ×2 (08:11→12:18)
[2023-04-25] MEDS: INSULIN ASPART PER UNIT CHARGE SC SCH ×2 (08:11→12:17)
[2023-04-25] MEDS: MAGNESIUM SULFATE / D5W 1 GM/100 ML BAG IV SCH ×2 (08:35→10:17)
[2023-04-25] MEDS ORDERED: PANTOprazole 40 MG TAB PO SCH (09:00)
[2023-04-25] MEDS ORDERED: LANTUS PER UNIT CHARGE SC SCH (09:00)
[2023-04-25] MEDS ORDERED: FERROUS SULFATE 325 MG TAB PO SCH (09:00)
[2023-04-25] MEDS: METOPROLOL SUCC 50MG EXT REL TAB PO SCH (09:40)
[2023-04-25] MEDS: amLODIPine BESYLATE 5 MG TAB PO SCH (09:40)
--- NOTE | 2023-04-25 11:45 | Pharmacy Report ---
Pharmacy Glycemic Short Note 2 - Date of Service April 25, 2023 - Glycemic Short BSG Results (Last 24 hours): 04/24/23 04/24/23 04/25/23 16:26 19:56 05:30 Glucose 96 POC Glucose 141 H 166 H 04/25/23 04/25/23 07:24 11:11 Glucose POC Glucose 113 H 220 H OUTPATIENT ANTIDIABETIC REGIMEN: * Lantus 70 units SQ qAM + 10 units SQ qHS prn hyperglycemia * Metformin 1000 mg PO BID * A1c = 7.8% (04/15/23) ASSESSMENT: 04/25/23: * Patient received 26 units of insulin yesterday, 10 of which were basal. BSGs were 020-462-330-166 mg/dL and fasting this morning was 113 mg/dL. * Patient was NPO yesterday morning for EGD but has since tolerated a diet. * Continue with current basal dose. Lunch BSG elevated the last 2 days. Will consider tightening breakfast NovoLog CR if tis trend continues. 04/23/23 * BSGs yesterday were 45-16-604-139 mg/dL. Patient received 20 units of insulin (17 units of basal and 3 units of bolus). * BSGs today are 73 (fasting) and 115 mg/dL. * Will hold basal today as fastings trending downwards. Patient NPO tomorrow. Small scale for tomorrow morning based upon BSGs. * Continue Novolog. BACKGROUND * Alphonso is a 72 yo T2DM who presented with lightheadedness and dizziness. Patient found to be anemic. Ordered 2 units PRBC and Protonix drip. * Patient takes Lantus and metformin as an outpatient. He reports not taking his Lantus dose this morning. * Patient received a 10 units IV insulin bolus + 6 units SQ novolog in the ED. BSG of 245 mg/dL on arrival to the floor. * Will convert home Lantus dose of 70-80 units/day into 50% basal-50% bolus. Will decrease basal insulin ~25% for NPO status. PLAN FOR INPATIENT GLYCEMIC CONTROL: * Hold outpatient oral diabetes medications * Basal insulin * Lantus 10 units SQ qam * Bolus insulin * NovoLog per scale ACHS or Q6hrs while NPO * Goal Range: Low 110 mg/dL - High 140 mg/dL * Correction Factor: 25 mg/dL/unit * Nutritional / Prandial insulin per carb ratio of 1 unit per 8 grams CHO consumed
--- NOTE | 2023-04-25 12:40 | Discharge Summary ---
Date of Service April 25, 2023 Admission HPI Per Admitting Provider 72-year-old male with PMH CAD, IDDM, aortic stenosis, CKD, HTN, and other problems to below who presents to the ED for evaluation of lightheadedness and dizziness. History obtained from the patient as well as review of recent inpatient records. Patient with 2 admissions recently, 04/06/2023 through 04/07/2023 for elective right TSA. Patient then admitted 04/14/2023 through 04/16/2023 for RADU on CKD. At discharge, patient's lisinopril dose was reduced and triamterene/HCTZ was discontinued. Patient reports taking oxycodone for pain however made him nauseous and lightheaded. Patient took tramadol for the first time yesterday and had a very similar reaction. Last dose of tramadol was around midnight last night. States this morning he continued to feel very lightheaded and dizzy with standing. Patient then presented to the ED for further evaluation. Patient reports some mild associated chest tightness with standing. He has not had any syncopal event. Denies associated diaphoresis. No shortness of breath. Denies fevers and chills. Right shoulder incision appears to be healing well. Has had some mild nausea associate with pain medications. No vomiting or abdominal pain. Patient reports dark stools over the past 1 week. Denies urinary symptoms. Patient was seen at orthopedic clinic today for follow-up and was sent to the ED for evaluation of dizziness. In the ED, labs show Hgb 5.2, lactate 4.8. Hypotensive on presentation that improved with IVF. Patient was also given IV PPI type and crossed for 2 unit PRBC. Admission Exam Per Admitting Provider Constitutional: WD/WN, vitals as above Eyes: PERRL, conjunctivae normal, anicteric sclerae ENMT: external ear and nose normal, oropharynx normal Respiratory: normal respiratory effort, lungs clear to auscultation Cardiovascular: Rate/Rhythm: regular rate and regular rhythm Heart Sounds: + murmur (Grade 3/6, systolic) Vessels: normal peripheral pulses Extremities: no edema Musculoskeletal: no cyanosis or clubbing, extremities motor strength 5/5 S/p right shoulder surgery, Steri-Strips intact to incision, no surrounding erythema or drainage present Skin: no rashes, warm and dry + pallor Neurologic: PERRL, EOMI, accommodation nl, no face palsy, no dysarthria Psychiatric: A+Ox3, euthymic affect Principal Diagnosis Acute blood loss anemia Acute upper GI bleeding Duodenal ulcer Discharge Exam GENERAL: Alert and oriented x3. NAD, on RA. HEENT: No pallor, no icterus. Pupils equal, round and reactive to light. Oral mucosa moist. NECK: No JVD, no neck masses. HEART: S1 and S2 heard. Regular rate and rhythm. No murmur, no gallop. RESPIRATORY SYSTEM: Normal AP diameter. No accessory muscle use. No wheezing, no crackles. ABDOMEN: Soft, bowel sounds present, nontender, no distention. CENTRAL NERVOUS SYSTEM: No facial droop. Speech is clear. Obeys simple commands. Moves extremities. EXTREMITIES: No edema, no erythema seen. Rt shoulder w/ steri strips, clean surgical wound, healing well. Discharge Data Allergies Allergy/AdvReac Type Severity Reaction Status Date / Time Opioids - Morphine Analogues AdvReac Mild Dizziness Unverified 04/21/23 11:32 and feeling sick Consultations 04/21/23 11:22 ED Decision to Admit Stat 04/21/23 15:53 Consult Gastroenterology Routine Procedures Performed Operation Date: 04/24/23 16:30 Actual Procedures p EGD Biopsy Cytology - Tyrone Mcknight DO Ordered Studies 04/21/23 14:01 CT abd pelvis wo con Urgent Hospital Course (1) Acute blood loss anemia: (2) Acute upper gastrointestinal bleeding: Patient presenting by referral of orthopedic office for evaluation of lightheadedness and dizziness. Patient is s/p right TSA on 04/[address] Hamilton. Patient also admitted to [facility] 04/14 through 04/16 for RADU. Patient now reporting dark stools for the past 1 week at presentation. In the ED, Hgb 5.2, stool is heme positive Noted patient is on DAPT for remote history of CAD DAPT held, no further blood per rectum. CT ABD/pelvis unremarkable required 3 units blood this admission so far Repeat H/H is stable this morning Cont Protonix drip, transition to po today. s/p EGD scope 04/24 -duodenal ulcer with a clean ulcer base noted. Stomach biopsies were taken, sent for HPE exam GI recommendations, Protonix 40 mg twice daily for 6-week followed by daily, sucralfate 1 g 4 times daily for 4 weeks, iron supplement for 3 months. Repeat upper Endoscopy in 3 months for surveillance. No aspirin/ibuprofen/naproxen or other NSAIDs for 4 weeks. Discussed with phu goldberg. Tolerating diet well. Patient received cefazolin postoperatively after EGD scope due to recent right shoulder surgery as Px for bacteremia. (3) Elevated lactic acid level: Lactate 4.8 --> 3.9 Likely secondary to hypoperfusion from profound anemia Improved (4) Hyperkalemia: K+ 6.0 Received IV insulin and calcium resolved , towards low normal today, c/w lisinopril and repeat CMP in a week time w/ PCP office/further eval, pt is made aware. Noted that triamterene/HCTZ was discontinued during last admission. (5) Coronary artery disease: chronic, stable. History of CABG in 2016 and GINA in 2017 Follows with [facility] cardiology Reported associated chest pain with standing/lightheadedness EKG without acute ST changes, initial troponin negative, but then it deisy overnight. Peaked at 926, now down to 628 Chest pain on admission resolved with blood products and was thought 2/2 severe anemia. echo reveals no new wall motion abnormalities-->suspect elevated trop 2/2 demand ischemia. Holding ASA and Plavix in the setting of anemia and suspected upper GI bleeding, resume as able pending findings on EGD Continue beta-ramesh and statin Plan to resume plavix once deemed stable per GI - d/w gi, holding for next 48 hours, pt to resume after 2 days, patient is made aware. (6) Insulin dependent type 2 diabetes mellitus: Hgb A1c 7.8 04/2023 Glucose 274 on labs, patient reports he did not take his a.m. Lantus Hold metformin, Lantus and NovoLog per protocol while hospitalized, glycemic pharmacy consulted Currently at inpatient goal. (7) CKD (chronic kidney disease), stage III: chronic at baseline around 1.5 today. Cont to avoid contrast or other nephrotoxic substances. (8) Hypertension: Continue metoprolol and lisinopril. BP is fairly controlled. DVT PROPHYLAXIS SCDs due to anemia/GI bleeding Full COde Dispo- likely virgil. Plan Patient being discharged home with following instruction at the point of discharge: Follow-up with your primary care physician within a week time and likely you will need labs CBC/CMP/magnesium/phosphorus. Hold your Plavix for next 2 days and then you can resume it. Hold your aspirin for next 4 weeks, consider visiting with cardiology prior to resuming/need for aspirin. Avoid NSAIDs in the future. GI evaluated you, you underwent EGD scope and were found to have duodenal ulcer, likely NSAID induced. Continue with Protonix 40 mg twice daily for 6 weeks followed by daily. Continue with sucralfate 1 g 4 times daily for 4 weeks. Take iron supplement for 3 months. You will need repeat endoscopy in 3 months, coordinate with the GI office. Follow-up with cardiology in 2 to 4 weeks upon discharge. Follow-up with your GI doctor in 1 to 2 months upon discharge. Your potassium level started to drop towards low normal while in hospital, your lisinopril will be resumed on discharge. You will need CMP in a week time upon discharge to make sure that your electrolytes remain stable and you are okay to continue with lisinopril. Coordinate with your PCP office for the test and evaluation. Please make sure that you are able to get your medications today by calling your pharmacy before you leave the hospital so that your treatment continuity is not broken. Home Health Attestation I certify that this patient is under my care and that I, or a physicians personal care assistant working with me, had a face to-face encounter that meets the home health [id number] encounter requirements with this patient. The encounter with the patient was in whole, or in part, for the following medical condition, which is the primary reason for home health care (list medical condition): I certify that, based on my findings, the following services are medically necessary home health services: My clinical findings support the need for the above services because: Further, I certify that my clinical findings support that this patient is homebound (i.e. absences from home require considerable and taxing effort and are for medical reasons or hindu services or infrequently or of short duration when for other reasons) because: Certification for Home Health Services: Based on the above findings, I certify that this patient is confined to the home and needs intermittent prison care, physical therapy and/or speech therapy or continues to need occupational therapy. The patient is under my care, and I have initiated the establishment of the plan of care. This patient will be followed by a physician who will periodically review the plan of care. Total Time Total Time Spent Total Time Spent (In Minutes): 45 Discharge Plan Discharge Items Patient Disposition: Home - Self-Care Reason For Visit: ANEMIA, HEME + STOOLS Discharge Diagnosis: Acute blood loss anemia Acute upper GI bleeding Duodenal ulcer Activity: Resume your previous activity Non-emergency contact: Primary Care Provider Call non-emergency contact if: you have any medication questions, your symptoms worsen and your temperature is above 101 Follow-up/Referrals: Keisha Aleman MD [Physician] - 08/10/23 (You will receive information regarding you EGD from the [facility] GI office.) Saw Campbell DO [Primary Care Provider] - 05/01/23 10:00 am Diet: Carb Consistent or DM2 and Heart Healthy Addtl Attending Provider Instructions: Follow-up with your primary care physician within a week time and likely you will need labs CBC/CMP/magnesium/phosphorus. Hold your Plavix for next 2 days and then you can resume it. Hold your aspirin for next 4 weeks, consider visiting with cardiology prior to resuming/need for aspirin. Avoid NSAIDs in the future. GI evaluated you, you underwent EGD scope and were found to have duodenal ulcer, likely NSAID induced. Continue with Protonix 40 mg twice daily for 6 weeks followed by daily. Continue with sucralfate 1 g 4 times daily for 4 weeks. Take iron supplement for 3 months. You will need repeat endoscopy in 3 months, coordinate with the GI office. Follow-up with cardiology in 2 to 4 weeks upon discharge. Follow-up with your GI doctor in 1 to 2 months upon discharge. Your potassium level started to drop towards low normal while in hospital, your lisinopril will be resumed on discharge. You will need CMP in a week time upon discharge to make sure that your electrolytes remain stable and you are okay to continue with lisinopril. Coordinate with your PCP office for the test and evaluation. Please make sure that you are able to get your medications today by calling your pharmacy before you leave the hospital so that your treatment continuity is not broken. Pending Studies at Discharge: Yes Stand-Alone Forms: My RESAAS, Smoking Cessation Medications and DC Order Prescriptions: New ferrous sulfate 325 mg (65 mg iron) Tablet,Delayed Release (Dr/Ec) 325 mg PO QAM Qty: 30 0RF pantoprazole 40 mg Tablet,Delayed Release (Dr/Ec) 40 mg PO UD Qty: 90 0RF Rx Instructions: 1 tab twice a day for 6 weeks then 1 tab once daily sucralfate 100 mg/mL Suspension 1 g PO QID 28 Days Qty: 1000 0RF Continued metformin 1,000 mg tablet 1,000 mg PO BID Qty: 180 3RF ondansetron 4 mg tablet,disintegrating 4 mg PO Q6H PRN (Reason: nausea and vomiting) Qty: 10 0RF allopurinol 100 mg tablet 100 mg PO HS atorvastatin 80 mg tablet 80 mg PO HS insulin glargine 100 unit/mL solution 70 unit subcut DAILY metoprolol succinate 100 mg tablet extended release 24 hr 100 mg PO QAM polyethylene glycol 3350 [Miralax] 17 gram Powder In Packet 17 g PO DAILY PRN (Reason: constipation) Qty: 14 0RF docusate sodium [Colace] 100 mg capsule 100 mg PO BID PRN (Reason: constipation) Qty: 30 0RF lisinopril 20 mg tablet 20 mg PO DAILY Qty: 1 0RF Rx Instructions: per pt they are changing him to 10 mg tramadol 50 mg tablet 50 - 100 mg PO Q6H PRN (Reason: Pain) insulin glargine [Lantus Solostar U-100 Insulin] 100 unit/mL (3 mL) insulin pen 10 unit SUBCUT HS PRN (Reason: Hyperglycemia) amlodipine 5 mg tablet 5 mg PO DAILY Held clopidogrel 75 mg tablet 75 mg PO QAM Qty: 30 Hold Instructions: Resume on 04/28/23. Discontinued aspirin 81 mg tablet,delayed release (DR/EC) 81 mg PO QPM Discharge Orders: Discharge Order (Routine); Ordered 04/25/23 Ordered By: Charlie Rollins Admission Data Admit Date/Time: 04/21/23 13:08 Attending Provider: Charlie Rollins Admit Provider: Maria Alejandra Gregg Primary Care Provider: Saw Campbell Other Providers: Maria Alejandra Gregg ; Gabino Hernandez
--- NOTE | 2023-05-01 06:50 | Coding Query ---
CODING QUERY To promote full compliance with coding requirements relating to patient care, provider participation is requested in all cases of home care assistant uncertainty. Please assist us with the question(s) below: Coding Question(s): Pt admitted for GI bleed. EGD revealed duodenal ulcer . Pt on anticoagulant therapy. Please document, if known or suspected, the etiology of the GI bleed. Thanks for your help! Braulio Vargas [facility] Physician's Response(s): UGI bleed likely from Duodenal ulcer Principal Diagnosis: "that condition established after study, to be chiefly responsible for occasioning the admission of the patient to the hospital for care." Co-Existing Principal Diagnosis: "when two or more diagnoses equally meet the criteria for principal diagnosis as determined by the circumstances of admission, diagnostic work up, and/or therapy provided, and the Alphabetic Index, Tabular List, or another coding guideline does not provide sequencing direction, any one of the diagnoses may be sequenced first." "When the physician has documented what appears to be a current diagnosis in the body of the record, but has not included the diagnosis in the final diagnostic statement, the physician should be asked whether the diagnosis should be added." (Source Coding Clinic 2 QTR90. p3-4) MONCHOD
== END 2023-04-25 13:23 | disposition home or self-care (01) | DRG 378 ==
LOC: ED 09:37 → EDINP 13:08 → SUATTDRO 13:08 → 2E 15:55

== ENCOUNTER 2023-04-29 09:21 | Observation (INO) ==
[2023-04-29] MEDS ORDERED: PANTOprazole 80 MG in DEXTROSE 5% 100 ML IV STA (09:47)
[2023-04-29] MEDS ORDERED: SODIUM CHLORIDE 0.9% 1000ML 1,000 ML IV SCH (10:00)
[2023-04-29 10:07] LABS: iSTAT Creatinine 1.8 mg/dl (0.6-1.3); iSTAT Hemoglobin 10.2 g/dl (14.0-18.0); iSTAT Ionized Calcium 1.19 mmol/l (1.12-1.32); iSTAT Potassium 4.4 mmol/L (3.3-5.0)
[2023-04-29 10:16] LABS: Basophils # (auto) 0.02 K/uL (0-0.2); Basophils % (auto) 0.3 %; Eosinophils # (auto) 0.04 K/uL (0-0.50); Eosinophils % (auto) 0.7 %; Hematocrit (blood only) 30.4 % (42.0-52.0); Hemoglobin 9.8 g/dl (14.0-18.0); Immature Granulocytes # (auto) 0.03 K/uL (0.01-0.20); Immature Granulocytes % (auto) 0.5 %; Lymphocytes # (auto) 0.78 K/uL (1.2-3.4); Lymphocytes % (auto) 13.4 %; Mean Corpuscular Hemoglobin 30.3 pg (25.0-34.0); Mean Corpuscular Hgb Conc 32.2 g/dL (32.0-36.0); Mean Corpuscular Volume 94.1 fL (80.0-100.0); Mean Platelet Volume 9.8 fL (9.4-12.4); Monocytes % (auto) 6.9 %; Neutrophils # (auto) 4.54 K/uL (1.40-6.50); Neutrophils % (auto) 78.2 %; Platelet Count 241 K/uL (130-400); RDW Coefficient of Variation 17.2 % (11.5-14.5); RDW Standard Deviation 56.3 fL (36.4-46.3); Red Blood Count 3.23 M/uL (4.70-6.10); White Blood Count 5.81 K/ul (4.8-10.8)
[2023-04-29 10:32] LABS: Albumin Globulin Ratio 1.2 (0.9-2); Albumin Level 3.8 gm/dl (3.4-5.0); BUN Creatinine Ratio 11.4 (10-20); Bilirubin,Total 0.6 mg/dl (0.2-1.0); Creatinine Clr Calc Pharmacy 43.6 ml/min; Est GFR (Non-African American) 40.6 ml/min; Globulin 3.1 gm/dl (2.5-4.0); Potassium 4.4 mmol/L (3.5-5.1); Total Protein 6.9 gm/dl (6.0-8.3)
--- NOTE | 2023-04-29 10:32 | Emergency Department Note ---
Impression & Plan Dizziness, Heme positive stool ED Provider Note Provider: Vince Sims MD DATE OF SERVICE: 04/29/2023 CHIEF COMPLAINT: Black stools, dizziness HISTORY OF PRESENT ILLNESS: Patient is a 72-year-old gentleman history of diabetes, hypertension, CAD with stents, recent right shoulder surgery and admission for dehydration as well as GI bleed with ulcer over the past several weeks presenting here today stating over the last year to use notes worsening fatigue and weakness. States he is noted some slight black stools with fairly black this morning without red blood. Denies any abdominal pain or nausea. States he is feeling a bit dizzy and fatigued. Denies shortness of breath. Denies chest pain. No trauma or syncope reported. Patient denies new numbness or tingling. PAST MEDICAL HISTORY: As noted above MEDICATIONS: Reviewed home medications restarted Plavix yesterday SOCIAL HISTORY: PHYSICAL EXAM: GENERAL: alert and oriented in no acute distress on stretcher Head: normocephalic and atraumatic EYES: No injection, discharge or icterus. NECK: Trachea midline. Supple. ENT: Mucous membranes pink and moist. LUNGS: Airway patent. No retractions. Breath sounds clear HEART: Regular rate and rhythm. No chest wall tenderness ABDOMEN: Soft and non-tender, without guarding or rebound. With nurse music pastor present some Hemoccult positive brown stool noted. Flecks of blood seem to be present without clear hemorrhoid. SKIN: Acyanotic, warm, dry, without rashes EXTREMITIES: Without swelling, tenderness or deformity NEUROLOGICAL: No focal deficits. No aphasia. No facial droop or slurred speech. Normal strength and tone in the extremities. Sensation to gross touch normal. Ambulatory. EK bpm normal sinus rhythm. No PVC or PAC. No acute ST segment elevation or depression with a QTc of 425 CONTINUOUS CARDIAC MONITORING: was ordered and showed a heart rate of 60s-70s bpm in normal sinus rhythm Patient's laboratory studies and imaging reviewed. Differential includes Diverticulosis, AVM, coagulopathy, colitis, inflammatory bowel disease, malignancy, Monik-Castillo tear, esophagitis, peptic ulcer disease, variceal bleed, gastritis, epistaxis, fissure, hemorrhoids, as well as other pathologies. IMPRESSION/MEDICAL DECISION MAKING: Patient with some increased dizziness. Reports some black tarry stools. Did recently restart Plavix and had a recent ulcer with GI bleed. Seen here recently and reviewed recent records and EGD here. States compliance with home Protonix. Denies use of alcohol recently. Given additional bolus of Protonix here and some IV fluids initially hypotensive in triage. Resolved by the time of evaluation in the room. Not tachycardic but is on metoprolol. No significant abdominal pain and benign abdomen. No significant cytosis. Hemoglobin here returns at 9.8 actually improving. Platelet count is normal. Denies chest pain but EKG and troponin completed. Denies any other infectious symptoms and afebrile here. Patient is appear meningitic. He does not appear to have any focal neurological deficits that are new and I doubt this represents CVA or stroke. Creatinine 1.6 not far off his baseline recently around 1.4-1.6. No troponin elevation today. Much improved from prior as recently. No evidence of transaminitis or pancreatitis. Very slight hyponatremia 132 again not far off recent baselines around 136. Discussed with patient and findings. His symptoms are given his recent gastric ulcer that may have just started having some repeat bleeding but again no evidence of acute anemia at this point. Given some fluid hydration here. States he is feeling a bit better was ambulatory the bathroom without issue. Symptoms have been developing again over the last day or 2. Rectal exam completed with nurse music pastor Hemoccult positive. BUN not significantly elevated and lower suspicion for severe upper abdominal bleed given the blood work here. Discussed with him and his family at bedside. In shared decision-making the patient is concerned regarding his dizziness symptoms. Again low suspicion for CVA we will complete a CT of the head this report reviewed and reassuring. Wishes for further observation here. DIAGNOSIS: Dizziness, Hemoccult positive stool DISPOSITION: Hospitalist will evaluate Patient was agreeable with this plan. Past Med/Surg History Medical History (Updated 04/29/23 @ 13:21 by Vince Sims M.D.) Aortic stenosis moderate on 03/2023 echo Carotid stenosis < 50% stenosis ICAs bilat 12/2021 doppler Coronary artery disease s/p 4 stents, CABG x 3 in 2015, most recent stent in 2017 Encounter for pre-operative examination Gout Hearing deficit Herniation of cervical intervertebral disc History of blood transfusion 2016 with CABG History of COVID-19 09/2020--mild symptoms, denies hospitalization, no symptoms now Hypertension controlled, stable per pt Insulin dependent type 2 diabetes mellitus Myocardial Infarction per Dr. Eisenberg's note recurrent NSTEMI: 07/2016 and in 2017--heart caths with stents placed--had CABG 07/2016 @ [facility] [place] follows with Dr. Eisenberg On anticoagulant therapy plavix daily Seizure 1 yr ago, in setting of hypoglycemia, no additional seizure activity Surgical History History of cardiac cath multiple in 2015 with last 11/2016 @ [facility]--x4 stents total placed History of colonoscopy History of reverse total replacement of right shoulder joint History of tooth extraction History of wisdom tooth extraction S/P coronary artery bypass graft x 3 07/2016 @ [facility] [place] S/P epidural steroid injection Family History Father Myocardial infarction Other No family history of adverse response to anesthesia Social History Smoking Status: Former smoker Age Started Using Tobacco: 60; Age Quit Using Tobacco: 65; Second Hand Exposure: No; Do You Dip or Chew Tobacco: No; Hx Alcohol Use: No Hx Substance Use: No Preferred Language: Faroese Communication Ability: Effective Design Consultant Required: No Beliefs That Will Affect Care: Sikh marital status: Current Living Situation: Spouse current occupational status: retired Feels Safe at Home: Yes Assistive Devices: None Allergies Allergies Allergy/AdvReac Type Severity Reaction Status Date / Time Opioids - Morphine Analogues AdvReac Mild Dizziness Unverified 04/29/23 11:27 and feeling sick Home Meds Home Medications Medication Instructions Recorded Confirmed allopurinol 100 mg tablet 100 mg PO HS 05/08/19 04/29/23 atorvastatin 80 mg tablet 80 mg PO HS 05/08/19 04/29/23 clopidogrel 75 mg tablet 75 mg PO QAM #30 tabs 05/08/19 04/29/23 insulin glargine 100 unit/mL 70 unit subcut QAM 10/27/22 04/29/23 subcutaneous solution metoprolol succinate 100 mg 100 mg PO QAM 03/17/23 04/29/23 tablet,extended release 24 hr amlodipine 5 mg tablet 5 mg PO DAILY 04/21/23 04/29/23 insulin glargine 100 unit/mL (3 10 unit subcut HS PRN Hyperglycemia 04/21/23 04/29/23 mL) subcutaneous pen (Lantus Solostar U-100 Insulin) tramadol 50 mg tablet 50 - 100 mg PO Q6H PRN Pain 04/21/23 04/29/23 pantoprazole 40 mg tablet,delayed 40 mg PO BID 04/29/23 04/29/23 release Previous Rx's Medication Instructions Recorded metformin 1,000 mg tablet 1,000 mg PO BID #180 tabs 08/16/19 docusate sodium 100 mg capsule 100 mg PO BID PRN constipation #30 04/16/23 (Colace) caps lisinopril 20 mg tablet 20 mg PO DAILY #1 tab 04/16/23 polyethylene glycol 3350 17 gram 17 g PO DAILY PRN constipation #14 04/16/23 oral powder packet (Miralax) ea ondansetron 4 mg disintegrating 4 mg PO Q6H PRN nausea and 04/20/23 tablet vomiting #10 tabs ferrous sulfate 325 mg (65 mg 325 mg PO QAM #30 tabs 04/25/23 iron) tablet,delayed release sucralfate 100 mg/mL oral 1 g (10 mL) PO QID 4 weeks #1,000 04/25/23 suspension mL Results & Data (ED) Vital Signs Vital Signs - 24 hr 04/29/23 09:34 04/29/23 10:01 04/29/23 10:34 Temperature 36.6 C Temperature Source Skin Pulse Rate 72 76 66 Respiratory Rate 20 Respiratory Effort / Characteristics Non-Labored Spontaneous Respiratory Depth Normal Respiratory Pattern Regular Blood Pressure 95/60 L Blood Pressure Mean 71 Pulse Oximetry 96 100 Oxygen Delivery Method Room Air Room Air Sepsis Recent Fever Within 48 Hours No Sepsis New/Unexplained Change in Mental Status N/A Sepsis Action Taken by Nursing No Action Required Laboratory Data 04/29/23 09:48 04/29/23 09:48 Lab Results 04/29/23 04/29/23 04/29/23 Range/Units 09:48 09:48 09:48 WBC 5.81 (4.8-10.8) K/ul RBC 3.23 L (4.70-6.10) M/uL Hgb 9.8 L (14.0-18.0) g/dl POC Hgb (14.0-18.0) g/dl Hct 30.4 L (42.0-52.0) % POC Hct (42-52) % MCV 94.1 (80.0-100.0) fL MCH 30.3 (25.0-34.0) pg MCHC 32.2 (32.0-36.0) g/dL RDW Std Deviation 56.3 H (36.4-46.3) fL RDW Coeff of Ernesto 17.2 H (11.5-14.5) % Plt Count 241 (130-400) K/uL MPV 9.8 (9.4-12.4) fL Immature Gran % (Auto) 0.5 % Neut % (Auto) 78.2 % Lymph % (Auto) 13.4 % [place] % (Auto) 6.9 % Eos % (Auto) 0.7 % Baso % (Auto) 0.3 % Neut # (Auto) 4.54 (1.40-6.50) K/uL Lymph # (Auto) 0.78 L (1.2-3.4) K/uL [place] # (Auto) 0.40 (0.11-0.59) K/uL Eos # (Auto) 0.04 (0-0.50) K/uL Baso # (Auto) 0.02 (0-0.2) K/uL Immature Gran # (Auto) 0.03 (0.01-0.20) K/uL PT 10.6 (9.0-12.0) Seconds INR 1.0 (0.9-1.1) APTT 26.5 (21.0-31.0) Seconds PTT Ratio 0.9 POC Sodium (135-144) mmol/L Sodium 132 L (136-145) mmol/L POC Potassium (3.3-5.0) mmol/L Potassium 4.4 (3.5-5.1) mmol/L POC Chloride (101-112) mmol/L Chloride 100 (98-107) mmol/L Carbon Dioxide 24 (21-32) mmol/L POC Total CO2 (24-31) mmol/L Anion Gap 8 (3-11) POC Anion Gap (16-25) mmol/L POC BUN (7-18) mg/dl BUN 19 (6-23) mg/dl Creatinine 1.66 H (0.6-1.4) mg/dl POC Creatinine (0.6-1.3) mg/dl Est Cr Clr Drug Dosing 43.6 ml/min Est GFR ( Amer) 47.0 ml/min Est GFR (Non-Af Amer) 40.6 ml/min BUN/Creatinine Ratio 11.4 (10-20) Glucose 195 H (70-99(Fasting)) mg/dl POC Glucose (other) (70-99) mg/dl Calcium 9.0 (8.6-10.3) mg/dl POC Ioniz Calcium Romeo (1.12-1.32) mmol/l Total Bilirubin 0.6 (0.2-1.0) mg/dl AST 15 (13-39) U/L ALT 6 L (7-52) U/L Alkaline Phosphatase 73 (34-104) U/L Troponin I High Sens 16.8 (0-20) pg/ml Total Protein 6.9 (6.0-8.3) gm/dl Albumin 3.8 (3.4-5.0) gm/dl Globulin 3.1 (2.5-4.0) gm/dl Albumin/Globulin Ratio 1.2 (0.9-2) Lipase 49 (11-82) U/L Blood Type Antibody Screen 04/29/23 04/29/23 Range/Units 09:55 09:57 WBC (4.8-10.8) K/ul RBC (4.70-6.10) M/uL Hgb (14.0-18.0) g/dl POC Hgb 10.2 L (14.0-18.0) g/dl Hct (42.0-52.0) % POC Hct 30 L (42-52) % MCV (80.0-100.0) fL MCH (25.0-34.0) pg MCHC (32.0-36.0) g/dL RDW Std Deviation (36.4-46.3) fL RDW Coeff of Ernesto (11.5-14.5) % Plt Count (130-400) K/uL MPV (9.4-12.4) fL Immature Gran % (Auto) % Neut % (Auto) % Lymph % (Auto) % [place] % (Auto) % Eos % (Auto) % Baso % (Auto) % Neut # (Auto) (1.40-6.50) K/uL Lymph # (Auto) (1.2-3.4) K/uL [place] # (Auto) (0.11-0.59) K/uL Eos # (Auto) (0-0.50) K/uL Baso # (Auto) (0-0.2) K/uL Immature Gran # (Auto) (0.01-0.20) K/uL PT (9.0-12.0) Seconds INR (0.9-1.1) APTT (21.0-31.0) Seconds PTT Ratio POC Sodium 133 L (135-144) mmol/L Sodium (136-145) mmol/L POC Potassium 4.4 (3.3-5.0) mmol/L Potassium (3.5-5.1) mmol/L POC Chloride 99 L (101-112) mmol/L Chloride (98-107) mmol/L Carbon Dioxide (21-32) mmol/L POC Total CO2 23 L (24-31) mmol/L Anion Gap (3-11) POC Anion Gap 16.0 (16-25) mmol/L POC BUN 18 (7-18) mg/dl BUN (6-23) mg/dl Creatinine (0.6-1.4) mg/dl POC Creatinine 1.8 H (0.6-1.3) mg/dl Est Cr Clr Drug Dosing ml/min Est GFR ( Amer) ml/min Est GFR (Non-Af Amer) ml/min BUN/Creatinine Ratio (10-20) Glucose (70-99(Fasting)) mg/dl POC Glucose (other) 189 H (70-99) mg/dl Calcium (8.6-10.3) mg/dl POC Ioniz Calcium Romeo 1.19 (1.12-1.32) mmol/l Total Bilirubin (0.2-1.0) mg/dl AST (13-39) U/L ALT (7-52) U/L Alkaline Phosphatase (34-104) U/L Troponin I High Sens (0-20) pg/ml Total Protein (6.0-8.3) gm/dl Albumin (3.4-5.0) gm/dl Globulin (2.5-4.0) gm/dl Albumin/Globulin Ratio (0.9-2) Lipase (11-82) U/L Blood Type A Positive Antibody Screen NEGATIVE Administered Medications Discontinued Medications Sodium Chloride (Nss 1000ml) 1,000 mls @ 999 mls/hr IV .Q1H1M CYNDY Stop: 04/29/23 11:00 Last Infusion: 04/29/23 10:40 Dose: 0 mls/hr Documented By: Admin: 04/29/23 09:58 Dose: 999 mls/hr Documented By: JIMMIE Pantoprazole Sodium 80 mg/ (Dextrose) 120 mls @ 480 mls/hr IV ONE STA Stop: 04/29/23 10:01 Last Infusion: 04/29/23 10:40 Dose: 0 mls/hr Documented By: Admin: 04/29/23 10:22 Dose: 480 mls/hr Documented By: NESHA Imaging Data Radiologist's Impression: Head CT 04/29/23 11:57 CT SCAN OF THE BRAIN WITHOUT IV CONTRAST CLINICAL HISTORY: Dizziness. COMPARISON STUDY: CT of the brain dated 08/22/2017. TECHNIQUE: Unenhanced axial CT scan of the brain is performed from the vertex to the skull base. A dose lowering technique was utilized adhering to the principles of ALARA. CT DOSE: 625.80 mGy.cm FINDINGS: Brain parenchyma: There is age-related involutional change noting mild subcortical and periventricular microangiopathic disease. There is no hemorrhage, mass effect, or evidence of acute territorial ischemia by CT criteria. Valle-white matter differentiation is preserved. No extra-axial fluid collection is seen. Ventricles, sulci, cisterns: Prominent secondary to involutional change. Intracranial vasculature: There is atherosclerotic calcification of the cavernous carotid and vertebral arteries. Calvarium: Unremarkable. Sinuses and mastoids: The visualized paranasal sinuses are clear. The mastoid air cells are well pneumatized. Orbits: The bony orbits are grossly intact. IMPRESSION: There is no hemorrhage, mass effect, or evidence of acute territorial ischemia by CT criteria. ACT 112: Negative or not required by law. Electronically signed by: Fam Caberra M.D. 04/29/2023 12:36 PM Discharge Plan Visit Data Chief Complaint: Dizziness Stated Complaint: LIGHT HEADED, STOOL BLACK, DIZZINESS ED Provider: Vince Sims Discharge Problem: Dizziness, Heme positive stool Patient Disposition: Being Evaluated by Hospitalist Forms Stand Alone Forms: My [facility] Prescriptions Prescriptions: No Action metformin 1,000 mg tablet 1,000 mg PO BID Qty: 180 3RF ondansetron 4 mg tablet,disintegrating 4 mg PO Q6H PRN (Reason: nausea and vomiting) Qty: 10 0RF allopurinol 100 mg tablet 100 mg PO HS atorvastatin 80 mg tablet 80 mg PO HS clopidogrel 75 mg tablet 75 mg PO QAM Qty: 30 Hold Instructions: Resume on 04/28/23. insulin glargine 100 unit/mL solution 70 unit subcut QAM metoprolol succinate 100 mg tablet extended release 24 hr 100 mg PO QAM polyethylene glycol 3350 [Miralax] 17 gram Powder In Packet 17 g PO DAILY PRN (Reason: constipation) Qty: 14 0RF docusate sodium [Colace] 100 mg capsule 100 mg PO BID PRN (Reason: constipation) Qty: 30 0RF lisinopril 20 mg tablet 20 mg PO DAILY Qty: 1 0RF Rx Instructions: per pt they are changing him to 10 mg tramadol 50 mg tablet 50 - 100 mg PO Q6H PRN (Reason: Pain) insulin glargine [Lantus Solostar U-100 Insulin] 100 unit/mL (3 mL) insulin pen 10 unit SUBCUT HS PRN (Reason: Hyperglycemia) amlodipine 5 mg tablet 5 mg PO DAILY ferrous sulfate 325 mg (65 mg iron) Tablet,Delayed Release (Dr/Ec) 325 mg PO QAM Qty: 30 0RF sucralfate 100 mg/mL Suspension 1 g PO QID 28 Days Qty: 1000 0RF pantoprazole 40 mg tablet,delayed release (DR/EC) 40 mg PO BID Referrals Referrals: Saw Campbell DO [Primary Care Provider] -
[2023-04-29 10:40] LABS: Troponin I High Sensitivity 16.8 pg/ml (0-20)
[2023-04-29 10:49] LABS: Partial Thromboplastin Ratio 0.9; Partial Thromboplastin Time 26.5 Seconds (21.0-31.0); Prothrombin Time 10.6 Seconds (9.0-12.0)
--- NOTE | 2023-04-29 12:39 | CT Scan Report ---
CT SCAN OF THE BRAIN WITHOUT IV CONTRAST CLINICAL HISTORY: Dizziness. COMPARISON STUDY: CT of the brain dated 08/22/2017. TECHNIQUE: Unenhanced axial CT scan of the brain is performed from the vertex to the skull base. A do se lowering technique was utilized adhering to the principles of ALARA. CT DOSE: 625.80 mGy.cm FINDINGS: Brain parenchyma: There is age-related involutional change noting mild subcortical and periventricula r microangiopathic disease. There is no hemorrhage, mass effect, or evidence of acute territorial isc hemia by CT criteria. Valle-white matter differentiation is preserved. No extra-axial fluid collection is seen. Ventricles, sulci, cisterns: Prominent secondary to involutional change. Intracranial vasculature: There is atherosclerotic calcification of the cavernous carotid and vertebr al arteries. Calvarium: Unremarkable. Sinuses and mastoids: The visualized paranasal sinuses are clear. The mastoid air cells are well pneu matized. Orbits: The bony orbits are grossly intact. IMPRESSION: There is no hemorrhage, mass effect, or evidence of acute territorial ischemia by CT duy hu. ACT 112: Negative or not required by law. Electronically signed by: Fam Cabrera M.D. 04/29/2023 12:36 PM
--- NOTE | 2023-04-29 13:56 | History & Physical Report ---
Date of Service April 29, 2023 Assessment & Plan (1) Hypotension: Plan: Admit to [facility] with telemetry Patient presenting from home with reports of lightheadedness and dizziness. Recently admitted to [facility] 04/21 through 04/25 for anemia due to acute upper GI bleeding due to duodenal ulcer in the setting of DAPT. Plavix resumed 2 days ago, aspirin remains on hold. On presentation, BP 95/60, improved with IVF Hgb 9.8, improved from 8.6 on discharge. Per ED, stools are heme positive however patient is on iron replacement. Doubt active or recurring upper GI bleeding. Hypotension likely secondary to antihypertensives and anemia Hold lisinopril and amlodipine, monitor orthostatic BPs PT/OT (2) History of duodenal ulcer: Plan: EGD on 04/24 showed duodenal ulcer Continue Protonix 40 mg twice daily, sucralfate 1 g 4 times daily, iron replacement No NSAIDs Hgb 9.8, improved from 8.6 on 04/25 Continue to monitor H&H (3) CKD (chronic kidney disease), stage III: Plan: Baseline creatinine mid - high 1s Creatinine 1.6 today Continue monitor renal functions (4) Insulin dependent type 2 diabetes mellitus: Plan: Recent Hgb A1c 7.8 Home metformin, utilize Lantus and NovoLog per protocol while hospitalized (5) Coronary artery disease: Plan: Appears stable, no reports of chest pain Continue beta-ramesh, Plavix, statin. ASA remains on hold due to recent duodenal ulcer. (6) History of reverse total replacement of right shoulder joint: Plan: S/p right TSA on 04/[address] Hamilton No acute issues, healing well Follow-up with Ortho as indicated DVT PROPHYLAXIS SCDs due to recent acute upper GI bleeding Patient seen in collaboration with Dr. Sims I spent a total of 75 minutes coordinating, documenting, and providing care for this patient excluding time spent in the performance of separately billed services. This included personally reviewing all current laboratories and imaging studies, medication reconciliation, outpatient chart review, and discussion with specialists. History of Present Illness Chief Complaint: Lightheadedness, Dizziness Primary Care Provider: Saw Campbell DO 72-year-old male with PMH CAD, IDDM, aortic stenosis, CKD, HTN, and other problems to below who presents to the ED for evaluation of lightheadedness and dizziness. History obtained from the patient as well as review of recent inpatient records. Patient with 3 admissions recently, 04/06/2023 through 04/07/2023 for elective right TSA, 04/14/2023 through 04/16/2023 for RADU on CKD, 04/21/2023 through 04/25/2023 for anemia due to acute upper GI bleeding due to duodenal ulcer. Patient previously on DAPT due to history of CAD. Patient's aspirin remains on hold, Plavix was resumed 2 days ago. At discharge, patient w as also started on Protonix 40 mg twice daily, sucralfate 1 g 4 times a day, and iron supplement. Patient reports initially feeling well since arriving home. A few days ago, he noted that he was lightheaded and dizzy with standing. He also reports associated nausea. No vomiting or abdominal pain. Patient reports stools are loose at baseline which is unchanged. Reports that stools remain black. No chest pain or shortness of breath. Denies syncopal event. No fevers or chills. Denies urinary symptoms. BP on arrival 95/60, improved with IVF. Hgb stable 9.8 (improved from 8.6 at discharge). Patient was also given a dose of IV Protonix. Allergies Allergy/AdvReac Type Severity Reaction Status Date / Time Opioids - Morphine Analogues AdvReac Mild Dizziness Unverified 04/29/23 11:27 and feeling sick Home Medications Medication Instructions Recorded Confirmed Type allopurinol 100 mg tablet 100 mg PO HS 05/08/19 04/29/23 History atorvastatin 80 mg tablet 80 mg PO HS 05/08/19 04/29/23 History clopidogrel 75 mg tablet 75 mg PO QAM #30 tabs 05/08/19 04/29/23 History metformin 1,000 mg tablet 1,000 mg PO BID #180 tabs 08/16/19 04/29/23 Rx insulin glargine 100 unit/mL 70 unit subcut QAM 10/27/22 04/29/23 History subcutaneous solution metoprolol succinate 100 mg 100 mg PO QAM 03/17/23 04/29/23 History tablet,extended release 24 hr docusate sodium 100 mg capsule 100 mg PO BID PRN constipation #30 04/16/23 04/29/23 Rx (Colace) caps lisinopril 20 mg tablet 20 mg PO DAILY #1 tab 04/16/23 04/29/23 Rx polyethylene glycol 3350 17 gram 17 g PO DAILY PRN constipation #14 04/16/23 04/29/23 Rx oral powder packet (Miralax) ea ondansetron 4 mg disintegrating 4 mg PO Q6H PRN nausea and 04/20/23 04/29/23 Rx tablet vomiting #10 tabs amlodipine 5 mg tablet 5 mg PO DAILY 04/21/23 04/29/23 History insulin glargine 100 unit/mL (3 10 unit subcut HS PRN Hyperglycemia 04/21/23 04/29/23 History mL) subcutaneous pen (Lantus Solostar U-100 Insulin) tramadol 50 mg tablet 50 - 100 mg PO Q6H PRN Pain 04/21/23 04/29/23 History ferrous sulfate 325 mg (65 mg 325 mg PO QAM #30 tabs 04/25/23 04/29/23 Rx iron) tablet,delayed release sucralfate 100 mg/mL oral 1 g (10 mL) PO QID 4 weeks #1,000 04/25/23 04/29/23 Rx suspension mL pantoprazole 40 mg tablet,delayed 40 mg PO BID 04/29/23 04/29/23 History release Past Med/Surg History Medical History Aortic stenosis moderate on 03/2023 echo Carotid stenosis < 50% stenosis ICAs bilat 12/2021 doppler Coronary artery disease s/p 4 stents, CABG x 3 in 2015, most recent stent in 2016 Gout Hearing deficit Herniation of cervical intervertebral disc History of blood transfusion 2016 with CABG History of COVID-19 09/2020--mild symptoms, denies hospitalization, no symptoms now History of duodenal ulcer Hypertension controlled, stable per pt Insulin dependent type 2 diabetes mellitus Myocardial Infarction per Dr. Eisenberg's note recurrent NSTEMI: 07/2016 and in 2017--heart caths with stents placed--had CABG 07/2016 @ [facility] follows with Dr. Eisenberg On anticoagulant therapy plavix daily Seizure 1 yr ago, in setting of hypoglycemia, no additional seizure activity Surgical History History of cardiac cath multiple in 2015 with last 11/2016 @ [facility]--x4 stents total placed History of colonoscopy History of reverse total replacement of right shoulder joint History of tooth extraction History of wisdom tooth extraction S/P coronary artery bypass graft x 3 07/2016 @ [facility] S/P epidural steroid injection Family History Father Myocardial infarction Other No family history of adverse response to anesthesia Social History Smoking Status: Former smoker Age Started Using Tobacco: 60; Age Quit Using Tobacco: 65; Second Hand Exposure: No; Do You Dip or Chew Tobacco: No; Tobacco Cessation Education Requested by Patient: No Hx Alcohol Use: Yes Alcohol type: beer Alcohol Intake Frequency: 2-4 x/Month Hx Substance Use: No Preferred Language: Angolan Communication Ability: Effective Tobacco Conditioner Required: No Beliefs That Will Affect Care: None marital status: Current Living Situation: Spouse current occupational status: retired Other Information That Helps Us Care for You: No Feels Safe at Home: Yes Safety Concerns: Feels Safe At This Time Assistive Devices: Brace/Splint/Immobilizer Assistive Devices Comment: Shoulder brace D/T recent Shoulder surgery Review of Systems Review of Systems: ROS per HPI, all other systems reviewed and negative Physical Exam Constitutional: WD/WN, vitals as above Eyes: PERRL, conjunctivae normal, anicteric sclerae ENMT: external ear and nose normal, oropharynx normal Respiratory: normal respiratory effort, lungs clear to auscultation Cardiovascular: Rate/Rhythm: regular rate and regular rhythm Heart Sounds: + murmur (Grade 3/6, systolic) Vessels: normal peripheral pulses Extremities: no edema Gastrointestinal (Abdomen): normal bowel sounds, soft, nontender, no hepatosplenomegaly Musculoskeletal: no cyanosis or clubbing, extremities motor strength 5/5 S/p right shoulder surgery, incision healing well with Steri-Strips intact, no surrounding erythema or drainage noted Skin: no rashes, warm and dry Neurologic: PERRL, EOMI, accommodation nl, no face palsy, no dysarthria Psychiatric: A+Ox3, euthymic affect Results & Data Results & Data Vital Signs (Past 12 Hours) Vital Signs Temp Pulse Resp BP Pulse Ox O2 Del Method 04/29/23 13:46 66 23 138/65 98 04/29/23 11:30 71 23 148/95 H 98 04/29/23 11:00 65 14 138/69 99 04/29/23 10:30 69 23 141/78 H 98 04/29/23 10:01 70 19 120/61 99 04/29/23 10:34 66 100 Room Air 04/29/23 10:01 76 04/29/23 09:34 36.6 C 72 20 95/60 L 96 Room Air Laboratory Results Short CBC 04/29/23 Range/Units 09:48 WBC 5.81 (4.8-10.8) K/ul Hgb 9.8 L (14.0-18.0) g/dl Hct 30.4 L (42.0-52.0) % Plt Count 241 (130-400) K/uL BMP 04/29/23 09:48 Sodium 132 L Potassium 4.4 Chloride 100 Carbon Dioxide 24 BUN 19 Creatinine 1.66 H Glucose 195 H Calcium 9.0 Liver Function 04/29/23 Range/Units 09:48 Total Bilirubin 0.6 (0.2-1.0) mg/dl AST 15 (13-39) U/L ALT 6 L (7-52) U/L Alkaline Phosphatase 73 (34-104) U/L Albumin 3.8 (3.4-5.0) gm/dl Diagnostic Findings Head CT 04/29/23 11:57 CT SCAN OF THE BRAIN WITHOUT IV CONTRAST CLINICAL HISTORY: Dizziness. COMPARISON STUDY: CT of the brain dated 08/22/2017. TECHNIQUE: Unenhanced axial CT scan of the brain is performed from the vertex to the skull base. A dose lowering technique was utilized adhering to the principles of ALARA. CT DOSE: 625.80 mGy.cm FINDINGS: Brain parenchyma: There is age-related involutional change noting mild subcortical and periventricular microangiopathic disease. There is no hemorrhage, mass effect, or evidence of acute territorial ischemia by CT criteria. Valle-white matter differentiation is preserved. No extra-axial fluid collection is seen. Ventricles, sulci, cisterns: Prominent secondary to involutional change. Intracranial vasculature: There is atherosclerotic calcification of the cavernous carotid and vertebral arteries. Calvarium: Unremarkable. Sinuses and mastoids: The visualized paranasal sinuses are clear. The mastoid air cells are well pneumatized. Orbits: The bony orbits are grossly intact. IMPRESSION: There is no hemorrhage, mass effect, or evidence of acute territorial ischemia by CT criteria. ACT 112: Negative or not required by law. Electronically signed by: Fam Cabrera M.D. 04/29/2023 12:36 PM Code Status & VTE Plan Code Status Patient is a full code as per my discussion with him. VTE Prophylaxis Plan VTE Prophylaxis will be ordered: Yes Supervising Physician Co-Signing Physician Notes Pt seen and examined by myself, Samira Sims MD on the day of service. Care was coordinated with STEPHANIE Muro. Please refer to her note for additional information. 72yoM with Hx of previous GI bleed from duodenal ulcer, presenting with persistent dizziness. States the dizziness is mostly when he stands, not with head movements per se. Hgb stable at 9.8, up from 8.6 at the last confinement, hemodynamically stable. Orthostatics, IV fluids, continued telemetry monitoring. Hold home aspirin due to Hx of duodenal ulcer, given stability noted above ok to continue Plavix. Otherwise as above.
[2023-04-29] MEDS ORDERED: PHARMACY GLYCEMIC MGMT CONSULT PRN (15:19)
[2023-04-29] MEDS ORDERED: POLYETHYLENE (MIRALAX) 17 GM PACK PO PRN (15:19)
[2023-04-29] MEDS ORDERED: GLUCOSE 10 TAB/TUBE PO PRN (15:19)
[2023-04-29] MEDS ORDERED: CARBOHYDRATES FOR HYPOGLYCEMIA PO PRN (15:19)
[2023-04-29] MEDS ORDERED: DOCUSATE SODIUM 100 MG CAP PO PRN (15:19)
[2023-04-29] MEDS ORDERED: DEXTROSE 50% 50 ML SYRINGE IV PRN (15:19)
[2023-04-29] MEDS ORDERED: traMADol HCL 50 MG TABLET PO PRN (15:19)
[2023-04-29] MEDS ORDERED: GLUCAGON FOR INJ 1 MG VIAL SQ PRN (15:19)
[2023-04-29] MEDS ORDERED: GLUCOSE 40% GEL 15 GM TUBE PO PRN (15:19)
[2023-04-29] MEDS ORDERED: ACETAMINOPHEN 325 MG TAB PO PRN (15:19)
[2023-04-29] MEDS: INSULIN ASPART PER UNIT CHARGE SC SCH ×2 (18:05→21:17)
[2023-04-29] MEDS: SUCRALFATE 1 GM/10 ML UDC PO SCH ×2 (18:07→20:03)
[2023-04-29] MEDS: PANTOprazole 40 MG TAB PO SCH (20:03)
[2023-04-29] MEDS ORDERED: allopurinoL 100 MG TAB PO SCH (21:00)
[2023-04-29] MEDS ORDERED: ATORVASTATIN 40 MG TAB PO SCH (21:00)
[2023-04-30 06:08] LABS: Hematocrit (blood only) 27.3 % (42.0-52.0); Hemoglobin 8.9 g/dl (14.0-18.0); Mean Corpuscular Hemoglobin 29.9 pg (25.0-34.0); Mean Corpuscular Hgb Conc 32.6 g/dL (32.0-36.0); Mean Corpuscular Volume 91.6 fL (80.0-100.0); Mean Platelet Volume 9.7 fL (9.4-12.4); Platelet Count 211 K/uL (130-400); RDW Coefficient of Variation 16.7 % (11.5-14.5); RDW Standard Deviation 54.1 fL (36.4-46.3); Red Blood Count 2.98 M/uL (4.70-6.10)
[2023-04-30 06:28] LABS: BUN Creatinine Ratio 11.6 (10-20); Calcium 8.5 mg/dl (8.6-10.3); Creatinine Clr Calc Pharmacy 49.2 ml/min; Est GFR (African American) 54.5 ml/min
[2023-04-30] MEDS: PANTOprazole 40 MG TAB PO SCH (08:39)
[2023-04-30] MEDS: SUCRALFATE 1 GM/10 ML UDC PO SCH ×2 (08:40→12:29)
[2023-04-30] MEDS: INSULIN ASPART PER UNIT CHARGE SC SCH ×2 (08:45→12:30)
[2023-04-30] MEDS ORDERED: CLOPIDOGREL BISULFATE 75 MG TAB PO SCH (09:00)
[2023-04-30] MEDS ORDERED: FERROUS SULFATE 325 MG TAB PO SCH (09:00)
[2023-04-30] MEDS ORDERED: METOPROLOL SUCC 50MG EXT REL TAB PO SCH (09:00)
--- NOTE | 2023-04-30 10:33 | Electrocardiogram Report ---
Test Reason : Blood Pressure : / mmHG Vent. Rate : 070 BPM Atrial Rate : 070 BPM P-R Int : 146 ms QRS Dur : 108 ms QT Int : 394 ms P-R-T Axes : 045 019 026 degrees QTc Int : 425 ms Normal sinus rhythm Normal ECG When compared with ECG of 21-APR-2023 15:20, No significant change was found Confirmed by Saw Phillips ([id number]) on 04/30/2023 10:32:42 AM Referred By: REFERRED SELF Confirmed By:Saw Phillips
[2023-04-30] MEDS ORDERED: LANTUS PER UNIT CHARGE SC ONE (11:45)
--- NOTE | 2023-04-30 12:25 | Discharge Summary ---
Date of Service April 30, 2023 Admission HPI Per Admitting Provider 72-year-old male with PMH CAD, IDDM, aortic stenosis, CKD, HTN, and other problems to below who presents to the ED for evaluation of lightheadedness and dizziness. History obtained from the patient as well as review of recent inpatient records. Patient with 3 admissions recently, 04/06/2023 through 04/07/2023 for elective right TSA, 04/14/2023 through 04/16/2023 for RADU on CKD, 04/21/2023 through 04/25/2023 for anemia due to acute upper GI bleeding due to duodenal ulcer. Patient previously on DAPT due to history of CAD. Patient's aspirin remains on hold, Plavix was resumed 2 days ago. At discharge, patient was also started on Protonix 40 mg twice daily, sucralfate 1 g 4 times a day, and iron supplement. Patient reports initially feeling well since arriving home. A few days ago, he noted that he was lightheaded and dizzy with standing. He also reports associated nausea. No vomiting or abdominal pain. Patient reports stools are loose at baseline which is unchanged. Reports that stools remain black. No chest pain or shortness of breath. Denies syncopal event. No fevers or chills. Denies urinary symptoms. BP on arrival 95/60, improved with IVF. Hgb stable 9.8 (improved from 8.6 at discharge). Patient was also given a dose of IV Protonix. Admission Exam Per Admitting Provider Constitutional: WD/WN, vitals as above Eyes: PERRL, conjunctivae normal, anicteric sclerae ENMT: external ear and nose normal, oropharynx normal Respiratory: normal respiratory effort, lungs clear to auscultation Cardiovascular: Rate/Rhythm: regular rate and regular rhythm Heart Sounds: + murmur (Grade 3/6, systolic) Vessels: normal peripheral pulses Extremities: no edema Gastrointestinal (Abdomen): normal bowel sounds, soft, nontender, no he patosplenomegaly Musculoskeletal: no cyanosis or clubbing, extremities motor strength 5/5 S/p right shoulder surgery, incision healing well with Steri-Strips intact, no surrounding erythema or drainage noted Skin: no rashes, warm and dry Neurologic: PERRL, EOMI, accommodation nl, no face palsy, no dysarthria Psychiatric: A+Ox3, euthymic affect Principal Diagnosis Orthostatic hypotension Recent admission for duodenal ulcer, undergoing treatment with Protonix and Carafate and plan for follow-up with GI. Discharge Exam GENERAL: Alert and oriented x3. NAD, on RA. HEENT: No pallor, no icterus. Pupils equal, round and reactive to light. Oral mucosa moist. NECK: No JVD, no neck masses. HEART: S1 and S2 heard. Regular rate and rhythm. + murmur, no gallop. RESPIRATORY SYSTEM: Normal AP diameter. No accessory muscle use. No wheezing, no crackles. ABDOMEN: Soft, bowel sounds present, nontender, no distention. CENTRAL NERVOUS SYSTEM: No facial droop. Speech is clear. Obeys simple commands. Moves extremities. EXTREMITIES: No edema, no erythema seen. S/p right shoulder surgery, incision healing well. Discharge Data Allergies Allergy/AdvReac Type Severity Reaction Status Date / Time Opioids - Morphine Analogues AdvReac Mild Dizziness Unverified 04/29/23 11:27 and feeling sick Consultations 04/29/23 12:49 ED Decision to Admit Stat Ordered Studies 04/29/23 11:57 CT head/brain wo con Stat Hospital Course (1) Hypotension: Plan Patient presented to the ED with complaint of lightheadedness while standing up from lying position for 2 separate occasions prior to arrival. At admission his hemoglobin was stable, slightly better than his recent discharge hemoglobin level. He is found to be orthostatic hypotension positive. Does not appear that he has blood in the stool or worsening black stool. Patient reports compliantly taking his Carafate and Protonix. We will discontinue his amlodipine at discharge due to orthostatic hypotension, patient is aware. Today patient feels better without lightheadedness or dizziness. Patient and his were at bedside, discussed the need for slow change during transition of positions. Patient can use compression stockings. He is to measure his blood pressure twice a day and maintain a log to take to his PCP office for further evaluation of his hypertension management. He is to continue his Carafate and Protonix. Patient feels better and is hemodynamically stable today. He would like to go home. Patient denies any new complaints or concerns or illness. He is being discharged to home with following instruction at the point of discharge: Follow-up with your primary care physician within a week time and likely you will need labs CBC/CMP/magnesium/phosphorus. As discussed at the bedside: Maintain slow transition between changing position -- from lying to sitting and then from sitting to standing position. This helps avoid the lightheadedness and dizziness and avoid fall. You can also use compression stockings to help with orthostatic hypotension. We will change your lisinopril to losartan on discharge, you can take it in the morning. Also take your metoprolol in the morning. We will discontinue your amlodipine. Take your blood pressure measurement twice a day at home and maintain a log to take to your primary care physician so that your blood pressure medications can be reevaluated/adjusted as appropriate. Follow-up with GI recommendations as per your recent discharge instructions. Please make sure that you are able to get your medications today by calling your pharmacy before you leave the hospital so that your treatment continuity is not broken. Home Health Attestation I certify that this patient is under my care and that I, or a physicians operations manager assistant working with me, had a face to-face encounter that meets the home health [id number] encounter requirements with this patient. The encounter with the patient was in whole, or in part, for the following medical condition, which is the primary reason for home health care (list medical condition): I certify that, based on my findings, the following services are medically necessary home health services: My clinical findings support the need for the above services because: Further, I certify that my clinical findings support that this patient is homebound (i.e. absences from home require considerable and taxing effort and are for medical reasons or yazidism services or infrequently or of short duration when for other reasons) because: Certification for Home Health Services: Based on the above findings, I certify that this patient is confined to the home and needs intermittent half-way care, physical therapy and/or speech therapy or continues to need occupational therapy. The patient is under my care, and I have initiated the establishment of the plan of care. This patient will be followed by a physician who will periodically review the plan of care. Total Time Total Time Spent Total Time Spent (In Minutes): 45 Discharge Plan Discharge Items Patient Disposition: Home - Self-Care Reason For Visit: HYPOTENSION Discharge Diagnosis: Orthostatic hypotension Recent admission for duodenal ulcer, undergoing treatment with Protonix and Carafate and plan for follow-up with GI. Activity: As commented below Activity Comment: Slow transition between changing position as discussed at bedside. Non-emergency contact: Primary Care Provider Call non-emergency contact if: you have any medication questions, your symptoms worsen and your temperature is above 101 Follow-up/Referrals: Saw Campbell DO [Primary Care Provider] - Diet: Carb Consistent or DM2 Diet Texture: Easy to Chew Addtl Attending Provider Instructions: Follow-up with your primary care physician within a week time and likely you will need labs CBC/CMP/magnesium/phosphorus. As discussed at the bedside: Maintain slow transition between changing position -- from lying to sitting and then from sitting to standing position. This helps avoid the lightheadedness and dizziness and avoid fall. You can also use compression stockings to help with orthostatic hypotension. We will change your lisinopril to losartan on discharge, you can take it in the morning. Also take your metoprolol in the morning. We will discontinue your amlodipine. Take your blood pressure measurement twice a day at home and maintain a log to take to your primary care physician so that your blood pressure medications can be reevaluated/adjusted as appropriate. Follow-up with GI recommendations as per your recent discharge instructions. Please make sure that you are able to get your medications today by calling your pharmacy before you leave the hospital so that your treatment continuity is not broken. Pending Studies at Discharge: No Stand-Alone Forms: My [facility] [place], Smoking Cessation Medications and DC Order Prescriptions: New losartan 25 mg tablet 25 mg PO DAILY Qty: 30 0RF Continued metformin 1,000 mg tablet 1,000 mg PO BID Qty: 180 3RF ondansetron 4 mg tablet,disintegrating 4 mg PO Q6H PRN (Reason: nausea and vomiting) Qty: 10 0RF allopurinol 100 mg tablet 100 mg PO HS atorvastatin 80 mg tablet 80 mg PO HS clopidogrel 75 mg tablet 75 mg PO QAM Qty: 30 Hold Instructions: Resume on 04/28/23. insulin glargine 100 unit/mL solution 70 unit subcut QAM metoprolol succinate 100 mg tablet extended release 24 hr 100 mg PO QAM polyethylene glycol 3350 [Miralax] 17 gram Powder In Packet 17 g PO DAILY PRN (Reason: constipation) Qty: 14 0RF docusate sodium [Colace] 100 mg capsule 100 mg PO BID PRN (Reason: constipation) Qty: 30 0RF tramadol 50 mg tablet 50 - 100 mg PO Q6H PRN (Reason: Pain) insulin glargine [Lantus Solostar U-100 Insulin] 100 unit/mL (3 mL) insulin pen 10 unit SUBCUT HS PRN (Reason: Hyperglycemia) ferrous sulfate 325 mg (65 mg iron) Tablet,Delayed Release (Dr/Ec) 325 mg PO QAM Qty: 30 0RF sucralfate 100 mg/mL Suspension 1 g PO QID 28 Days Qty: 1000 0RF pantoprazole 40 mg tablet,delayed release (DR/EC) 40 mg PO BID Discontinued lisinopril 20 mg tablet 20 mg PO DAILY Qty: 1 0RF Rx Instructions: per pt they are changing him to 10 mg amlodipine 5 mg tablet 5 mg PO DAILY Discharge Orders: Discharge Order (Routine); Ordered 04/30/23 Ordered By: Charlie Rollins Admission Data Admit Date/Time: 04/29/23 12:54 Attending Provider: Charlie Rollins Admit Provider: Samira Sims Primary Care Provider: Saw Campbell Other Providers: Samira Sims Other Interventions: Discharge Summary Assessment (RN) Last Done: 04/30/23 12:48
== END 2023-04-30 13:53 | disposition home or self-care (01) ==
LOC: ED 09:21 → 2N 09:21 → SUATTDRO 12:54 → 2N 14:02

== ENCOUNTER 2023-05-16 15:43 | Inpatient (IN) ==
--- NOTE | 2023-05-16 15:52 | ED Triage Note ---
Date of Service May 16, 2023 History of Present Illness This patient was briefly evaluated while in triage. An abbreviated physical exam was performed. This patient is a 72-year-old Male who presents to the ED for evaluation of bright red rectal bleeding since this morning. Has had 2 BMs with blood in his stool, in the toilet bowl, and when he wipes. He is on Plavix. No abdominal pain, nausea, vomiting, fevers, chest pain, or SOB. No previous history of lower GI bleeding. However, he was having melena last month and was diagnosed with a bleeding ulcer per patient. His BMs have been normal prior to this morning. Denies any hard or painful BMs. Physical Exam GENERAL: Non-toxic and in no acute distress. HEENT: Pupils equal. No obvious scleral icterus. HEART: Regular rate, known systolic murmur. LUNGS: Clear to auscultation. No accessory muscle use. ABDOMEN: Soft, BS normal. No tenderness to palpation. NEURO: Alert and oriented. No obvious neurological deficits on quick neuro exam. Initial orders for labs and / or imaging were placed and patient was placed in the waiting area until a bed is available. Please see further documentation for the full ED course.
[2023-05-16 17:07] LABS: Albumin Globulin Ratio 1.3 (0.9-2); Albumin Level 3.9 gm/dl (3.4-5.0); BUN Creatinine Ratio 14.1 (10-20); Bilirubin,Total 0.3 mg/dl (0.2-1.0); Calcium 8.6 mg/dl (8.6-10.3); Creatinine Clr Calc Pharmacy 43.8 ml/min; Est GFR (African American) 48.1 ml/min; Est GFR (Non-African American) 41.5 ml/min; Globulin 2.9 gm/dl (2.5-4.0); Total Protein 6.8 gm/dl (6.0-8.3)
[2023-05-16 17:10] LABS: Basophils # (auto) 0.03 K/uL (0-0.2); Basophils % (auto) 0.5 %; Eosinophils # (auto) 0.09 K/uL (0-0.50); Eosinophils % (auto) 1.5 %; Hematocrit (blood only) 31.5 % (42.0-52.0); Immature Granulocytes # (auto) 0.01 K/uL (0.01-0.20); Immature Granulocytes % (auto) 0.2 %; Lymphocytes # (auto) 1.42 K/uL (1.2-3.4); Lymphocytes % (auto) 24.1 %; Mean Corpuscular Hemoglobin 28.7 pg (25.0-34.0); Mean Corpuscular Hgb Conc 31.7 g/dL (32.0-36.0); Mean Corpuscular Volume 90.3 fL (80.0-100.0); Mean Platelet Volume 10.1 fL (9.4-12.4); Monocytes # (auto) 0.49 K/uL (0.11-0.59); Monocytes % (auto) 8.3 %; Neutrophils # (auto) 3.86 K/uL (1.40-6.50); Neutrophils % (auto) 65.4 %; Platelet Count 291 K/uL (130-400); Platelet Estimate Normal (Normal); RDW Coefficient of Variation 15.6 % (11.5-14.5); RDW Standard Deviation 50.6 fL (36.4-46.3); Red Blood Count 3.49 M/uL (4.70-6.10)
[2023-05-16 17:22] LABS: Partial Thromboplastin Ratio 0.9; Partial Thromboplastin Time 26.7 Seconds (21.0-31.0); Prothrombin Time 10.8 Seconds (9.0-12.0)
--- NOTE | 2023-05-16 17:39 | Emergency Department Note ---
History of Present Illness General Chief complaint: Rectal Bleed Stated complaint: BLEEDING RECTUM Time Seen by Provider: 05/16/23 17:38 History of Present Illness This 72-year-old male patient presents to the emergency department with his for evaluation of rectal bleeding that started this morning. He had 2 bowel movements today with bright red blood in the stool, in the toilet bowl, and when he wiped. He denies any hard or painful bowel movements. Has been having normal bowel movements recently. The patient states that he was having melena about 1 month ago and was found to have a gastric ulcer. He has been taking Protonix 40 mg BID and Carafate with good improvement of the gastric ulcer sympt oms. Has not had any of the melena since starting Protonix. He denies any chest pain, shortness of breath, abdominal pain, nausea, vomiting, lightheadedness, dizziness, or other symptoms. No previous history of bright red rectal bleeding. He takes a daily iron supplement currently. He denies any ETOH use. He is on Plavix. Hgb on 07/15/[address] [facility] was 10.7. He was discharged on 04/25/2023 secondary to admission for acute blood loss anemia from a duodenal ulcer seen on EGD on 04/24/2023. He was treated with the Protonix 40 mg twice daily and Carafate 1 g 4 times a day for 4 weeks with an iron supplement for 3 months. He is to have repeat EGD in 3 months. Hemoglobin had dropped to 5.2 at that time. He was then discharged on 04/30/2023 secondary to admission for orthostatic hypotension from his amlodipine which was discontinued prior to discharge. Last colonoscopy was approximately 20 years ago. His father has a history of colon cancer. He had been getting Hemoccults through his PCP that have always been negative per patient. Home Medications Medication Instructions Recorded Confirmed Type allopurinol 100 mg tablet 100 mg PO HS 05/08/19 05/16/23 History atorvastatin 80 mg tablet 80 mg PO HS 05/08/19 05/16/23 History clopidogrel 75 mg tablet 75 mg PO QAM #30 tabs 05/08/19 05/16/23 History metformin 1,000 mg tablet 1,000 mg PO BID #180 tabs 08/16/19 05/16/23 Rx insulin glargine 100 unit/mL 70 unit subcut QAM 10/27/22 05/16/23 History subcutaneous solution metoprolol succinate 100 mg 100 mg PO QAM 03/17/23 05/16/23 History tablet,extended release 24 hr docusate sodium 100 mg capsule 100 mg PO BID PRN constipation #30 04/16/23 05/16/23 Rx (Colace) caps polyethylene glycol 3350 17 gram 17 g PO DAILY PRN constipation #14 04/16/23 05/16/23 Rx oral powder packet (Miralax) ea ondansetron 4 mg disintegrating 4 mg PO Q6H PRN nausea and 04/20/23 05/16/23 Rx tablet vomiting #10 tabs insulin glargine 100 unit/mL (3 10 unit subcut HS PRN Hyperglycemia 04/21/23 05/16/23 History mL) subcutaneous pen (Lantus Solostar U-100 Insulin) tramadol 50 mg tablet 50 - 100 mg PO Q6H PRN Pain 04/21/23 05/16/23 History ferrous sulfate 325 mg (65 mg 325 mg PO QAM #30 tabs 04/25/23 05/16/23 Rx iron) tablet,delayed release sucralfate 100 mg/mL oral 1 g (10 mL) PO QID 4 weeks #1,000 04/25/23 05/16/23 Rx suspension mL pantoprazole 40 mg tablet,delayed 40 mg PO BID 04/29/23 05/16/23 History release losartan 25 mg tablet 25 mg PO DAILY #30 tabs 04/30/23 05/16/23 Rx amlodipine 5 mg tablet 5 mg PO QAM 05/16/23 05/16/23 History nitroglycerin 0.4 mg sublingual 0.4 mg sublingual UD PRN Chest Pain 05/16/23 05/16/23 History tablet triamterene 37.5 1 tab PO QAM 05/16/23 05/16/23 History mg-hydrochlorothiazide 25 mg tablet Allergies Allergy/AdvReac Type Severity Reaction Status Date / Time Opioids - Morphine Analogues AdvReac Mild Dizziness Verified 05/16/23 22:35 and feeling sick Past Med/Surg History Medical History Aortic stenosis moderate on 03/2023 echo Carotid stenosis < 50% stenosis ICAs bilat 12/2021 doppler Coronary artery disease s/p 4 stents, CABG x 3 in 2016, most recent stent in 2017 Gout Hearing deficit Herniation of cervical intervertebral disc History of blood transfusion 2016 with CABG History of COVID-19 09/2020--mild symptoms, denies hospitalization, no symptoms now History of duodenal ulcer Hypertension controlled, stable per pt Insulin dependent type 2 diabetes mellitus Myocardial Infarction per Dr. Eisenberg's note recurrent NSTEMI: 07/2016 and in 2017--heart caths with stents placed--[place] [facility] [place] with [place]. Eisenberg On anticoagulant therapy plavix daily Seizure 1 yr ago, in setting of hypoglycemia, no additional seizure activity Surgical History History of cardiac cath multiple in 2015 with last 11/2016 @ [facility]--x4 stents total placed History of colonoscopy History of reverse total replacement of right shoulder joint History of tooth extraction History of wisdom tooth extraction S/P coronary artery bypass graft x 3 07[place]2016 [place] [facility] [place] S/P epidural steroid injection Family History Father Myocardial infarction Other No family history of adverse response to anesthesia Social History Smoking Status: Never smoker Age Started Using Tobacco: 60; Age Quit Using Tobacco: 65; Second Hand Exposure: No; Do You Dip or Chew Tobacco: No; Hx Alcohol Use: Yes Alcohol type: beer Alcohol Intake Frequency: 2-4 x/Month Hx Substance Use: No Preferred Language: Wolof Communication Ability: Effective Cat Dog Or Other Pet Groomer Required: No Beliefs That Will Affect Care: None marital status: Current Living Situation: Spouse current occupational status: retired Feels Safe at Home: Yes Assistive Devices: Brace/Splint/Immobilizer Review of Systems See HPI for pertinent positives & negatives. Physical Exam Vital Signs Vital Signs - 24 hr 05/16/23 15:49 05/16/23 17:44 05/16/23 18:06 Temperature 36.9 C Temperature Source Temporal Artery Scan Pulse Rate 82 75 Pulse Rate from SpO2 Sensor Respiratory Rate 20 Respiratory Effort / Characteristics Non-Labored Respiratory Depth Normal Blood Pressure 154/86 H Blood Pressure Mean 108 Pulse Oximetry 97 98 Oxygen Delivery Method Room Air Room Air Sepsis Recent Fever Within 48 Hours No Sepsis New/Unexplained Change in Mental Status N/A Sepsis Action Taken by Nursing No Action Required 05/16/23 17:45 05/16/23 18:00 05/16/23 18:12 Temperature Temperature Source Pulse Rate 78 73 76 Pulse Rate from SpO2 Sensor 77 74 Respiratory Rate 13 17 28 H Respiratory Effort / Characteristics Respiratory Depth Blood Pressure Blood Pressure Mean Pulse Oximetry 99 99 Oxygen Delivery Method Room Air Sepsis Recent Fever Within 48 Hours Sepsis New/Unexplained Change in Mental Status Sepsis Action Taken by Nursing 05/16/23 18:12 05/16/23 18:30 05/16/23 18:30 Temperature Temperature Source Pulse Rate 72 Pulse Rate from SpO2 Sensor 72 Respiratory Rate 15 Respiratory Effort / Characteristics Respiratory Depth Blood Pressure 179/86 H 147/78 H Blood Pressure Mean 131 104 Pulse Oximetry 99 Oxygen Delivery Method Room Air Sepsis Recent Fever Within 48 Hours Sepsis New/Unexplained Change in Mental Status Sepsis Action Taken by Nursing 05/16/23 19:31 05/16/23 19:20 05/16/23 19:30 Temperature Temperature Source Pulse Rate 68 71 Pulse Rate from SpO2 Sensor Respiratory Rate Respiratory Effort / Characteristics Respiratory Depth Blood Pressure 172/97 H Blood Pressure Mean 141 Pulse Oximetry Oxygen Delivery Method Sepsis Recent Fever Within 48 Hours Sepsis New/Unexplained Change in Mental Status Sepsis Action Taken by Nursing 05/16/23 19:30 05/16/23 20:00 05/16/23 20:00 Temperature Temperature Source Pulse Rate 69 70 Pulse Rate from SpO2 Sensor 71 71 Respiratory Rate 19 17 Respiratory Effort / Characteristics Respiratory Depth Blood Pressure 175/126 H Blood Pressure Mean 139 Pulse Oximetry 100 100 Oxygen Delivery Method Sepsis Recent Fever Within 48 Hours Sepsis New/Unexplained Change in Mental Status Sepsis Action Taken by Nursing 05/16/23 20:30 05/16/23 20:30 05/16/23 21:00 Temperature Temperature Source Pulse Rate 68 80 Pulse Rate from SpO2 Sensor 68 80 Respiratory Rate 14 16 Respiratory Effort / Characteristics Respiratory Depth Blood Pressure 169/87 H Blood Pressure Mean 128 Pulse Oximetry 100 99 Oxygen Delivery Method Sepsis Recent Fever Within 48 Hours Sepsis New/Unexplained Change in Mental Status Sepsis Action Taken by Nursing 05/16/23 21:01 05/16/23 21:01 05/16/23 21:30 Temperature Temperature Source Pulse Rate 73 Pulse Rate from SpO2 Sensor 74 Respiratory Rate 22 Respiratory Effort / Characteristics Respiratory Depth Blood Pressure 199/105 H 194/90 H Blood Pressure Mean 145 128 Pulse Oximetry 100 Oxygen Delivery Method Sepsis Recent Fever Within 48 Hours Sepsis New/Unexplained Change in Mental Status Sepsis Action Taken by Nursing 05/16/23 21:30 05/16/23 22:00 05/16/23 22:35 Temperature Temperature Source Pulse Rate 72 69 70 Pulse Rate from SpO2 Sensor 72 70 Respiratory Rate 21 18 Respiratory Effort / Characteristics Respiratory Depth Blood Pressure Blood Pressure Mean Pulse Oximetry 99 99 Oxygen Delivery Method Sepsis Recent Fever Within 48 Hours Sepsis New/Unexplained Change in Mental Status Sepsis Action Taken by Nursing 05/16/23 22:00 05/16/23 22:30 05/16/23 22:30 Temperature Temperature Source Pulse Rate 73 Pulse Rate from SpO2 Sensor 70 Respiratory Rate 21 Respiratory Effort / Characteristics Respiratory Depth Blood Pressure 186/88 H 183/90 H Blood Pressure Mean 131 141 Pulse Oximetry 99 Oxygen Delivery Method Sepsis Recent Fever Within 48 Hours Sepsis New/Unexplained Change in Mental Status Sepsis Action Taken by Nursing 05/16/23 23:00 05/16/23 23:02 05/16/23 23:29 Temperature Temperature Source Pulse Rate 70 72 68 Pulse Rate from SpO2 Sensor 71 Respiratory Rate 24 Respiratory Effort / Characteristics Respiratory Depth Blood Pressure 190/95 H Blood Pressure Mean 126 Pulse Oximetry 99 Oxygen Delivery Method Sepsis Recent Fever Within 48 Hours Sepsis New/Unexplained Change in Mental Status Sepsis Action Taken by Nursing VITALS: Vitals are noted on the nurse's note and reviewed by myself. GENERAL: Non toxic, no acute distress, non-diaphoretic. SKIN: Capillary refill <2 sec. EYES: PERRLA. EOMI. Conjunctivae without injection, sclerae without icterus. NOSE: Patent without discharge. MOUTH: Mucous membranes moist. Uvula midline. Airway patent. NECK: Supple without nuchal rigidity. HEART: Regular rate and rhythm with systolic murmur heard. LUNGS: Clear to auscultation bilaterally without wheezes, rales or rhonchi. No retractions or accessory muscle use. ABDOMEN: Positive bowel sounds x 4. Normal tympanic percussion. Soft, tender to palpation in the epigastric and left side of the abdomen. No masses or organomegaly. Heredia sign negative. No guarding or rebound tenderness. No focal RLQ or LLQ tenderness. RECTAL EXAM: Permission to perform the exam. The patient declined a thread spinner for the exam. His is in the room for the exam. No external lesions or hemorrhoids noted. Normal sphincter tone. Internal hemorrhoids are enlarged. No masses, tears, fistulas, fissures, or abscess noted. Stool is brown and Hemoccult positive. MUSCULOSKELETAL: No gross musculoskeletal defects. NEURO: Patient was alert and oriented to person place and time. No focal neurological deficits. Course Administered Medications Magnesium Sulfate/Dextrose (Magnesium Sulfate / D5w) 1 gm in 100 mls @ 50 mls/hr IV Q2H CYNDY Stop: 05/17/23 03:59 Last Admin: 05/16/23 22:35 Dose: 50 mls/hr Documented By: KHADAR Discontinued Medications Pantoprazole Sodium 40 mg/ (Syringe) 10 mls @ 5 mls/min IV NOW ONE Stop: 05/16/23 18:09 Last Admin: 05/16/23 18:43 Dose: 5 mls/min Documented By: PAT Famotidine (Pepcid 20mg Iv Push) 20 mg in 5 mls @ 2.5 mls/min IV NOW STA Stop: 05/16/23 18:09 Last Admin: 05/16/23 18:36 Dose: 2.5 mls/min Documented By: PAT Sodium Chloride (Nss 1000ml) 1,000 mls @ 999 mls/hr IV .Q1H1M ONE Stop: 05/16/23 19:08 Last Infusion: 05/16/23 22:16 Dose: 0 mls/hr Documented By: Admin: 05/16/23 18:35 Dose: 999 mls/hr Documented By: PAT Ioversol (Optiray 320 100ml) 86 ml IV ONCE ONE Stop: 05/16/23 19:14 Last Admin: 05/16/23 19:13 Dose: 86 ml Documented By: AXEL Metoprolol Tartrate (Metoprolol Tartrate 1 Mg/Ml Vial) 2.5 mg IV NOW STA Stop: 05/16/23 21:51 Last Admin: 05/16/23 22:35 Dose: 2.5 mg Documented By: KHADAR Medical Decision Making Differential Diagnosis Differential diagnosis includes lower GI bleed, diverticulitis, ischemic colitis, internal hemorrhoids, external hemorrhoids, hepatitis, pancreatitis, cholecystitis, cholelithiasis, appendicitis, kidney stone, pyelonephritis, UTI, gastritis, gastroenteritis, mesenteric adenitis, obstruction, constipation, hernia, abdominal abscess, perforation, diverticulitis, IBD, ischemic colitis, abdominal aortic aneurysm, testicular torsion, prostatitis, or others. Laboratory Data Attestation: I reviewed the patient's lab results. 05/16/23 16:24 05/16/23 16:24 Lab Results 05/16/23 05/16/23 05/16/23 Range/Units 16:24 16:24 16:24 WBC 5.90 (4.8-10.8) K/ul RBC 3.49 L (4.70-6.10) M/uL Hgb 10.0 L (14.0-18.0) g/dl Hct 31.5 L (42.0-52.0) % MCV 90.3 (80.0-100.0) fL MCH 28.7 (25.0-34.0) pg MCHC 31.7 L (32.0-36.0) g/dL RDW Std Deviation 50.6 H (36.4-46.3) fL RDW Coeff of Ernesto 15.6 H (11.5-14.5) % Plt Count 291 (130-400) K/uL MPV 10.1 (9.4-12.4) fL Immature Gran % (Auto) 0.2 % Neut % (Auto) 65.4 % Lymph % (Auto) 24.1 % [place] % (Auto) 8.3 % Eos % (Auto) 1.5 % Baso % (Auto) 0.5 % Neut # (Auto) 3.86 (1.40-6.50) K/uL Lymph # (Auto) 1.42 (1.2-3.4) K/uL [place] # (Auto) 0.49 (0.11-0.59) K/uL Eos # (Auto) 0.09 (0-0.50) K/uL Baso # (Auto) 0.03 (0-0.2) K/uL Immature Gran # (Auto) 0.01 (0.01-0.20) K/uL Platelet Estimate Normal (Normal) PT 10.8 (9.0-12.0) Seconds INR 1.0 (0.9-1.1) APTT 26.7 (21.0-31.0) Seconds PTT Ratio 0.9 Sodium 136 (136-145) mmol/L Potassium 5.0 (3.5-5.1) mmol/L Chloride 103 (98-107) mmol/L Carbon Dioxide 24 (21-32) mmol/L Anion Gap 9 (3-11) BUN 23 (6-23) mg/dl Creatinine 1.63 H (0.6-1.4) mg/dl Est Cr Clr Drug Dosing 43.8 ml/min Est GFR ( Amer) 48.1 ml/min Est GFR (Non-Af Amer) 41.5 ml/min BUN/Creatinine Ratio 14.1 (10-20) Glucose 203 H (70-99(Fasting)) mg/dl Calcium 8.6 (8.6-10.3) mg/dl Magnesium Cancelled Total Bilirubin 0.3 (0.2-1.0) mg/dl AST 16 (13-39) U/L ALT 8 (7-52) U/L Alkaline Phosphatase 76 (34-104) U/L Troponin I High Sens Cancelled Total Protein 6.8 (6.0-8.3) gm/dl Albumin 3.9 (3.4-5.0) gm/dl Globulin 2.9 (2.5-4.0) gm/dl Albumin/Globulin Ratio 1.3 (0.9-2) Amylase 69 (25-115) U/L Lipase 125 H (11-82) U/L Urine Color Urine Appearance (Clear) Urine pH (4.5-7.5) Ur Specific [place] (1.000-1.030) Urine Protein (Negative) Urine Glucose (UA) (Negative) Urine Ketones (Negative) Urine Blood (Negative) Urine Nitrite (Negative) Urine Bilirubin (Negative) Urine Urobilinogen (Negative) Ur Leukocyte Esterase (Negative) Urine WBC (Auto) (0-5) /hpf Urine RBC (Auto) (0-4) /hpf U Hyaline Cast (Auto) (0-5) /lpf U Epithel Cells (Auto) (0-5) /lpf Urine Bacteria (Auto) (Negative) Blood Type Antibody Screen 05/16/23 05/16/23 05/16/23 Range/Units 16:24 18:12 20:09 WBC (4.8-10.8) K/ul RBC (4.70-6.10) M/uL Hgb (14.0-18.0) g/dl Hct (42.0-52.0) % MCV (80.0-100.0) fL MCH (25.0-34.0) pg MCHC (32.0-36.0) g/dL RDW Std Deviation (36.4-46.3) fL RDW Coeff of Ernesto (11.5-14.5) % Plt Count (130-400) K/uL MPV (9.4-12.4) fL Immature Gran % (Auto) % Neut % (Auto) % Lymph % (Auto) % [place] % (Auto) % Eos % (Auto) % Baso % (Auto) % Neut # (Auto) (1.40-6.50) K/uL Lymph # (Auto) (1.2-3.4) K/uL [place] # (Auto) (0.11-0.59) K/uL Eos # (Auto) (0-0.50) K/uL Baso # (Auto) (0-0.2) K/uL Immature Gran # (Auto) (0.01-0.20) K/uL Platelet Estimate (Normal) PT (9.0-12.0) Seconds INR (0.9-1.1) APTT (21.0-31.0) Seconds PTT Ratio Sodium (136-145) mmol/L Potassium (3.5-5.1) mmol/L Chloride (98-107) mmol/L Carbon Dioxide (21-32) mmol/L Anion Gap (3-11) BUN (6-23) mg/dl Creatinine (0.6-1.4) mg/dl Est Cr Clr Drug Dosing ml/min Est GFR ( Amer) ml/min Est GFR (Non-Af Amer) ml/min BUN/Creatinine Ratio (10-20) Glucose (70-99(Fasting)) mg/dl Calcium (8.6-10.3) mg/dl Magnesium 1.4 L Total Bilirubin (0.2-1.0) mg/dl AST (13-39) U/L ALT (7-52) U/L Alkaline Phosphatase (34-104) U/L Troponin I High Sens 17.9 Total Protein (6.0-8.3) gm/dl Albumin (3.4-5.0) gm/dl Globulin (2.5-4.0) gm/dl Albumin/Globulin Ratio (0.9-2) Amylase (25-115) U/L Lipase (11-82) U/L Urine Color Yellow Urine Appearance Clear (Clear) Urine pH 6.0 (4.5-7.5) Ur Specific [place] 1.023 (1.000-1.030) Urine Protein 2+ H (Negative) Urine Glucose (UA) Negative (Negative) Urine Ketones Trace H (Negative) Urine Blood Negative (Negative) Urine Nitrite Negative (Negative) Urine Bilirubin Negative (Negative) Urine Urobilinogen Negative (Negative) Ur Leukocyte Esterase Negative (Negative) Urine WBC (Auto) 1-5 (0-5) /hpf Urine RBC (Auto) 0-4 (0-4) /hpf U Hyaline Cast (Auto) 1-5 (0-5) /lpf U Epithel Cells (Auto) 10-20 H (0-5) /lpf Urine Bacteria (Auto) Negative (Negative) Blood Type A Positive Antibody Screen NEGATIVE 05/16/23 Range/Units 20:09 WBC 5.18 (4.8-10.8) K/ul RBC 3.33 L (4.70-6.10) M/uL Hgb 9.6 L (14.0-18.0) g/dl Hct 29.9 L (42.0-52.0) % MCV 89.8 (80.0-100.0) fL MCH 28.8 (25.0-34.0) pg MCHC 32.1 (32.0-36.0) g/dL RDW Std Deviation 51.2 H (36.4-46.3) fL RDW Coeff of Ernesto 15.7 H (11.5-14.5) % Plt Count 244 (130-400) K/uL MPV 10.0 (9.4-12.4) fL Immature Gran % (Auto) 0.2 % Neut % (Auto) 60.4 % Lymph % (Auto) 29.5 % [place] % (Auto) 8.3 % Eos % (Auto) 1.2 % Baso % (Auto) 0.4 % Neut # (Auto) 3.13 (1.40-6.50) K/uL Lymph # (Auto) 1.53 (1.2-3.4) K/uL [place] # (Auto) 0.43 (0.11-0.59) K/uL Eos # (Auto) 0.06 (0-0.50) K/uL Baso # (Auto) 0.02 (0-0.2) K/uL Immature Gran # (Auto) 0.01 (0.01-0.20) K/uL Platelet Estimate (Normal) PT (9.0-12.0) Seconds INR (0.9-1.1) APTT (21.0-31.0) Seconds PTT Ratio Sodium (136-145) mmol/L Potassium (3.5-5.1) mmol/L Chloride (98-107) mmol/L Carbon Dioxide (21-32) mmol/L Anion Gap (3-11) BUN (6-23) mg/dl Creatinine (0.6-1.4) mg/dl Est Cr Clr Drug Dosing ml/min Est GFR ( Amer) ml/min Est GFR (Non-Af Amer) ml/min BUN/Creatinine Ratio (10-20) Glucose (70-99(Fasting)) mg/dl Calcium (8.6-10.3) mg/dl Magnesium Total Bilirubin (0.2-1.0) mg/dl AST (13-39) U/L ALT (7-52) U/L Alkaline Phosphatase (34-104) U/L Troponin I High Sens Total Protein (6.0-8.3) gm/dl Albumin (3.4-5.0) gm/dl Globulin (2.5-4.0) gm/dl Albumin/Globulin Ratio (0.9-2) Amylase (25-115) U/L Lipase (11-82) U/L Urine Color Urine Appearance (Clear) Urine pH (4.5-7.5) Ur Specific [place] (1.000-1.030) Urine Protein (Negative) Urine Glucose (UA) (Negative) Urine Ketones (Negative) Urine Blood (Negative) Urine Nitrite (Negative) Urine Bilirubin (Negative) Urine Urobilinogen (Negative) Ur Leukocyte Esterase (Negative) Urine WBC (Auto) (0-5) /hpf Urine RBC (Auto) (0-4) /hpf U Hyaline Cast (Auto) (0-5) /lpf U Epithel Cells (Auto) (0-5) /lpf Urine Bacteria (Auto) (Negative) Blood Type Antibody Screen Imaging Data Radiologist's Impression: Chest X-Ray 05/16/23 15:54 XR chest 1V not portable HISTORY: GI bleeding COMPARISON: Chest 04/21/2023. FINDINGS: No pneumothorax. No pleural effusions. The cardiac silhouette remains mildly enlarged. No focal lung consolidations to suggest pneumonia. No evidence for pulmonary edema. There is a right shoulder prosthesis again noted. Poststernotomy changes. IMPRESSION: No significant change compared to the prior study. No acute process. ACT 112: Negative or not required by law. Electronically signed by: Abraham Michelle M.D. 05/16/2023 5:46 PM Abdomen/Pelvis CT 05/16/23 18:08 Exam(s): CT ABDOMEN + PELVIS With Contrast IV Amt: 86ml EXAM: CT Abdomen and Pelvis With Intravenous Contrast CLINICAL HISTORY: Reason for exam: abdominal pain, elevated lipase, rectal bleeding. TECHNIQUE: Axial computed tomography images of the abdomen and pelvis with intravenous contrast. Automated exposure control was utilized for the study. A dose lowering technique was utilized adhering to the principles of ALARA. CONTRAST: Patient received 86ml of IV contrast COMPARISON: 04/21/2023. FINDINGS: Lung bases: Unremarkable. No mass. No consolidation. Heart: Mild cardiomegaly with coronary artery calcifications. Mediastinum: Mild hiatal hernia. ABDOMEN: Liver: Unremarkable. No mass. Gallbladder and bile ducts: Unremarkable. No calcified stones. No ductal dilation. Pancreas: Unremarkable. No mass. No ductal dilation. Spleen: Unremarkable. No splenomegaly. Adrenals: Unremarkable. No mass. Kidneys and ureters: Mild bilateral perinephric stranding. Stone within the right pelvis measuring 9 mm. Otherwise unremarkable right kidney. Normal left kidney. No stone along the trajectory of bilateral ureters. No hydronephrosis. Stomach and bowel: Moderate fecal debris within the colon. Mild scattered diverticulosis with no signs of diverticulitis. No obstruction. PELVIS: Appendix: Normal appendix. Bladder: Unremarkable. No mass. Reproductive: Mild prostate enlargement. ABDOMEN and PELVIS: Intraperitoneal space: Unremarkable. No free air. No significant fluid collection. Bones/joints: Multilevel degenerative disease of the spine. No acute fracture. No dislocation. Soft tissues: Unremarkable. Vasculature: Mild atherosclerotic disease of aorta with no aneurysm. Lymph nodes: Unremarkable. No enlarged lymph nodes. IMPRESSION: 1. Mild scattered diverticulosis with no signs of diverticulitis. No acute appendicitis or bowel obstruction. 2. Right-sided pelvic stone measuring 9 mm. No distinct hydronephrosis seen bilaterally. No hydroureter or stone along the trajectory of bilateral ureters. 3. Remainder of the abdominal viscera unremarkable. Electronically signed by: Anila Weinberg MD 05/16/23 21:03 PM MDM Narrative Due to abnormally long wait times in the emergency department, I initially evaluated the patient in triage. I then reevaluated the patient once he was taken back to a room. The patient has had 2 episodes of bright red rectal bleeding today with bowel movements. Rectal exam with enlarged internal hemorrhoids and heme positive stool. Was admitted last month for an upper GI bleed secondary to a duodenal ulcer and has been doing well on Protonix 40 mg twice daily and Carafate 4 times a day. His melena resolved after treatment of the duodenal ulcer. Denies a history of bright red rectal bleeding previously. Last colonoscopy was approximately 20 years ago. His father has a history of colon cancer. He had been getting Hemoccults through his PCP that have always been negative per patient. An IV lock was placed and labs were drawn. He was given 1 L normal saline solution bolus due to his elevated creatinine level and need for IV contrast for the CT scan of the abdomen pelvis. He was also given Protonix 40 mg IV and Pepcid 20 mg IV. He declined any medication for pain or nausea while in the emergency department. Initial EKG was interpreted by myself as normal sinus rhythm at 73 bpm with no acute ST or T wave changes. Continuous bakery clerk: Order was placed for continuous bakery clerk. Patient was placed on the bakery clerk and continuous pulse ox. Patient was noted to be in normal sinus rhythm at an initial rate of 80 bpm per my interpretation. Nursing came to me around 1928 and stated the patient had an abnormal rhythm on the monitor. It showed what looked like 2 runs of possible V. tach or torsades. The patient stated that he was not having any symptoms at the time of the abnormal heart rhythm and that he was not doing any significant movement or activity at the time of the abnormal rhythm strip. Repeat EKG was interpreted by myself and showed normal sinus rhythm at 71 bpm with no acute changes from his first EKG. Hemoglobin through [facility] yesterday was 10.7. Initial hemoglobin in the ER was 10.0 and dropped to 9.6 on repeat. White blood cell count was not elevated. Pl atelet count was normal. Coags were normal. Creatinine was elevated at 1.63 with normal BUN. Glucose 203, but remainder of the CMP was normal. High- sensitivity troponin was normal. Magnesium low at 1.4. Lipase elevated 125, but amylase normal at 69. Urinalysis without hematuria or UTI. Blood type is a positive with no antibodies. Chest x-ray was interpreted by myself and read by radiology as above and shows no acute cardiopulmonary disease and no significant change compared to his prior chest x-ray. CT scan of the abdomen pelvis with IV contrast was reviewed by myself and read by radiology as above and shows mild scattered diverticulosis with no signs of diverticulitis. No acute appendicitis or bowel obstruction. There is a right- sided pelvic stone measuring 9 mm, but no distinct hydronephrosis and no hydroureter or stone along the trajectory of the bilateral ureters. No other acute abnormalities. The patient had a recent upper GI bleed secondary to a duodenal ulcer with resolution of the melena on Protonix and Carafate. New onset of bright red blood per rectum with heme positive stools, decreasing hemoglobin, and Plavix use. I had a meaningful discussion about this patient with Dr. Harris who agrees with my assessment and the treatment plan. We recommend admission for further evaluation and treatment. I spoke with the on-call hospitalist who agreed to admit the patient for further evaluation and treatment. Please refer to their dictation for further details. The patient's care was transferred in stable condition. Impression & Plan Bright red rectal bleeding, Anemia Discharge Plan Visit Data Chief Complaint: Rectal Bleed Stated Complaint: BLEEDING RECTUM ED Provider: Fredy Harris ED Midlevel Provider: Armida Shah Discharge Problem: Bright red rectal bleeding, Anemia Patient Disposition: Admitted As Inpatient Condition: Good Forms Stand Alone Forms: My [facility] Trending Taste Prescriptions Prescriptions: No Action metformin 1,000 mg tablet 1,000 mg PO BID Qty: 180 3RF ondansetron 4 mg tablet,disintegrating 4 mg PO Q6H PRN (Reason: nausea and vomiting) Qty: 10 0RF allopurinol 100 mg tablet 100 mg PO HS atorvastatin 80 mg tablet 80 mg PO HS clopidogrel 75 mg tablet 75 mg PO QAM Qty: 30 Hold Instructions: Resume on 04/28/23. insulin glargine 100 unit/mL solution 70 unit subcut QAM metoprolol succinate 100 mg tablet extended release 24 hr 100 mg PO QAM polyethylene glycol 3350 [Miralax] 17 gram Powder In Packet 17 g PO DAILY PRN (Reason: constipation) Qty: 14 0RF docusate sodium [Colace] 100 mg capsule 100 mg PO BID PRN (Reason: constipation) Qty: 30 0RF tramadol 50 mg tablet 50 - 100 mg PO Q6H PRN (Reason: Pain) insulin glargine [Lantus Solostar U-100 Insulin] 100 unit/mL (3 mL) insulin pen 10 unit SUBCUT HS PRN (Reason: Hyperglycemia) ferrous sulfate 325 mg (65 mg iron) Tablet,Delayed Release (Dr/Ec) 325 mg PO QAM Qty: 30 0RF sucralfate 100 mg/mL Suspension 1 g PO QID 28 Days Qty: 1000 0RF pantoprazole 40 mg tablet,delayed release (DR/EC) 40 mg PO BID losartan 25 mg tablet 25 mg PO DAILY Qty: 30 0RF amlodipine 5 mg tablet 5 mg PO QAM triamterene-hydrochlorothiazid 37.5-25 mg tablet 1 tab PO QAM nitroglycerin 0.4 mg tablet, sublingual 0.4 mg sublingual UD PRN (Reason: Chest Pain) Rx Instructions: place 1 tablet under tongue every 5 minutes as needed for chest pain. may repeat every 5 minutes 3 times Referrals Referrals: Saw Campbell DO [Primary Care Provider] - Anemia Qualifiers: Anemia type: unspecified type Qualified Code(s): D64.9 - Anemia, unspecified
--- NOTE | 2023-05-16 17:48 | XRay Report ---
XR chest 1V not portable HISTORY: GI bleeding COMPARISON: Chest 04/21/2023. FINDINGS: No pneumothorax. No pleural effusions. The cardiac silhouette remains mildly enlarged. No f ocal lung consolidations to suggest pneumonia. No evidence for pulmonary edema. There is a right shou lder prosthesis again noted. Poststernotomy changes. IMPRESSION: No significant change compared to the prior study. No acute process. ACT 112: Negative or not required by law. Electronically signed by: Abraham Michelle M.D. 05/16/2023 5:46 PM
[2023-05-16] MEDS ORDERED: SODIUM CHLORIDE 0.9% 1000ML 1,000 ML IV ONE (18:08)
[2023-05-16] MEDS ORDERED: FAMOTIDINE 20MG IV PUSH 20 MG/5 ML SYR IV STA (18:08)
[2023-05-16] MEDS ORDERED: PANTOprazole 40 MG in SYRINGE 0 ML IV ONE (18:08)
[2023-05-16 18:40] LABS: Appearance Urine Clear (Clear); Bacteria Urine Automated Negative (Negative); Bilirubin Urine Negative (Negative); Blood Urine Negative (Negative); Color Urine Yellow; Glucose Urine UA Negative (Negative); Ketones Urine Trace (Negative); Leukocyte Esterase Urine Negative (Negative); Nitrite Urine Negative (Negative); Protein Urine 2+ (Negative); RBC Urine Automated 0-4 /hpf (0-4); Specific Gravity Urine 1.023 (1.000-1.030); Urobilinogen Urine Negative (Negative)
[2023-05-16] MEDS ORDERED: OPTIRAY 320 100ml IV ONE (19:13)
[2023-05-16 20:43] LABS: Basophils # (auto) 0.02 K/uL (0-0.2); Basophils % (auto) 0.4 %; Eosinophils # (auto) 0.06 K/uL (0-0.50); Eosinophils % (auto) 1.2 %; Hematocrit (blood only) 29.9 % (42.0-52.0); Hemoglobin 9.6 g/dl (14.0-18.0); Immature Granulocytes # (auto) 0.01 K/uL (0.01-0.20); Immature Granulocytes % (auto) 0.2 %; Lymphocytes # (auto) 1.53 K/uL (1.2-3.4); Lymphocytes % (auto) 29.5 %; Mean Corpuscular Hemoglobin 28.8 pg (25.0-34.0); Mean Corpuscular Hgb Conc 32.1 g/dL (32.0-36.0); Mean Corpuscular Volume 89.8 fL (80.0-100.0); Monocytes # (auto) 0.43 K/uL (0.11-0.59); Monocytes % (auto) 8.3 %; Neutrophils # (auto) 3.13 K/uL (1.40-6.50); Neutrophils % (auto) 60.4 %; Platelet Count 244 K/uL (130-400); RDW Coefficient of Variation 15.7 % (11.5-14.5); RDW Standard Deviation 51.2 fL (36.4-46.3); Red Blood Count 3.33 M/uL (4.70-6.10); White Blood Count 5.18 K/ul (4.8-10.8)
[2023-05-16 21:00] LABS: Magnesium 1.4 mg/dl (1.7-2.4)
--- NOTE | 2023-05-16 21:05 | CT Scan Report ---
Exam(s): CT ABDOMEN + PELVIS With Contrast IV Amt: 86ml EXAM: CT Abdomen and Pelvis With Intravenous Contrast CLINICAL HISTORY: Reason for exam: abdominal pain, elevated lipase, rectal bleeding. TECHNIQUE: Axial computed tomography images of the abdomen and pelvis with intravenous contrast. Automated exposure control was utilized for the study. A dose lowering technique was utilized adhering to the principles of ALARA. CONTRAST: Patient received 86ml of IV contrast COMPARISON: 04/21/2023. FINDINGS: Lung bases: Unremarkable. No mass. No consolidation. Heart: Mild cardiomegaly with coronary artery calcifications. Mediastinum: Mild hiatal hernia. ABDOMEN: Liver: Unremarkable. No mass. Gallbladder and bile ducts: Unremarkable. No calcified stones. No ductal dilation. Pancreas: Unremarkable. No mass. No ductal dilation. Spleen: Unremarkable. No splenomegaly. Adrenals: Unremarkable. No mass. Kidneys and ureters: Mild bilateral perinephric stranding. Stone within the right pelvis measuring 9 mm. Otherwise unremarkable right kidney. Normal left kidney. No stone along the trajectory of bilateral ureters. No hydronephrosis. Stomach and bowel: Moderate fecal debris within the colon. Mild scattered diverticulosis with no signs of diverticulitis. No obstruction. PELVIS: Appendix: Normal appendix. Bladder: Unremarkable. No mass. Reproductive: Mild prostate enlargement. ABDOMEN and PELVIS: Intraperitoneal space: Unremarkable. No free air. No significant fluid collection. Bones/joints: Multilevel degenerative disease of the spine. No acute fracture. No dislocation. Soft tissues: Unremarkable. Vasculature: Mild atherosclerotic disease of aorta with no aneurysm. Lymph nodes: Unremarkable. No enlarged lymph nodes. IMPRESSION: 1. Mild scattered diverticulosis with no signs of diverticulitis. No acute appendicitis or bowel obstruction. 2. Right-sided pelvic stone measuring 9 mm. No distinct hydronephrosis seen bilaterally. No hydroureter or stone along the trajectory of bilateral ureters. 3. Remainder of the abdominal viscera unremarkable. Electronically signed by: Anila Weinberg MD 05/16/23 21:03 PM
[2023-05-16 21:07] LABS: Troponin I High Sensitivity 17.9 pg/ml (0-20)
[2023-05-16] MEDS ORDERED: METOPROLOL TARTRATE 1 MG/ML VIAL IV STA (21:50)
[2023-05-16] MEDS: MAGNESIUM SULFATE / D5W 1 GM/100 ML BAG IV SCH (22:35)
--- NOTE | 2023-05-16 23:16 | History & Physical Report ---
Date of Service May 16, 2023 Assessment & Plan (1) Asymptomatic hypertensive urgency: Plan: NSVT secondary to hypomagnesemia Painless LGIB, diverticulosis on CT, rule out C. difficile given recent confinement last year, hemoglobin currently stable hx CAD status post CABG valvular heart disease (moderate /MR, mild to moderate AR) hyperlipidemia statin Rx DM 2 insulin requiring, suboptimal control as of recent hemoglobin A1c of 7.8 last month hx PUD, stable on regimen CKD close to baseline PCU IV Lopressor 1 dose now titrate home BP meds, further dose increase may be limited by patient heart rate and kidney dysfunction Resume previous amlodipine Rx if still uncontrolled Stool C. difficile Hold patient antiplatelet Rx for now given LGIB, resume if hemoglobin stable Follow H&H, transfuse PRBC if hemoglobin less than 8 and or for symptomatic anemia Basal bolus insulin adjusted for clear liquid diet, ISS BG goal 1 10-1 40, DVT prophylaxis. SCDs Re: L GIB Full code Text document was generated using [employer] voice recognition software. It may contain grammatical or spelling errors. Kindly contact undersigned for clarification of any documentation item in question. History of Present Illness Chief Complaint: Rectal bleeding Primary Care Provider: Saw Campbell DO History obtained from patient and records. Medical history significant for CAD status post CABG, valvular heart disease (moderate /MR, mild to moderate AR), hypertension, hyperlipidemia, DM 2 insulin requiring, PUD, CRI (baseline creatinine 1.5) PUD,, chronic anemia (baseline hemoglobin 9), past tobacco abuse. 3 [facility] confinements last month. Recent confinement April 29 to 2022 for orthostatic hypotension. Home Amlodipine discontinued on discharge. Today, patient noted painless rectal bleeding at home. Second bowel movement loose as per patient. No belly pain. No chest pain, no unusual shortness of breath. No headache. No melanotic episodes. Highest SBP of 190s at the ER. Nonsustained V. tach noted on the monitor. Patient asymptomatic during episode. 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 Allergies Allergy/AdvReac Type Severity Reaction Status Date / Time Opioids - Morphine Analogues AdvReac Mild Dizziness Verified 05/16/23 22:35 and feeling sick Home Medications Medication Instructions Recorded Confirmed Type allopurinol 100 mg tablet 100 mg PO HS 05/08/19 05/16/23 History atorvastatin 80 mg tablet 80 mg PO HS 05/08/19 05/16/23 History clopidogrel 75 mg tablet 75 mg PO QAM #30 tabs 05/08/19 05/16/23 History metformin 1,000 mg tablet 1,000 mg PO BID #180 tabs 08/16/19 05/16/23 Rx insulin glargine 100 unit/mL 70 unit subcut QAM 10/27/22 05/16/23 History subcutaneous solution metoprolol succinate 100 mg 100 mg PO QAM 03/17/23 05/16/23 History tablet,extended release 24 hr docusate sodium 100 mg capsule 100 mg PO BID PRN constipation #30 04/16/23 05/16/23 Rx (Colace) caps polyethylene glycol 3350 17 gram 17 g PO DAILY PRN constipation #14 04/16/23 05/16/23 Rx oral powder packet (Miralax) ea ondansetron 4 mg disintegrating 4 mg PO Q6H PRN nausea and 04/20/23 05/16/23 Rx tablet vomiting #10 tabs insulin glargine 100 unit/mL (3 10 unit subcut HS PRN Hyperglycemia 04/21/23 05/16/23 History mL) subcutaneous pen (Lantus Solostar U-100 Insulin) tramadol 50 mg tablet 50 - 100 mg PO Q6H PRN Pain 04/21/23 05/16/23 History ferrous sulfate 325 mg (65 mg 325 mg PO QAM #30 tabs 04/25/23 05/16/23 Rx iron) tablet,delayed release sucralfate 100 mg/mL oral 1 g (10 mL) PO QID 4 weeks #1,000 04/25/23 05/16/23 Rx suspension mL pantoprazole 40 mg tablet,delayed 40 mg PO BID 04/29/23 05/16/23 History release losartan 25 mg tablet 25 mg PO DAILY #30 tabs 04/30/23 05/16/23 Rx nitroglycerin 0.4 mg sublingual 0.4 mg sublingual UD PRN Chest Pain 05/16/23 05/16/23 History tablet triamterene 37.5 1 tab PO QAM 05/16/23 05/16/23 History mg-hydrochlorothiazide 25 mg tablet Past Med/Surg History Medical History Aortic stenosis moderate on 03/2023 echo Carotid stenosis < 50% stenosis ICAs bilat 12/2021 doppler Coronary artery disease s/p 4 stents, CABG x 3 in 2016, most recent stent in 2017 Gout Hearing deficit Herniation of cervical intervertebral disc History of blood transfusion 2015 with CABG History of COVID-19 09/2020--mild symptoms, denies hospitalization, no symptoms now History of duodenal ulcer Hypertension controlled, stable per pt Insulin dependent type 2 diabetes mellitus Myocardial Infarction per Dr. Eisenberg's note recurrent NSTEMI: 07/2016 and in 2017--heart caths with stents placed--had CABG 07/2016 @ [facility] follows with Dr. Eisenberg On anticoagulant therapy plavix daily Seizure 1 yr ago, in setting of hypoglycemia, no additional seizure activity Surgical History History of cardiac cath multiple in 2015 with last 11/2016 @ [facility]--x4 stents total placed History of colonoscopy History of reverse total replacement of right shoulder joint History of tooth extraction History of wisdom tooth extraction S/P coronary artery bypass graft x 3 07/2016 @ [facility] S/P epidural steroid injection Family History Father Myocardial infarction Other No family history of adverse response to anesthesia Social History Smoking Status: Never smoker Age Started Using Tobacco: 60; Age Quit Using Tobacco: 65; Second Hand Exposure: No; Do You Dip or Chew Tobacco: No; Hx Alcohol Use: Yes Alcohol type: beer Alcohol Intake Frequency: 2-4 x/Month Hx Substance Use: No Preferred Language: Azeri Communication Ability: Effective 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 Beliefs That Will Affect Care: None marital status: Current Living Situation: Spouse current occupational status: retired Other Information That Helps Us Care for You: No Feels Safe at Home: Yes Safety Concerns: Feels Safe At This Time Assistive Devices: Glasses Review of Systems Review of Systems: As per HPI, all other systems reviewed and negative Physical Exam Physical Exam: GENERAL: Comfortable, pleasant, obese, no respiratory distress SKIN: Pallor , warm HEENT: Pale palpebral conjunctivae, no ptosis, dry buccal mucosa NECK : Supple, no tenderness CHEST : CTA, no tenderness HEART : RRR, systolic murmur ABDOMEN: Some distention, nontender EXTREMITIES : Minimal LE swelling, no LE tenderness, no other conspicuous deformities noted NEUROLOGIC : Coherent, no facial asymmetry, no other gross focality Results & Data Results & Data Vital Signs (Past 12 Hours) Vital Signs Temp Pulse Resp BP Pulse Ox O2 Del Method 05/16/23 23:02 72 05/16/23 23:00 70 24 190/95 H 99 05/16/23 22:30 73 21 99 05/16/23 22:30 183/90 H 05/16/23 22:00 186/88 H 05/16/23 22:35 70 05/16/23 22:00 69 18 99 05/16/23 21:30 72 21 99 05/16/23 21:30 194/90 H 05/16/23 21:01 199/105 H 05/16/23 21:01 73 22 100 05/16/23 21:00 80 16 99 05/16/23 20:30 68 14 100 05/16/23 20:30 169/87 H 05/16/23 20:00 70 17 100 05/16/23 20:00 175/126 H 05/16/23 19:30 69 19 100 05/16/23 19:30 172/97 H 05/16/23 19:20 71 05/16/23 19:31 68 05/16/23 18:30 72 15 99 Room Air 05/16/23 18:30 147/78 H 05/16/23 18:12 179/86 H 05/16/23 18:12 76 28 H 05/16/23 18:00 73 17 99 Room Air 05/16/23 17:45 78 13 99 05/16/23 18:06 98 Room Air 05/16/23 17:44 75 05/16/23 15:49 36.9 C 82 20 154/86 H 97 Room Air Laboratory Results Laboratory Results WBC 5.18 K/ul (4.8-10.8) 05/16/23 20:09 RBC 3.33 M/uL (4.70-6.10) L 05/16/23 20:09 Hgb 9.6 g/dl (14.0-18.0) L 05/16/23 20:09 Hct 29.9 % (42.0-52.0) L 05/16/23 20:09 MCV 89.8 fL (80.0-100.0) 05/16/23 20: MCH 28.8 pg (25.0-34.0) 05/16/23 20: MCHC 32.1 g/dL (32.0-36.0) 05/16/23 20: RDW Std Deviation 51.2 fL (36.4-46.3) H 05/16/23 20:09 RDW Coeff of Ernesto 15.7 % (11.5-14.5) H 05/16/23 20: Plt Count 244 K/uL (130-400) 05/16/23 20: MPV 10.0 fL (9.4-12.4) 05/16/23 20:09 Immature Gran % (Auto) 0.2 % 05/16/23 20:09 Neut % (Auto) 60.4 % 05/16/23 20:09 Lymph % (Auto) 29.5 % 05/16/23 20:09 Coal % (Auto) 8.3 % 05/16/23 20:09 Eos % (Auto) 1.2 % 05/16/23 20:09 Baso % (Auto) 0.4 % 05/16/23 20: Neut # (Auto) 3.13 K/uL (1.40-6.50) 05/16/23 20: Lymph # (Auto) 1.53 K/uL (1.2-3.4) 05/16/23 20:09 Coal # (Auto) 0.43 K/uL (0.11-0.59) 05/16/23 20:09 Eos # (Auto) 0.06 K/uL (0-0.50) 05/16/23 20:09 Baso # (Auto) 0.02 K/uL (0-0.2) 05/16/23 20:09 Immature Gran # (Auto) 0.01 K/uL (0.01-0.20) 05/16/23 20: Platelet Estimate Normal (Normal) 05/16/23 16:24 PT 10.8 Seconds (9.0-12.0) 05/16/23 16:24 INR 1.0 (0.9-1.1) 05/16/23 16:24 APTT 26.7 Seconds (21.0-31.0) 05/16/23 16:24 PTT Ratio 0.9 05/16/23 16:24 Sodium 136 mmol/L (136-145) 05/16/23 16:24 Potassium 5.0 mmol/L (3.5-5.1) 05/16/23 16:24 Chloride 103 mmol/L (98-107) 05/16/23 16:24 Carbon Dioxide 24 mmol/L (21-32) 05/16/23 16:24 Anion Gap 9 (3-11) 05/16/23 16:24 BUN 23 mg/dl (6-23) 05/16/23 16:24 Creatinine 1.63 mg/dl (0.6-1.4) H 05/16/23 16:24 Est Cr Clr Drug Dosing 43.8 ml/min 05/16/23 16:24 Est GFR ( Amer) 48.1 ml/min 05/16/23 16:24 Est GFR (Non-Af Amer) 41.5 ml/min 05/16/23 16:24 BUN/Creatinine Ratio 14.1 (10-20) 05/16/23 16:24 Glucose 203 mg/dl (70-99(Fasting)) H 05/16/23 16:24 Calcium 8.6 mg/dl (8.6-10.3) 05/16/23 16:24 Magnesium 1.4 mg/dl (1.7-2.4) L 05/16/23 20:09 Total Bilirubin 0.3 mg/dl (0.2-1.0) 05/16/23 16:24 AST 16 U/L (13-39) 05/16/23 16:24 ALT 8 U/L (7-52) 05/16/23 16:24 Alkaline Phosphatase 76 U/L (34-104) 05/16/23 16:24 Troponin I High Sens 17.9 pg/ml (0-20) 05/16/23 20:09 Total Protein 6.8 gm/dl (6.0-8.3) 05/16/23 16:24 Albumin 3.9 gm/dl (3.4-5.0) 05/16/23 16:24 Globulin 2.9 gm/dl (2.5-4.0) 05/16/23 16:24 Albumin/Globulin Ratio 1.3 (0.9-2) 05/16/23 16:24 Amylase 69 U/L (25-115) 05/16/23 16:24 Lipase 125 U/L (11-82) H 05/16/23 16:24 Urine Color Yellow 05/16/23 18:12 Urine Appearance Clear (Clear) 05/16/23 18:12 Urine pH 6.0 (4.5-7.5) 05/16/23 18:12 Ur Specific [place] 1.023 (1.000-1.030) 05/16/23 18:12 Urine Protein 2+ (Negative) H 05/16/23 18:12 Urine Glucose (UA) Negative (Negative) 05/16/23 18:12 Urine Ketones Trace (Negative) H 05/16/23 18:12 Urine Blood Negative (Negative) 05/16/23 18:12 Urine Nitrite Negative (Negative) 05/16/23 18:12 Urine Bilirubin Negative (Negative) 05/16/23 18:12 Urine Urobilinogen Negative (Negative) 05/16/23 18:12 Ur Leukocyte Esterase Negative (Negative) 05/16/23 18:12 Urine WBC (Auto) 1-5 /hpf (0-5) 05/16/23 18:12 Urine RBC (Auto) 0-4 /hpf (0-4) 05/16/23 18:12 U Hyaline Cast (Auto) 1-5 /lpf (0-5) 05/16/23 18:12 U Epithel Cells (Auto) 10-20 /lpf (0-5) H 05/16/23 18:12 Urine Bacteria (Auto) Negative (Negative) 05/16/23 18:12 Blood Type A Positive 05/16/23 16:24 Antibody Screen NEGATIVE 05/16/23 16:24 Impressions Chest X-Ray 05/16/23 15:54 XR chest 1V not portable HISTORY: GI bleeding COMPARISON: Chest 04/21/2023. FINDINGS: No pneumothorax. No pleural effusions. The cardiac silhouette remains mildly enlarged. No focal lung consolidations to suggest pneumonia. No evidence for pulmonary edema. There is a right shoulder prosthesis again noted. Poststernotomy changes. IMPRESSION: No significant change compared to the prior study. No acute process. ACT 112: Negative or not required by law. Electronically signed by: Abraham Michelle M.D. 05/16/2023 5:46 PM Abdomen/Pelvis CT 05/16/23 18:08 Exam(s): CT ABDOMEN + PELVIS With Contrast IV Amt: 86ml EXAM: CT Abdomen and Pelvis With Intravenous Contrast CLINICAL HISTORY: Reason for exam: abdominal pain, elevated lipase, rectal bleeding. TECHNIQUE: Axial computed tomography images of the abdomen and pelvis with intravenous contrast. Automated exposure control was utilized for the study. A dose lowering technique was utilized adhering to the principles of ALARA. CONTRAST: Patient received 86ml of IV contrast COMPARISON: 04/21/2023. FINDINGS: Lung bases: Unremarkable. No mass. No consolidation. Heart: Mild cardiomegaly with coronary artery calcifications. Mediastinum: Mild hiatal hernia. ABDOMEN: Liver: Unremarkable. No mass. Gallbladder and bile ducts: Unremarkable. No calcified stones. No ductal dilation. Pancreas: Unremarkable. No mass. No ductal dilation. Spleen: Unremarkable. No splenomegaly. Adrenals: Unremarkable. No mass. Kidneys and ureters: Mild bilateral perinephric stranding. Stone within the right pelvis measuring 9 mm. Otherwise unremarkable right kidney. Normal left kidney. No stone along the trajectory of bilateral ureters. No hydronephrosis. Stomach and bowel: Moderate fecal debris within the colon. Mild scattered diverticulosis with no signs of diverticulitis. No obstruction. PELVIS: Appendix: Normal appendix. Bladder: Unremarkable. No mass. Reproductive: Mild prostate enlargement. ABDOMEN and PELVIS: Intraperitoneal space: Unremarkable. No free air. No significant fluid collection. Bones/joints: Multilevel degenerative disease of the spine. No acute fracture. No dislocation. Soft tissues: Unremarkable. Vasculature: Mild atherosclerotic disease of aorta with no aneurysm. Lymph nodes: Unremarkable. No enlarged lymph nodes. IMPRESSION: 1. Mild scattered diverticulosis with no signs of diverticulitis. No acute appendicitis or bowel obstruction. 2. Right-sided pelvic stone measuring 9 mm. No distinct hydronephrosis seen bilaterally. No hydroureter or stone along the trajectory of bilateral ureters. 3. Remainder of the abdominal viscera unremarkable. Electronically signed by: Anila Weinberg MD 05/16/23 21:03 PM Diagnostic Findings EKG as per my interpretation :Rate 75, NSR, normal axis, no ischemia
[2023-05-16] MEDS ORDERED: PROMETHAZINE HCL 6.25 MG in SODIUM CHLORIDE 0.9% 50 ML IV PRN (23:22)
[2023-05-16] MEDS ORDERED: traMADol HCL 50 MG TABLET PO PRN (23:22)
[2023-05-17] MEDS: MAGNESIUM SULFATE / D5W 1 GM/100 ML BAG IV SCH ×2 (00:35→02:08)
[2023-05-17] MEDS ORDERED: GLUCOSE 10 TAB/TUBE PO PRN (02:01)
[2023-05-17] MEDS ORDERED: NITROGLYCERIN SL 0.4 MG/TAB TAB SL PRN (02:01)
[2023-05-17] MEDS ORDERED: DEXTROSE 50% 50 ML SYRINGE IV PRN (02:01)
[2023-05-17] MEDS ORDERED: GLUCOSE 40% GEL 15 GM TUBE PO PRN (02:01)
[2023-05-17] MEDS ORDERED: ACETAMINOPHEN 325 MG TAB PO PRN (02:01)
[2023-05-17] MEDS ORDERED: GLUCAGON FOR INJ 1 MG VIAL SQ PRN (02:01)
[2023-05-17] MEDS ORDERED: CARBOHYDRATES FOR HYPOGLYCEMIA PO PRN (02:01)
[2023-05-17] MEDS ORDERED: POLYETHYLENE (MIRALAX) 17 GM PACK PO PRN (02:01)
[2023-05-17] MEDS: INSULIN ASPART PER UNIT CHARGE SC SCH ×5 (02:07→21:05)
[2023-05-17] MEDS ORDERED: amLODIPine BESYLATE 5 MG TAB PO SCH ×2 (02:20→09:00)
[2023-05-17] MEDS: ATORVASTATIN 40 MG TAB PO SCH ×2 (02:36→20:59)
[2023-05-17 06:02] LABS: Basophils # (auto) 0.03 K/uL (0-0.2); Basophils % (auto) 0.6 %; Eosinophils # (auto) 0.07 K/uL (0-0.50); Eosinophils % (auto) 1.5 %; Hemoglobin 9.9 g/dl (14.0-18.0); Immature Granulocytes # (auto) 0.02 K/uL (0.01-0.20); Immature Granulocytes % (auto) 0.4 %; Lymphocytes # (auto) 1.23 K/uL (1.2-3.4); Lymphocytes % (auto) 26.5 %; Mean Corpuscular Hemoglobin 28.9 pg (25.0-34.0); Mean Corpuscular Volume 87.5 fL (80.0-100.0); Mean Platelet Volume 9.7 fL (9.4-12.4); Monocytes # (auto) 0.45 K/uL (0.11-0.59); Monocytes % (auto) 9.7 %; Neutrophils # (auto) 2.84 K/uL (1.40-6.50); Neutrophils % (auto) 61.3 %; Platelet Count 241 K/uL (130-400); RDW Coefficient of Variation 15.5 % (11.5-14.5); Red Blood Count 3.43 M/uL (4.70-6.10); White Blood Count 4.64 K/ul (4.8-10.8)
[2023-05-17 06:24] LABS: BUN Creatinine Ratio 12.2 (10-20); Calcium 8.8 mg/dl (8.6-10.3); Creatinine Clr Calc Pharmacy 51.2 ml/min; Est GFR (African American) 58.3 ml/min; Est GFR (Non-African American) 50.3 ml/min; Potassium 3.8 mmol/L (3.5-5.1)
[2023-05-17] MEDS ORDERED: LANTUS PER UNIT CHARGE SQ SCH ×2 (09:00)
[2023-05-17] MEDS: PANTOprazole 40 MG TAB PO SCH ×2 (09:04→20:59)
[2023-05-17] MEDS: FERROUS SULFATE 325 MG TAB PO SCH (09:04)
[2023-05-17] MEDS: LOSARTAN POTASSIUM 25 MG TAB PO SCH (09:04)
[2023-05-17] MEDS: SUCRALFATE 1 GM/10 ML UDC PO SCH ×4 (09:04→20:58)
[2023-05-17] MEDS: METOPROLOL SUCC 50MG EXT REL TAB PO SCH (09:04)
--- NOTE | 2023-05-17 15:37 | Electrocardiogram Report ---
Test Reason : Blood Pressure : / mmHG Vent. Rate : 073 BPM Atrial Rate : 073 BPM P-R Int : 148 ms QRS Dur : 104 ms QT Int : 404 ms P-R-T Axes : 014 012 043 degrees QTc Int : 445 ms Normal sinus rhythm Normal ECG When compared with ECG of 29-APR-2023 09:44, No significant change was found Confirmed by Anil Allred ([id number]) on 05/17/2023 3:37:19 PM Referred By: REFERRED SELF Confirmed By:Anil Allred
--- NOTE | 2023-05-17 15:37 | Electrocardiogram Report ---
Test Reason : Blood Pressure : / mmHG Vent. Rate : 071 BPM Atrial Rate : 071 BPM P-R Int : 150 ms QRS Dur : 106 ms QT Int : 424 ms P-R-T Axes : 066 048 083 degrees QTc Int : 460 ms Normal sinus rhythm Nonspecific ST and T wave abnormality Abnormal ECG When compared with ECG of 16-MAY-2023 18:33, (unconfirmed) No significant change was found Confirmed by Anil Allred ([id number]) on 05/17/2023 3:37:34 PM Referred By: REFERRED SELF Confirmed By:Anil Allred
--- NOTE | 2023-05-17 18:41 | Hospitalist Progress Note ---
Date of Service May 17, 2023 Assessment & Plan (1) Asymptomatic hypertensive urgency: Plan: Noted to have high blood pressure in the emergency room without any symptom Systolic blood pressure went up to 199 IV Lopressor 1 dose now titrate home BP meds, further dose increase may be limited by patient heart rate and kidney dysfunction Resume previous amlodipine Rx if still uncontrolled Remains on the higher side in the hospital Continue current medications Painless LGIB, diverticulosis on CT, rule out C. difficile given recent confinement last year, hemoglobin currently stable Came into ER with bright red rectal bleed Likely from hemorrhoids and could be secondary to AVMs No more bleeding since admission and hemoglobin remains stable at 9.9 Follow H&H, transfuse PRBC if hemoglobin less than 8 and or for symptomatic anemia Stool is positive for occult blood We will observe overnight and repeat CBC tomorrow We will get colonoscopy as an outpatient through PCP hx CAD status post CABG valvular heart disease (moderate /MR, mild to moderate AR) Short runs of V. tach NSVT secondary to hypomagnesemia Without any cardiac symptoms Magnesium replaced and no more evidence of arrhythmias Hyperlipidemia statin Rx DM 2 insulin requiring, suboptimal control as of recent hemoglobin A1c of 7.8 last month Basal bolus insulin adjusted for clear liquid diet, ISS BG goal 1 10-1 40, hx PUD, stable on regimen CKD close to baseline Stool C. difficile Hold patient antiplatelet Rx for now given LGIB, resume if hemoglobin stable DVT prophylaxis. SCDs Re: L GIB Full code Admission and Anticipated Discharge Date Admission Date: May 16, 2023 Subjective 05/17/2023 The patient was seen and examined in telemetry unit He was admitted with bright red rectal bleed and noted to have high blood pressure with short runs of V. tach No evidence of any more bleeding per rectum, denies any chest pain or palpitation, and no more arrhythmias Review of Systems Review of Systems: All systems reviewed and are unremarkable except as noted below Physical Exam Physical Exam: Sitting on a chair without any acute distress Constitutional: well developed, well nourished and + obese; not ill appearing Eyes: PERRL, conjunctivae normal, anicteric sclerae ENMT: external ear and nose normal, oropharynx normal Neck: trachea midline, no thyromegaly Respiratory: no respiratory distress Auscultation: lungs clear to auscultation bilaterally Cardiovascular: Rate/Rhythm: regular rate and regular rhythm; not tachycardic Heart Sounds: normal S1 and normal S2; no murmur Extremities: no edema Gastrointestinal (Abdomen): Inspection/Auscultation: normal bowel sounds; abdomen not distended Percussion/Palpation: abdomen soft; abdomen nontender Musculoskeletal: No acute arthritis involving any of the joint Neurologic: normal touch/pain/proprioception and moves all extremities; no focal motor deficits Psychiatric: A+Ox3, euthymic affect Lymphatic: no cervical or axillary lymphadenopathy Results & Data Results & Data Vital Signs (Past 12 Hours) Vital Signs Temp Pulse Pulse Resp BP Pulse Ox O2 Del Method 05/17/23 16:47 79 05/17/23 15:36 36.5 C 67 19 156/80 H 99 Room Air 05/17/23 11:31 36.3 C L 70 19 156/81 H 100 Room Air 05/17/23 08:00 69 05/17/23 07:46 36.7 C 76 19 164/89 H 97 Room Air Laboratory Results Short CBC 05/16/23 05/17/23 Range/Units 20:09 05:24 WBC 5.18 4.64 L (4.8-10.8) K/ul Hgb 9.6 L 9.9 L (14.0-18.0) g/dl Hct 29.9 L 30.0 L (42.0-52.0) % Plt Count 244 241 (130-400) K/uL BMP 05/17/23 05:24 Sodium 138 Potassium 3.8 D Chloride 106 Carbon Dioxide 25 BUN 17 Creatinine 1.39 Glucose 80 Calcium 8.8 Urine 05/16/23 Range/Units 18:12 Urine Color Yellow Urine Appearance Clear (Clear) Urine pH 6.0 (4.5-7.5) Ur Specific Wheeler 1.023 (1.000-1.030) Urine Protein 2+ H (Negative) Urine Glucose (UA) Negative (Negative) Medications Administered Current Inpatient Medications Acetaminophen (Acetaminophen 325 Mg Tab) 650 mg PO Q4H PRN PRN Reason: Pain or Fever Stop: 06/16/23 02:00 Allopurinol (Allopurinol 100 Mg Tab) 100 mg PO HS [facility] Stop: 06/16/23 20:59 Amlodipine Besylate (Amlodipine Besylate 5 Mg Tab) [facility] Stop: 06/17/23 08:59 Atorvastatin Calcium (Atorvastatin 40 Mg Tab) 80 mg PO HS [facility] Stop: 06/16/23 02:00 Last Admin: 05/17/23 02:36 Dose: 80 mg Dextrose (Dextrose 50% 50 Ml Syringe) 25 - 50 ml IV UD PRN; Protocol PRN Reason: Hypoglycemia Protocol Stop: 06/16/23 02:00 Ferrous Sulfate (Ferrous Sulfate 325 Mg Tab) 325 mg PO QAM [facility] Stop: 06/16/23 08:59 Last Admin: 05/17/23 09:04 Dose: 325 mg Glucagon (Glucagon For Inj 1 Mg Vial) 1 mg SQ UD PRN; Protocol PRN Reason: Hypoglycemia Protocol Stop: 06/16/23 02:00 Glucose (Glucose 10 Tab/Tube) 4 - 8 tab PO UD PRN; Protocol PRN Reason: Hypoglycemia Treatment Stop: 06/16/23 02:00 Glucose (Glucose 40% Gel 15 Gm Tube) 15 - 30 gm PO UD PRN; Protocol PRN Reason: Hypoglycemia Protocol Stop: 06/16/23 02:00 Promethazine HCl 6.25 mg/ (Sodium Chloride) 50.25 mls @ 201 mls/hr IV Q6H PRN PRN Reason: Nausea And Vomiting Stop: 06/15/23 23:21 Insulin Aspart (Insulin Aspart Per Unit Charge) 0 units SC ACHS [facility] Stop: 06/16/23 02:00 Last Admin: 05/17/23 17:34 Dose: 2 units Losartan Potassium (Losartan Potassium 25 Mg Tab) 25 mg PO DAILY [facility] Stop: 06/16/23 08:59 Last Admin: 05/17/23 09:04 Dose: 25 mg Metoprolol Succinate (Metoprolol Succ 50mg Ext Rel Tab) 100 mg PO QAM [facility] Stop: 06/16/23 08:59 Last Admin: 05/17/23 09:04 Dose: 100 mg Miscellaneous (Carbohydrates For Hypoglycemia ) 15 - 30 gm PO UD PRN PRN Reason: Hypoglycemia Protocol Stop: 06/16/23 02:00 Nitroglycerin (Nitroglycerin Sl 0.4 Mg/Tab Tab) 0.4 mg SL Q5M PRN PRN Reason: Chest Pain Stop: 06/16/23 02:00 Pantoprazole Sodium (Pantoprazole 40 Mg Tab) 40 mg PO BID [facility] Stop: 06/16/23 08:59 Last Admin: 05/17/23 09:04 Dose: 40 mg Polyethylene Glycol (Polyethylene (Miralax) 17 Gm Pack) 17 gm PO DAILY PRN PRN Reason: constipation Stop: 06/16/23 02:00 Sucralfate (Sucralfate 1 Gm/10 Ml Udc) 1 gm PO QID [facility] Stop: 06/16/23 08:59 Last Admin: 05/17/23 17:35 Dose: 1 gm Tramadol HCl (Tramadol Hcl 50 Mg Tablet) 25 - 50 mg PO Q4H PRN PRN Reason: Pain Stop: 06/15/23 23:21
[2023-05-17 20:50] LABS: Adenovirus F 40/41 PCR Not Detected (NotDetected); Astrovirus PCR Not Detected (NotDetected); Campylobacter PCR Not Detected (NotDetected); Cryptosporidium PCR Not Detected (NotDetected); Cyclospora cayetanensis PCR Not Detected (NotDetected); Entamoeba histolytica PCR Not Detected (NotDetected); Enteroaggregative E.coli(EAEC) Not Detected (NotDetected); Enteropathogenic E.coli (EPEC) Not Detected (NotDetected); Enterotoxigenic E.coli (ETEC) Not Detected (NotDetected); Giardia lamblia PCR Not Detected (NotDetected); Norovirus GI/GII PCR Not Detected (NotDetected); Rotavirus A PCR Not Detected (NotDetected); Salmonella PCR Not Detected (NotDetected); Sapovirus PCR Not Detected (NotDetected); Shiga-like Toxin E.coli (STEC) Not Detected (NotDetected); Shigella/Enteroinvasive E.coli Not Detected (NotDetected); Vibrio cholerae PCR Not Detected (NotDetected); Vibrio species PCR Not Detected (NotDetected); Yersinia enterocolitica PCR Not Detected (NotDetected)
[2023-05-17] MEDS ORDERED: allopurinoL 100 MG TAB PO SCH (21:00)
[2023-05-17 21:42] LABS: Plesiomonas shigelloides PCR DETECTED (NotDetected)
[2023-05-17] MEDS: CIPROFLOXACIN 500 MG TAB PO SCH (22:25)
[2023-05-18 06:22] LABS: Basophils # (auto) 0.02 K/uL (0-0.2); Basophils % (auto) 0.5 %; Eosinophils # (auto) 0.07 K/uL (0-0.50); Eosinophils % (auto) 1.7 %; Hematocrit (blood only) 31.4 % (42.0-52.0); Hemoglobin 10.1 g/dl (14.0-18.0); Immature Granulocytes # (auto) 0.01 K/uL (0.01-0.20); Immature Granulocytes % (auto) 0.2 %; Lymphocytes # (auto) 1.16 K/uL (1.2-3.4); Lymphocytes % (auto) 27.4 %; Mean Corpuscular Hemoglobin 28.8 pg (25.0-34.0); Mean Corpuscular Hgb Conc 32.2 g/dL (32.0-36.0); Mean Corpuscular Volume 89.5 fL (80.0-100.0); Mean Platelet Volume 9.9 fL (9.4-12.4); Monocytes # (auto) 0.37 K/uL (0.11-0.59); Monocytes % (auto) 8.7 %; Neutrophils % (auto) 61.5 %; Platelet Count 237 K/uL (130-400); RDW Coefficient of Variation 15.2 % (11.5-14.5); RDW Standard Deviation 48.7 fL (36.4-46.3); Red Blood Count 3.51 M/uL (4.70-6.10); White Blood Count 4.23 K/ul (4.8-10.8)
[2023-05-18 07:10] LABS: BUN Creatinine Ratio 9.8 (10-20); Calcium 8.9 mg/dl (8.6-10.3); Creatinine Clr Calc Pharmacy 53.2 ml/min; Est GFR (African American) 61.5 ml/min; Magnesium 1.7 mg/dl (1.7-2.4); Phosphorus 3.8 mg/dl (2.5-4.9); Potassium 3.7 mmol/L (3.5-5.1)
[2023-05-18] MEDS: CIPROFLOXACIN 500 MG TAB PO SCH (08:08)
[2023-05-18] MEDS: PANTOprazole 40 MG TAB PO SCH (08:08)
[2023-05-18] MEDS: METOPROLOL SUCC 50MG EXT REL TAB PO SCH (08:09)
[2023-05-18] MEDS: FERROUS SULFATE 325 MG TAB PO SCH (08:09)
[2023-05-18] MEDS: SUCRALFATE 1 GM/10 ML UDC PO SCH (08:10)
[2023-05-18] MEDS: LOSARTAN POTASSIUM 25 MG TAB PO SCH (08:10)
[2023-05-18] MEDS: INSULIN ASPART PER UNIT CHARGE SC SCH ×2 (08:59→12:57)
[2023-05-18] MEDS ORDERED: amLODIPine BESYLATE 5 MG TAB PO SCH (09:00)
--- NOTE | 2023-05-18 13:38 | Hospitalist Progress Note ---
Date of Service May 18, 2023 Assessment & Plan (1) Asymptomatic hypertensive urgency: Plan: Noted to have high blood pressure in the emergency room without any symptom Systolic blood pressure went up to 199 IV Lopressor 1 dose now titrate home BP meds, further dose increase may be limited by patient heart rate and kidney dysfunction Resume previous amlodipine Rx if still uncontrolled Remains on the higher side in the hospital Continue current medications Blood pressure remains stable Painless LGIB, diverticulosis on CT, rule out C. difficile given recent confinement last year, hemoglobin currently stable Came into ER with bright red rectal bleed Likely from hemorrhoids and could be secondary to AVMs No more bleeding since admission and hemoglobin remains stable at 9.9 Follow H&H, transfuse PRBC if hemoglobin less than 8 and or for symptomatic a nemia Stool is positive for occult blood We will observe overnight and repeat CBC tomorrow We will get colonoscopy as an outpatient through PCP Noted to have stool positive for Shigella-likely from secondary to eating unwashed vegetables and fruits Started on Cipro and will be continued for 3 days Advised to maintain hand hygiene and wash vegetables and fruits before eating hx CAD status post CABG valvular heart disease (moderate /MR, mild to moderate AR) Short runs of V. tach NSVT secondary to hypomagnesemia Without any cardiac symptoms Magnesium replaced and no more evidence of arrhythmias No more arrhythmia and does not have any cardiac symptoms Hyperlipidemia statin Rx DM 2 insulin requiring, suboptimal control as of recent hemoglobin A1c of 7.8 last month Basal bolus insulin adjusted for clear liquid diet, ISS BG goal 1 10-1 40, hx PUD, stable on regimen CKD close to baseline Stool C. difficile Hold patient antiplatelet Rx for now given LGIB, resume if hemoglobin stable DVT prophylaxis. SCDs Re: L GIB Full code Will be discharged home this afternoon Admission and Anticipated Discharge Date Admission Date: May 16, 2023 Subjective 05/17/2023 The patient was seen and examined in telemetry unit He was admitted with bright red rectal bleed and noted to have high blood pressure with short runs of V. tach No evidence of any more bleeding per rectum, denies any chest pain or palpitation, and no more arrhythmias 05/18/2023 The patient was seen and examined in telemetry unit He has been feeling much better and denies any more diarrhea and no bleeding per rectum Did not have any arrhythmia or cardiac symptoms He will be discharged home this afternoon Review of Systems Review of Systems: All systems reviewed and are unremarkable except as noted below Physical Exam Physical Exam: Sitting on a chair without any acute distress Constitutional: well developed, well nourished and + obese; not ill appearing Eyes: PERRL, conjunctivae normal, anicteric sclerae ENMT: external ear and nose normal, oropharynx normal Neck: trachea midline, no thyromegaly Respiratory: no respiratory distress Auscultation: lungs clear to auscultation bilaterally Cardiovascular: Rate/Rhythm: regular rate and regular rhythm; not tachycardic Heart Sounds: normal S1 and normal S2; no murmur Extremities: no edema Gastrointestinal (Abdomen): Inspection/Auscultation: normal bowel sounds; abdomen not distended Percussion/Palpation: abdomen soft; abdomen nontender Neurologic: normal touch/pain/proprioception and moves all extremities; no focal motor deficits Psychiatric: A+Ox3, euthymic affect Lymphatic: no cervical or axillary lymphadenopathy Results & Data Results & Data Vital Signs (Past 12 Hours) Vital Signs Temp Pulse Pulse Resp BP Pulse Ox O2 Del Method 05/18/23 11:14 36.3 C L 75 18 153/82 H 100 Room Air 05/18/23 07:41 69 05/18/23 07:04 36.5 C 81 18 136/83 97 Room Air 05/18/23 04:28 36.4 C L 70 18 164/77 H 98 Room Air Laboratory Results Short CBC 05/18/23 Range/Units 05:29 WBC 4.23 L (4.8-10.8) K/ul Hgb 10.1 L (14.0-18.0) g/dl Hct 31.4 L (42.0-52.0) % Plt Count 237 (130-400) K/uL BMP 05/18/23 05:29 Sodium 140 Potassium 3.7 Chloride 108 H Carbon Dioxide 25 BUN 13 Creatinine 1.33 Glucose 77 Calcium 8.9 Medications Administered Current Inpatient Medications Acetaminophen (Acetaminophen 325 Mg Tab) 650 mg PO Q4H PRN PRN Reason: Pain or Fever Stop: 06/16/23 02:00 Allopurinol (Allopurinol 100 Mg Tab) 100 mg PO HS [facility] Stop: 06/16/23 20:59 Last Admin: 05/17/23 20:59 Dose: 100 mg Amlodipine Besylate (Amlodipine Besylate 5 Mg Tab) 5 mg PO QAM [facility] Stop: 06/17/23 08:59 Last Admin: 05/18/23 08:08 Dose: 5 mg Atorvastatin Calcium (Atorvastatin 40 Mg Tab) 80 mg PO HS [facility] Stop: 06/16/23 02:00 Last Admin: 05/17/23 20:59 Dose: 80 mg Ciprofloxacin (Ciprofloxacin 500 Mg Tab) 500 mg PO BID [facility]; Protocol Stop: 05/27/23 09:01 Dextrose (Dextrose 50% 50 Ml Syringe) 25 - 50 ml IV UD PRN; Protocol PRN Reason: Hypoglycemia Protocol Stop: 06/16/23 02:00 Ferrous Sulfate (Ferrous Sulfate 325 Mg Tab) 325 mg PO QAM [facility] Stop: 06/16/23 08:59 Last Admin: 05/18/23 08:09 Dose: 325 mg Glucagon (Glucagon For Inj 1 Mg Vial) 1 mg SQ UD PRN; Protocol PRN Reason: Hypoglycemia Protocol Stop: 06/16/23 02:00 Glucose (Glucose 10 Tab/Tube) 4 - 8 tab PO UD PRN; Protocol PRN Reason: Hypoglycemia Treatment Stop: 06/16/23 02:00 Glucose (Glucose 40% Gel 15 Gm Tube) 15 - 30 gm PO UD PRN; Protocol PRN Reason: Hypoglycemia Protocol Stop: 06/16/23 02:00 Promethazine HCl 6.25 mg/ (Sodium Chloride) 50.25 mls @ 201 mls/hr IV Q6H PRN PRN Reason: Nausea And Vomiting Stop: 06/15/23 23:21 Insulin Aspart (Insulin Aspart Per Unit Charge) 0 units SC ACHS [facility] Stop: 06/16/23 02:00 Last Admin: 05/18/23 12:57 Dose: 11 units Losartan Potassium (Losartan Potassium 25 Mg Tab) 25 mg PO DAILY [facility] Stop: 06/16/23 08:59 Last Admin: 05/18/23 08:10 Dose: 25 mg Metoprolol Succinate (Metoprolol Succ 50mg Ext Rel Tab) 100 mg PO QAM [facility] Stop: 06/16/23 08:59 Last Admin: 05/18/23 08:09 Dose: 100 mg Miscellaneous (Carbohydrates For Hypoglycemia ) 15 - 30 gm PO UD PRN PRN Reason: Hypoglycemia Protocol Stop: 06/16/23 02:00 Nitroglycerin (Nitroglycerin Sl 0.4 Mg/Tab Tab) 0.4 mg SL Q5M PRN PRN Reason: Chest Pain Stop: 06/16/23 02:00 Pantoprazole Sodium (Pantoprazole 40 Mg Tab) 40 mg PO BID [facility] Stop: 06/16/23 08:59 Last Admin: 05/18/23 08:08 Dose: 40 mg Polyethylene Glycol (Polyethylene (Miralax) 17 Gm Pack) 17 gm PO DAILY PRN PRN Reason: constipation Stop: 06/16/23 02:00 Sucralfate (Sucralfate 1 Gm/10 Ml Udc) 1 gm PO QID [facility] Stop: 06/16/23 08:59 Last Admin: 05/18/23 08:10 Dose: 1 gm Tramadol HCl (Tramadol Hcl 50 Mg Tablet) 25 - 50 mg PO Q4H PRN PRN Reason: Pain Stop: 06/15/23 23:21
[2023-05-18] MEDS ORDERED: CIPROFLOXACIN 500 MG TAB PO SCH (21:00)
--- NOTE | 2023-05-19 08:32 | Discharge Summary ---
Date of Service May 18, 2023 Admission HPI Per Admitting Provider History obtained from patient and records. Medical history significant for CAD status post CABG, valvular heart disease (moderate /MR, mild to moderate AR), hypertension, hyperlipidemia, DM 2 insulin requiring, PUD, CRI (baseline creatinine 1.5) PUD,, chronic anemia (baseline hemoglobin 9), past tobacco abuse. 3 [facility] confinements last month. Recent confinement April 29 to 2022 for orthostatic hypotension. Home Amlodipine discontinued on discharge. Today, patient noted painless rectal bleeding at home. Second bowel movement loose as per patient. No belly pain. No chest pain, no unusual shortness of breath. No headache. No melanotic episodes. Highest SBP of 190s at the ER. Nonsustained V. tach noted on the monitor. Patient asymptomatic during episode. 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 Admission Exam Per Admitting Provider Physical Exam: GENERAL: Comfortable, pleasant, obese, no respiratory distress SKIN: Pallor , warm HEENT: Pale palpebral conjunctivae, no ptosis, dry buccal mucosa NECK : Supple, no tenderness CHEST : CTA, no tenderness HEART : RRR, systolic murmur ABDOMEN: Some distention, nontender EXTREMITIES : Minimal LE swelling, no LE tenderness, no other conspicuous deformities noted NEUROLOGIC : Coherent, no facial asymmetry, no other gross focality Principal Diagnosis Hypertensive urgency, lower GI bleed, Shigella infection, CAD status post CABG, type 2 diabetes Discharge Exam Sitting on a chair without any acute distress Constitutional well developed, well nourished and + obese; not ill appearing Eyes PERRL, conjunctivae normal, anicteric sclerae ENMT external ear and nose normal, oropharynx normal Neck trachea midline, no thyromegaly Respiratory no respiratory distress Auscultation: lungs clear to auscultation bilaterally Cardiovascular Rate/Rhythm: regular rate and regular rhythm; not tachycardic Heart Sounds: normal S1 and normal S2; no murmur Extremities: no edema Gastrointestinal (Abdomen) Inspection/Auscultation: normal bowel sounds; abdomen not distended Percussion/Palpation: abdomen soft; abdomen nontender Neurologic normal touch/pain/proprioception and moves all extremities; no focal motor deficits Psychiatric A+Ox3, euthymic affect Lymphatic no cervical or axillary lymphadenopathy Discharge Data Allergies Allergy/AdvReac Type Severity Reaction Status Date / Time Opioids - Morphine Analogues AdvReac Mild Dizziness Verified 05/16/23 22:35 and feeling sick Consultations 05/16/23 21:55 ED Decision to Admit Stat Ordered Studies 05/16/23 18:08 CT abd pelvis IV con only Stat Hospital Course (1) Asymptomatic hypertensive urgency: Noted to have high blood pressure in the emergency room without any symptom Systolic blood pressure went up to 199 IV Lopressor 1 dose now titrate home BP meds, further dose increase may be limited by patient heart rate and kidney dysfunction Resume previous amlodipine Rx if still uncontrolled Remains on the higher side in the hospital Continue current medications Blood pressure remains stable Painless LGIB, diverticulosis on CT, rule out C. difficile given recent confinement last year, hemoglobin currently stable Came into ER with bright red rectal bleed Likely from hemorrhoids and could be secondary to AVMs No more bleeding since admission and hemoglobin remains stable at 9.9 Follow H&H, transfuse PRBC if hemoglobin less than 8 and or for symptomatic anemia Stool is positive for occult blood We will observe overnight and repeat CBC tomorrow We will get colonoscopy as an outpatient through PCP Noted to have stool positive for Shigella-likely from secondary to eating unwashed vegetables and fruits Started on Cipro and will be continued for 3 days Advised to maintain hand hygiene and wash vegetables and fruits before eating hx CAD status post CABG valvular heart disease (moderate /MR, mild to moderate AR) Short runs of V. tach NSVT secondary to hypomagnesemia Without any cardiac symptoms Magnesium replaced and no more evidence of arrhythmias No more arrhythmia and does not have any cardiac symptoms Hyperlipidemia statin Rx DM 2 insulin requiring, suboptimal control as of recent hemoglobin A1c of 7.8 last month Basal bolus insulin adjusted for clear liquid diet, ISS BG goal 1 10-1 40, hx PUD, stable on regimen CKD close to baseline Stool C. difficile Hold patient antiplatelet Rx for now given LGIB, resume if hemoglobin stable DVT prophylaxis. SCDs Re: L GIB Full code Will be discharged home this afternoon Total Time Total Time Spent Total Time Spent (In Minutes): 35 minutes Discharge Plan Discharge Items Patient Disposition: Home - Self-Care Reason For Visit: NSVT, LOW MAG Discharge Diagnosis: Hypertensive urgency, lower GI bleed, Shigella infection, CAD status post CABG, type 2 diabetes Condition on Discharge: Good Activity: Resume your previous activity Non-emergency contact: Primary Care Provider Call non-emergency contact if: you have any medication questions and your symptoms worsen Follow-up/Referrals: Saw Campbell DO [Primary Care Provider] - 05/25/23 2:00 pm Diet: Carb Consistent or DM2 and Heart Healthy Addtl Attending Provider Instructions: Please take precautions to avoid fall Finish the course of antibiotic Wash your fresh vegetables and fruits before condemning Maintain hand hygiene Please give appointment with your healthcare providers You will need to have a colonoscopy arranged through your primary care physician Pending Studies at Discharge: No Stand-Alone Forms: My [employer], Smoking Cessation Medications and DC Order Prescriptions: New amlodipine [Norvasc] 5 mg Tablet 5 mg PO QAM Qty: 30 0RF ciprofloxacin HCl 500 mg Tablet 500 mg PO BID 3 Days Qty: 6 0RF Continued metformin 1,000 mg tablet 1,000 mg PO BID Qty: 180 3RF ondansetron 4 mg tablet,disintegrating 4 mg PO Q6H PRN (Reason: nausea and vomiting) Qty: 10 0RF allopurinol 100 mg tablet 100 mg PO HS atorvastatin 80 mg tablet 80 mg PO HS clopidogrel 75 mg tablet 75 mg PO QAM Qty: 30 Hold Instructions: Resume on 04/28/23. insulin glargine 100 unit/mL solution 70 unit subcut QAM metoprolol succinate 100 mg tablet extended release 24 hr 100 mg PO QAM polyethylene glycol 3350 [Miralax] 17 gram Powder In Packet 17 g PO DAILY PRN (Reason: constipation) Qty: 14 0RF docusate sodium [Colace] 100 mg capsule 100 mg PO BID PRN (Reason: constipation) Qty: 30 0RF tramadol 50 mg tablet 50 - 100 mg PO Q6H PRN (Reason: Pain) insulin glargine [Lantus Solostar U-100 Insulin] 100 unit/mL (3 mL) insulin pen 10 unit SUBCUT HS PRN (Reason: Hyperglycemia) ferrous sulfate 325 mg (65 mg iron) Tablet,Delayed Release (Dr/Ec) 325 mg PO QAM Qty: 30 0RF sucralfate 100 mg/mL Suspension 1 g PO QID 28 Days Qty: 1000 0RF pantoprazole 40 mg tablet,delayed release (DR/EC) 40 mg PO BID losartan 25 mg tablet 25 mg PO DAILY Qty: 30 0RF triamterene-hydrochlorothiazid 37.5-25 mg tablet 1 tab PO QAM nitroglycerin 0.4 mg tablet, sublingual 0.4 mg sublingual UD PRN (Reason: Chest Pain) Rx Instructions: place 1 tablet under tongue every 5 minutes as needed for chest pain. may repeat every 5 minutes 3 times Discharge Orders: Discharge Order (Routine); Ordered 05/18/23 Ordered By: Christi Wolf Admission Data Admit Date/Time: 05/16/23 23:20 Attending Provider: Christi Wolf Admit Provider: Alphonso Heller Primary Care Provider: Saw Campbell Other Providers: Alphonso Heller Other Interventions: Discharge Summary Assessment (RN) Last Done: 05/18/23 14:19
== END 2023-05-18 14:46 | disposition home or self-care (01) | DRG 371 ==
LOC: ED 15:43 → 4W 23:20

== ENCOUNTER 2023-09-18 11:56 | Observation (INO) ==
[2023-09-18 12:50] LABS: Basophils # (auto) 0.03 K/uL (0.00-0.20); Basophils % (auto) 0.6 %; Eosinophils # (auto) 0.06 K/uL (0.00-0.50); Eosinophils % (auto) 1.2 %; Hematocrit (blood only) 37.5 % (42.0-52.0); Hemoglobin 11.7 g/dl (14.0-18.0); Immature Granulocytes # (auto) 0.02 K/uL (0.01-0.20); Immature Granulocytes % (auto) 0.4 %; Lymphocytes % (auto) 19.5 %; Mean Corpuscular Hemoglobin 26.5 pg (25.0-34.0); Mean Corpuscular Hgb Conc 31.2 g/dL (32.0-36.0); Mean Corpuscular Volume 84.8 fL (80.0-100.0); Mean Platelet Volume 10.1 fL (9.4-12.4); Monocytes % (auto) 7.8 %; Neutrophils # (auto) 3.62 K/uL (1.40-6.50); Neutrophils % (auto) 70.5 %; Platelet Count 258 K/uL (130-400); RDW Standard Deviation 52.6 fL (36.4-46.3); Red Blood Count 4.42 M/uL (4.70-6.10); White Blood Count 5.13 K/ul (4.8-10.8)
--- NOTE | 2023-09-18 12:50 | XRay Report ---
XR chest 1V not portable CLINICAL HISTORY: Chest pain, nonspecific TECHNIQUE: Single frontal radiograph of the chest was obtained. Comparison: Comparison is made to chest radiograph 05/16/2023 FINDINGS: Right reverse shoulder arthroplasty is seen. Midline sternotomy wires are seen. Cardiomegaly is noted . The aortic arch is calcified. Left retrocardiac opacity is noted. Small bilateral pleural effusions are seen. IMPRESSION: Small bilateral pleural effusions. Left retrocardiac opacity may represent layering effusion, atelect asis, pneumonia, and/or aspiration. ACT 112: Negative or not required by law. Electronically signed by: Kevyn Duarte M.D. 09/18/2023 12:49 PM
[2023-09-18 13:02] LABS: Albumin Globulin Ratio 1.3 (0.9-2); Albumin Level 3.8 gm/dl (3.4-5.0); BUN Creatinine Ratio 14.6 (10-20); Bilirubin,Total 0.5 mg/dl (0.2-1.0); Calcium 8.5 mg/dl (8.6-10.3); Creatinine Clr Calc Pharmacy 45.6 ml/min; Est GFR (African American) 50.3 ml/min; Est GFR (Non-African American) 43.4 ml/min; Globulin 2.9 gm/dl (2.5-4.0); Potassium 4.6 mmol/L (3.5-5.1); Total Protein 6.7 gm/dl (6.0-8.3)
[2023-09-18 13:08] LABS: Troponin I High Sensitivity 64.6 pg/ml (0-20)
[2023-09-18 13:10] LABS: Partial Thromboplastin Time 29 Seconds (21-31); Prothrombin Time 11.4 Seconds (9.0-12.0)
[2023-09-18 13:17] LABS: Influenza A virus by PCR Negative (Neg); Influenza B virus by PCR Negative (Neg); RSV by PCR Negative (Neg); SARS CoV2 RNA(COVID-19) Ceph NEGATIVE (Negative)
[2023-09-18] MEDS ORDERED: FUROSEMIDE 40 MG/4 ML VIAL IV ONE (14:01)
--- NOTE | 2023-09-18 14:01 | Emergency Department Note ---
Impression & Plan Shortness of breath, CHF (congestive heart failure), Elevated troponin ED Provider Note NAME: LYNDSAY BRYANT AGE: 72 SEX: M : 1950 ARRIVES VIA: Walk-In INFORMANT: Patient ED PROVIDER(S): Froylan Sanders DO CHIEF COMPLAINT: shortness of breath HPI: Patient is a 72-year-old male who presents to the ER for shortness of breath. This has been present for the past 2 weeks. He notes he was treated for pneumonia over a month ago. He denies any chest pain. He admits to new swelling of his legs. Does have a history of a previous bypass. He notes when he climbs a flight of stairs is very short of breath now. No belly pain, nausea, vomiting, or diarrhea. No dysuria, urgency, or frequency. No other exacerbating remitting factors. ADDITIONAL HISTORY OBTAINED: Per HPI Chronic Medical/Social Conditions Affecting Care: Per HPI PAST MEDICAL HISTORY:See Below PAST SURGICAL HISTORY:See Below FAMILY HISTORY:See Below SOCIAL HISTORY:See Below HOME MEDICATIONS:See Below ALLERGIES:See Below VITALS:See Below PHYSICAL EXAMINATION: GENERAL: Sitting up in bed, alert, well appearing, well nourished, no distress, non-toxic EYE EXAM: normal conjunctiva. OROPHARYNX: no exudate, no erythema, lips, buccal mucosa, and tongue normal and mucous membranes are moist NECK: supple, no nuchal rigidity, no adenopathy, non-tender LUNGS: Clear to auscultation. Normal chest wall mechanics HEART: no murmurs, S1 normal and S2 normal ABDOMEN: abdomen soft, non-tender, normo-active bowel sounds, no masses, no rebound or guarding. UPPER EXTREMITIES: upper extremities are grossly normal. LOWER EXTREMITIES: Pitting edema in the lower extremities NEURO EXAM: Normal sensorium, cranial nerves II-XII grossly intact, normal speech, no gross weakness of arms, no gross weakness of legs. MEDICAL DECISION MAKING: Patient is a 72-year-old male who presents ER for above-stated complaint. IV was established blood work is obtained. Labs show no significant leukocytosis. Mild anemia 11.7. INR unremarkable. BMP with creatinine 1.5. Mag was slightly low at 1.3. LFTs bilirubin was unremarkable. Troponin elevated at 64. BNP elevated at 1000. UA was clean. Viral panel was negative. Patient was given IV Lasix. Chest x-ray suggest left lower lobe effusion. Do favor that this likely secondary to CHF. Discussed with the patient further evaluation by the hospitalist. Discussed with Dr. Bala Howe for further evaluation management treatment. Consults/Care Managements Discussions: Per [facility] Triage Nursing notes reviewed. Limited review of prior medical records performed Vital Signs: reviewed and remarkable for no significant abnormalities Differential diagnosis: Differential diagnoses includes but is not limited to pneumonia, bronchitis, COPD/Asthma exacerbation, pneumothorax, pulmonary embolism, congestive heart failure, acute coronary syndrome ER treatment provided: See below Diagnostics interpreted by me include EKG and cardiac monitoring as listed below: -Cardiac Monitoring: An order was placed for continuous cardiac monitoring. The monitor shows a rate of 70 with sinus rhythm. -ECG: Sinus rhythm rate 74 Normal axis No PVCs QTc 468 Poor baseline V2 V3 -Laboratory studies:Interpreted by me as stated above in MDM and shown below. Imaging studies: Xrays: As interpreted by me: Portable AP upright 1 view of the chest shows left lower lobe effusion CTs show: none Procedures:none Critical Care: None Past Med/Surg History Medical History (Updated 09/18/23 @ 18:17 by Froylan Sanders DO) GERD (gastroesophageal reflux disease) Acute on chronic diastolic CHF (congestive heart failure) SOB (shortness of breath) History of duodenal ulcer Insulin dependent type 2 diabetes mellitus Hypertension controlled, stable per pt History of blood transfusion 2016 with CABG Seizure 1 yr ago, in setting of hypoglycemia, no additional seizure activity Carotid stenosis < 50% stenosis ICAs bilat 12/2021 doppler Hearing deficit On anticoagulant therapy plavix daily Myocardial Infarction per Dr. Eisenberg's note recurrent NSTEMI: 07/2016 and in 2017--heart caths with stents placed--had CABG 07/2016 [place] [facility] [place] with Dr. Eisenberg History of COVID-19 09/2020--mild symptoms, denies hospitalization, no symptoms now Aortic stenosis moderate on 03/2023 echo Herniation of cervical intervertebral disc Gout Coronary artery disease s/p 4 stents, CABG x 3 in 2015, most recent stent in 2017 Surgical History History of reverse total replacement of right shoulder joint History of colonoscopy History of tooth extraction History of wisdom tooth extraction History of cardiac cath multiple in 2015 with last 11/2016 @ [facility]--x4 stents total placed S/P coronary artery bypass graft x 3 07/2016 @ [facility] [place] S/P epidural steroid injection Family History Father Myocardial infarction Other No family history of adverse response to anesthesia Social History Smoking Status: Never smoker Age Started Using Tobacco: 60; Age Quit Using Tobacco: 65; Second Hand Exposure: No; Do You Dip or Chew Tobacco: No; Hx Alcohol Use: Yes Alcohol type: beer Alcohol Intake Frequency: 2-4 x/Month Hx Substance Use: No Preferred Language: Romanian Communication Ability: Effective 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 Beliefs That Will Affect Care: None marital status: Current Living Situation: Spouse current occupational status: retired Feels Safe at Home: Yes Assistive Devices: None Allergies Allergies Allergy/AdvReac Type Severity Reaction Status Date / Time Opioids - Morphine Analogues AdvReac Mild Dizziness Verified 09/18/23 14:07 and feeling sick Home Meds Home Medications Medication Instructions Recorded Confirmed allopurinol 100 mg tablet 100 mg PO HS 05/08/19 09/18/23 atorvastatin 80 mg tablet 80 mg PO HS 05/08/19 09/18/23 clopidogrel 75 mg tablet 75 mg PO QAM #30 tabs 05/08/19 09/18/23 metoprolol succinate 100 mg 100 mg PO QAM 03/17/23 09/18/23 tablet,extended release 24 hr pantoprazole 40 mg tablet,delayed 40 mg PO BID 04/29/23 09/18/23 release nitroglycerin 0.4 mg sublingual 0.4 mg sublingual UD PRN Chest Pain 05/16/23 09/18/23 tablet insulin glargine 100 unit/mL (3 0 unit subcut BID 09/18/23 09/18/23 mL) subcutaneous pen (Lantus Solostar U-100 Insulin) Previous Rx's Medication Instructions Recorded metformin 1,000 mg tablet 1,000 mg PO BID #180 tabs 08/16/19 ferrous sulfate 325 mg (65 mg 325 mg PO QAM #30 tabs 04/25/23 iron) tablet,delayed release losartan 25 mg tablet 25 mg PO DAILY #30 tabs 04/30/23 Results & Data (ED) Vital Signs Vital Signs - 24 hr 09/18/23 12:12 09/18/23 13:56 09/18/23 13:56 Temperature 36.9 C Temperature Source Temporal Artery Scan Pulse Rate 75 73 Pulse Rate from SpO2 Sensor 72 Respiratory Rate 20 23 Respiratory Effort / Characteristics Non-Labored Respiratory Depth Normal Blood Pressure 157/87 H 166/87 H Blood Pressure Mean 110 116 Pulse Oximetry 98 95 Oxygen Delivery Method Room Air Sepsis Recent Fever Within 48 Hours No Sepsis New/Unexplained Change in Mental Status No Sepsis Action Taken by Nursing No Action Required 09/18/23 14:02 09/18/23 14:02 Temperature Temperature Source Pulse Rate 72 Pulse Rate from SpO2 Sensor 72 Respiratory Rate 30 H Respiratory Effort / Characteristics Respiratory Depth Blood Pressure Blood Pressure Mean Pulse Oximetry 98 98 Oxygen Delivery Method Room Air Sepsis Recent Fever Within 48 Hours Sepsis New/Unexplained Change in Mental Status Sepsis Action Taken by Nursing Laboratory Data 09/18/23 12:23 09/18/23 12:23 Lab Results 09/18/23 09/18/23 09/18/23 Range/Units 12: 12:30 14:15 WBC 5.13 (4.8-10.8) K/ul RBC 4.42 L (4.70-6.10) M/uL Hgb 11.7 L (14.0-18.0) g/dl Hct 37.5 L (42.0-52.0) % MCV 84.8 (80.0-100.0) fL MCH 26.5 (25.0-34.0) pg MCHC 31.2 L (32.0-36.0) g/dL RDW Std Deviation 52.6 H (36.4-46.3) fL RDW Coeff of Ernesto 17.0 H (11.5-14.5) % Plt Count 258 (130-400) K/uL MPV 10.1 (9.4-12.4) fL Immature Gran % (Auto) 0.4 % Neut % (Auto) 70.5 % Lymph % (Auto) 19.5 % Hockley % (Auto) 7.8 % Eos % (Auto) 1.2 % Baso % (Auto) 0.6 % Neut # (Auto) 3.62 (1.40-6.50) K/uL Lymph # (Auto) 1.00 L (1.20-3.40) K/uL Hockley # (Auto) 0.40 (0.11-0.59) K/uL Eos # (Auto) 0.06 (0.00-0.50) K/uL Baso # (Auto) 0.03 (0.00-0.20) K/uL Immature Gran # (Auto) 0.02 (0.01-0.20) K/uL PT 11.4 (9.0-12.0) Seconds INR 1.0 (0.9-1.1) APTT 29 (21-31) Seconds PTT Ratio 1.0 Sodium 138 (136-145) mmol/L Potassium 4.6 (3.5-5.1) mmol/L Chloride 107 (98-107) mmol/L Carbon Dioxide 25 (21-32) mmol/L Anion Gap 6 (3-11) BUN 23 (6-23) mg/dl Creatinine 1.57 H (0.6-1.4) mg/dl Est Cr Clr Drug Dosing 45.6 ml/min Est GFR ( Amer) 50.3 ml/min Est GFR (Non-Af Amer) 43.4 ml/min BUN/Creatinine Ratio 14.6 (10-20) Glucose 137 H (70-99(Fasting)) mg/dl Calcium 8.5 L (8.6-10.3) mg/dl Phosphorus 2.5 (2.5-4.9) mg/dl Magnesium 1.3 L (1.7-2.4) mg/dl Total Bilirubin 0.5 (0.2-1.0) mg/dl AST 17 (13-39) U/L ALT 8 (7-52) U/L Alkaline Phosphatase 74 (34-104) U/L Troponin I High Sens 64.6 H* 65.5 H* (0-20) pg/ml B-Natriuretic Peptide 978 H (0-100) pg/ml Total Protein 6.7 (6.0-8.3) gm/dl Albumin 3.8 (3.4-5.0) gm/dl Globulin 2.9 (2.5-4.0) gm/dl Albumin/Globulin Ratio 1.3 (0.9-2) SARS-CoV-2 (PCR) NEGATIVE (Negative) Influenza Type A (PCR) Negative (Neg) Influenza Type B (PCR) Negative (Neg) RSV (RT-PCR) Negative (Neg) Administered Medications Magnesium Sulfate/Dextrose (Magnesium Sulfate / D5w) 1 gm in 100 mls @ 50 mls/hr IV Q2H CYNDY Stop: 09/18/23 20:59 Last Admin: 09/18/23 17:34 Dose: 50 mls/hr Documented By: JIMMIE Discontinued Medications Furosemide (Furosemide 40 Mg/4 Ml Vial) 40 mg IV ONE ONE Stop: 09/18/23 14:02 Last Admin: 09/18/23 14:18 Dose: 40 mg Documented By: GRACIELA Magnesium Sulfate/Dextrose (Magnesium Sulfate / D5w) 1 gm in 100 mls @ 100 mls/hr IV NOW STA Stop: 09/18/23 16:16 Last Admin: 09/18/23 16:19 Dose: Not Given Documented By: PAT Magnesium Sulfate/Dextrose (Magnesium Sulfate / D5w) 1 gm in 100 mls @ 100 mls/hr IV NOW STA Stop: 09/18/23 16:35 Last Admin: 09/18/23 16:12 Dose: 100 mls/hr Documented By: PAT Imaging Data Radiologist's Impression: Chest X-Ray 09/18/23 12:16 XR chest 1V not portable CLINICAL HISTORY: Chest pain, nonspecific TECHNIQUE: Single frontal radiograph of the chest was obtained. Comparison: Comparison is made to chest radiograph 05/16/2023 FINDINGS: Right reverse shoulder arthroplasty is seen. Midline sternotomy wires are seen. Cardiomegaly is noted. The aortic arch is calcified. Left retrocardiac opacity is noted. Small bilateral pleural effusions are seen. IMPRESSION: Small bilateral pleural effusions. Left retrocardiac opacity may represent layering effusion, atelectasis, pneumonia, and/or aspiration. ACT 112: Negative or not required by law. Electronically signed by: Kevyn Duarte M.D. 09/18/2023 12:49 PM Discharge Plan Visit Data Chief Complaint: Shortness of Breath/Dyspnea Stated Complaint: SOB ED Provider: Froylan Sanders Discharge Problem: Shortness of breath, CHF (congestive heart failure), Elevated troponin Discharge Instructions Interventions: ED Discharge Assessment Last Done: 09/18/23 15:06 Discharge Problem: CHF (congestive heart failure) Qualifiers: Heart failure type: unspecified Heart failure chronicity: unspecified Qualified Code(s): I50.9 - Heart failure, unspecified
[2023-09-18] MEDS ORDERED: ALUMINUM/MAGNESIUM SUSP 30 ML UDC PO PRN (14:20)
[2023-09-18] MEDS ORDERED: ONDANSETRON INJ 2 MG/ML 2 ML VIAL IV PRN (14:20)
[2023-09-18] MEDS ORDERED: MAGNESIUM HYDROXIDE SUSP 30 ML UDC PO PRN (14:20)
[2023-09-18] MEDS ORDERED: POLYETHYLENE (MIRALAX) 17 GM PACK PO PRN (14:20)
[2023-09-18] MEDS ORDERED: ACETAMINOPHEN 325 MG TAB PO PRN (14:20)
--- NOTE | 2023-09-18 14:41 | History & Physical Report ---
Date of Service September 18, 2023 Assessment & Plan (1) Acute on chronic diastolic CHF (congestive heart failure): (2) SOB (shortness of breath): (3) Coronary artery disease: (4) Insulin dependent type 2 diabetes mellitus: (5) Hypertension: (6) CKD (chronic kidney disease), stage III: (7) GERD (gastroesophageal reflux disease): (8) Gout: Plan Mr. Cheatham is a 72 year old male that has a history of insulin dependent type 2 diabetes, HTN, HLD, CABG x3 07/2016 (performed at [facility]), numerous stens in 2017; PCI to mid LAD and distal RCA via vein graft, moderate aortic stenosis, CKD stage III, gout, and GERD. He presents today with SOB that has been occurring for the past two weeks. He reportedly was diagnosed with PNA one month ago and since then has had difficulty with worsening bilateral LE swelling and exertional SOB when climbing stairs. Pt has had numerous admissions since April 2023: - 04/06/2023-04/07/2023 for elective Right TSA, 04/14/2023-04/16/2023 for RADU on CKD, 04/21/2023-04/25/2023 for anemia due to acute upper GI bleeding which was found to be from a duodenal ulcer. 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 As mentioned above he underwent a CABG x3 in 2015 [facility]. In 11/2016 he had recurrent chest pain with mild troponin elevation and underwent a SPECT test showing inferior and Pharaoh lateral ischemia with severe disease proximal to his previously placed stent. In August 2017 he was admitted to [facility] status post fall resulting in a subarachnoid hemorrhage that was managed conservatively. In the ED no leukocytosis, potassium 4.6, BNP elevated at 978, troponin bump 64.6, creatinine 1.57(baseline 1.3-1.6 and has been up to the 2 range in early April). Chest x-ray revealed small bilateral pleural effusions suspecting pneumonia, aspiration or CHF. ED physician prescribed Lasix 40 mg IV once. Suspect patient has acute on chronic CHF exacerbation. Will monitor strict I's and O's after Lasix administration (consider additional Lasix based on progress), trend Trope, check mag and Phos, sputum culture for cough. 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 Follows with [facility] cardiology Takes Plavix; continue Insulin-dependent type 2 diabetes: Chronic stable Takes metformin; hold while inpatient HTN: Chronic stable Takes metoprolol and losartan; continue HLD: Chronic stable Takes atorvastatin; continue CKD stage III: Chronic stable Serum creatinine 1.57; baseline 1.3-1.6 Was admitted for RADU on CKD early April 2023 and creatinine was up to mid twos GERD: Chronic stable Takes pantoprazole; continue Gout: Chronic stable Takes allopurinol; continue Disposition: PCP: Dr. Campbell CODE STATUS: Full code VTE prophylaxis: I spent a total of [] minutes coordinating, documenting, and providing care for this patient excluding time spent in the performance of separately billed services. All of the aforementioned completed while collaborating with the assigned attending physician for a full treatment plan. Please see their addendum for further details. History of Present Illness Chief Complaint: SOB Primary Care Provider: Saw Campbell DO Mr. Cheatham is a 72 year old male that has a history of insulin dependent type 2 diabetes, HTN, HLD, CABG x3 07/2016 (perfromed at [facility]), nu merous stens in 2017; PCI to mid LAD and distal RCA via vein graft, moderate aortic stenosis, CKD stage III, gout, and GERD. He presents today with SOB that has been occurring for the past two weeks. He reportedly was diagnosed with PNA one month ago and since then has had difficulty with worsening bilateral LE swelling and exertional SOB when climbing stairs. Pt has had numerous admissions since April 2023: - 04/06/2023-04/07/2023 for elective Right TSA, 04/14/2023-04/16/2023 for RADU on CKD, 04/21/2023-04/25/2023 for anemia due to acute upper GI bleeding which was found to be from a duodenal ulcer. 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 As mentioned above he underwent a CABG in 2016 [facility]. In 11/2016 he had recurrent chest pain with mild troponin elevation and underwent a SPECT test showing inferior and Pharaoh lateral ischemia with severe disease proximal to his previously placed stent. In August 2017 he was admitted to [facility] status post fall resulting in a subarachnoid hemorrhage that was managed conservatively. In the ED no leukocytosis, potassium 4.6, BNP elevated at 978, troponin bump 64.6, creatinine 1.57(baseline 1.3-1.6 and has been up to the 2 range in early April). Chest x-ray revealed small bilateral pleural effusions suspecting pneumonia, aspiration or CHF. ED physician prescribed Lasix 40 mg IV once. Suspect patient has acute on chronic CHF exacerbation. Will monitor strict I's and O's after Lasix administration (consider additional Lasix based on progress), trend Trope, check mag and Phos, sputum culture for cough. Patient will be admitted for further evaluation management. Please see A/P for further details. Allergies Allergy/AdvReac Type Severity Reaction Status Date / Time Opioids - Morphine Analogues AdvReac Mild Dizziness Verified 09/18/23 14:07 and feeling sick Home Medications Medication Instructions Recorded Confirmed Type allopurinol 100 mg tablet 100 mg PO HS 05/08/19 09/18/23 History atorvastatin 80 mg tablet 80 mg PO HS 05/08/19 09/18/23 History clopidogrel 75 mg tablet 75 mg PO QAM #30 tabs 05/08/19 09/18/23 History metformin 1,000 mg tablet 1,000 mg PO BID #180 tabs 08/16/19 09/18/23 Rx metoprolol succinate 100 mg 100 mg PO QAM 03/17/23 09/18/23 History tablet,extended release 24 hr ferrous sulfate 325 mg (65 mg 325 mg PO QAM #30 tabs 04/25/23 09/18/23 Rx iron) tablet,delayed release pantoprazole 40 mg tablet,delayed 40 mg PO BID 04/29/23 09/18/23 History release losartan 25 mg tablet 25 mg PO DAILY #30 tabs 04/30/23 09/18/23 Rx nitroglycerin 0.4 mg sublingual 0.4 mg sublingual UD PRN Chest Pain 05/16/23 09/18/23 History tablet insulin glargine 100 unit/mL (3 0 unit subcut BID 09/18/23 09/18/23 History mL) subcutaneous pen (Lantus Solostar U-100 Insulin) Past Med/Surg History Medical History (Updated 09/18/23 @ 14:36 by STEPHANIE Abdi) GERD (gastroesophageal reflux disease) Acute on chronic diastolic CHF (congestive heart failure) SOB (shortness of breath) History of duodenal ulcer Insulin dependent type 2 diabetes mellitus Hypertension controlled, stable per pt History of blood transfusion 2015 with CABG Seizure 1 yr ago, in setting of hypoglycemia, no additional seizure activity Carotid stenosis < 50% stenosis ICAs bilat 12/2021 doppler Hearing deficit On anticoagulant therapy plavix daily Myocardial Infarction per Dr. Eisenberg's note recurrent NSTEMI: 07/2016 and in 2016--heart caths with stents placed--had CABG 07/2016 @ [facility] follows with Dr. Eisenberg History of COVID-19 09/2020--mild symptoms, denies hospitalization, no symptoms now Aortic stenosis moderate on 03/2023 echo Herniation of cervical intervertebral disc Gout Coronary artery disease s/p 4 stents, CABG x 3 in 2015, most recent stent in 2017 Surgical History History of reverse total replacement of right shoulder joint History of colonoscopy History of tooth extraction History of wisdom tooth extraction History of cardiac cath multiple in 2015 with last 11/2016 @ [facility]--x4 stents total placed S/P coronary artery bypass graft x 3 07/2016 @ [facility] S/P epidural steroid injection Family History Father Myocardial infarction Other No family history of adverse response to anesthesia Social History Smoking Status: Never smoker Age Started Using Tobacco: 60; Age Quit Using Tobacco: 65; Second Hand Exposure: No; Do You Dip or Chew Tobacco: No; Hx Alcohol Use: Yes Alcohol type: beer Alcohol Intake Frequency: 2-4 x/Month Hx Substance Use: No Preferred Language: Welsh Communication Ability: Effective Education Department Chair Required: No Beliefs That Will Affect Care: None marital status: Current Living Situation: Spouse current occupational status: retired Feels Safe at Home: Yes Assistive Devices: None Review of Systems Review of Systems: Neuro: (-) Falls, trauma, slurred speech HEENT: (-) NEVILLE, dizziness, dysphagia, visual or auditory changes CV: (-) CP, palpitations, swelling Resp: (-) SOB GI: (-) appetite changes, N/V/D, bowel changes : (-) urinary changes Skin: (-) rashes Psych: (-) anxiety, depression Physical Exam Physical Exam: Neuro: AAOx4, PERRLA, no aphagia, memory changes, CNII-XII grossly intact HEENT: head normocephalic, moist mucus membranes CV: S1/S2, (-) M/G/R, (-) edema, cap refill < 3 seconds Resp: Lungs CTA in all angel. On RA GI: Abdomen S/NT/ND, Ax4 bowel sounds, (-) CVA tenderness Musculoskeletal: 5/5 B/L UE strength, 5/5 B/L LE strength. No gait disturbance Skin: (-) rashes , (-) erythema. Psych: euthymic mood Results & Data Results & Data Vital Signs (Past 12 Hours) Vital Signs Temp Pulse Resp BP Pulse Ox O2 Del Method 09/18/23 14:02 72 30 H 98 09/18/23 14:02 98 Room Air 09/18/23 13:56 73 23 95 09/18/23 13:56 166/87 H 09/18/23 12:12 36.9 C 75 20 157/87 H 98 Room Air Laboratory Results Short CBC 09/18/23 Range/Units 12: WBC 5.13 (4.8-10.8) K/ul Hgb 11.7 L (14.0-18.0) g/dl Hct 37.5 L (42.0-52.0) % Plt Count 258 (130-400) K/uL BMP 09/18/23 12:23 Sodium 138 Potassium 4.6 Chloride 107 Carbon Dioxide 25 BUN 23 Creatinine 1.57 H Glucose 137 H Calcium 8.5 L Liver Function 09/18/23 Range/Units 12:23 Total Bilirubin 0.5 (0.2-1.0) mg/dl AST 17 (13-39) U/L ALT 8 (7-52) U/L Alkaline Phosphatase 74 (34-104) U/L Albumin 3.8 (3.4-5.0) gm/dl Diagnostic Findings Chest X-Ray 09/18/23 12:16 XR chest 1V not portable CLINICAL HISTORY: Chest pain, nonspecific TECHNIQUE: Single frontal radiograph of the chest was obtained. Comparison: Comparison is made to chest radiograph 05/16/2023 FINDINGS: Right reverse shoulder arthroplasty is seen. Midline sternotomy wires are seen. Cardiomegaly is noted. The aortic arch is calcified. Left retrocardiac opacity is noted. Small bilateral pleural effusions are seen. IMPRESSION: Small bilateral pleural effusions. Left retrocardiac opacity may represent layering effusion, atelectasis, pneumonia, and/or aspiration. ACT 112: Negative or not required by law. Electronically signed by: Kevyn Duarte M.D. 09/18/2023 12:49 PM Code Status & VTE Plan Code Status Full Code in the event of cardiac or respiratory arrest VTE Prophylaxis Plan VTE Prophylaxis will be ordered: Yes
[2023-09-18 14:57] LABS: Magnesium 1.3 mg/dl (1.7-2.4); Phosphorus 2.5 mg/dl (2.5-4.9)
[2023-09-18 15:12] LABS: Troponin I High Sensitivity 65.5 pg/ml (0-20)
[2023-09-18] MEDS ORDERED: MAGNESIUM SULFATE / D5W 1 GM/100 ML BAG IV STA ×2 (15:17→15:36)
--- NOTE | 2023-09-18 15:42 | History & Physical Report ---
Date of Service September 18, 2023 Assessment & Plan (1) Acute heart failure with preserved ejection fraction: Plan: Suspect on the basis of valvular disease give last echocardiogram, discussed with Dr Eisenberg his primary compact assembler and will consult cardiology and repeat TTE Lasix 40mg IV given in the ER with good urine output therefore we will continue with this dose daily Strict I's and O's Daily weights Low Na, fluid restricted diet Continue metoprolol succinate, hold his losartan morning dose pending echocardiogram to see if recommends switching to Entresto Notably had 2+ protein in his urine in May in the setting of hypertensive urgency, will repeat to determine if this is contributing with a spot protein/creatinine ratio (2) Coronary artery disease: Plan: s/p CABG x 3 Vessels 07/2016, PCI to Mid LAD (distal to MEDINA anastomosis) and distal RCA via SVG 10/2016, post GINA to SVG-RCA and SVG-OM2 in 11/2016 Troponin x2 stable do not suspect ACS Continue clopidogrel, metoprolol, atorvastatin (3) Decreased appetite: Plan: Concerning significant decreased appetite and once diuresed suspect weight loss If significant proteinuria consider myeloma workup, otherwise need to make sure cancer screening is up to date. ?heart failure and will improve with diuresis ?depression Will diurese initially and re-evaluate (4) Right calf pain: Plan: US venous doppler (5) GERD (gastroesophageal reflux disease): Plan: Continue pantoprazole 40mg PO BID (6) Gout: Plan: No active flare Continue allopurinol (7) Hypertension: Plan: Continue metoprolol succinate, Lasix added (8) Insulin dependent type 2 diabetes mellitus: Plan: HbA1C 7.8, repeat with AM labs Reports taking very high doses at home but usually on much lower doses in the hospital therefore suspect a nutritional component but also with recent weight loss and decreased appetite he has been having hypoglycemic episodes at home Novolog based on prior hospitalization: --Goal BSG Range: Low 110 mg/dL, High 140 mg/dL --Correction Factor: 25 mg/dL/unit --Carbohydrate ratio = 8 g/unit --BSGs ACHS if eating, q6h if npo Will need lantus added pending serial glucose measurements but nothing on admission as already gave himself 55 units this morning (9) Aortic stenosis: Plan: Repeat TTE Plan VTE prophylaxis - pending ultrasound venous Doppler results; if negative -> heparin 5000 units SQ BID Diet - type 2 diabetes, heart healthy, low-sodium, fluid restrict 1500 mL Disposition - admit to med/tele Admission and Anticipated Discharge Date Admission Date: September 18, 2023 History of Present Illness Chief Complaint: Shortness of breath Primary Care Provider: aSw Campbell DO Alphonso Cheatham is a 72-year-old male who presents to the ER with shortness of breath. He reports ongoing for the last month. Today he just felt it had been going on too long and it needed to be checked out therefore he called his PCP office and advised [facility]. He denies any fever, chills, sinus pain, ear pain, chest pain, presyncope, claudication, palpitations . History is significant for white phlegm productive cough, right nasal congestion, leg swelling, progressive orthopnea and paroxysmal nocturnal dyspnea. He took two rounds of antibiotics on 07/28 with azithromycin and 08/07 with doxycycline with possible improvement while on the antibiotics but progression as soon as he stopped. He has a significant coronary artery disease history with prior CABG and stents with the last one on 2016 but denies any prior history of heart failure and is not currently on Lasix. He has also been noticing decreased appetite with hypoglycemic episodes at home. He has been reducing his Lantus dose from 70 units to 55 units which he last took this morning. Of note during his hospitalization in April his Lantus dose was 10 units. He reports weight loss although his weight is somewhat stable in the EMR. His family is very worried about how little he has been eating but also wonder whether it is just because he is so tired all the time. He denies any obstructive sleep apnea and is not on CPAP. He denies depression, dysphagia, odynophagia. He notably has a significant history of GI bleed although reports no current melena or hematochezia. He took all his other medications this morning. Allergies Allergy/AdvReac Type Severity Reaction Status Date / Time Opioids - Morphine Analogues AdvReac Mild Dizziness Verified 09/18/23 14:07 and feeling sick Home Medications Medication Instructions Recorded Confirmed Type allopurinol 100 mg tablet 100 mg PO HS 05/08/19 09/18/23 History atorvastatin 80 mg tablet 80 mg PO HS 05/08/19 09/18/23 History clopidogrel 75 mg tablet 75 mg PO QAM #30 tabs 08/07/19 12/18/23 History metformin 1,000 mg tablet 1,000 mg PO BID #180 tabs 08/16/19 09/18/23 Rx metoprolol succinate 100 mg 100 mg PO QAM 03/17/23 09/18/23 History tablet,extended release 24 hr ferrous sulfate 325 mg (65 mg 325 mg PO QAM #30 tabs 04/25/23 09/18/23 Rx iron) tablet,delayed release pantoprazole 40 mg tablet,delayed 40 mg PO BID 04/29/23 09/18/23 History release nitroglycerin 0.4 mg sublingual 0.4 mg sublingual UD PRN Chest Pain 05/16/23 09/18/23 History tablet insulin glargine 100 unit/mL (3 0 unit subcut BID 09/18/23 09/18/23 History mL) subcutaneous pen (Lantus Solostar U-100 Insulin) losartan 25 mg tablet 25 mg PO HS 09/18/23 09/18/23 History Past Med/Surg History Medical History (Updated 09/19/23 @ 07:08 by Bala Howe MD) GERD (gastroesophageal reflux disease) History of duodenal ulcer Insulin dependent type 2 diabetes mellitus Hypertension controlled, stable per pt History of blood transfusion 2015 with CABG Seizure 1 yr ago, in setting of hypoglycemia, no additional seizure activity Carotid stenosis < 50% stenosis ICAs bilat 12/2021 doppler Hearing deficit On anticoagulant therapy plavix daily Myocardial Infarction per Dr. Eisenberg's note recurrent NSTEMI: 07/2016 and in 2017--heart caths with stents placed--[place] [facility] [place]. Eisenberg History of COVID-19 09/2020--mild symptoms, denies hospitalization, no symptoms now Aortic stenosis moderate on 03/2023 echo Herniation of cervical intervertebral disc Gout Coronary artery disease s/p 4 stents, CABG x 3 in 2015, most recent stent in 2017 Surgical History History of reverse total replacement of right shoulder joint History of colonoscopy History of tooth extraction History of wisdom tooth extraction History of cardiac cath multiple in 2015 with last 11/2016 @ [facility]--x4 stents total placed S/P coronary artery bypass graft x 3 [place] [facility] [place]/P epidural steroid injection Family History Father Myocardial infarction Other No family history of adverse response to anesthesia Social History Smoking Status: Former smoker Tobacco Type: Cigarettes Age Started Using Tobacco: 60; Age Quit Using Tobacco: 65; Second Hand Exposure: No; Do You Dip or Chew Tobacco: No; Hx Alcohol Use: No Hx Substance Use: No Preferred Language: [place] Communication Ability: Effective 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: No Beliefs That Will Affect Care: None marital status: Current Living Situation: Spouse current occupational status: retired Feels Safe at Home: Yes Safety Concerns: Feels Safe At This Time Assistive Devices: None Review of Systems Review of Systems: All systems reviewed & are unremarkable except as noted in HPI & below Physical Exam Constitutional: WD/WN, vitals as above Eyes: + anicteric sclerae; normal pupil size ENMT: external ear and nose normal, oropharynx normal Neck: trachea midline, no thyromegaly Respiratory: normal respiratory effort; no respiratory distress Auscultation: + diminished lung sounds (bibasal); no crackles and no wheezes Cardiovascular: Rate/Rhythm: regular rate and regular rhythm Heart Sounds: + murmur (systolic and diastolic in LUSB) Extremities: normal capillary refill, + calf tenderness (right) and + pedal edema (2+ to knees b/l equal) Gastrointestinal (Abdomen): normal bowel sounds, soft, nontender, no hepatosplenomegaly Musculoskeletal: no cyanosis or clubbing, extremities motor strength 5/5 Skin: no rashes, warm and dry Neurologic: moves all extremities and awake; not confused Speech / Cognition: normal speech Motor/Sensory: no tremor, no pronator drift and no sensory deficit Cranial Nerves: normal facial strength Psychiatric: A+Ox3, euthymic affect Results & Data Results & Data Vital Signs (Past 12 Hours) Vital Signs Temp Pulse Resp BP Pulse Ox O2 Del Method 09/18/23 14:02 72 30 H 98 09/18/23 14:02 98 Room Air 09/18/23 13:56 73 23 95 09/18/23 13:56 166/87 H 09/18/23 12:12 36.9 C 75 20 157/87 H 98 Room Air Laboratory Results Abnormal lab results 09/18/23 09/18/23 Range/Units 12:23 14:15 RBC 4.42 L (4.70-6.10) M/uL Hgb 11.7 L (14.0-18.0) g/dl Hct 37.5 L (42.0-52.0) % MCHC 31.2 L (32.0-36.0) g/dL RDW Std Deviation 52.6 H (36.4-46.3) fL RDW Coeff of Ernesto 17.0 H (11.5-14.5) % Lymph # (Auto) 1.00 L (1.20-3.40) K/uL Creatinine 1.57 H (0.6-1.4) mg/dl Glucose 137 H (70-99(Fasting)) mg/dl Calcium 8.5 L (8.6-10.3) mg/dl Magnesium 1.3 L (1.7-2.4) mg/dl Troponin I High Sens 64.6 H* 65.5 H* (0-20) pg/ml B-Natriuretic Peptide 978 H (0-100) pg/ml Diagnostic Findings XR chest 1V not portable CLINICAL HISTORY: Chest pain, nonspecific TECHNIQUE: Single frontal radiograph of the chest was obtained. Comparison: Comparison is made to chest radiograph 05/16/2023 FINDINGS: Right reverse shoulder arthroplasty is seen. Midline sternotomy wires are seen. Cardiomegaly is noted. The aortic arch is calcified. Left retrocardiac opacity is noted. Small bilateral pleural effusions are seen. IMPRESSION: Small bilateral pleural effusions. Left retrocardiac opacity may represent layering effusion, atelectasis, pneumonia, and/or aspiration. Medications Administered ER medications given: Furosemide 40 mg IV ECG Rate (beats per minute): 74 Rhythm: normal sinus Findings: no acute ischemic change Comparison ECG Date: from (May 16, 2023) Change: no significant change Code Status & VTE Plan Code Status Full VTE Prophylaxis Plan VTE Prophylaxis will be ordered: Yes PG Care Time/CCT Total # of Minutes Spent Total Time Spent with Patient: Total time spent is greater than 50% in coordination of care (as documented) at patient's floor/unit and/or counseling patient: Coding Level of Care Code 63338 INT INP/OBS CARE 3/75MIN Diagnoses Acute heart failure with preserved ejection fraction I50.31 Coronary artery disease involving [place] coronary artery of [place] heart without angina pectoris I25.10 Coronary Disease-Associated Artery/Lesion type: [place] artery [place] vs. transplanted heart: [place] heart Associated angina: without angina Decreased appetite R63.0 Right calf pain M79.661 GERD (gastroesophageal reflux disease) K21.9 Gout M10.9 Hypertension I10 Insulin dependent type 2 diabetes mellitus E11.9; Z79.4 Aortic stenosis I35.0 (2) Coronary artery disease Coronary Disease-Associated Artery/Lesion type: [place] artery [place] vs. transplanted heart: [place] heart Associated angina: without angina Qualified Code(s): I25.10 - Atherosclerotic heart disease of [place] coronary artery without angina pectoris
[2023-09-18] MEDS ORDERED: GLUCOSE 10 TAB/TUBE PO PRN (16:46)
[2023-09-18] MEDS ORDERED: GLUCOSE 40% GEL 15 GM TUBE PO PRN (16:46)
[2023-09-18] MEDS ORDERED: GLUCAGON FOR INJ 1 MG VIAL SQ PRN (16:46)
[2023-09-18] MEDS ORDERED: CARBOHYDRATES FOR HYPOGLYCEMIA PO PRN (16:46)
[2023-09-18] MEDS ORDERED: DEXTROSE 50% 50 ML SYRINGE IV PRN (16:46)
[2023-09-18] MEDS: MAGNESIUM SULFATE / D5W 1 GM/100 ML BAG IV SCH ×2 (17:34→20:50)
[2023-09-18 17:51] LABS: Appearance Urine Clear (Clear); Bacteria Urine Automated Negative (Negative); Bilirubin Urine Negative (Negative); Blood Urine Negative (Negative); Color Urine Yellow; Epithelial Cell Urine Auto 0-5 /lpf (0-5); Glucose Urine UA Negative (Negative); Ketones Urine Negative (Negative); Leukocyte Esterase Urine Negative (Negative); Nitrite Urine Negative (Negative); Protein Urine Trace (Negative); RBC Urine Automated 0-4 /hpf (0-4); Specific Gravity Urine 1.007 (1.000-1.030); Urobilinogen Urine Negative (Negative); pH Urine 5.5 (4.5-7.5)
--- OUTSIDE RECORDS SUMMARY | 2023-09-18 18:02 | External Medical Summary | Summary of Care ---
Author Name Unknown Organization [facility] Address [address] [place] [address] Phone [phone] Care Team Providers Care Care Coordinator Name Role Phone Saw Campbell DO Primary Care Provider [phone] Reason for Visit * Auth/Cert Specialty Diagnoses / Procedures Referred By Danna sanchez Referred To Contact Diagnoses Gastrointestinal hemorrhage associated with duodenal ulcer Gastrointestinal hemorrhage associated with duodenal ulcer [K26.4] Procedures EGD, FLEXIBLE, DIAGNOSTIC ESOPHAGOGASTRODUODENOSCOPY (EGD), FLEXIBLE, TRANSORAL, DIAGNOSTIC Referral ID Status Reason Start Date Expiration Date Visits Re quested Visits Authorized [id number] Encounter Details Date Type Department Care Team (Latest Contact Info) Description 08/31/2023 10:26 AM EST - 08/31/2023 12:21 PM [facility] Hospital Encounter ENDO [facility], Endoscopy Room O[facility] [address] [facility] [place] [phone] Nimisha Ley MD [address] [place], [place] [address] [address] Upper GI Endoscopy Discharge Disposition: Home - Self Care Allergies Active Allergy Reactions Criticality Noted Date Comments Bee Stings 04/17/2000 hives Other Allergy (See Comments) Low 04/21/2023 Other Reaction(s): Dizziness and feeling sick Oxycodone 04/10/2023 Other Reaction(s): Nausea Dizziness documented as of this encounter (statuses as of 09/01/2023) Medications Medication Sig Dispensed Refills Start Date End Date Status GLUCOPHAGE 1000 MG OR TABSIndications:DM type 2, goal A1c below 7,DM type 2, not at goal (HCC) one tablet twice a day for diabetes 180 3 07/05/2002 Active allopurinol (ZYLOPRIM) 100 MG Tablet Take 1 Tablet by mouth every evening. 0 Active atorvaSTATin (LIPITOR) 40 MG Tablet Take 1 Tablet by mouth every evening. 0 Active repaGLINide (PRANDIN) 0.5 MG Tablet Take 0.5 mg by mouth three times a day before meals. 0 Active lisinopril (PRINIVIL) 20 MG Tablet Take 1 Tablet by mouth in the morning. 0 Active metoprolol tartrate (LOPRESSOR) 50 MG Tablet Take 1 Tablet by mouth in the morning. 0 Active Nitroglycerin 0.4 MG Sublingual Tablet Sublingual Place 1 Tablet under the tongue every 5 minutes as needed for Pain, Chest. 0 Active glipiZIDE (GLUCOTROL) 10 MG Tablet Take 5 mg by mouth daily. 0 Active Clopidogrel Bisulfate 75 MG Oral Tablet Take 1 Tablet by mouth in the morning. 0 Active Aspirin 81 MG Tablet Take 81 mg by mouth daily. 0 Active Pantoprazole Sodium 40 MG Oral Tablet Delayed Release (Protonix) Take 1 Tablet by mouth in the morning and 1 Tablet before bedtime. 180 Tablet 1 06/12/2023 Active Losartan Potassium 25 MG Oral Tablet (Cozaar) Take 1 Tablet by mouth every evening. 0 Active Insulin Glargine 100 UNIT/ML Subcutaneous Solution Inject 70 Units under the skin in the morning. 0 Active Ferrous Sulfate 324 (65 Fe) MG Oral Tablet Delayed Release Take 1 Tablet by mouth daily with breakfast. 0 Active documented as of this encounter (statuses as of 09/01/2023) Active Problems Problem Noted Date Diagnosed Date FAMILY HX-GI MALIGNANCY 09/17/1998 Epistaxis DIAB RENAL MANIF ADULT Mixed dyslipidemia documented as of this encounter (statuses as of 09/01/2023) Social History Tobacco Use Types Packs/Day Years Used Date Smoking Tobacco: Never Cigarettes 30 Smokeless Tobacco: Former Chew Comments:no cigarettes Alcohol Use Standard Drinks/Week Comments No 0 (1 standard drink = 0.6 oz pure alcohol) As of 11.18.2006, the last noted alcohol intake was 1 ounces. no continuously Sex and Gender Information Value Date Recorded Sex Assigned at Not on file Gender Identity Not on file Sexual Orientation Not on file Job Start Date Occupation Industry Not on file Not on file Not on file documented as of this encounter Last Filed Vital Signs Vital Sign Reading Time Taken Comments Blood Pressure 111/59 08/31/2023 12:02 PM EST Pulse 64 08/31/2023 12:02 PM EST Temperature 36.7 C (98 F) 08/31/2023 12:02 PM EST Respiratory Rate 16 08/31/2023 12:02 PM EST Oxygen Saturation 98% 08/31/2023 12:02 PM EST Inhaled Oxygen Concentration - - Weight 90.7 kg (200 lb) 08/31/2023 10:34 AM EST Height 171.5 cm (5' 7.52") 08/31/2023 10:[address] Body Mass Index 30.84 08/31/2023 10:34 AM EST documented in this encounter H&P Notes * Nimisha Ley MD - 08/31/2023 11:22 AM EST Endoscopy Pre-Procedure Assessment Name: Alphonso Cheatham Date: 08/31/2023 Time: 11:22 AM Procedure(s): Upper GI Endoscopy; with Indication(s) of duodenal ulcer fup Endoscopy Pre-Procedure Assessment: Prior to the procedure, the patient is identified. The patient's history, medications and allergieshave been reviewed. The patient is competent. The risks and benefits of the proposed procedure and the planned sedation have been discussed with the patient. All questions have been answered and informed consent for the procedure has been obtained. Prior to Admission medications Medication Sig Last Dose Discont. Ferrous Sulfate 324 (65 Fe) MG Oral Tablet Delayed Release Take 1 Tablet by mouth daily with breakfast. 08/30/2023 Insulin Glargine 100 UNIT/ML Subcutaneous Solution Inject 70 Units under the skin in the morning. 08/30/2023 Losartan Potassium 25 MG Oral Tablet (Cozaar) Take 1 Tablet by mouth every evening. 08/30/2023 Pantoprazole Sodium 40 MG Oral Tablet Delayed Release (Protonix) Take 1 Tablet by mouth in the morning and 1 Tablet before bedtime. 08/31/2023 Clopidogrel Bisulfate 75 MG Oral Tablet Take 1 Tablet by mouth in the morning. Past Week allopurinol (ZYLOPRIM) 100 MG Tablet Take 1 Tablet by mouth every evening. 08/30/2023 atorvaSTATin (LIPITOR) 40 MG Tablet Take 1 Tablet by mouth every evening. 08/30/2023 metoprolol tartrate (LOPRESSOR) 50 MG Tablet Take 1 Tablet by mouth in the morning. 08/31/2023 GLUCOPHAGE 1000 MG OR TABS one tablet twice a day for diabetes 08/30/2023 Insulin Glargine 100 UNIT/ML Subcutaneous Solution Inject 10 Units under the skin at bedtime as needed. Patient not taking: Reported on 08/08/2023 Not Taking valACYclovir HCl 1 GM Oral Tablet (Valtrex) Take 1 Tablet by mouth in the morning and 1 Tablet before bedtime. Finished 06/18/2023. Patient not taking: Reported on 06/19/2023 Not Taking Aspirin 81 MG Tablet Take 81 mg by mouth daily. Patient not taking: Reported on 06/12/2023 Not Taking glipiZIDE (GLUCOTROL) 10 MG Tablet Take 5 mg by mouth daily. Patient not taking: Reported on 06/12/2023 Not Taking lisinopril (PRINIVIL) 20 MG Tablet Take 1 Tablet by mouth in the morning. Nitroglycerin 0.4 MG Sublingual Tablet Sublingual Place 1 Tablet under the tongue every 5 minutes as needed for Pain, Chest. Over 30 Days repaGLINide (PRANDIN) 0.5 MG Tablet Take 0.5 mg by mouth three times a day before meals. Patient not taking: Reported on 06/12/2023 Not Taking Review of patient's allergies indicates: Allergen Reactions Bee Stings hives Oxycodone Other Reaction(s): Nausea Dizziness Other Allergy (See Comments) Other Reaction(s): Dizziness and feeling sick BP 154/82 | Pulse 69 | Temp 36.1 C (96.9 F) (Tympanic) | Resp 14 | Ht 1.715 m (5' 7.52") | Wt 90.7 kg (200 lb) | SpO2 99% | BMI 30.84 kg/m | BSA 2.08 m Physical Exam: Mental Status Examination: alert and oriented. Rsep: normal ASA Grade: II - A patient with mild systemic disease. Abdomen: soft This patient has undergone a preprocedural evaluation. A determination has been made to proceed with the planned procedure under [facility] procedural guidelines and the [facility] Non-Emergent, Elective Medical Services and Treatment Recommendations (published on 01-07-20). The community and hospital prevalence of COVID-19 has been discussed as well as this patient's specific risks associated with SARS-CoV-19 infection. Based upon the clinical acuity and patient-specific care considerations, this procedure is deemed a Tier III - Procedures at little or no risk for clinical deterioration (example - cosmetic). After reviewing the risks and benefits of endoscopy including infection, bleeding, perforation, missed lesions, splenic laceration, the patient is deemed in satisfactory condition to undergo the procedure. The anesthesia plan is to use general anesthesia. Nimisha Ley MD 08/31/2023 documented in this encounter Procedure Notes * Saw Campbell DO - 08/31/2023 10:40 AM ESTAssociated Order(s): UPPER GI ENDOSCOPY [facility] Patient Name: Alphonso Cheatham Procedure Date: 08/31/2023 10:40 AM Date of : 1950 Admit Type: Outpatient Note Status: Finalized Date of : 1950 Admit Type: Outpatient Age: 72 Room: [facility] 2 Gender: Male Note Status: Finalized Procedure: Upper GI endoscopy Indications: Follow-up of duodenal ulcer Providers: Nimisha Ley MD (Doctor), Amarilys Novak RN, Yan Durand CRNA (Anesthesia Staff) Referring MD: Saw Campbell DO Medicines: See the Anesthesia note for documentation of the administered medications Complications: No immediate complications. Procedure: Pre-Anesthesia Assessment: - Patient identification and proposed procedure were verified prior to the procedure by the physician, the nurse and the anesthesiologist. The procedure was verified in the pre-procedure area. - Prior to the procedure, a History and Physical was performed, and patient medications, allergies and sensitivities were reviewed. The patient's tolerance of previous anesthesia was reviewed. - The risks and benefits of the procedure and the sedation options and risks were discussed with the patient. All questions were answered and informed consent was obtained. - The medication list for this patient has been reviewed prior to the procedure and has been determined that the patient may proceed with the planned study. Any medication changes made as a result of the findings of this procedure have been discussed with the patient and/or business services representative at the time of discharge from the department. - After obtaining informed consent, the endoscope was passed under direct vision. All instruments were visually inspected immediately before and after removal from the patient to ensure they are fully intact. Throughout the procedure, the patient's blood pressure, pulse, and oxygen saturations were monitored continuously. The GIF-H180 Endoscope ([id number]) was introduced through the mouth and advanced to the second part of duodenum. The upper GI endoscopy was accomplished without difficulty. The patient tolerated the procedure well. Findings & Specimens: The examined esophagus appeared normal. The gastroesophageal junction was found at 38 cm from the incisors and appeared normal. The examined stomach appeared normal. The duodenal bulb and second portion of the duodenum appeared normal. Impression: - Normal esophagus. - Normal GE junction. - Normal stomach. - Normal duodenal bulb and second portion of the duodenum. Prior duodenal ulcer appears to have healed. Recommendation: - Resume blood thinners. Nimisha Ley MD 08/31/2023 11:47:21 AM This report has been signed electronically. documented in this encounter Nursing Notes * Pricila Zhao RN - 08/31/2023 12:18 PM EST Patient is alert, pain free, passing flatus and tolerating po fluids prior to discharge. Patient has been visited by Dr. Ley. Patient has received and demonstrates understanding of discharge instructions. Patient is transported via w/c to private auto accompanied by endo staff. * Pricila Zhao RN - 08/31/2023 11:47 AM EST Pt to post endo, VS stable, asleep. * Amarilys Novak RN - 08/31/2023 11:46 AM EST See anesthesia record for medication administered during procedure. Amarilys Novak RN Post-procedure scope cleaning began at bedside by endo electronic communications technician Pt. Tolerated colonoscopy well, no complications, soundly asleep, abdomen soft, transported to postendoscopy via stretcher by HEALTH EDUCATOR. * Shereen Dejesus RN - 08/31/2023 10:48 AM EST The following pt discharge instructions reviewed with pt prior to prodedure: No driving today. No alcohol today. No signing of legal documents. Rest as much as possible today and can return to normal activities tomorrow. No operating any heavy equipment today. Diet as tolerated. Pt verbalized understanding. documented in this encounter Plan of Treatment Upcoming Encounters Date Type Department Care Team (Late st Contact Info) Description 09/27/2023 10:00 AM EST Office Visit Gastroenterology, [facility] [address] [place] [id number] Parul Morataya CRNP [address] [place] [id number] Health Maintenance Due Date Last Done Comments DXA Scan 1950 Depression Screening 1962 Diabetic Eye Exam 1968 Diabetic Foot Exam 1968 Hepatitis C Screening 1968 Cologuard 1995 Fecal Occult Blood Test 1995 Sigmoidoscopy 1995 DTaP,Tdap,and Td Vaccines (1 - Tdap) 12/28/1999 12/27/1999, 12/27/1999, 10/02/1989, Additional history exists Zoster Vaccines (1 of 2) 2000 Albumin/Creatinine Ratio 06/11/2003 002, 10/23/2000, 12/27/1999, Additional history exists Hepatitis B (1 of 3 - Risk 3-dose series) 2010 Pneumococcal Vaccine: 65+ Years (2 - PCV) 10/14/2017 10/14/2016 COVID-19 Vaccine (2022- season) 2023 08/15/2022, 08/11/2021, 01/19/2021, Additional history exists Influenza Vaccine (FLU shot) (#1) 2023 07/06/2022, 07/06/2022, 07/26/2021 HbA1c 11/02/2023 05/02/2023, 10/02, 12/16/2021, Additional history exists GFR 05/02/2024 05/02/2023, 10/2022, 11/28/2022, Additional history exists Lipid Panel 05/02/2028 05/02/2023, 10/02, 06/11/2002, Additional history exists Colonoscopy 06/22/2033 06/22/2023, 06/22/2023 Colorectal Cancer Screening 06/22/2033 GARDASIL-HPV IMMUNIZATION SERIES Aged Out No longer eligible based on patient's age to complete this topic MENINGOCOCCAL (MENACTRA/MENVEO) Aged Out No longer eligible based on patient's age to complete this topic documented as of this encounter Medical Devices Not on filedocumented as of this encounter Procedures Procedure Name Priority Date/Time Associated Diagnosis Comments GLUCOSE METER, POINT OF CARE [facility] 08/31/2023 11:54 AM EST GLUCOSE METER, POINT OF CARE [facility] 08/31/2023 11:02 AM EST UPPER GI ENDOSCOPY 08/31/2023 10 :40 AM EST documented in this encounter Results * (ABNORMAL) GLUCOSE METER, POINT OF CARE (08/31/2023 11:54 AM EST) Glucose Meter 122(H) 70 - 120 mg/dL 08/31/2023 11:59 AM EST [facility] 57-00 Blood Whole blood specimen / Unknown 08/31/2023 11:54 AM EST 08/31/2023 11:59 AM EST Nimisha Ley MD LAB POINT OF CARE TE ST DOCKED DEVICE UNSOLICITED RESULTS Performing Organization Address City/[facility] [address]/[facility] Co de Phone Number [facility] [phone] [place] [address] * (ABNORMAL) GLUCOSE METER, POINT OF CARE (08/31/2023 11:02 AM EST) Glucose Meter 132(H) 70 - 120 mg/dL 08/31/2023 11:06 AM EST [facility] 57-00 Blood Whole blood specimen / Unknown 08/31/2023 11:02 AM EST 08/31/2023 11:06 AM EST Nimisha Ley MD LAB POINT OF CARE TE ST DOCKED DEVICE UNSOLICITED RESULTS Performing Organization Address [facility] [address]/[facility] de Phone Number [facility] 57-[address] [place] [address] * UPPER GI ENDOSCOPY (08/31/2023 10:40 AM EST) 08/31/2023 10:4 0 AM EST Narrative Procedure Note Saw Campbell DO - 08/31/2023 10:40 AM EST [facility] Patient Name: Alphonso Cheatham Procedure Date: 08/31/2023 10:40 AM Date of : 1950 Admit Type: Outpatient Note Status:Finalized Date of : 1950 Admit Type: Outpatient Age: 72 Room: Endo 2 Gender: Male Note Status: Finalized Procedure: Upper GI endoscopy Indications: Follow-up of duodenal ulcer Providers: Nimisha Ley MD (Doctor), Amarilys oNvak RN,Yan Durand CRNA (Anesthesia Staff) Referring MD: Saw Campbell DO Medicines: See the Anesthesia note for documentation of theadministered medications Complications: No immediate complications. Procedure: Pre-Anesthesia Assessment: - Patient identification and proposed procedurewere verified prior to the procedure by the physician, the nurse and theanesthesiologist. The procedure was verified in the pre-procedure area. - Prior to the procedure, a History and Physicalwas performed, and patient medications, allergies and sensitivities werereviewed. The patient's tolerance of previous anesthesia was reviewed. - The risks and benefits of the procedure and thesedation options and risks were discussed with the patient. All questions wereanswered and informed consent was obtained. - The medication list for this patient has beenreviewed prior to the procedure and has been determined that the patient may proceed with the plannedstudy. Any medication changes made as a result of the findings of this procedure have beendiscussed with the patient and/or business services representative [facility] - After obtaining informed consent, the endoscopewas passed under direct vision. All instruments were visually inspected immediatelybefore and after removal from the patient to ensure they are fully intact. Throughout the procedure, the patient's bloodpressure, pulse, and oxygen saturations were monitored continuously. The GIF-H180 Endoscope([id number]) was introduced through the mouth and advanced to the second part ofduodenum. The upper GI endoscopy was accomplished without difficulty. The patienttolerated the procedure well. Findings & Specimens: The examined esophagus appeared normal. The gastroesophageal junction was found at 38 cm from the incisorsand appeared normal. The examined stomach appeared normal. The duodenal bulb and second portion of the duodenum appearednormal. Impression: - Normal esophagus. - Normal GE junction. - Normal stomach. - Normal duodenal bulb and second portion of theduodenum. Prior duodenal ulcer appears to have healed. Recommendation: - Resume blood thinners. Nimisha Ley MD 08/31/2023 11:47:21 AM This report has been signed electronically. Saw Campbell DO GASTRO UPPER documented in this encounter Administered Medications Inactive Administered Medications - up to 3 most recent administrations Medication Order MAR Action Action Date Dose Rate Site isolyte-S pH 7.4 infusion Intravenous, at 100 mL/hr, Plasma-LYTE 148, isolyte-S, and isolyte-S pH 7.4 are considered equivalent - including for MAR barcode scanning., CONTINUOUS, Starting on Luci 08/31/23 at 1115, Until Luci 08/31/23 at 1622, Pre-Op Continue from Pre-Op 08/31/2023 11:36 AM EST 100 mL/hr New Bag 08/31/2023 11:03 AM EST 100 mL/hr documented in this encounter Active and Recently Administered Medications Times are shown in EST. Continuous Medication Order 08/29/2023 08/30/2023 08/31/2023 isolyte-S pH 7.4 infusion Intravenous, at 100 mL/hr, Plasma-LYTE 148, isolyte-S, and isolyte-S pH 7.4 are considered equivalent - including for MAR barcode scanning., CONTINUOUS, Starting on Luci 08/31/23 at 1115, Until Luci 08/31/23 at 1622, Pre-Op 1103 (New Bag - Prov ider: Shereen Dejesus RN)1136 (Continue from Pre-Op - Provider: Yan Durand CRNA)1143 (Anes Intra-Op Fluid - Provider: Yan Durand CRNA) documented in this encounter Care Teams Care Coordinator Relationship Specialty Start Date End Date Saw Campbell DO [address] [place] [id number] PCP - General Family Medicine 04/24/23 documented as of this encounter
--- OUTSIDE RECORDS SUMMARY | 2023-09-18 18:02 | External Medical Summary ---
Author Name Unknown Address Unknown Organization : Laboratory Report Ordering Provider Test Date Status TADEO NIELSEN 08/31/2023 11:02:38 Final Observation Date Value Abnormality Reference (Units ) Status Glucose Point of Care 08/31/2023 11:02:38 132 Above high normal 70-120 (mg/dL) Final Performing Location
--- OUTSIDE RECORDS SUMMARY | 2023-09-18 18:02 | External Medical Summary ---
Author Name Unknown Address Unknown Organization : Laboratory Report Ordering Provider Test Date Status ALAINA LINN 06/22/2023 09:45:34 Final Observation Date Value Abnormality Reference (Units ) Status Glucose Point of Care 06/22/2023 09:45:34 86 70-120 (mg/dL) Final Performing Location
--- OUTSIDE RECORDS SUMMARY | 2023-09-18 18:02 | External Medical Summary | Summary of Care ---
Author Name Unknown Organization [facility] Address [address] [place] [address] Phone [phone] Care Team Providers Care Agile Business Analyst Name Role Phone Saw Campbell DO Primary Care Provider [phone] Reason for Visit * Auth/Cert Specialty Diagnoses / Procedures Referred By Danna sanchez Referred To Contact Diagnoses Rectal bleeding Rectal bleeding [K62.5] Procedures COLONOSCOPY, DIAGNOSTIC (RECTUM) COLONOSCOPY FLEXIBLE PROXIMAL DIAGNOSTIC Referral ID Status Reason Start Date Expiration Date Visits Re quested Visits Authorized [id number] Encounter Details Date Type Department Care Team Description 06/22/2023 Hospital Encounter ENDO [facility], Endoscopy Room [facility] [address] [place] [phone] Kary Govea DO [address] [place] [id number] Colonoscopy Allergies Active Allergy Reactions Severity Noted Date Comments Bee Stings 04/17/2000 hives Other Allergy (See Comments) Low 023 Other Reaction(s): Dizziness and feeling sick Oxycodone 04/10/2023 Other Reaction(s): Nausea Dizziness documented as of this encounter (statuses as of 06/22/2023) Medications Medication Sig Dispensed Refills Start Date [...] Active lisinopril (PRINIVIL) 20 MG Tablet Take 20 mg by mouth daily. 0 Active metoprolol tartrate (LOPRESSOR) 50 MG [...] Tablet by mouth every evening. 0 Active valACYclovir HCl 1 GM Oral Tablet (Valtrex) Take 1 Tablet by mouth in the morning and 1 Tablet before bedtime. Finished 06/18/2023. 0 Active Insulin Glargine 100 UNIT/ML Subcutaneous Solution Inject 10 Units under the skin at bedtime as needed. 0 Active Insulin Glargine 100 UNIT/ML Subcutaneous Solution Inject 70 Units under the skin in the morning. 0 Active Ferrous Sulfate 324 (65 Fe) MG Oral Tablet Delayed Release Take 1 Tablet by mouth daily with breakfast. 0 Active documented as of this encounter (statuses as of 06/22/2023) Active Problems Problem Noted Date FAMILY HX-GI MALIGNANCY 09/17/1998 Epistaxis DIAB RENAL MANIF ADULT Mixed dyslipidemia documented as of this encounter (statuses as of 06/22/2023) Social History Tobacco Use Types Packs/Day Years Used Date Smoking Tobacco: Never Cigarettes 30 Smokeless Tobacco: Former Chew Comments:no cigarettes Alcohol Use Standard Drinks/Week Comments No 0 (1 standard drink = 0.6 oz pure alcohol) As of 11.18.2006, the last noted alcohol intake was 1 ounces. no continuously Sex Assigned at Date Recorded Not on file Job Start Date Occupation Industry Not on file Not on file Not on file documented as of this encounter Last Filed Vital Signs Vital Sign Reading Time Taken Comments Blood Pressure 135/74 06/22/2023 10:31 AM EDT Pulse 71 06/22/2023 10:31 AM EDT Temperature 36.2 C (97.1 F) 06/22/2023 10:31 AM E DT Respiratory Rate 16 06/22/2023 10:31 AM EDT Oxygen Saturation 100% 06/22/2023 10:31 AM EDT Inhaled Oxygen Concentration - - Weight 91.7 kg (202 lb 1.6 oz) 06/19/2023 10:49 AM EDT Height 171.5 cm (5' 7.5") 06/19/2023 10:49 AM ED T Body Mass Index 31.19 06/19/2023 10:49 AM EDT documented in this encounter H&P Notes * Kary Govea, DO - 06/22/2023 9:29 AM EDT Procedure(s): Colonoscopy; with Indication(s) of evaluation of GI blood loss or iron- deficiency anemia; famther had colon cancer Endoscopy Pre-Procedure Assessment: Prior to the procedure, the patient was identified. The patient's history, medications and allergies were reviewed as per the Anesthesia Assessment. The patient is competent. The risks and benefits of the proposed procedure and the planned sedation were discussed with the patient. All questions were answered and informed consent for the procedure was obtained. BP 152/96 | Pulse 76 | Temp (Src) 98.8 (Tympanic) | Resp 18 | Ht 5' 0" (1.524m) | Wt 165 lbs (74.844kg) | BMI 32.22 kg/m | BSA 1.78 m | SaO2 99% | LMP 10/13/2004 Prior to Admission medications Medication Sig Last Dose Discont. Ferrous Sulfate 324 (65 Fe) MG Oral Tablet Delayed Release Take 1 Tablet by mouth daily with breakfast. 06/18/2023 Insulin Glargine 100 UNIT/ML Subcutaneous Solution Inject 10 Units under the skin at bedtime as needed. Held Insulin Glargine 100 UNIT/ML Subcutaneous Solution Inject 70 Units under the skin in the morning. 06/21/2023 Losartan Potassium 25 MG Oral Tablet (Cozaar) Take 1 Tablet by mouth every evening. 06/21/2023 Pantoprazole Sodium 40 MG Oral Tablet Delayed Release (Protonix) Take 1 Tablet by mouth in the morning and 1 Tablet before bedtime. 06/22/2023 allopurinol (ZYLOPRIM) 100 MG Tablet Take 1 Tablet by mouth every evening. 06/21/2023 atorvaSTATin (LIPITOR) 40 MG Tablet Take 1 Tablet by mouth every evening. 06/21/2023 metoprolol tartrate (LOPRESSOR) 50 MG Tablet Take 1 Tablet by mouth in the morning. 06/22/2023 GLUCOPHAGE 1000 MG OR TABS one tablet twice a day for diabetes 06/21/2023 valACYclovir HCl 1 GM Oral Tablet (Valtrex) Take 1 Tablet by mouth in the morning and 1 Tablet before bedtime. Finished 06/18/2023. Patient not taking: Reported on 06/19/2023 Not Taking Aspirin 81 MG Tablet Take 81 mg by mouth daily. Patient not taking: Reported on 06/12/2023 Not Taking Clopidogrel Bisulfate 75 MG Oral Tablet Take 1 Tablet by mouth in the morning. 06/18/2023 glipiZIDE (GLUCOTROL) 10 MG Tablet Take 5 mg by mouth daily. Patient not taking: Reported on 06/12/2023 Not Taking lisinopril (PRINIVIL) 20 MG Tablet Take 20 mg by mouth daily. Patient not taking: Reported on 06/12/2023 Not Taking Nitroglycerin 0.4 MG Sublingual Tablet Sublingual Place 1 Tablet under the tongue every 5 minutes as needed for Pain, Chest. Patient not taking: Reported on 06/19/2023 Not Taking repaGLINide (PRANDIN) 0.5 MG Tablet Take 0.5 mg by mouth three times a day before meals. Patient not taking: Reported on 06/12/2023 Not Taking Review of patient's allergies indicates: Allergen Reactions Bee Stings hives Oxycodone Other Reaction(s): Nausea Dizziness Other Allergy (See Comments) Other Reaction(s): Dizziness and feeling sick Physical Exam: Mental Status Examination: alert and oriented. Airway Examination: normal oropharyngeal airway and neck mobility. Respiratory Examination: clear to auscultation. CV Examination: rrr, no murmurs, no S-3 or S-4. ASA Grade: II - A patient with mild systemic disease. After reviewing the risks and benefits, the patient was deemed in satisfactory condition to undergothe procedure. The anesthesia plan was to use general anesthesia. documented in this encounter Procedure Notes * Saw Campbell DO - 06/22/2023 9:34 AM EDTAssociated Order(s): COLONOSCOPY [facility] Patient Name: Alphonso Cheatham Procedure Date: 06/22/2023 9:34 AM Date of : 1950 Admit Type: Outpatient Note Status: Finalized Date of : 1950 Admit Type: Outpatient Age: 72 Room: [facility] 3 Gender: Male Note Status: Finalized Procedure: Colonoscopy Indications: Last colonoscopy: date unknown, Rectal bleeding; famther had colon cancer Providers: Kary Govea DO (Doctor) Referring MD: Saw Campbell DO (Referring MD) Medicines: Propofol per Anesthesia Complications: No immediate complications. Estimated blood loss: None. Procedure: Pre-Anesthesia Assessment: - Prior to the procedure, a History and Physical was performed, and patient medications, allergies and sensitivities were reviewed. The patient's tolerance of previous anesthesia was reviewed. - The risks and benefits of the procedure and the sedation options and risks were discussed with the patient. All questions were answered and informed consent was obtained. - Patient identification and proposed procedure were verified prior to the procedure by the physician and the nurse. The procedure was verified in the pre-procedure area in the procedure room. - Mental Status Examination: alert and oriented. Airway Examination: normal oropharyngeal airway and neck mobility. Respiratory Examination: clear to auscultation. CV Examination: normal. Abdominal Examination: bowel sounds present, abdomen soft and non-tender, no masses or organomegaly noted. - ASA Grade Assessment: II - A patient with mild systemic disease. - The medication list for this patient has been reviewed prior to the procedure and has been determined that the patient may proceed with the planned study. Any medication changes made as a result of the findings of this procedure have been discussed with the patient and/or floor representative at the time of discharge from the department. After I obtained informed consent, the scope was passed under direct vision. All instruments were visually inspected immediately before and after removal from the patient to ensure they are fully intact. Throughout the procedure, the patient's blood pressure, pulse, and oxygen saturations were monitored continuously. The [id number] Colonoscope ([id number]) was introduced through the anus and advanced to the cecum, identified by appendiceal orifice and ileocecal valve. The colonoscopy was performed without difficulty. The patient tolerated the procedure well. The quality of the bowel preparation was good. Findings & Specimens: The perianal and digital rectal examinations were normal. Pertinent negatives include normal sphincter tone and no palpable rectal lesions. The terminal ileum appeared normal. Internal hemorrhoids were found during retroflexion. The hemorrhoids were medium-sized and Grade I (internal hemorrhoids that do not prolapse). Impression: - The examined portion of the ileum was normal. - Internal hemorrhoids. - No specimens collected. Recommendation: - Repeat colonoscopy in 3 years for screening purposes. - Return to primary care physician as previously scheduled. - Discharge patient to home. Kary Govea DO 06/22/2023 10:16:03 AM This report has been signed electronically. documented in this encounter Nursing Notes * Enrique Chakraborty RN - 06/22/2023 10:34 AM EDT Patient is alert, tolerating po fluids prior to discharge. Patient has been visited by Dr. Govea. Patient has received and demonstrates understanding of discharge instructions. Patient ambulated to private auto accompanied by endo staff. * Enrique Chakraborty RN - 06/22/2023 10:34 AM EDT Pt sitting at bedside dressing self denies any pain or dizziness. * Enrique Chakraborty RN - 06/22/2023 10:23 AM EDT Pt sitting up in bed tolerating liquids well, Dr Govea in and reviewed procedure results with pt, pt verbalized understanding. * Enrique Chakraborty RN - 06/22/2023 10:15 AM EDT Pt received in recovery sleeping on L side easily arousable by name, abd is soft and non distended,pt denies any pain. VSS * Rhonda Tinajero RN - 06/22/2023 10:13 AM EDT Pt delilah colonoscopy well. Abd pressure applied to assist w/ advancement of the scope. Abd soft post proc. No specimens obtained. To recovery lying on L side. Pre cleaning of scope at the bedside started by member of technical staff. * Mary Alice Carlin RN - 06/22/2023 9:37 AM EDT The following pt discharge instructions reviewed with pt prior to prodedure: No driving today. No alcohol today. No signing of legal documents. Rest as much as possible today and can return to normal activities tomorrow. No operating any heavy equipment today. Diet as tolerated. Pt verbalized understanding. documented in this encounter Plan of Treatment Upcoming Encounters Date Type Specialty Care Team Description 08/10/2023 Hospital Encounter Endoscopy Keisha Aleman MD [address] [place] [id number] 08/10/2023 Surgery Endoscopy Keisha Aleman MD [address] [place] [address] ESOPHAGOGASTRODUODENOSCOPY (EGD), FLEXIBLE, TRANSORAL, DIAGNOSTIC 09/27/2023 Office Visit Gastroenterology Parul Morataya CRNP [address] [place] [id number] Scheduled Procedures Name Priority Associated Diagnoses Date/Ti me COLONOSCOPY FLEXIBLE PROXIMA L DIAGNOSTIC Rectal bleeding 06/22/2023 9:53 AM EDT ESOPHAGOGASTRODUODENOSCOPY ( EGD), FLEXIBLE, TRANSORAL, DIAGNOSTIC Gastrointestinal hemorrhage associated with duodenal ulcer 08/10/2023 2:30 PM EST Health Maintenance Due Date Last Done Comments DXA Scan 1950 Pneumococcal Vaccine: 65+ Years (1 - PCV) 1956 Depression Screening 1962 DIABETES-EYE EXAM 1968 Diabetic Foot Exam 1968 Hepatitis C Screening 1968 Cologuard 1995 Fecal Occult Blood Test 1995 Sigmoidoscopy 1995 DTaP,Tdap,and Td Vaccines (1 - Tdap) 12/28/1999 12/27/1999, 12/27/1999, 10/02/1989, Additional history exists Zoster Vaccines (1 of 2) 2000 Albumin/Creatinine Ratio 06/11/2003 002, 10/23/2000, 12/27/1999, Additional history exists Influenza Vaccine (FLU shot) (#1) 2023 07/06/2022, 07/06/2022, 07/26/2021 HbA1c 11/02/2023 05/02/2023, 10/02, 12/16/2021, Additional history exists GFR 05/02/2024 05/02/2023, 0810/2022, 11/28/2022, Additional history exists Lipid Panel 05/02/2028 05/02/2023, 10/02, 06/11/2002, Additional history exists Colonoscopy 06/22/2033 06/22/2023 Colorectal Cancer Screening 06/22/2033 COVID-19 Vaccine Completed 08/15/2022, 07/2021, 01/19/2021, Additional history exists GARDASIL-HPV IMMUNIZATION SERIES Aged Out No longer eligible based on patient's age to complete this topic Hepatitis B Aged Out No longer eligi ble based on patient's age to complete this topic MENINGOCOCCAL (MENACTRA/MENVEO) Aged Out No longer eligible based on patient's age to complete this topic documented as of this encounter Medical Devices Not on filedocumented as of this encounter Procedures Procedure Name Priority Date/Time Associated Diagnosis Comments GLUCOSE METER, POINT OF CARE JENNIFER 06/22/2023 9:45 AM EDT COLONOSCOPY 06/22/2023 9:34 AM EDT documented in this encounter Results * GLUCOSE METER, POINT OF CARE (06/22/2023 9:45 AM EDT) Glucose Meter 86 70 - 120 mg/dL 06/22/2023 9:50 AM EDT LABORATORY PORT [place] 57-00 Blood Whole blood specimen / Unknown 06/22/2023 9:45 AM EDT 06/22/2023 9:50 AM EDT Kary Govea DO LAB POINT OF CARE TE ST DOCKED DEVICE UNSOLICITED RESULTS LABORATORY [place] [address] [place] [address] * COLONOSCOPY (06/22/2023 9:34 AM EDT) 06/22/2023 9:34 AM EDT Procedure Note Saw Campbell DO - 06/22/2023 9:34 AM EDT [facility] Patient Name: Alphonso Cheatham Procedure Date: 06/22/2023 9:34 AM Date of : 1950 Admit Type: Outpatient Note Status:Finalized Date of : 1950 Admit Type: Outpatient Age: 72 Room: [facility] 3 Gender: Male Note Status: Finalized Procedure: Colonoscopy Indications: Last colonoscopy: date unknown, Rectal bleeding;famther had colon cancer Providers: Kary Govea DO (Doctor) Referring MD: Saw Campbell DO (Referring MD) Medicines: Propofol per Anesthesia Complications: No immediate complications. Estimated blood loss:None. Procedure: Pre-Anesthesia Assessment: - Prior to the procedure, a History and Physicalwas performed, and patient medications, allergies and sensitivities werereviewed. The patient's tolerance of previous anesthesia was reviewed. - The risks and benefits of the procedure and thesedation options and risks were discussed with the patient. All questions wereanswered and informed consent was obtained. - Patient identification and proposed procedurewere verified prior to the procedure by the physician and the nurse. The procedure wasverified in the pre-procedure area in the procedure room. - Mental Status Examination: alert and oriented.Airway Examination: normal oropharyngeal airway and neck mobility. RespiratoryExamination: clear to auscultation. CV Examination: normal. AbdominalExamination: bowel sounds present, abdomen soft and non-tender, no masses ororganomegaly noted. - ASA Grade Assessment: II - A patient with mildsystemic disease. - The medication list for this patient has beenreviewed prior to the procedure and has been determined that the patient may proceed with the plannedstudy. Any medication changes made as a result of the findings of this procedure have beendiscussed with the patient and/or floor representative at the time of discharge from thearpartment. After I obtained informed consent, the scope waspassed under direct vision. All instruments were visually inspected immediatelybefore and after removal from the patient to ensure they are fully intact. Throughout the procedure, the patient's bloodpressure, pulse, and oxygen saturations were monitored continuously. The [id number] ([id number]) was introduced through the anus and advanced to the cecum,identified by appendiceal orifice and ileocecal valve. The colonoscopy was performedwithout difficulty. The patient tolerated the procedure well. The quality of thebowel preparation was good. Findings & Specimens: The perianal and digital rectal examinations were normal. Pertinentnegatives include normal sphincter tone and no palpable rectal lesions. The terminal ileum appeared normal. Internal hemorrhoids were found during retroflexion. The hemorrhoidswere medium- sized and Grade I (internal hemorrhoids that do not prolapse). Impression: - The examined portion of the ileum was normal. - Internal hemorrhoids. - No specimens collected. Recommendation: - Repeat colonoscopy in 3 years for screeningpurposes. - Return to primary care physician as previouslyscheduled. - Discharge patient to home. Kary GarciaDO adriel 06/22/2023 10:16:03 AM This report has been signed electronically. Saw Campbell DO GASTRO LOWER documented in this encounter Administered Medications Inactive Administered Medications - up to 3 most recent administrations Medication Order MAR Action Action Date Dose Rate Site isolyte-S pH 7.4 infusion Intravenous, Plasma-LYTE 148, isolyte-S, and isolyte-S pH 7.4 are considered equivalent - including for MAR barcode scanning., CONTINUOUS, Starting on Luci 06/22/23 at 0945, Until Luci 06/22/23 at 1437, Pre-Op Continue from Pre-Op 06/22/2023 9:53 AM EDT 100 mL/hr New Bag 06/22/2023 9:48 AM EDT 1,000 mL 100 mL/hr documented in this encounter Active and Recently Administered Medications Times are shown in EDT. Continuous Medication Order 06/20/2023 06/21/2023 06/22/2023 isolyte-S pH 7.4 infusion Intravenous, Plasma-LYTE 148, isolyte-S, and isolyte-S pH 7.4 are considered equivalent - including for MAR barcode scanning., CONTINUOUS, Starting on Luci 06/22/23 at 0945, Until Luci 06/22/23 at 1437, Pre-Op 0948 (New Bag - Prov ider: Mary Alice Carlin RN)0953 (Continue from Pre-Op - Provider: Cullen Min CRNA)1012 (Anes Intra-Op Fluid - Provider: Cullen Min CRNA) documented in this encounter Care Teams Agile Business Analyst Relationship Specialty Start Date End Date Saw Campbell DO [address] [place] [address] PCP - General Family Medicine 04/24/23 documented as of this encounter
--- OUTSIDE RECORDS SUMMARY | 2023-09-18 18:02 | External Medical Summary ---
Author Name Unknown Address Unknown Organization : Laboratory Report Ordering Provider Test Date Status TADEO NIELSEN 08/31/2023 11:54:36 Final Observation Date Value Abnormality Reference (Units ) Status Glucose Point of Care 08/31/2023 11:54:36 122 Above high normal 70-120 (mg/dL) Final Performing Location
--- OUTSIDE RECORDS SUMMARY | 2023-09-18 18:03 | External Medical Summary | Summary of Care ---
Author Name Unknown Organization [facility] Address [address] [facility] [facility] [place] [address] Phone [phone] Care Team Providers Care Holiday Detector Operator Name Role Phone Saw Campbell DO Primary Care Provider [phone] Encounter Details Date Type Department Care Team Description 04/24/2023 Result Scan Unspecified Department yTrone Mcknight DO [address] [place] [address] <No scans attached> Allergies Active Allergy Reactions Severity Noted Date Comments Bee Stings 04/17/2000 hives documented as of this encounter (statuses as of 04/27/2023) Medications Medication Sig Dispensed Refills Start Date End Date Status GLUCOPHAGE 1000 MG OR TABSIndications:DM type 2, goal A1c below 7,DM type 2, not at goal (HCC) one tablet twice a day for diabetes 180 3 07/05/2002 Active Additional Information Patient taking differently: three tablet twice a day for diabetes, Reported on 11/29/2017 allopurinol (ZYLOPRIM) 100 MG Tablet Take 100 mg by mouth daily. 0 Active atorvaSTATin (LIPITOR) 40 MG Tablet Take 40 mg by mouth daily. 0 Active repaGLINide (PRANDIN) 0.5 MG Tablet Take 0.5 mg by mouth three times a day before meals. 0 Active lisinopril (PRINIVIL) 20 MG Tablet Take 20 mg by mouth daily. 0 Active metoprolol tartrate (LOPRESSOR) 50 MG Tablet Take 50 mg by mouth daily. 0 Active nitroglycerin (NITROSTAT) 0.[address] 0.4 mg under the tongue every 5 minutes as needed for Pain, Chest. 0 Active glipiZIDE (GLUCOTROL) 10 MG Tablet Take 5 mg by mouth daily. 0 Active clopidogrel (PLAVIX) 75 MG Tablet Take 75 mg by mouth daily. 0 Active Aspirin 81 MG Tablet Take 81 mg by mouth daily. 0 Active documented as of this encounter (statuses as of 04/27/2023) Active Problems Problem Noted Date FAMILY HX-GI MALIGNANCY 09/17/1998 Epistaxis DIAB RENAL MANIF ADULT Mixed dyslipidemia documented as of this encounter (statuses as of 04/27/2023) Social History Tobacco Use Types Packs/Day Years Used Date Smoking Tobacco: Never Cigarettes 30 Smokeless Tobacco: Former Chew Comments:no cigarettes Alcohol Use Standard Drinks/Week Comments No 0 (1 standard drink = 0.6 oz pure alcohol) As of 11.18.2006, the last noted alcohol intake was 1 ounces. no continuously Sex Assigned at Date Recorded Not on file documented as of this encounter Plan of Treatment Upcoming Encounters Date Type Specialty Care Team Description 08/10/2023 Hospital Encounter Endoscopy Keisha Aleman MD [address] [place] [address] 08/10/2023 Surgery Endoscopy Keisha Aleman MD [address] [place] [address] ESOPHAGOGASTRODUODENOSCOPY (EGD), FLEXIBLE, TRANSORAL, DIAGNOSTIC Scheduled Procedures Name Priority Associated Diagnoses Date/Ti me ESOPHAGOGASTRODUODENOSCOPY ( EGD), FLEXIBLE, TRANSORAL, DIAGNOSTIC Gastrointestinal hemorrhage associated with duodenal ulcer 08/10/2023 2:30 PM EST Health Maintenance Due Date Last Done Comments DXA Scan 1950 COVID-19 Vaccine (#1) 04/02/1951 Pneumococcal Vaccine: 65+ Years (1 - PCV) 1956 Depression Screening, Annual for Pts 12 and Over 1962 DIABETES-EYE EXAM 1968 DIABETES-FOOT EXAM 1968 Hepatitis C Screening 1968 Cologuard 1995 Colonoscopy 1995 Colorectal Cancer Screening 1995 Fecal Occult Blood Test 1995 Sigmoidoscopy 1995 DTaP,Tdap,and Td Vaccines (1 - Tdap) 12/28/1999 12/27/1999, 12/27/1999, 10/02/1989, Additional history exists Zoster Vaccines (1 of 2) 2000 HbA1c 12/09/2002 06/11/2002, 04/02, 10/23/2000, Additional history exists Albumin/Creatinine Ratio 06/11/2003 002, 10/23/2000, 12/27/1999, Additional history exists GFR 06/11/2003 06/11/2002, 04/02, 10/23/2000, Additional history exists Lipid Panel 06/11/2007 06/11/2002, 04/02, 10/23/2000, Additional history exists Influenza Vaccine (FLU shot) (#1) 2023 GARDASIL-HPV IMMUNIZATION SERIES Aged Out No longer [...] Procedure Name Priority Date/Time Associated Diagnosis Comments PATHOLOGY SCANNED RESULT 04/24/2023 documented in this encounter Results * PATHOLOGY SCANNED RESULT (04/24/2023) 04/24/2023 Tyrone Mcknight DO PATHOLOGY documented in this encounter Care Teams Holiday Detector Operator Relationship Specialty Start Date End Date Saw Campbell DO [address] [place] [id number] PCP - General Family Medicine 04/24/23 documented as of this encounter
--- OUTSIDE RECORDS SUMMARY | 2023-09-18 18:03 | External Medical Summary | Summary of Care ---
Author Name Unknown Organization [facility] Address [address] [facility] [place] [address] Phone [phone] Care Team Providers Care Vp Celebrity Services Name Role Phone Saw Campbell DO Primary Care Provider [phone] Reason for Referral * Evaluate & Treat - Unlimited Visits (Within 10 days (routine)) - Pending Review Specialty Diagnoses / Procedures Referred By Danna sanchez Referred To Contact Gastroenterology Diagnoses BRBPR (bright red blood per rectum) Saw Campbell DO [address] [place] [address] Referral ID Status Reason Start Date Expiration Date Visits Requested Visits Authorized [id number] Pending Review Specialty Services Required 05/30/[phone] Question Answer Referral Priority Within 10 days (routine) For what condition is the patient being referred? 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 Allergies Active Allergy Reactions Severity Noted Date Comments Bee Stings 04/17/2000 hives documented as of this encounter (statuses as of 05/30/2023) Medications Medication Sig Dispensed Refills Start Date [...] as of this encounter (statuses as of 05/30/2023) Active Problems Problem Noted Date FAMILY HX-GI MALIGNANCY 09/17/1998 Epistaxis DIAB RENAL MANIF ADULT Mixed dyslipidemia documented as of this encounter (statuses as of 05/30/2023) Social History Tobacco Use Types Packs/Day Years [...] Encounter Endoscopy Keisha Aleman MD [address] [place] [address] 08/10/2023 Surgery Endoscopy Keisha Aleman MD [address] [place] [address] ESOPHAGOGASTRODUODENOSCOPY (EGD), FLEXIBLE, TRANSORAL, DIAGNOSTIC 09/04/2023 Office Visit Gastroenterology Lina Keller CRNP [address] [place] [address] Scheduled Procedures Name Priority Associated Diagnoses Date/Ti me ESOPHAGOGASTRODUODENOSCOPY ( EGD), FLEXIBLE, TRANSORAL, DIAGNOSTIC Gastrointestinal hemorrhage associated with duodenal ulcer 08/10/2023 2:30 PM EST Scheduled Referrals Name Type Priority Associated Diagnoses Order Schedule GASTROENTEROLOGY REFERRAL OP Referral Within 10 days (routine) BRBPR (bright red blood per rectum) Ordered: 05/30/2023 Health Maintenance Due Date Last Done Comments [...] Not on filedocumented as of this encounter Visit Diagnoses Diagnosis BRBPR (bright red blood per rectum)- Primary Hemorrhage of rectum and anus 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
--- OUTSIDE RECORDS SUMMARY | 2023-09-18 18:03 | External Medical Summary | Summary of Care ---
Author Name Unknown Organization [facility] Address [address] [facility] [place] [address] Phone [phone] Care Team Providers Care Chemical Engineering Professor Name Role Phone Carson Madrigal MD Primary Care Provider [phone] Reason for Visit * Reason Onset Date Comments Advice 04/24/2023 Encounter Details Date Type Department Care Team Description 04/24/2023 Telephone Gastroenterology, [facility] [place] [address] Tyrone Mcknight, [address] [facility] [place] [address] Advice Allergies Active Allergy Reactions Severity Noted Date Comments Bee Stings 04/17/2000 hives documented as of this encounter (statuses as of 04/24/2023) Medications Medication Sig Dispensed Refills Start Date [...] as of this encounter (statuses as of 04/24/2023) Active Problems Problem Noted Date FAMILY HX-GI MALIGNANCY 09/17/1998 Epistaxis DIAB RENAL MANIF ADULT Mixed dyslipidemia documented as of this encounter (statuses as of 04/24/2023) Social History Tobacco Use Types Packs/Day Years Used Date Smoking Tobacco: Never Cigarettes 30 Smokeless Tobacco: Former Chew Comments:no cigarettes Alcohol Use Standard Drinks/Week Comments No 0 (1 standard drink = 0.6 oz pure alcohol) As of 11.18.2006, the last noted alcohol intake was 1 ounces. no continuously Sex Assigned at Date Recorded Not on file documented as of this encounter Miscellaneous Notes * Telephone Encounter - Tyrone Mcknight DO - 04/24/2023 11:57 AM EDT The patient was seen in consult for evaluation of anemia, he was found to have a large duodenal ulcer and will need a repeat upper endoscopy in 3 months. documented in this encounter Plan of Treatment Scheduled Orders Name Type Priority Associated Diagnoses Orde r Schedule EGD, FLEXIBLE, W/BIOPSY Procedures Routine Gastrointestinal hemorrhage associated with duodenal ulcer Expected: 07/25/2023 (Approximate), Expires: 05/25/2024 Health Maintenance Due Date Last Done Comments [...] Td Vaccines (1 - Tdap) 12/28/1999 12/27/1999, 10/02/1989 Zoster Vaccines (1 of 2) 2000 HbA1c [...] as of this encounter Visit Diagnoses Diagnosis Gastrointestinal hemorrhage associated with duodenal ulcer- Primary documented in this encounter Care Teams Chemical Engineering Professor Relationship Specialty Start Date End Date Carson Madrigal MD [address] [place] [address] [id number] PCP - General Internal Medicine 08/23/17 documented as of this encounter
--- OUTSIDE RECORDS SUMMARY | 2023-09-18 18:03 | External Medical Summary | Summary of Care ---
Author Name Unknown Organization [facility] Address [address] [facility] [place] [address] Phone [phone] Care Team Providers Care Welding Teacher Name Role Phone Saw Campbell DO Primary Care Provider [phone] Reason for Visit * Reason Onset Date Comments Advice 04/24/2023 Encounter Details Date Type Department Care Team Description 04/24/2023 Telephone Gastroenterology, [facility] [address] [place] [address] Tyrone Mcknight DO 132 [facility] [place] [address] Advice Allergies Active Allergy Reactions Severity Noted [...] of this encounter (statuses as of 04/24/2023) Immunizations Name Administration Dates Next Due TD - Tetanus/Diptheria (ADULT) 12/27/1999,1989 documented as of this encounter Social History Tobacco Use Types Packs/Day Years [...] encounter Miscellaneous Notes * Telephone Encounter - MANJIT Mckeon - 04/24/2023 4:28 PM EDT Spoke to pt, egd scheduled on 08/10 anais/ ryan Instructions mailed * Telephone Encounter - MANJIT Mckeon - 04/24/2023 1:48 PM EDT Demographics requested from [place] * Telephone Encounter - Tyrone Mcknight DO [...] Endoscopy Keisha Aleman MD [address] [place] [address] 08/10/2023 Surgery Endoscopy Keisha Aleman MD [address] [place] [address] ESOPHAGOGASTRODUODENOSCOPY (EGD), FLEXIBLE, TRANSORAL, DIAGNOSTIC Scheduled Orders Name Type Priority Associated Diagnoses Orde r Schedule EGD, FLEXIBLE, W/BIOPSY Procedures Routine Gastrointestinal hemorrhage associated with duodenal ulcer Expected: 07/25/2023 (Approximate), Expires: 05/25/2024 Scheduled Procedures Name Priority Associated Diagnoses Date/Ti [...] Gastrointestinal hemorrhage associated with duodenal ulcer- Primary Gastrointestinal hemorrhage associated with duodenal ulcer documented in this encounter Care Teams Welding Teacher Relationship Specialty Start Date End Date Saw Campbell, [address] [address] PCP - General Family Medicine 04/24/23 documented as of this encounter
--- OUTSIDE RECORDS SUMMARY | 2023-09-18 18:03 | External Medical Summary | Summary of Care ---
Author Name Unknown Organization [facility] Address [address] [facility] [place] [address] Phone [phone] Care Team Providers Care Embedded Firmware Developer Name Role Phone Saw Campbell DO Primary Care Provider [phone] Encounter Details Date Type Department Care Team Description 04/24/2023 Orders Only Gastroenterology, [facility] [place] [address] Tyrone Mcknight DO [address] [facility] [place] [address] Allergies Active Allergy Reactions Severity Noted Date Comments Bee Stings 04/17/2000 hives documented as of this encounter (statuses as of 04/25/2023) Medications Medication Sig Dispensed Refills Start Date [...] as of this encounter (statuses as of 04/25/2023) Active Problems Problem Noted Date FAMILY HX-GI MALIGNANCY 09/17/1998 Epistaxis DIAB RENAL MANIF ADULT Mixed dyslipidemia documented as of this encounter (statuses as of 04/25/2023) Social History Tobacco Use Types Packs/Day Years [...] Hospital Encounter Endoscopy Keisha Aleman MD [address] [address] 08/10/2023 Surgery Endoscopy Keisha lAeman MD [address] [place] [address] ESOPHAGOGASTRODUODENOSCOPY (EGD), FLEXIBLE, TRANSORAL, DIAGNOSTIC Scheduled Procedures [...] Procedure Name Priority Date/Time Associated Diagnosis Comments UPPER GI ENDOSCOPY 04/24/2023 documented in this encounter Results * UPPER GI ENDOSCOPY (04/24/2023) 04/24/2023 Tyrone Mcknight DO GASTRO UPPER documented in this encounter Care Teams Embedded Firmware Developer Relationship Specialty Start Date End Date Saw Campbell DO [address] [place] [address] PCP - General Family Medicine 04/24/23 documented as of this encounter
--- OUTSIDE RECORDS SUMMARY | 2023-09-18 18:03 | External Medical Summary | Summary of Care ---
Author Name Unknown Organization [facility] Address [address] [place] [address] Phone [phone] Care Team Providers Care Mineral Engineer Name Role Phone Saw Fuller DO Primary Care Provider [phone] Reason for Visit * Reason Comments NEW PATIENT Fm history of colon cancer, anemia, blood per rectum , hx of bleeding ulcer , * Evaluate & Treat - Unlimited Visits (Within 10 days (routine)) - Pending Review Specialty Diagnoses / Procedures Referred By Danna t Referred To Contact Gastroenterology Diagnoses BRBPR (bright red blood per rectum) Saw Fuller DO [address] [place] [id number] Referral ID Status Reason Start Date Expiration Date Visits Requested Visits Authorized [id number] Pending Review Specialty Services Required 05/30/[phone] Encounter Details Date Type Department Care Team Description 06/12/2023 Office Visit Gastroenterology, [facility] [address] [place] [address] Parul Morataya CRNP [address] [place] [address] Gastrointestinal hemorrhage associated with duodenal ulcer*; Rectal bleeding Allergies Active Allergy Reactions Severity Noted Date Comments Bee Stings 04/17/2000 hives Other Allergy (See Comments) Low 023 Other Reaction(s): Dizziness and feeling sick Oxycodone 04/10/2023 Other Reaction(s): Nausea Dizziness documented as of this encounter (statuses as of 06/12/2023) Medications Medication Sig Dispensed Refills Start Date End Date Status GLUCOPHAGE 1000 MG OR TABSIndications: DM type 2, goal A1c below 7,DM type 2, not at goal (HCC) one tablet twice a day for diabetes 180 3 07/05/2002 Active Additional Information Patient taking differently: three tablet twice a day for diabetes, Reported on 11/29/2017 allopurinol (ZYLOPRIM) 100 MG Tablet Take 1 Tablet by mouth in the morning. 0 Active atorvaSTATin (LIPITOR) 40 MG Tablet Take 1 Tablet by mouth in the morning. 0 Active repaGLINide (PRANDIN) 0.5 MG Tablet [...] before bedtime. 180 Tablet 1 06/12/2023 Active Pantoprazole Sodium 20 MG Oral Tablet Delayed Release (Protonix) Take 1 Tablet by mouth in the morning. 0 3 Discontinued documented as of this encounter (statuses as of 06/12/2023) Active Problems Problem Noted Date FAMILY HX-GI MALIGNANCY 09/17/1998 Epistaxis DIAB RENAL MANIF ADULT Mixed dyslipidemia documented as of this encounter (statuses as of 06/12/2023) Social History Tobacco Use Types Packs/Day Years Used Date Smoking Tobacco: Never Cigarettes 30 Smokeless Tobacco: Former Chew Tobacco Cessation:Counseling Given: Not Answered Comments:no cigarettes Alcohol Use Standard Drinks/Week Comments No 0 (1 standard drink = 0.6 oz pure alcohol) As of 2..2006, the last noted alcohol intake was 1 ounces. no continuously Sex Assigned at Date Recorded Not on file Job Start Date Occupation Industry Not on file Not on file Not on file documented as of this encounter Last Filed Vital Signs Vital Sign Reading Time Taken Comments Blood Pressure - - Pulse 82 06/12/2023 12:54 PM EDT Temperature 36.7 C (98 F) 06/12/2023 12:54 PM EDT Respiratory Rate - - Oxygen Saturation 99% 06/12/2023 12:54 PM EDT Inhaled Oxygen Concentration - - Weight 91.7 kg (202 lb 1.6 oz) 06/12/2023 12:54 PM EDT Height 171.5 cm (5' 7.5") 06/12/2023 12:54 PM ED T Body Mass Index 31.19 06/12/2023 12:54 PM EDT documented in this encounter Patient Instructions * Patient Instructions* STEPHANIE Smith - 06/12/2023 1:26 PM EDT For hemorrhoids: Proctosol HC (or something like that) over the counter cream twice daily. documented in this encounter Progress Notes * STEPHANIE Smith - 06/12/2023 10:44 AM EDT Consult requested by Ref: SAW FULLER[[id number]] [address] [place] [address] (office) [phone] (fax) CC: F/u duodenal ulcer. HPI: 72 year old male pt of Saw Fuller DO with a hx of CAD (s/p CABG in 2016, GINA in 2017),insulin-dependent diabetes, aortic stenosis, CKD, HTN, HLD, gout, HLD is known to our group dannyDrPham Hernandez/Estrellita and then Dr Mcknight provided care for him when he was admitted to [facility] w Hb 5.6 and dysphagia. He had undergone a recent joint replacement and was taking NSAIDs regularly. EGD at that time w a duodenal ulcer and a repeat EGD is pending for July. He was admitted again mid May for rectal bleeding, but GI wasn't consulted that time. Stools (+)for shigelloides infection tx with Cipro. He had loose BMs at baseline and hasn't had a specific change No black BMs. On iron one pill daily. On BID PPI. Diagnostic Testing: CTAP w IV contrast 05/16/23: scattered diverticulosis. Stools (+) for Plesiomonas Shigelloides May 2023. Tx w Cipro Labs: Hb 5.6 in April, Hb in May 10.1. EGD April [address]23 [address] Mcknight: - Normal esophagus. - Z-line regular, 37 cm from the incisors. - Normal stomach. Biopsied. - Non-obstructing non-bleeding duodenal ulcer with a clean ulcer base (Huy Class III). NSAID induced etiology. - Normal second portion of the duodenum and third portion of the duodenum Path: - Gastric mucosa with mild chronic inflammation - Negative for intestinal metaplasia, dysplasia and malignancy - Negative for Helicobacter pylori organisms ROS: No lightheadedness, dizziness No fevers, chills, sweats No vision loss, eye pain, redness No oral ulcers No chest pain, palpitations, syncope or edema No cough, shortness of breath, exertional dyspnea No rashes or other skin lesions No new joint pain, swelling, myalgias No bleeding tendencies or excessive bruising A total of 12 systems were reviewed, all others (-). 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) DM type 2, goal A1c below 7 Gout Mixed dyslipidemia Past Surgical History: Procedure Laterality Date COLONOSCOPY, DIAGNOSTIC (RECTUM) 10/02/1998 negative screening, repeat q5y EGD, FLEXIBLE, DIAGNOSTIC N/A 04/24/2023 non-obstructing non-bleeding duodenal ulcer/biopsies show mild inflammatory changes/3 month repeat/EGD/[facility] PROCTOSIGMOIDOSCOPY DX 04/01/1989 Sigmoidoscopy; internal hemorrhoid Dr Perez Social History Socioeconomic History Marital status: Number of children: 4 Occupational History 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 no continuously Drug use: No Sexual activity: Yes Partners: Female control/protection: Surgical Family history reviewed and significant for: Family History Problem Relation Age of Onset Cancer Father colon cancer age 59 Heart Disorder Father age 42 Diabetes Aunt (Unspecified) Heart Disorder Aunt (Unspecified) age 58 Stroke Uncle (Unspecified) in 60's EXAM: Pulse 82 | Temp 36.7 C (98 F) | Ht 1.715 m (5' 7.5") | Wt 91.7 kg (202 lb 1.6 oz) | SpO2 99% | BMI 31.19 kg/m | BSA 2.09 m GENERAL: 72 year old male well developed and well nourished in no acute distress SKIN: no rashes, ulcers, or spider angiomata HEENT: normocephalic, sclera clear, pharynx normal NECK: supple, no lymphadenopathy, no masses or thyroid enlargement LUNGS: clear to auscultation anterior and posterior HEART: regular rate & rhythm, 3/6 systolic murmurs and no gallops ABDOMEN: normo-active bowel sounds, soft, non-tender, non-distended no masses, no hepatosplenomegaly, no rebound or guarding, no bruits EXTREMITIES: no palmar erythema, no edema, no skin discoloration, no clubbing, no cyanosis NEURO: no lateralizing findings, Sensory/Motor grossly normal ANAL exam: large non bleeding hemorrhoids. IMPRESSION/RECOMMENDATIONS: 72 year old male with - COLONOSCOPY, DIAGNOSTIC (RECTUM) Other orders - Pantoprazole Sodium 40 MG Oral Tablet Delayed Release (Protonix); Take 1 Tablet by mouth in the morning and 1 Tablet before bedtime. - EGD is scheduled for Aug 2023. Recheck here after EGD, colonoscopy. STEPHANIE Smith [facility] Gastroenterology documented in this encounter Nursing Notes * Ingrid Wang LPN - 06/12/2023 12:57 PM EDT Patient identified by name and date of . Chief Complaint Patient presents with NEW PATIENT Fm history of colon cancer, anemia, blood per rectum , hx of bleeding ulcer , documented in this encounter Plan of Treatment Upcoming Encounters Date Type Specialty Care Team Description 06/22/2023 Hospital Encounter Endoscopy Kary Govea, DO [address] [place] [address] 06/22/2023 Surgery Endoscopy Kary Govea, DO [address] [place] [address] COLONOSCOPY FLEXIBLE PROXIMAL DIAGNOSTIC 08/10/2023 Hospital Encounter Endoscopy Keisha Aleman MD [address] [place] [address] 08/10/2023 Surgery Endoscopy Keisha Aleman MD [address] [place] [address] ESOPHAGOGASTRODUODENOSCOPY (EGD), FLEXIBLE, TRANSORAL, DIAGNOSTIC 09/27/2023 Office Visit Gastroenterology Parul Morataya CRNP [address] [place] [address] Scheduled Orders Name Type Priority Associated Diagnoses Orde r Schedule COLONOSCOPY, DIAGNOSTIC (RECTUM) Procedures Routine Rectal bleeding Ordered: 06/12/2023 Scheduled Procedures Name Priority Associated Diagnoses Date/Ti me COLONOSCOPY FLEXIBLE PROXIMA L DIAGNOSTIC Rectal bleeding 06/22/2023 9:30 AM EDT ESOPHAGOGASTRODUODENOSCOPY ( EGD), FLEXIBLE, TRANSORAL, [...] 12/16/2021, Additional history exists GFR 05/02/2024 05/02/2023, 08/0 10/2022, 11/28/2022, Additional history exists Lipid Panel 05/02/2028 05/02/2023, 10/02, 06/11/2002, Additional history exists COVID-19 Vaccine Completed 08/15/2022, 07/2021, 01/19/2021, Additional [...] Gastrointestinal hemorrhage associated with duodenal ulcer- Primary Rectal bleeding Hemorrhage of rectum and anus Rectal bleeding Hemorrhage of rectum and anus Gastrointestinal hemorrhage associated with duodenal ulcer documented in this encounter Care Teams Mineral Engineer Relationship Specialty Start Date End Date Saw Fuller, [address] [address] PCP - General Family Medicine 04/24/23 documented as of this encounter
--- OUTSIDE RECORDS SUMMARY | 2023-09-18 18:03 | External Medical Summary | Summary of Care ---
Author Name Unknown Organization [facility] Address [address] [facility] [place] [address] Phone [phone] Care Team Providers Care High Energy Forming Equipment Operator Name Role Phone Saw Campbell DO Primary Care Provider [phone] Reason for Visit * Reason Onset Date Comments Advice 04/25/2023 Encounter Details Date Type Department Care Team Description 04/25/2023 Telephone Gastroenterology, [facility] [address] [place] [address] Tyrone Mcknight DO [address] [facility] [place] [address] Advice Allergies Active Allergy Reactions Severity Noted [...] Telephone Encounter - Tyrone Mcknight DO - 04/25/2023 1:08 PM EDT EGD for f/u of a duodenal ulcer in 3 months. documented in this encounter Plan of Treatment Upcoming Encounters Date Type Specialty Care Team Description 08/10/2023 Hospital Encounter Endoscopy Keisha Aleman MD [address] [place] [address] 08/10/2023 Surgery Endoscopy Keisha Aleman MD [address] [place] [address] ESOPHAGOGASTRODUODENOSCOPY (EGD), FLEXIBLE, TRANSORAL, DIAGNOSTIC Scheduled Procedures [...] Not on filedocumented as of this encounter Care Teams High Energy Forming Equipment Operator Relationship Specialty Start Date End Date Saw Campbell, DO [address] [place] [address] PCP - General Family Medicine 04/24/23 documented as of this encounter
--- OUTSIDE RECORDS SUMMARY | 2023-09-18 18:03 | External Medical Summary | Summary of Care ---
Author Name Unknown Organization [facility] Address [address] [facility] [place] [address] Phone [phone] Care Team Providers Care Care Services Manager Name Role Phone Carson Madrigal MD Primary Care Provider [phone] Reason for Visit * Reason Onset Date Comments Advice 04/24/2023 Encounter Details Date Type Department Care Team Description 04/24/2023 Telephone [address]ology, [facility] [place] [address] Tyrone Mcknight, 132 [facility] [place] [address] Advice Allergies Active Allergy Reactions Severity Noted [...] Primary documented in this encounter Care Teams Care Services Manager Relationship Specialty Start Date End Date Carson Madrigal MD [address] [place] [address] PCP - General Internal Medicine 08/23/17 documented as of this encounter
--- OUTSIDE RECORDS SUMMARY | 2023-09-18 18:03 | External Medical Summary | Summary of Care ---
Author Name Unknown Organization [facility] Address [address] [facility] [place] [address] Phone [phone] Care Team Providers Care Burn Nurse Name Role Phone Saw Campbell DO Primary Care Provider [phone] [phone] Reason for Visit * Reason Onset Date Comments Advice 04/25/2023 Encounter Details Date Type Department Care Team Description 04/25/2023 Telephone Gastroenterology, [facility] [address] [place] [address] Tyrone Mcknight DO [address] [facility] [place] [address] Advice Allergies Active Allergy Reactions Severity Noted [...] of this encounter (statuses as of 04/25/2023) Immunizations Name Administration Dates Next Due TD [...] * Telephone Encounter - MANJIT Mckeon - 04/25/2023 1:30 PM EDT Please see other TE, pt already scheduled * Telephone Encounter - Tyrone Mcknight DO - 04/25/2023 1:08 PM EDT EGD for f/u of a duodenal ulcer in 3 months. documented in this encounter Plan of Treatment Upcoming Encounters Date Type Specialty Care Team Description 08/10/2023 Hospital Encounter Endoscopy Keisha Aleman MD [address] [place] [address] 08/10/2023 Surgery Endoscopy Keisha Aleman MD [address] [place] [address] ESOPHAGOGASTRODUODENOSCOPY (EGD), FLEXIBLE, TRANSORAL, DIAGNOSTIC Scheduled Procedures Name Priority Associated Diagnoses Date/Ti ny ESOPHAGOGASTRODUODENOSCOPY ( EGD), FLEXIBLE, TRANSORAL, DIAGNOSTIC Gastrointestinal [...] filedocumented as of this encounter Care Teams Burn Nurse Relationship Specialty Start Date End Date Saw Campbell, [address] [address] PCP - General Family Medicine 04/24/23 documented as of this encounter
--- OUTSIDE RECORDS SUMMARY | 2023-09-18 18:03 | External Medical Summary | Summary of Care ---
Author Name Unknown Organization [facility] Address [address] [address] Phone [phone] Care Team Providers Care Assistant Producer Name Role Phone Saw Campbell DO Primary Care Provider [phone] Encounter Details Date Type Department Care Team Description 04/24/2023 Result Scan Unspecified Department Tyrone Mcknight DO [address] [place] [address] <No scans attached> Allergies Active Allergy Reactions [...] Keisha Aleman MD [address] [place] [id number] 08/10/2023 Surgery Endoscopy Keisha Aleman MD [address] [place] [address] ESOPHAGOGASTRODUODENOSCOPY (EGD), FLEXIBLE, TRANSORAL, DIAGNOSTIC Scheduled Procedures [...] PATHOLOGY documented in this encounter Care Teams Assistant Producer Relationship Specialty Start Date End Date Saw Campbell DO [address] [place] [id number] PCP - General Family Medicine 04/24/23 documented as of this encounter
[2023-09-18 18:55] LABS: Total Protein Urine Random 19.1 mg/dl (0-11.9)
[2023-09-18 19:00] LABS: Creatinine Urine Random 11.6 mg/dl; Protein Creatinine Ratio Urine 1.6 (0-0.2)
[2023-09-18] MEDS ORDERED: ATORVASTATIN 40 MG TAB PO SCH (21:00)
[2023-09-18] MEDS ORDERED: allopurinoL 100 MG TAB PO SCH (21:00)
--- NOTE | 2023-09-18 21:10 | Ultrasound Report ---
Exam(s): US VENOUS RIGHT LOWER EXTREMITY EXAM: US Duplex Right Lower Extremity Veins CLINICAL HISTORY: Reason for exam: swollen painful calf. TECHNIQUE: Real-time duplex ultrasound scan of the right lower extremity veins integrating B-mode two-dimensional vascular structure, Doppler spectral analysis, color flow Doppler imaging and compression. COMPARISON: None. FINDINGS: Deep veins: Unremarkable. No DVT in the visualized common femoral, femoral, proximal deep femoral or popliteal veins. The veins demonstrate normal color flow, are normally compressible, with normal phasic flow and/or augmentation response. Superficial veins: Unremarkable. No thrombus in the visualized great saphenous vein. Soft tissues: No acute findings. No popliteal cyst. IMPRESSION: No ultrasonographic evidence of deep venous thrombosis involving the right lower extremity. Electronically signed by: Anila Weinberg MD 09/18/23 21:09 PM
[2023-09-18] MEDS: INSULIN ASPART PER UNIT CHARGE SC SCH (22:32)
[2023-09-18] MEDS: PANTOprazole 40 MG TAB PO SCH (22:34)
[2023-09-19] MEDS: HEPARIN SOD 5,000 UNIT/0.5 ML VIAL SQ SCH ×2 (00:26→08:56)
[2023-09-19 07:14] LABS: Basophils # (auto) 0.03 K/uL (0.00-0.20); Basophils % (auto) 0.5 %; Eosinophils # (auto) 0.09 K/uL (0.00-0.50); Eosinophils % (auto) 1.6 %; Hematocrit (blood only) 36.9 % (42.0-52.0); Hemoglobin 11.6 g/dl (14.0-18.0); Immature Granulocytes # (auto) 0.02 K/uL (0.01-0.20); Immature Granulocytes % (auto) 0.4 %; Lymphocytes # (auto) 1.09 K/uL (1.20-3.40); Lymphocytes % (auto) 19.5 %; Mean Corpuscular Hemoglobin 26.4 pg (25.0-34.0); Mean Corpuscular Hgb Conc 31.4 g/dL (32.0-36.0); Mean Corpuscular Volume 83.9 fL (80.0-100.0); Mean Platelet Volume 10.2 fL (9.4-12.4); Monocytes # (auto) 0.48 K/uL (0.11-0.59); Monocytes % (auto) 8.6 %; Neutrophils # (auto) 3.89 K/uL (1.40-6.50); Neutrophils % (auto) 69.4 %; Platelet Count 256 K/uL (130-400); RDW Coefficient of Variation 16.6 % (11.5-14.5); RDW Standard Deviation 50.9 fL (36.4-46.3)
[2023-09-19 07:34] LABS: BUN Creatinine Ratio 14.7 (10-20); Calcium 8.7 mg/dl (8.6-10.3); Creatinine Clr Calc Pharmacy 43.3 ml/min; Est GFR (African American) 48.1 ml/min; Est GFR (Non-African American) 41.5 ml/min; Magnesium 1.8 mg/dl (1.7-2.4); Potassium 3.8 mmol/L (3.5-5.1)
[2023-09-19 07:56] LABS: Estimated Average Glucose 131 mg/dl; Hemoglobin A1C 6.2 % (4.5-5.6)
--- NOTE | 2023-09-19 08:12 | Hospitalist Progress Note ---
"Date of Service September 19, 2023 Assessment & Plan (1) Acute heart failure with preserved ejection fraction: (2) Coronary artery disease: (3) Decreased appetite: (4) Right calf pain: (5) GERD (gastroesophageal reflux disease): (6) Gout: (7) Hypertension: (8) Insulin dependent type 2 diabetes mellitus: (9) Aortic stenosis: Plan Alphonso is a 72 M w/ hx of CHF (HFpEF), GERD, gout, CKDIII, HTN, OA, aortic stenosis, and CAD who presented for increasing dyspnea and was admitted for management of a heart failure exacerbation. Acute HFpEF | Aortic Stenosis - Suspected d/t valvular disease on prior Echo - BNP elevated to 978 - Cardiology consulted (follows w/ Dr. Eisenberg outpatient - Repeat TTE ordered, pending results - Continue strict I/Os, daily weights, low Na/fluid restricted diet - Continue Metoprolol, Losartan held pending Echo --- Repeat dose of Lasix 40 mg IV ordered given hypervolemia on exam, plan to continue PO diuresis upon discharge with lab f/u with PCP by Monday --- TTE results pending Notably had 2+ protein in his urine in May in the setting of hypertensive urgency, will repeat to determine if this is contributing with a spot protein/creatinine ratio Coronary artery disease: - s/p CABG x 3 Vessels 07/2016, PCI to Mid LAD (distal to MEDINA anastomosis) and distal RCA via SVG 10/2016, post GINA to SVG-RCA and SVG-OM2 in 11/2016 - Troponin trended to peak, no active chest pain, dyspnea improved, low suspicion for ACS - Continue clopidogrel, metoprolol, atorvastatin Decreased appetite: - Decreased appetite and weight loss over last month - Suspect association with worsening hypervolemia in setting of HF/Aortic Stenosis - Myeloma workup pending upon admission, given hx of urinary protein, but low suspicion at this time given hx - Significant improvement in dyspnea and appetite following diuresis Right calf pain - Resolved - US venous Doppler negative GERD (gastroesophageal reflux disease): - Continue pantoprazole 40mg PO BID Gout: - No active flare - Continue allopurinol Hypertension: - Continue metoprolol succinate, Lasix added - Losartan held on admission T2DM - HbA1C 7.8, repeat with AM labs - Novolog based on prior hospitalization: Goal BSG Range: Low 110 mg/dL, High 140 mg/dL Correction Factor: 25 mg/dL/unit Carbohydrate ratio = 8 g/unit BSGs ACHS if eating, q6h if npo - Anticipate return to home regimen upon discharge VTE prophylaxis - US negative, none as discharge anticipated today Diet - type 2 diabetes, heart healthy, low-sodium, fluid restrict 1500 mL Disposition - admit to med/tele Admission and Anticipated Discharge Date Admission Date: September 18, 2023 Subjective 09/19: Evaluated at bedside with daughter (Lizzy) present. Patient notes that his dyspnea is feeling significantly improved since admission, but that he has been urinating a lot more than normal. Patient denies any chest pain, pleuritic pain, abdominal pain, or bowel changes. Patient notes that his only recent medication change was that he went off some BP medications in April d/ hypotension. Results & Data Results & Data Vital Signs (Past 12 Hours) Vital Signs Temp Pulse Pulse Pulse Resp BP BP 09/19/23 07:54 36.7 C 76 13 167/83 H 09/19/23 07:00 09/19/23 07:00 67 09/19/23 02:50 36.5 C 63 16 166/83 H 09/18/23 21:53 79 09/18/23 21:45 36.2 C L 80 18 169/94 H 09/18/23 20:54 74 18 145/83 H Pulse Ox O2 Del Method 09/19/23 07:54 96 Room Air 09/19/23 07:00 Room Air 09/19/23 07:00 09/19/23 02:50 95 Room Air 09/18/23 21:53 09/18/23 21:45 97 Room Air 09/18/23 20:54 98 Room Air (2) Coronary artery disease Associated angina: without angina Coronary Disease-Associated Artery/Lesion type: [place] artery [place] vs. transplanted heart: [place] heart Qualified Code(s): I25.10 - Atherosclerotic heart disease of [place] coronary artery without angina pectoris"
[2023-09-19 08:47] LABS: Troponin I High Sensitivity 48.9 pg/ml (0-20)
[2023-09-19] MEDS: INSULIN ASPART PER UNIT CHARGE SC SCH ×2 (08:54→13:27)
[2023-09-19] MEDS: PANTOprazole 40 MG TAB PO SCH (08:56)
[2023-09-19] MEDS ORDERED: METOPROLOL SUCC 50MG EXT REL TAB PO SCH (09:00)
[2023-09-19] MEDS ORDERED: CLOPIDOGREL BISULFATE 75 MG TAB PO SCH (09:00)
[2023-09-19] MEDS ORDERED: FUROSEMIDE 40 MG/4 ML VIAL IV ONE (09:55)
--- NOTE | 2023-09-19 12:37 | Discharge Summary ---
"Date of Service September 19, 2023 Admission HPI Per Admitting Provider Alphonso Cheatham is a 72-year-old male who presents to the ER with shortness of breath. He reports ongoing for the last month. Today he just felt it had been going on too long and it needed to be checked out therefore he called his PCP office and advised him to go to [facility] or the ER. He denies any fever, chills, sinus pain, ear pain, chest pain, presyncope, claudication, palpitations. History is significant for white phlegm productive cough, right nasal congestion, leg swelling, progressive orthopnea and paroxysmal nocturnal dyspnea. He took two rounds of antibiotics on 07/28 with azithromycin and 08/07 w ith doxycycline with possible improvement while on the antibiotics but progression as soon as he stopped. He has a significant coronary artery disease history with prior CABG and stents with the last one on 2016 but denies any prior history of heart failure and is not currently on Lasix. He has also been noticing decreased appetite with hypoglycemic episodes at home. He has been reducing his Lantus dose from 70 units to 55 units which he last took this morning. Of note during his hospitalization in April his Lantus dose was 10 units. He reports weight loss although his weight is somewhat stable in the EMR. His family is very worried about how little he has been eating but also wonder whether it is just because he is so tired all the time. He denies any obstructive sleep apnea and is not on CPAP. He denies depression, dysphagia, odynophagia. He notably has a significant history of GI bleed although reports no current melena or hematochezia. He took all his other medications this morning. Admission Exam Per Admitting Provider Constitutional: WD/WN, vitals as above Eyes: + anicteric sclerae; normal pupil size ENMT: external ear and nose normal, oropharynx normal Neck: trachea midline, no thyromegaly Respiratory: normal respiratory effort; no respiratory distress Auscultation: + diminished lung sounds (bibasal); no crackles and no wheezes Cardiovascular: Rate/Rhythm: regular rate and regular rhythm Heart Sounds: + murmur (systolic and diastolic in LUSB) Extremities: normal capillary refill, + calf tenderness (right) and + pedal edema (2+ to knees b/l equal) Gastrointestinal (Abdomen): normal bowel sounds, soft, nontender, no hepatosplenomegaly Musculoskeletal: no cyanosis or clubbing, extremities motor strength 5/5 Skin: no rashes, warm and dry Neurologic: moves all extremities and awake; not confused Speech / Cognition: normal speech Motor/Sensory: no tremor, no pronator drift and no sensory deficit Cranial Nerves: normal facial strength Psychiatric: A+Ox3, euthymic affect Principal Diagnosis HF Exacerbation Discharge Exam Gen: NAD, alert, interactive HEENT: Supple, no LAD, no thyromegaly, moderate JVD Resp:Non-labored, faint bi-basilar crackles, no wheezing CV:RRR, normal S1/S2, systolic murmur at RUSB/LUSB Abd: Soft, non-distended, no TTP, normoactive bowels, no masses Extr: 2+ dp bilaterally, 1+ pitting edema Skin: No rashes lesions or erythema Discharge Data Allergies Allergy/AdvReac Type Severity Reaction Status Date / Time Opioids - Morphine Analogues AdvReac Mild Dizziness Verified 09/18/23 14:07 and feeling sick Consultations 09/18/23 14:01 ED Decision to Admit Stat 09/18/23 17:19 Consult Cardiology Routine Ordered Studies 09/18/23 15:59 US venous doppler LE RT Stat Hospital Course (1) Acute heart failure with preserved ejection fraction: (2) Coronary artery disease: (3) Decreased appetite: (4) Right calf pain: (5) GERD (gastroesophageal reflux disease): (6) Gout: (7) Hypertension: (8) Insulin dependent type 2 diabetes mellitus: (9) Aortic stenosis: Marlena Werner is a 72 M w/ hx of CHF (HFpEF), GERD, gout, CKDIII, HTN, OA, aortic stenosis, and CAD who presented for increasing dyspnea and was admitted for management of a heart failure exacerbation. Acute HFpEF | Aortic Stenosis - Suspected d/t valvular disease on prior Echo - BNP elevated to 978 - Cardiology consulted (follows w/ Dr. Eisenberg outpatient - Repeat TTE ordered - Continue strict I/Os, daily weights, low Na/fluid restricted diet - Continue Metoprolol, Losartan restarted at discharge --- Repeat dose of Lasix 40 mg IV ordered given hypervolemia on exam, plan to continue PO diuresis w/ Lasix 20 mg PO daily upon discharge --- TTE results indicating worsening LV systolic function (EF 50-55%) --- Follow up w/ HF Clinic scheduled Monday, recommend repeat BMP at visit Coronary artery disease: - s/p CABG x 3 Vessels 07/2016, PCI to Mid LAD (distal to MEDINA anastomosis) and distal RCA via SVG 10/2016, post GINA to SVG-RCA and SVG-OM2 in 11/2016 - Troponin trended to peak, no active chest pain, dyspnea improved, low stacy spicion for ACS - Continue clopidogrel, metoprolol, atorvastatin Decreased appetite: - Decreased appetite and weight loss over last month - Suspect association with worsening hypervolemia in setting of HF/Aortic Stenosis - Myeloma workup pending upon admission, given hx of urinary protein, but low suspicion at this time given hx and improved sx - Significant improvement in dyspnea and appetite following diuresis Right calf pain - Resolved - US venous Doppler negative GERD (gastroesophageal reflux disease): - Continue pantoprazole 40mg PO BID Gout: - No active flare - Continue allopurinol Hypertension: - Continue metoprolol succinate, Lasix added - Losartan held on admission T2DM - HbA1C 7.8, repeat with AM labs - Novolog based on prior hospitalization: Goal BSG Range: Low 110 mg/dL, High 140 mg/dL Correction Factor: 25 mg/dL/unit Carbohydrate ratio = 8 g/unit BSGs ACHS if eating, q6h if npo --- Return to home regimen upon discharge VTE prophylaxis - US negative, none as discharge anticipated today Diet - type 2 diabetes, heart healthy, low-sodium, fluid restrict 1500 mL Disposition - admit to med/tele Total Time Total Time Spent Total Time Spent (In Minutes): <30 Discharge Plan Discharge Items Patient Disposition: Home - Self-Care Reason For Visit: SOB/CHF Discharge Diagnosis: HF Exacerbation Activity: Per Instructions section Non-emergency contact: Primary Care Provider Call non-emergency contact if: your symptoms worsen Follow-up/Referrals: Saw Campbell DO [Primary Care Provider] - Grace Mendoza PA-C [Physician Back Shoe Cutter] - 09/22/23 11:00 am Diet: Carb Consistent or DM2, Heart Healthy and Low Sodium (2gm) Addtl Attending Provider Instructions: You were admitted to the hospital for a heart failure exacerbation after a presentation for shortness of breath and lower extremity swelling in the setting of one month of worsening shortness of breath and decreased appetite. It was determined that you were experiencing an exacerbation your underlying heart failure and you were treated with a diuretic medication to help remove extra fluid from your body. We also performed an ultrasound of your heart and its valves, known as an echocardiogram, and compared it to your last echocardiogram in order to determine if there were any significant changes to your heart during the interval period. The cardiology service was also consulted to review your case and provide recommendations if necessary. You improved significantly during your brief stay and after for review of your case, feel that you are ready to be discharged home safely. Please pay attention to the following discharge instructions. Your nurse will review them with you before you leave. If you have any questions, please do not hesitate to ask the nurse for clarification. 1. We added a drug called furosemide, also known as Lasix, to your list of medications. Please take furosemide 20 mg, 1 tablet daily. 2. You have an appointment with the heart failure clinic on Friday, September 22, 2023 at 11:00 AM with Grace Mendoza PA-C. Please do everything within the power to make this appointment. If you are unable to, please contact the cardiology clinic at [phone] to reschedule. 3. None of your home medications were discontinued. Continue taking all of your other home medications as previously instructed. 4. As you return home, please take care to reduce your dietary sodium content, as overconsumption of sodium can cause you to retain fluid more readily, leading to symptoms similar to what brought you to the hospital. Also, be mindful of any signs of increased water retention, especially swelling in your legs and difficulty breathing when lying horizontally. Try to reduce consumption of processed foods and if you are unable to do so, do pay attention to food labels and nutritional information prior to consumption. 5. A follow-up appointment with your primary care provider, Dr. Saw Louis, will be made for you. If you do not hear from your PCP within 48 hours, please call their clinic at [phone]. It has been a pleasure to care for you here at [facility]. If you have any questions or concerns about your stay, please do not hesitate to reach out to us. We can be reached at [phone]. Pending Studies at Discharge: No Stand-Alone Forms: [facility], Smoking Cessation Medications and DC Order Prescriptions: New furosemide 20 mg tablet 20 mg PO DAILY 30 Days Qty: 30 0RF Continued metformin 1,000 mg tablet 1,000 mg PO BID Qty: 180 3RF allopurinol 100 mg tablet 100 mg PO HS atorvastatin 80 mg tablet 80 mg PO HS clopidogrel 75 mg tablet 75 mg PO QAM Qty: 30 Hold Instructions: Resume on 04/28/23. metoprolol succinate 100 mg tablet extended release 24 hr 100 mg PO QAM ferrous sulfate 325 mg (65 mg iron) Tablet,Delayed Release (Dr/Ec) 325 mg PO QAM Qty: 30 0RF pantoprazole 40 mg tablet,delayed release (DR/EC) 40 mg PO BID insulin glargine [Lantus Solostar U-100 Insulin] 100 unit/mL (3 mL) insulin pen 0 unit SUBCUT BID Rx Instructions: Inject 70 units every morning. Then inject 10 units at bedtime ONLY if hyperglycemic losartan 25 mg tablet 25 mg PO HS nitroglycerin 0.4 mg tablet, sublingual 0.4 mg sublingual UD PRN (Reason: Chest Pain) Rx Instructions: place 1 tablet under tongue every 5 minutes as needed for chest pain. may repeat every 5 minutes 3 times Discharge Orders: Discharge Order- CHF (Routine); Ordered 09/19/23 Ordered By: Dixie Shi/Other Patient Handouts: Heart Failure: Tracking Your Weight, Hypoglycemia (Low Blood Sugar), Managing Type 2 Diabetes, Heart Failure Make Changes Diet, Heart Failure Dc Admission Data Admit Date/Time: 09/18/23 15:40 Attending Provider: Froylan Nagel Admit Provider: Bala Howe Primary Care Provider: Saw Campbell Other Providers: Bala Howe; Juan Eisenberg; Maria Alejandra Gregg; Grace Mendoza Other Interventions: Discharge Summary Assessment (RN) Last Done: 09/19/23 16:54 Supervising Physician Co-Signing Physician Notes I personally examined the patient and verified all byrd points of history and e xam, discussed case, and agree with decision making with Dr Delacruz feeling better would like to go home cardiology input appreciated. diet reviewed - fairly indisciminate intake of sodium vitlas noted nad hejj nc at mmm breathing unlabored no accessory muscles good effort skin no rashes no pallor or icterus acute on chronic HFpEF w CKD3 - improved w diuresis. safe/stable for home. continue lasix at home - f/u ~2-3 days hopefully won't need indefinitely. discussed Na restriction/lifestyle change he expressed understanding poor appetite/weight loss - almost certainly due to above - already feels better. urine protein studies pending from admission - outpt f/u. f/u on symptoms after recovery - if persists then definitely w/u further but most likely correlates with CHF exac and will likely improve without further intervention safe/stable for home, otherwise as above Resident Activity Tracking Resident Involvement: Resident Care Provided Care Provided: Adult Hospital Medicine"
--- NOTE | 2023-09-19 13:19 | XCELERA ---
[id number] \\[email or web address]\[id number]
--- NOTE | 2023-09-19 15:38 | Cardiology Consultation ---
Date of Consultation September 19, 2023 Assessment & Plan (1) Acute heart failure with preserved ejection fraction: (2) Elevated troponin: (3) Aortic stenosis: (4) Mitral regurgitation: (5) Pulmonary hypertension: (6) Sleep apnea: (7) Coronary artery disease: (8) S/P coronary artery stent placement: (9) S/P coronary artery bypass graft x 3: Plan ASSESSMENT/PLAN: 1. Acute heart failure with preserved EF: We discussed the diagnosis. He appears euvolemic now and feels back to baseline. Recommend Lasix 20 mg p.o. daily until followed up in heart failure program later this week. Recommended heart failure program and he is agreeable. Discussed with Grace Mendoza PA-C who will arrange close follow-up and appropriate labs. We discussed at length the importance of a low-sodium diet, less than 2000 mg daily and avoidance of foods high in sodium content, such as potato chips. Recommended that he weigh himself daily and bring a daily log to his cardiology appointments for review. 2. Aortic stenosis: Nonsevere based on Doppler evaluation and exam. Continue outpatient surveillance. Diagnosis discussed. 3. Mitral regurgitation: Eccentric and appeared moderate to severe. Continue surveillance and can consider further evaluation as deemed appropriate when he meets with Dr. Eisenberg in the near future. Could be playing a role in his presentation and pulmonary hypertension. Could consider transesophageal echo as an outpatient in the future. 4. Pulmonary hypertension: Could be related to heart failure, undiagnosed sleep apnea, valvular heart disease, etc. Formal evaluation can be considered as an outpatient as per Dr. Eisenberg. 5. Sleep apnea: Based on history from patient, daughters, and , it appears as though he has sleep apnea. Recommend outpatient sleep study, which can be arranged at upcoming heart failure program visit. He is agreeable. 6. CAD s/p CABG x 3 and multivessel PCI: No angina. Continue antiplatelet therapy, beta-ramesh, and high intensity statin therapy. 7. Elevated troponin: Likely due to heart failure exacerbation. He did not present with acute coronary syndrome. 8. Disposition: He feels back to baseline and family agrees that he looks much better. He would like to be discharged home. Discharge seems reasonable from a cardiac perspective with close follow-up. Recommended heart failure program and he is agreeable and follow-up is being arranged by Grace Mendoza PA-C. Patient care communicated with Dr. Nagel of the primary hospitalist service and also discussed with his primary bridge ironworker helper, Dr. Eisenberg. Highly complex medical issues. Thank you for allowing me to participate in the care of your patient. Please call for any other questions or concerns. Sincerely, Jewel Romero M.D. History of Present Illness Reason for Consultation: "Acute CHF" Requesting Physician: Dr. Howe Attending Physician: Froylan Nagel, DO History of Present Illness Mr. Cheatham is a very pleasant 72-year-old gentleman with a history significant for CAD s/p CABG x 3 (MEDINA to LAD, SVG to OM2, SVG to RCA) 07/2016, PCI to mid LAD (distal to MEDINA anastomosis), PCI of distal RCA via vein graft, PCI of SVG to RCA and SVG to OM 2, type 2 diabetes, hypertension, aortic stenosis, mitral regurgitation, dyslipidemia, and subarachnoid hemorrhage in August 2017 after falling. His primary bridge ironworker helper is Dr. Eisenberg. He was admitted on 09/18/2023 for shortness of breath and diagnosed with acute heart failure with preserved EF. For at least 1 month, he has had ongoing shortness of breath including dyspnea on exertion but also orthopnea. Family was present at the bedside and stated that he was higgins in appearance and looks much better now after intravenous diuretics during his hospital stay thus far. He has had some bilateral lower extremity swelling, which has improved. He admits that he consumes large amounts of sodium, specifically through potato chips and also adding salt to food. He has not required diuretic therapy as an outpatient. He denies chest pain, syncope, near syncope, palpitations, melena, hematochezia, hematuria, fevers, shaking chills, nausea, or vomiting. His I's and O's have not been calculated during this hospital stay but he admits that he has been urinating significantly compared to baseline. He ambulated in the hallway today and feels much better and back to baseline. He is hoping to go home today. Patient snores as per family members present. His also notes that he appears to stop breathing at times while sleeping. He naps often. He has not had a formal sleep study. Review of systems: As above. Review of systems otherwise negative/unremarkable. Family history: Father with CAD and [place] at the age of 42. Brother with CAD. Social history: He quit smoking cigars at the age of 65. Occasional alcohol. No drugs. and lives at home with his . 4 adult children. 8 grandchildren. 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 His and 2 daughters were present at the bedside. Allergies Allergy/AdvReac Type Severity Reaction Status Date / Time Opioids - Morphine Analogues AdvReac Mild Dizziness Verified 09/18/23 14:07 and feeling sick Home Medications Medication Instructions Recorded Confirmed Type allopurinol 100 mg tablet 100 mg PO HS 05/08/19 09/18/23 History atorvastatin 80 mg tablet 80 mg PO HS 05/08/19 09/18/23 History clopidogrel 75 mg tablet 75 mg PO QAM #30 tabs 05/08/19 09/18/23 History metformin 1,000 mg tablet 1,000 mg PO BID #180 tabs 08/16/19 09/18/23 Rx metoprolol succinate 100 mg 100 mg PO QAM 03/17/23 09/18/23 History tablet,extended release 24 hr ferrous sulfate 325 mg (65 mg 325 mg PO QAM #30 tabs 04/25/23 09/18/23 Rx iron) tablet,delayed release pantoprazole 40 mg tablet,delayed 40 mg PO BID 04/29/23 09/18/23 History release nitroglycerin 0.4 mg sublingual 0.4 mg sublingual UD PRN Chest Pain 05/16/23 09/18/23 History tablet insulin glargine 100 unit/mL (3 0 unit subcut BID 09/18/23 09/18/23 History mL) subcutaneous pen (Lantus Solostar U-100 Insulin) losartan 25 mg tablet 25 mg PO HS 09/18/23 09/18/23 History furosemide 20 mg tablet 20 mg PO DAILY 1 month #30 tabs 09/19/23 Rx Patient History Medical History (Updated 09/19/23 @ 21:26 by Gurwinder Romero MD) Pulmonary hypertension Mitral regurgitation GERD (gastroesophageal reflux disease) History of duodenal ulcer Insulin dependent type 2 diabetes mellitus Hypertension controlled, stable per pt History of blood transfusion 2015 with CABG Seizure 1 yr ago, in setting of hypoglycemia, no additional seizure activity Carotid stenosis < 50% stenosis ICAs bilat 12/2021 doppler Hearing deficit On anticoagulant therapy plavix daily Myocardial Infarction per Dr. Eisenberg's note recurrent NSTEMI: 07/2016 and in 2017--heart caths with stents placed--had CABG 07/2016 @ [facility] follows with Dr. Eisenberg History of COVID-19 09/2020--mild symptoms, denies hospitalization, no symptoms now Aortic stenosis moderate on 03/2023 echo Herniation of cervical intervertebral disc Gout Coronary artery disease s/p 4 stents, CABG x 3 in 2016, most recent stent in 2017 Surgical History (Updated 09/19/23 @ 21:26 by Gurwinder Romero MD) S/P coronary artery stent placement History of reverse total replacement of right shoulder joint History of colonoscopy History of tooth extraction History of wisdom tooth extraction History of cardiac cath multiple in 2015 with last 11/2016 @ [facility]--x4 stents total placed S/P coronary artery bypass graft x 3 07/2016 @ [facility] S/P epidural steroid injection Family History Father Myocardial infarction Other No family history of adverse response to anesthesia Social History Smoking Status: Former smoker Tobacco Type: Cigarettes Age Started Using Tobacco: 60; Age Quit Using Tobacco: 65; Second Hand Exposure: No; Do You Dip or Chew Tobacco: No; Hx Alcohol Use: No Hx Substance Use: No Preferred Language: Hebrew Communication Ability: Effective Direct Support Staff Member Required: No Beliefs That Will Affect Care: None marital status: Current Living Situation: Spouse current occupational status: retired Feels Safe at Home: Yes Assistive Devices: None Physical Exam Physical Exam: Gen.: No acute distress. Alert and oriented. HEENT: Anicteric sclera. Neck: No JVD. No hepatojugular reflux. Normal carotid upstrokes bilaterally. Cardiac: No ventricular heave. Regular. Normal S1-S2. 2/6 mid peaking systolic ejection murmur heard best at right upper sternal border. No rubs or gallops. Pulmonary: Clear to auscultation bilaterally without wheezes, rales, or rhonchi. Abdomen: Soft, nontender, nondistended, with normoactive bowel sounds. No bruits noted. Extremities: 2+ radial pulses bilaterally. 2+ posterior tibialis pulses bilaterally. No significant pitting edema or cyanosis. Psychiatric: Affect appears appropriate. Results & Data Vital Signs (Past 12 Hours) Vital Signs Temp Pulse Pulse Resp BP Pulse Ox O2 Del Method 09/19/23 15:27 36.6 C 68 13 152/84 H 98 Room Air 09/19/23 11:36 36.3 C L 70 15 157/84 H 97 Room Air 09/19/23 07:54 36.7 C 76 13 167/83 H 96 Room Air 09/19/23 07:00 Room Air 09/19/23 07:00 67 Intake & Output 09/17/23 09/18/23 09/19/23 09/20/23 06:59 06:59 06:59 06:59 Intake Total 350 / 350 480 / 480 Balance 350 / 350 480 / 480 Weight 192 lb 14.472 oz Laboratory Results Laboratory Results - last 24 hr 09/18/23 09/18/23 09/19/23 17:18 21:01 06:07 WBC RBC Hgb Hct MCV MCH MCHC RDW Std Deviation RDW Coeff of Ernesto Plt Count MPV Immature Gran % (Auto) Neut % (Auto) Lymph % (Auto) Stewart % (Auto) Eos % (Auto) Baso % (Auto) Neut # (Auto) Lymph # (Auto) Stewart # (Auto) Eos # (Auto) Baso # (Auto) Immature Gran # (Auto) Sodium Potassium Chloride Carbon Dioxide Anion Gap BUN Creatinine Est Cr Clr Drug Dosing Est GFR ( Amer) Est GFR (Non-Af Amer) BUN/Creatinine Ratio Glucose POC Glucose 103 H 49 L* Estimat Average Glucose Hemoglobin A1c Calcium Magnesium Troponin I High Sens Urine Color Yellow Urine Appearance Clear Urine pH 5.5 Ur Specific [place] 1.007 Urine Protein Trace H Urine Glucose (UA) Negative Urine Ketones Negative Urine Blood Negative Urine Nitrite Negative Urine Bilirubin Negative Urine Urobilinogen Negative Ur Leukocyte Esterase Negative Urine WBC (Auto) 1-5 Urine RBC (Auto) 0-4 U Hyaline Cast (Auto) 1-5 U Epithel Cells (Auto) 0-5 Urine Bacteria (Auto) Negative Ur Random Creatinine 11.6 U Random Total Protein 19.1 H Protein/Creatinin Ratio 1.6 H 09/19/23 09/19/23 09/19/23 06:10 06:32 06:41 WBC 5.60 RBC 4.40 L Hgb 11.6 L Hct 36.9 L MCV 83.9 MCH 26.4 MCHC 31.4 L RDW Std Deviation 50.9 H RDW Coeff of Ernesto 16.6 H Plt Count 256 MPV 10.2 Immature Gran % (Auto) 0.4 Neut % (Auto) 69.4 Lymph % (Auto) 19.5 Stewart % (Auto) 8.6 Eos % (Auto) 1.6 Baso % (Auto) 0.5 Neut # (Auto) 3.89 Lymph # (Auto) 1.09 L Stewart # (Auto) 0.48 Eos # (Auto) 0.09 Baso # (Auto) 0.03 Immature Gran # (Auto) 0.02 Sodium 137 Potassium 3.8 Chloride 104 Carbon Dioxide 25 Anion Gap 8 BUN 24 H Creatinine 1.63 H Est Cr Clr Drug Dosing 43.3 Est GFR ( Amer) 48.1 Est GFR (Non-Af Amer) 41.5 BUN/Creatinine Ratio 14.7 Glucose 118 H POC Glucose 61 L* 77 Estimat Average Glucose 131 Hemoglobin A1c 6.2 H Calcium 8.7 Magnesium 1.8 Troponin I High Sens 48.9 H D Urine Color Urine Appearance Urine pH Ur Specific [place] Urine Protein Urine Glucose (UA) Urine Ketones Urine Blood Urine Nitrite Urine Bilirubin Urine Urobilinogen Ur Leukocyte Esterase Urine WBC (Auto) Urine RBC (Auto) U Hyaline Cast (Auto) U Epithel Cells (Auto) Urine Bacteria (Auto) Ur Random Creatinine U Random Total Protein Protein/Creatinin Ratio 09/19/23 09/19/23 08:05 12:27 WBC RBC Hgb Hct MCV MCH MCHC RDW Std Deviation RDW Coeff of Ernesto Plt Count MPV Immature Gran % (Auto) Neut % (Auto) Lymph % (Auto) Stewart % (Auto) Eos % (Auto) Baso % (Auto) Neut # (Auto) Lymph # (Auto) Stewart # (Auto) Eos # (Auto) Baso # (Auto) Immature Gran # (Auto) Sodium Potassium Chloride Carbon Dioxide Anion Gap BUN Creatinine Est Cr Clr Drug Dosing Est GFR ( Amer) Est GFR (Non-Af Amer) BUN/Creatinine Ratio Glucose POC Glucose 164 H 73 Estimat Average Glucose Hemoglobin A1c Calcium Magnesium Troponin I High Sens Urine Color Urine Appearance Urine pH Ur Specific [place] Urine Protein Urine Glucose (UA) Urine Ketones Urine Blood Urine Nitrite Urine Bilirubin Urine Urobilinogen Ur Leukocyte Esterase Urine WBC (Auto) Urine RBC (Auto) U Hyaline Cast (Auto) U Epithel Cells (Auto) Urine Bacteria (Auto) Ur Random Creatinine U Random Total Protein Protein/Creatinin Ratio Diagnostic Findings History and physical report and outpatient cardiology notes reviewed. Labs reviewed and notable for elevated BNP, mildly elevated high-sensitivity troponin peaked at 65.5, normal potassium, mildly abnormal but stable renal function, mild but improved hemoglobin. Echo reviewed 09/19/2023: Low normal LV systolic function. Estimated EF 50 to 55%. Mild hypokinesis of the inferolateral wall. Severe hypokinesis to akinesis of the basal inferoseptal and basal inferior wall segments. Severe concentric LVH. Type III diastolic dysfunction. Severe left atrial dilation. Moderate aortic stenosis with trace AI (PV 3.1; MG 21; EDU 1.4; DI 0.26). Moderate to severe eccentric MR. Severe pulm hypertension. RVSP 62. Pleural effusion. ECG personally reviewed 09/18/2023: Sinus rhythm 74 bpm. Telemetry personally reviewed: Sinus rhythm. No arrhythmia. Chest x-ray 09/18/2023: Small bilateral pleural effusions. Venous Doppler study 09/18/2023: No DVT of the right lower extremity. Medications Administered Current Inpatient Medications Allopurinol (Allopurinol 100 Mg Tab) 100 mg PO [facility] Stop: 10/18/23 20:59 Last Admin: 09/18/23 22:34 Dose: 100 mg Atorvastatin Calcium (Atorvastatin 40 Mg Tab) 80 mg PO [facility] Stop: 10/18/23 20:59 Last Admin: 09/18/23 22:35 Dose: 80 mg Clopidogrel Bisulfate (Clopidogrel Bisulfate 75 Mg Tab) 75 mg PO [facility] Stop: 10/19/23 08:59 Last Admin: 09/19/23 08:56 Dose: 75 mg Dextrose (Dextrose 50% 50 Ml Syringe) 25 - 50 ml IV UD PRN; Protocol PRN Reason: Hypoglycemia Protocol Stop: 10/18/23 16:45 Glucagon (Glucagon For Inj 1 Mg Vial) 1 mg SQ UD PRN; Protocol PRN Reason: Hypoglycemia Protocol Stop: 10/18/23 16:45 Glucose (Glucose 10 Tab/Tube) 4 - 8 tab PO UD PRN; Protocol PRN Reason: Hypoglycemia Treatment Stop: 10/18/23 16:45 Glucose (Glucose 40% Gel 15 Gm Tube) 15 - 30 gm PO UD PRN; Protocol PRN Reason: Hypoglycemia Protocol Stop: 10/18/23 16:45 Heparin Sodium (Porcine) (Heparin Sod 5,000 Unit/0.5 Ml Vial) 5,000 units SQ BID [facility] Stop: 10/18/23 23:14 Last Admin: 09/19/23 08:56 Dose: 5,000 units Insulin Aspart (Insulin Aspart Per Unit Charge) 0 units SC ACHS [facility] Stop: 10/18/23 20:59 Last Admin: 09/19/23 13:27 Dose: 3 units Metoprolol Succinate (Metoprolol Succ 50mg Ext Rel Tab) 100 mg PO QAM [facility] Stop: 10/19/23 08:59 Last Admin: 09/19/23 08:56 Dose: 100 mg Miscellaneous (Carbohydrates For Hypoglycemia ) 15 - 30 gm PO UD PRN PRN Reason: Hypoglycemia Protocol Stop: 10/18/23 16:45 Last Admin: 09/19/23 06:14 Dose: 15 gm Pantoprazole Sodium (Pantoprazole 40 Mg Tab) 40 mg PO BID [facility] Stop: 10/18/23 20:59 Last Admin: 09/19/23 08:56 Dose: 40 mg PG Care Time/CCT Total # of Minutes Spent Total Time Spent with Patient: Total time spent is greater than 50% in coordination of care (as documented) at patient's floor/unit and/or counseling patient: Coding Level of Care Code 24841 INT INP/OBS CARE 3/75MIN Diagnoses Acute heart failure with preserved ejection fraction I50.31 Elevated troponin R79.89 Aortic stenosis I35.0 Mitral regurgitation I34.0 Pulmonary hypertension I27.20 Sleep apnea G47.30 Coronary artery disease involving [place] coronary artery of [place] heart without angina pectoris I25.10 Coronary Disease-Associated Artery/Lesion type: [place] artery [place] vs. transplanted heart: [place] heart Associated angina: without angina S/P coronary artery stent placement Z95.5 S/P coronary artery bypass graft x 3 Z95.1 (7) Coronary artery disease Coronary Disease-Associated Artery/Lesion type: [place] artery [place] vs. transplanted heart: [place] heart Associated angina: without angina Qualified Code(s): I25.10 - Atherosclerotic heart disease of [place] coronary artery without angina pectoris
--- NOTE | 2023-09-19 16:54 | Billing Data ---
Date of Service September 19, 2023 Coding Level of Care Code 97371 IN/OBS DISCH 30 MIN/LESS
--- NOTE | 2023-09-20 22:01 | Electrocardiogram Report ---
Test Reason : Blood Pressure : / mmHG Vent. Rate : 074 BPM Atrial Rate : 074 BPM P-R Int : 150 ms QRS Dur : 106 ms QT Int : 422 ms P-R-T Axes : 054 065 070 degrees QTc Int : 468 ms Normal sinus rhythm Possible Left atrial enlargement Borderline ECG When compared with ECG of 16-MAY-2023 19:40, No significant change was found Confirmed by Gurwinder Romero ([id number]) on 09/20/2023 10:00:30 PM Referred By: REFERRED SELF Confirmed By:Gurwinder Romero
== END 2023-09-19 17:30 | disposition home or self-care (01) | DRG 291 ==
LOC: ED 11:56 → EDINP 14:21 → SUATTDRO 14:21 → 2N 15:06 → INTOOBSV 15:40 → 2N 21:42